=== PATIENT | female | born 1935 | race Caucasian/White ===

== ENCOUNTER 2017-07-09 06:16 | Day surgery (SDC) | payer MEDICARE, OTHER ==
[2017-07-03 15:41] VITALS: BMI 24.6
[~2017-07-09 06:16] MED LIST: LACTATED RINGERS 1,000 ML IV SCH; MOXIFLOXACIN HCL 0.5% DROPS 3 ML BTL OP ONE; TETRACAINE 0.5% OPHTH (PF) DROPS 4 ML BTL OP ONE; TIMOLOL 0.5% OPHTH SOLN (PF) 0.2 ML DROPERETTE OP ONE
[2017-07-09] MEDS: CYCLOPENTOLATE 1% OPHTH SOLN 2 ML BTL OP ONE ×3 (06:33→06:39)
[2017-07-09] MEDS: PHENYLEPHRINE 2.5% OPHTH DRP 2ML OP NR ×3 (06:42→06:48)
[2017-07-09 07:03] VITALS: TEMP 98.3
[2017-07-09] MEDS ORDERED: LIDOCAINE 1% 20 ML VIAL (10MG/ML) FOR IV START INTRADERMA ONE (07:03)
[2017-07-09 07:09] LABS: Glucose,Whole Blood 128 mg/dL (75-99)
[2017-07-09] MEDS ORDERED: fentaNYL (PF) 50 MCG/ML 2 ML AMP ONE (07:17)
[2017-07-09] MEDS ORDERED: HYALURONATE SODIUM INTRAOCULAR 1 EACH SYRINGE (12MG/ML) INTRAOCULA ONE (07:34)
[2017-07-09] MEDS ORDERED: LIDOCAINE 1% (PF) 10MG/ML VIAL MISCELLANE ONE (07:34)
[2017-07-09] MEDS ORDERED: BALANCED SALT IRRIG SOLN COMB2 15 ML IRRIG.SOLN IRRIGATION ONE (07:34)
[2017-07-09] MEDS ORDERED: EPINEPHrine (PF) 0.3 ML in BALANCED SALT IRRIG SOLN COMB2 500 ML IRRIGATION ONE (07:35)
--- NOTE | 2017-07-09 07:49 | P.OP ---
Date of Procedure: 07/09/17 Preoperative Diagnosis: nuclear sclerosis Postoperative Diagnosis: same Procedure(s) Performed: PIOL, OD Implants: PCB00 18.50 Anesthesia: MAC Surgeon: Raúl Napoles Estimated Blood Loss (ml): 0 Pathology: none sent Condition: stable Disposition: same day Indications for Procedure: blurry vision Operative Findings: No complications
[2017-07-09 07:52] VITALS: RESP 18
[2017-07-09 08:11] VITALS: BP 136/67; PULSE 77
--- NOTE | 2017-07-10 11:12 | OP ---
OPERATIVE REPORT DATE OF SERVICE: 07/09/2017 PROCEDURE: Phacoemulsification of cataract and intraocular lens implant of the right eye. PREOPERATIVE DIAGNOSIS: Nuclear sclerosis. OPERATION:: Clear cornea phacoemulsification of cataract right eye. ESTIMATED BLOOD LOSS:: Zero. SPECIMEN TAKEN:: None. NARRATIVE:: After obtaining the appropriate consent, the patient was brought to the Operating Room where the patient was placed under cardiac monitoring and prepped and draped in the usual sterile manner. At the right eye 11 o'clock position a 15 degree super sharp blade was used to create a paracentesis followed by instillation of 1% Xylocaine MPF 50:50 mix with BSS into the anterior chamber. This was followed by Amvisc to stabilize the anterior chamber. At the right eye 9 o'clock position a self-sealing corneal flap incision was created using 2.8 mm parvez keratome. A cystatome was used to initiate a continuous tear capsulorrhexis which was completed with the Utrata forceps. A Binkhorst cannula was used to hydrodissect the lens nucleus followed by hydrodelineation. Phacoemulsification of the lens was performed utilizing phacochop in 26.65 seconds at 11% power. The remaining cortical material was removed using the irrigation aspiration mode followed by additional 1% Xylocaine MPF into the anterior chamber followed by viscoelastic to stabilize the capsular bag. An [id number] 18.5 diopters posterior chamber lens was placed into the capsular bag without difficulty. The remaining viscoelastic material was removed from the anterior chamber with the irrigation/aspiration. Balanced salt solution was used to normalize the intraocular pressure. The incision was checked for watertight integrity. The patient then received two drops of 0.5% timolol followed by two drops Vigamox, was lightly patched and shielded in the usual manner. There were no complications from the procedure. The patient tolerated the procedure well and was returned to recovery in good condition. MMODL / IJN: [id number] /
== END 2017-07-09 08:26 | disposition home or self-care (01) ==
LOC: OR 06:16
PROVIDERS: ATTEND Ophthalmology
DX: H25.11 Age-related nuclear cataract, right eye (principal); H25.011 Cortical age-related cataract, right eye; H52.4 Presbyopia; H52.13 Myopia, bilateral; H52.223 Regular astigmatism, bilateral; E11.9 Type 2 diabetes mellitus without complications; I10 Essential (primary) hypertension; E78.5 Hyperlipidemia, unspecified; Z79.84 Long term (current) use of oral hypoglycemic drugs; Z79.899 Other long term (current) drug therapy
CPT/HCPCS: 66984; C1780; J0171; J3010; J2001

== ENCOUNTER 2017-12-10 05:40 | Day surgery (SDC) | payer MEDICARE ==
[2017-12-02 15:30] VITALS: BMI 25.7
[~2017-12-10 05:40] MED LIST changes: +TIMOLOL 0.5% OPHTH DROPS 5 ML BTL OP ONE; -TIMOLOL 0.5% OPHTH SOLN (PF) 0.2 ML DROPERETTE OP ONE
[2017-12-10] MEDS: CYCLOPENTOLATE 1% OPHTH SOLN 2 ML BTL OP ONE ×5 (06:15→07:34)
[2017-12-10] MEDS: PHENYLEPHRINE 2.5% OPHTH DRP 2ML OP NR ×4 (06:18→06:36)
[2017-12-10 06:30] VITALS: TEMP 97
[2017-12-10 06:42] LABS: Glucose,Whole Blood 105 mg/dL (75-99)
[2017-12-10] MEDS ORDERED: fentaNYL (PF) 50 MCG/ML 2 ML AMP ONE (07:33)
[2017-12-10] MEDS ORDERED: MIDAZOLAM 2 MG/2 ML VIAL ONE (07:33)
[2017-12-10] MEDS ORDERED: EPINEPHrine (PF) 0.3 ML in BALANCED SALT IRRIG SOLN COMB2 500 ML IRRIGATION ONE (07:46)
[2017-12-10] MEDS ORDERED: BALANCED SALT IRRIG SOLN COMB2 15 ML IRRIG.SOLN IRRIGATION ONE (07:49)
[2017-12-10] MEDS ORDERED: TETRACAINE 0.5% OPHTH (PF) DROPS 4 ML BTL LEFT EYE ONE (07:49)
[2017-12-10] MEDS ORDERED: LIDOCAINE 1% (PF) 10MG/ML VIAL MISCELLANE ONE (07:49)
[2017-12-10] MEDS ORDERED: HYALURONATE SODIUM INTRAOCULAR 1 EACH SYRINGE (12MG/ML) INTRAOCULA ONE (07:49)
--- NOTE | 2017-12-10 08:06 | P.OP ---
Date of Procedure: 12/10/17 Preoperative Diagnosis: NS Postoperative Diagnosis: same Procedure(s) Performed: PIOL, OS Implants: PCB00 17.00 Anesthesia: MAC Surgeon: Raúl Napoles Estimated Blood Loss (ml): 0 Pathology: none sent Condition: stable Disposition: same day Indications for Procedure: blurry vision Operative Findings: no complications
[2017-12-10 08:18] VITALS: RESP 16
[2017-12-10 08:25] VITALS: BP 133/67; PULSE 81
--- NOTE | 2017-12-10 21:22 | OP ---
OPERATIVE REPORT DATE OF SERVICE: 12/10/2017. PREOPERATIVE DIAGNOSIS:: Nuclear sclerosis, left eye. POSTOPERATIVE DIAGNOSIS:: Nuclear sclerosis, left eye. OPERATION:: Phacoemulsification of cataract and intraocular lens implant of the left eye. ESTIMATED BLOOD LOSS:: Zero. SPECIMEN TAKEN:: None. NARRATIVE:: After obtaining the appropriate consent, the patient was brought to the Operating Room where the patient was placed under cardiac monitoring and prepped and draped in the usual sterile manner. At the 5 o'clock position a 15 degree super sharp blade was used to create a paracentesis followed by instillation of 1% Xylocaine MPF 50:50 mix with BSS into the anterior chamber. This was followed by to stabilize the anterior chamber. At the 3 o'clock position a self-sealing corneal flap incision was created using 2.8 mm parvez keratome. A cystatome was used to initiate a continuous tear capsulorrhexis which was completed with the Utrata forceps. A Binkhorst cannula was used to hydrodissect the lens nucleus followed by hydrodelineation. Phacoemulsification of the lens was performed utilizing phacochop in 37.93 seconds at 14% power. The remaining cortical material was removed using the irrigation aspiration mode followed by additional 1% Xylocaine MPF into the anterior chamber followed by Amvisc viscoelastic to stabilize the capsular bag. An [id number] 17.0 diopter posterior chamber lens was placed into the capsular bag without difficulty. The remaining viscoelastic material was removed from the anterior chamber with the irrigation/aspiration. Balanced salt solution was used to normalize the intraocular pressure. The incision was checked for watertight integrity. The patient then received two drops of 0.5% timolol followed by two drops Vigamox, was lightly patched and shielded in the usual manner. There were no complications from the procedure. The patient tolerated the procedure well and was returned to recovery in good condition. MMODL / IJN: [id number] /
== END 2017-12-10 08:39 | disposition home or self-care (01) ==
LOC: OR 05:40
PROVIDERS: ATTEND Ophthalmology
DX: H25.12 Age-related nuclear cataract, left eye (principal); H00.026 Hordeolum internum left eye, unspecified eyelid; H00.023 Hordeolum internum right eye, unspecified eyelid; H52.4 Presbyopia; H52.13 Myopia, bilateral; H52.223 Regular astigmatism, bilateral; Z96.1 Presence of intraocular lens; E11.9 Type 2 diabetes mellitus without complications; J45.909 Unspecified asthma, uncomplicated; I10 Essential (primary) hypertension; E78.5 Hyperlipidemia, unspecified; Z79.84 Long term (current) use of oral hypoglycemic drugs; Z79.82 Long term (current) use of aspirin; Z79.899 Other long term (current) drug therapy; Z91.040 Latex allergy status

== ENCOUNTER → 2018-05-05 | Outpatient (CLI) | payer MEDICARE ==
--- NOTE | 2018-05-05 14:39 | NM ---
EXAMINATION TYPE: NM bone scan whole body DATE OF EXAM: 05/05/2018 COMPARISON: NONE HISTORY: Radiculopathy Delayed whole-body scanning was performed following the injection of 27.1 mCi Tc 99m MDP. Images acq uired 3.25 hours post injection. FINDINGS: Uptake is present within the cervical spine, possibly mastoid air cells on the left, sternoclavicular joints, shoulders, wrists, knees. There is uptake in the thoracic spine, bandlike area of uptake is present at approximately T8 and T9. Uptake at the costovertebral angles also present on the right at T7 and T6. There is a scoliotic curvature in the upper thoracic spine. There is uptake noted at the u pper thoracic spine bilaterally. IMPRESSION: Suspect osteoporotic compression fractures. Probable facet arthropathy, degenerative disc disease, os teoarthritis. Correlate for possible mastoiditis.
== END | disposition home or self-care (01) ==
LOC: RADNMMAIN 10:28
PROVIDERS: ATTEND Physical Medicine & Rehabilitation
DX: M54.12 Radiculopathy, cervical region (principal); M25.511 Pain in right shoulder; M25.512 Pain in left shoulder
CPT/HCPCS: 78306; A9503

== ENCOUNTER 2020-09-03 10:35 | Inpatient (IN) | payer MEDICARE ==
[2020-09-03] MEDS ORDERED: ACETAMINOPHEN TAB 500 MG TAB PO STA (11:20)
[2020-09-03] MEDS ORDERED: SODIUM CHLORIDE 0.9% 1,000 ML IV ONE (11:22)
[2020-09-03] MEDS ORDERED: IBUPROFEN 600 MG TAB PO STA (11:22)
--- NOTE | 2020-09-03 11:25 | ED ---
General Adult HPI - General Chief complaint: Nausea/Vomiting/Diarrhea Stated complaint: diarrhea, dehydration, fatigue Time Seen by Provider: 09/03/20 10:55 Source: patient, RN notes reviewed, old records reviewed Mode of arrival: ambulatory Limitations: no limitations - History of Present Illness Initial comments: This is an 85-year-old female presents emergency Department complaining that she has had diarrhea for 4 days. Patient states he been unable to eat because she just doesn't feel right. Patient denies any vomiting but does have a little n ausea. Patient states she's also had chills over the last 4 days. Patient states she may have had some exposure to go because people in her facility have had cold. Patient states she has a dry cough every morning but no difficulty breathing shortness of breath. Patient denies any chest pain or palpitations. Patient states she hasn't taken her temperature but again has had the chills. Patient denies any abdominal pain. Patient denies any dysuria hematuria urinary frequency. - Related Data Home Medications Medication Instructions Recorded Confirmed Losartan Potassium [Cozaar] 50 mg PO DAILY 07/03/17 12/10/17 Simvastatin [Zocor] 20 mg PO HS 07/03/17 12/10/17 glipiZIDE/METFORMIN HCL 1 each PO BID 07/03/17 12/10/17 [glipiZIDE/METFORMIN HCL 2.5-500 mg] Aspirin [Adult Low Dose Aspirin EC] 81 mg PO DAILY 12/02/17 12/10/17 Allergies Allergy/AdvReac Type Severity Reaction Status Date / Time latex Allergy Unknown Itching Verified 12/02/17 15:19 Review of Systems ROS Statement: Those systems with pertinent positive or pertinent negative responses have been documented in the HPI. ROS Other: All systems not noted in ROS Statement are negative. Past Medical History Past Medical History: Diabetes Mellitus, Eye Disorder, Hyperlipidemia, Hypertension, Osteoarthritis (OA) Additional Past Medical History / Comment(s): back pain., hx of vertigo., cataract left eye. History of Any Multi-Drug Resistant Organisms: None Reported Past Surgical History: Hysterectomy Additional Past Surgical History / Comment(s): right cataract (jul 2017) Past Anesthesia/Blood Transfusion Reactions: No Reported Reaction Past Psychological History: No Psychological Hx Reported Smoking Status: Never smoker Past Alcohol Use History: None Reported Past Drug Use History: None Reported - Past Family History Mother Family Medical History: No Reported History Son(s) History Unknown: Yes Family Medical History: Cancer Additional Family Medical History / Comment(s): skin cancer General Exam - General Exam Comments Initial Comments: GENERAL: Patient is well-developed and well-nourished. Patient is nontoxic and well- hydrated and is in mild distress. I took the patient's temperature she was 102.4 ENT: Neck is soft and supple. No significant lymphadenopathy is noted. Oropharynx is clear. Moist mucous membranes. Neck has full range of motion without eliciting any pain. EYES: The sclera were anicteric and conjunctiva were pink and moist. Extraocular movements were intact and pupils were equal round and reactive to light. Eyelids were unremarkable. PULMONARY: Unlabored respirations. Good breath sounds bilaterally. No audible rales rhonchi or wheezing was noted. CARDIOVASCULAR: There is a regular rate and rhythm without any murmurs gallops or rubs. ABDOMEN: Soft and nontender with normal bowel sounds. SKIN: Skin is clear with no lesions or rashes and otherwise unremarkable. NEUROLOGIC: Patient is alert and oriented x3. Cranial nerves II through XII are grossly intact. Motor and sensory are also intact. Normal speech, volume and content. Symmetrical smile. MUSCULOSKELETAL: Normal extremities with adequate strength and full range of motion. LYMPHATICS: No significant lymphadenopathy is noted PSYCHIATRIC: Normal psychiatric evaluation. Limitations: no limitations Course Vital Signs 09/03/20 09/03/20 09/03/20 10:53 11:08 11:19 Temperature 100.4 F H 102.4 F H 102.4 F H Pulse Rate 90 87 Respiratory 18 18 Rate Blood Pressure 121/61 134/71 O2 Sat by Pulse 95 94 L Oximetry 09/03/20 09/03/20 09/03/20 11:23 11:38 11:53 Temperature 102.3 F H 102.1 F H 102 F H Pulse Rate 90 93 89 Respiratory 18 18 18 Rate Blood Pressure 136/75 134/55 119/67 O2 Sat by Pulse 95 95 94 L Oximetry 09/03/20 12:42 Temperature 101.2 F H Pulse Rate 88 Respiratory 18 Rate Blood Pressure 118/60 O2 Sat by Pulse 94 L Oximetry Medical Decision Making - Medical Decision Making EKG shows normal sinus rhythm at 85 bpm IL interval 164 QRS on a 36 QT interval 390 QTC is 473. Patient's EKG shows a right bundle alfredito block. Chronic virus test was negative. D-dimer was elevated so I did a CT rule out PE P was negative patient does have bilateral trace much worse on the right than the left. I treated the patient with antibiotics and I spoke with Dr. Patel she agreed to admit the patient admitted the patient wrote admitting orders - Lab Data Result diagrams: 09/03/20 11:56 09/03/20 11:56 Lab Results 09/03/20 09/03/20 09/03/20 Range/Units 11:56 11:56 11:56 WBC 3.4 L (3.8-10.6) k/uL RBC 4.10 (3.80-5.40) m/uL Hgb 12.9 (11.4-16.0) gm/dL Hct 37.1 (34.0-46.0) % MCV 90.6 (80.0-100.0) fL MCH 31.4 (25.0-35.0) pg MCHC 34.7 (31.0-37.0) g/dL RDW 12.6 (11.5-15.5) % Plt Count 173 (150-450) k/uL MPV 8.3 Neutrophils % 76 % Lymphocytes % 16 % Monocytes % 6 % Eosinophils % 0 % Basophils % 1 % Neutrophils # 2.6 (1.3-7.7) k/uL Lymphocytes # 0.5 L (1.0-4.8) k/uL Monocytes # 0.2 (0-1.0) k/uL Eosinophils # 0.0 (0-0.7) k/uL Basophils # 0.0 (0-0.2) k/uL PT 9.8 (9.0-12.0) sec INR 0.9 (<1.2) APTT 23.9 (22.0-30.0) sec D-Dimer 2.68 H (<0.60) mg/L FEU Sodium 133 L (137-145) mmol/L Potassium 4.2 (3.5-5.1) mmol/L Chloride 103 (98-107) mmol/L Carbon Dioxide 22 (22-30) mmol/L Anion Gap 8 mmol/L BUN 27 H (7-17) mg/dL Creatinine 1.14 H (0.52-1.04) mg/dL Est GFR (CKD-EPI)AfAm 51 (>60 ml/min/1.73 sqM) Est GFR (CKD-EPI)NonAf 44 (>60 ml/min/1.73 sqM) Glucose 84 (74-99) mg/dL Plasma Lactic Acid Janak (0.7-2.0) mmol/L Calcium 8.7 (8.4-10.2) mg/dL Magnesium 1.6 (1.6-2.3) mg/dL Total Bilirubin 0.5 (0.2-1.3) mg/dL AST 49 H (14-36) U/L ALT 29 (4-34) U/L Alkaline Phosphatase 50 (38-126) U/L Lactate Dehydrogenase 743 H (313-618) U/L C-Reactive Protein 32.9 H (<10.0) mg/L Total Protein 6.7 (6.3-8.2) g/dL Albumin 3.6 (3.5-5.0) g/dL Coronavirus (PCR) (Not Detectd) Influenza Type A (PCR) (Not Detectd) Influenza Type B (PCR) (Not Detectd) RSV (PCR) (Not Detectd) SARS-CoV-2 (PCR) (Not Detectd) 09/03/20 09/03/20 09/03/20 Range/Units 11:56 12:42 14:29 WBC (3.8-10.6) k/uL RBC (3.80-5.40) m/uL Hgb (11.4-16.0) gm/dL Hct (34.0-46.0) % MCV (80.0-100.0) fL MCH (25.0-35.0) pg MCHC (31.0-37.0) g/dL RDW (11.5-15.5) % Plt Count (150-450) k/uL MPV Neutrophils % % Lymphocytes % % Monocytes % % Eosinophils % % Basophils % % Neutrophils # (1.3-7.7) k/uL Lymphocytes # (1.0-4.8) k/uL Monocytes # (0-1.0) k/uL Eosinophils # (0-0.7) k/uL Basophils # (0-0.2) k/uL PT (9.0-12.0) sec INR (<1.2) APTT (22.0-30.0) sec D-Dimer (<0.60) mg/L FEU Sodium (137-145) mmol/L Potassium (3.5-5.1) mmol/L Chloride (98-107) mmol/L Carbon Dioxide (22-30) mmol/L Anion Gap mmol/L BUN (7-17) mg/dL Creatinine (0.52-1.04) mg/dL Est GFR (CKD-EPI)AfAm (>60 ml/min/1.73 sqM) Est GFR (CKD-EPI)NonAf (>60 ml/min/1.73 sqM) Glucose (74-99) mg/dL Plasma Lactic Acid Janak 1.5 (0.7-2.0) mmol/L Calcium (8.4-10.2) mg/dL Magnesium (1.6-2.3) mg/dL Total Bilirubin (0.2-1.3) mg/dL AST (14-36) U/L ALT (4-34) U/L Alkaline Phosphatase (38-126) U/L Lactate Dehydrogenase (313-618) U/L C-Reactive Protein (<10.0) mg/L Total Protein (6.3-8.2) g/dL Albumin (3.5-5.0) g/dL Coronavirus (PCR) Not Detected (Not Detectd) Influenza Type A (PCR) Not Detected (Not Detectd) Influenza Type B (PCR) Not Detected (Not Detectd) RSV (PCR) Not Detected (Not Detectd) SARS-CoV-2 (PCR) Not Detected (Not Detectd) Disposition Clinical Impression: Pneumonia, Acute diarrhea Disposition: ADMITTED IP TO THIS [facility] Referrals: Alhaji Mayorga MD [Primary Care Provider] - 1-2 days Time of Disposition: 15:03
[2020-09-03 12:02] LABS: Basophils % (A) 1 %; Eosinophils % (A) 0 %; HCT 37.1 % (34.0-46.0); HGB 12.9 gm/dL (11.4-16.0); Lymphocytes # (A) 0.5 k/uL (1.0-4.8); Lymphocytes % (A) 16 %; MCH 31.4 pg (25.0-35.0); MCHC 34.7 g/dL (31.0-37.0); MCV 90.6 fL (80.0-100.0); Mean Platelet Volume 8.3; Monocytes # (A) 0.2 k/uL (0-1.0); Monocytes % (A) 6 %; Neutrophils # (A) 2.6 k/uL (1.3-7.7); Neutrophils % (A) 76 %; Platelet Count 173 k/uL (150-450); RDW 12.6 % (11.5-15.5); WBC 3.4 k/uL (3.8-10.6)
[2020-09-03 12:12] LABS: Albumin 3.6 g/dL (3.5-5.0); C Reactive Protein 32.9 mg/L (<10.0); Calcium 8.7 mg/dL (8.4-10.2); Magnesium 1.6 mg/dL (1.6-2.3); Potassium 4.2 mmol/L (3.5-5.1); Total Bilirubin 0.5 mg/dL (0.2-1.3); Total Protein 6.7 g/dL (6.3-8.2)
[2020-09-03 12:24] LABS: INR 0.9 (<1.2)
[2020-09-03 12:25] LABS: Partial Thromboplastin Time 23.9 sec (22.0-30.0); Prothrombin Time 9.8 sec (9.0-12.0)
[2020-09-03 12:26] LABS: D-Dimer 2.68 mg/L FEU (<0.60)
--- NOTE | 2020-09-03 12:37 | XR ---
EXAMINATION TYPE: XR chest 1V portable DATE OF EXAM: 09/03/2020 COMPARISON: NONE HISTORY: Shortness of breath, suspected pulmonary pneumonia TECHNIQUE: Single AP portable frontal upright view of the chest is obtained. FINDINGS: There is chronic parenchymal change bilaterally without suspicious focal air space opacity , pleural effusion, or pneumothorax seen. The cardiac silhouette size is within normal limits with a therosclerotic change aortic knob. The osseous structures are somewhat demineralized. IMPRESSION: Chronic changes without acute pulmonary process.
--- NOTE | 2020-09-03 14:36 | CT ---
EXAMINATION TYPE: CT chest angio for PE DATE OF EXAM: 09/03/2020 COMPARISON: None HISTORY: Elevated d-dimer and weakness. CT DLP: 288.5 mGycm Automated exposure control for dose reduction was used. CONTRAST: Performed with IV Contrast, patient injected with 62ml mL of Isovue 370. There are 3-D post processed images. There is coarse infiltrate and atelectasis at both lung bases. There is no pleural effusion. Heart si ze is fairly normal. There is no pericardial effusion. There are multiple enlarged bronchial lymph no domenica on the right side more than the left. These measure up to 2 cm. There are some enlarged paratrach eal and subcarinal lymph nodes up to 2 cm. Thoracic aorta shows no aneurysm or dissection. I see no filling defect in the pulmonary arteries. Thoracic aorta is intact. There is no aneurysm or dissection. There is spurring in the thoracic spine. There is no compression fracture. Sternum is intact. IMPRESSION: No evidence of pulmonary embolism. Bilateral lower lobe infiltrate and atelectasis. Mediastinal and b ronchial adenopathy.
[2020-09-03] MEDS ORDERED: PNEUMONIA PROTOCOL UTILIZED 1 EACH MISC PO PRN (15:03)
[2020-09-03] MEDS ORDERED: AZITHROMYCIN 500 MG in SODIUM CHLORIDE 0.9% 250 ML IVPB STA (15:03)
[2020-09-03] MEDS ORDERED: cefTRIAXone IN SWFI 1,000 MG/10 ML SYRINGE IVP STA (15:06)
[2020-09-03] MEDS: SODIUM CHLORIDE 0.9% 1,000 ML IV SCH (15:27)
[2020-09-03 17:16] LABS: Glucose,Whole Blood 58 mg/dL (75-99)
[2020-09-03] MEDS: INSULIN ASPART (NovoLOG) 100 UNIT/ML VIAL SQ SCH ×2 (17:26→20:51)
[2020-09-03 17:35] LABS: Glucose,Whole Blood 64 mg/dL (75-99)
[2020-09-03 17:50] LABS: Glucose,Whole Blood 77 mg/dL (75-99)
[2020-09-03 20:34] LABS: Glucose,Whole Blood 155 mg/dL (75-99)
[2020-09-03] MEDS: ATORVASTATIN 10 MG TAB PO SCH (20:50)
[2020-09-03 23:26] LABS: Ferritin 476.9 ng/mL (10.0-291.0)
[2020-09-04] MEDS: ACETAMINOPHEN TAB 325 MG TAB PO PRN ×2 (05:09→17:14)
[2020-09-04 05:25] LABS: HCT 33.7 % (34.0-46.0); HGB 11.5 gm/dL (11.4-16.0); MCH 31.5 pg (25.0-35.0); MCHC 34.2 g/dL (31.0-37.0); MCV 92.2 fL (80.0-100.0); Mean Platelet Volume 8.1; Platelet Count 178 k/uL (150-450); RBC 3.65 m/uL (3.80-5.40); RDW 12.7 % (11.5-15.5); WBC 3.4 k/uL (3.8-10.6)
[2020-09-04] MEDS: SODIUM CHLORIDE 0.9% 1,000 ML IV SCH ×2 (06:13→17:19)
[2020-09-04 07:40] LABS: Glucose,Whole Blood 139 mg/dL (75-99)
[2020-09-04] MEDS: ENOXAPARIN 40 MG/0.4 ML SYRINGE SQ SCH (09:03)
[2020-09-04] MEDS: ZINC SULFATE 220 MG CAP PO SCH (09:03)
[2020-09-04] MEDS: LOSARTAN 50 MG TAB PO SCH (09:03)
[2020-09-04] MEDS: CHOLECALCIFEROL 1,000 UNIT TAB PO SCH (09:04)
[2020-09-04] MEDS: FAMOTIDINE 20 MG TAB PO SCH (09:04)
[2020-09-04] MEDS: ASCORBIC ACID 500 MG TAB PO SCH (09:04)
[2020-09-04] MEDS: INSULIN ASPART (NovoLOG) 100 UNIT/ML VIAL SQ SCH ×4 (09:07→21:20)
--- NOTE | 2020-09-04 09:17 | XR ---
EXAMINATION TYPE: XR chest 1V portable DATE OF EXAM: 09/04/2020 COMPARISON: 09/03/2020 HISTORY: Cough TECHNIQUE: Single frontal view of the chest is obtained. FINDINGS: Hyperinflation suggests COPD and there is right basilar infiltrate. Heart size stable. No overt failure or pneumothorax. Arthropathy of the shoulders with diffuse osteopenia. Subsegmental mike nges also along the left lung base with a slightly nodular contour to the left hemidiaphragm. Appears to be related to a diaphragmatic hernia on the recent CT scan. IMPRESSION: 1. COPD with bilateral basilar infiltrate stable in appearance.
[2020-09-04 10:06] LABS: African American GFR (CKD) 52.6 (60.0-200.0); Albumin 3.6 g/dL (3.80-4.90); Albumin/Globulin Ratio 1.89 (1.60-3.17); Anion Gap 9.3 mmol/L (4.00-12.00); BUN/Creat Ratio 17.27 Ratio (12.00-20.00); C Reactive Protein 3.2 mg/dL (0.0-0.8); Calcium 7.8 mg/dL (8.7-10.3); Carbon Dioxide 21.7 mmol/L (21.6-31.8); Globulin 1.9 g/dL (1.6-3.3); Non-African American GFR(CKD) 45.4 (60.0-200.0); Potassium 4.1 mmol/L (3.5-5.5); Total Bilirubin 0.2 mg/dL (0.3-1.2); Total Protein 5.5 g/dL (6.2-8.2)
[2020-09-04 11:07] LABS: Glucose,Whole Blood 119 mg/dL (75-99)
[2020-09-04 11:09] LABS: Erythrocyte Sedimentation Rate 34 mm/Hr (0-30)
[2020-09-04] MEDS ORDERED: LOPERAMIDE 2 MG CAP PO PRN (12:55)
--- NOTE | 2020-09-04 13:13 | P.CNPUL ---
History of Present Illness Consult date: 09/04/20 Reason for consult: other Chief complaint: Positive chills, diarrhea History of present illness: 85-year-old white female patient past medical history of diabetes mellitus, hypertension, hyperlipidemia, osteoarthritis, chronic back pain, nonsmoker, who presented to the emergency department on 09/03/2020 for evaluation of four-day history of diarrhea, nausea but no vomiting. She reports poor appetite and just has not been feeling right. She has been complaining of chills but no fevers. She thinks she may have had some exposure to COVID at her facility. She reports a dry cough every morning, but no difficulty breathing. No chest pain or palpitations. Denies any dysuria or hematuria or urinary frequency. Patient was tested for COVID and was found to be negative 2. Chest x-ray showed chronic changes without acute pulmonary process. Lab data revealed white blood cell count of 3.4, hemoglobin of 12.9, lymphopenia with a lymphocyte count of 0.5, d-dimer was 2.68, sodium was 133, the rest of the electrolytes were within normal limits, BUN of 27 creatinine is 1.14, pro-calcitonin level was low at 0.15, patient was tested for C. diff and was found to be negative, influenza screen was negative, RSV was negative. Ferritin level was 476, LDH is 743, and CRP is 32.9. In view of elevated d-dimer CT chest was completed showing no evidence of pulmonary embolism it did show bilateral lower lobe infiltrate and atelectasis and mediastinal and bronchial adenopathy. She was started on antibiotic coverage in the form of azithromycin and Rocephin. She is on once daily dose of Lovenox at 40 mg, and was started on supplements including zinc, and vitamin C and vitamin D. She is currently resting comfortably in bed, she is on room air, she did have a fever earlier this morning with a temp of 101.5F. Breathing seems to be nonlabored. Review of Systems All systems: negative Constitutional: Reports malaise, Denies chills, Denies fever Eyes: denies blurred vision, denies pain Ears, nose, mouth and throat: Denies headache, Denies sore throat Cardiovascular: Denies chest pain, Denies shortness of breath Respiratory: Denies cough Gastrointestinal: Reports diarrhea, Reports nausea, Denies abdominal pain, Robert es vomiting Genitourinary: Denies dysuria, Denies hematuria Musculoskeletal: Denies myalgias Integumentary: Denies pruritus, Denies rash Neurological: Denies numbness, Denies weakness Psychiatric: Denies anxiety, Denies depression Endocrine: Denies fatigue, Denies weight change Past Medical History Past Medical History: Diabetes Mellitus, Eye Disorder, Hyperlipidemia, Hypertension, Osteoarthritis (OA) Additional Past Medical History / Comment(s): back pain., hx of vertigo., catara ct left eye. History of Any Multi-Drug Resistant Organisms: None Reported Past Surgical History: Hysterectomy Additional Past Surgical History / Comment(s): right cataract (jul 2017) Past Anesthesia/Blood Transfusion Reactions: No Reported Reaction Past Psychological History: No Psychological Hx Reported Smoking Status: Never smoker Past Alcohol Use History: None Reported Past Drug Use History: None Reported - Past Family History Mother Family Medical History: No Reported History Son(s) History Unknown: Yes Family Medical History: Cancer Additional Family Medical History / Comment(s): skin cancer Medications and Allergies Home Medications Medication Instructions Recorded Confirmed Type Losartan Potassium [Cozaar] 50 mg PO DAILY 07/03/17 09/03/20 History Simvastatin [Zocor] 20 mg PO HS 07/03/17 09/03/20 History Dulaglutide [Trulicity] 0.75 mg SQ WE 09/03/20 09/03/20 History Repaglinide [Prandin] 4 mg PO BID-W/MEALS 09/03/20 09/03/20 History metFORMIN HCL 1,000 mg PO DAILY 09/03/20 09/03/20 History metFORMIN HCL 500 mg PO HS 09/03/20 09/03/20 History Allergies Allergy/AdvReac Type Severity Reaction Status Date / Time latex Allergy Unknown Itching Verified 09/03/20 15:48 Physical Exam Vitals: Vital Signs Temp Pulse Pulse Resp BP BP Pulse Ox 09/04/20 08:00 88 20 09/04/20 06:12 99.0 F 09/04/20 04:46 101.5 F H 88 20 129/69 91 L 09/03/20 20:00 98.1 F 67 20 99/53 95 09/03/20 16:26 97.9 F 73 18 132/69 95 09/03/20 15:25 98.1 F 79 8 L 128/62 94 L Intake and Output 09/03/20 09/04/20 09/04/20 22:59 06:59 14:59 Intake Total 350 600 Output Total 1 2 Balance 350 599 -2 Intake: Intake, IV Titration 250 600 Amount Azithromycin 500 mg In 250 Sodium Chloride 0.9% 250 ml @ 250 mls/hr IVPB ONCE STA Rx#:[id number] Sodium Chloride 0.9% 1, 600 000 ml @ 75 mls/hr IV . [id number] [facility] Rx#:[id number] Oral 100 Output: Stool 1 2 Other: Voiding Method Toilet Toilet # Voids 1 2 2 # Bowel Movements 2 1 Weight 63.957 kg GENERAL EXAM: Alert, very pleasant, 85-year-old white female, on room air with a pulse ox of 91%, comfortable in no apparent distress. HEAD: Normocephalic/atraumatic. EYES: Normal reaction of pupils, equal size. Conjunctiva pink, sclera white. NOSE: Clear with pink turbinates. THROAT: No erythema or exudates. NECK: No masses, no JVD, no thyroid enlargement, no adenopathy. CHEST: No chest wall deformity. Symmetrical expansion. LUNGS: Equal air entry with no crackles, wheeze, rhonchi or dullness. CVS: Regular rate and rhythm, normal S1 and S2, no gallops, no murmurs, no rubs ABDOMEN: Soft, nontender. No hepatosplenomegaly, normal bowel sounds, no guarding or rigidity. EXTREMITIES: No clubbing, no edema, no cyanosis, 2+ pulses and upper and lower extremities. MUSCULOSKELETAL: Muscle strength and tone normal. SPINE: No scoliosis or deformity SKIN: No rashes CENTRAL NERVOUS SYSTEM: Alert and oriented -3. No focal deficits, tone is normal in all 4 extremities. PSYCHIATRIC: Alert and oriented -3. Appropriate affect. Intact judgment and insight. Results - Laboratory Findings CBC and BMP: 09/04/20 04:54 09/04/20 04:54 PT/INR, D-dimer PT 9.8 sec (9.0-12.0) 09/03/20 11:56 INR 0.9 (<1.2) 09/03/20 11:56 D-Dimer 2.68 mg/L FEU (<0.60) H 09/03/20 11:56 Abnormal lab findings: Abnormal Labs 09/03/20 09/03/20 09/03/20 11:56 11:56 11:56 WBC 3.4 L RBC Hct Lymphocytes # 0.5 L ESR D-Dimer 2.68 H Sodium 133 L BUN 27 H Creatinine 1.14 H Est GFR (CKD-EPI)AfAm Est GFR (CKD-EPI)NonAf Glucose POC Glucose (mg/dL) Calcium Ferritin 476.9 H Total Bilirubin AST 49 H Lactate Dehydrogenase 743 H C-Reactive Protein 32.9 H Total Protein Albumin Procalcitonin 09/03/20 09/03/20 09/03/20 11:56 17:14 17:34 WBC RBC Hct Lymphocytes # ESR D-Dimer Sodium BUN Creatinine Est GFR (CKD-EPI)AfAm Est GFR (CKD-EPI)NonAf Glucose POC Glucose (mg/dL) 58 L 64 L Calcium Ferritin Total Bilirubin AST Lactate Dehydrogenase C-Reactive Protein Total Protein Albumin Procalcitonin 0.15 H 09/03/20 09/04/20 09/04/20 20:33 04:54 04:54 WBC 3.4 L RBC 3.65 L Hct 33.7 L Lymphocytes # ESR 34 H D-Dimer Sodium BUN Creatinine Est GFR (CKD-EPI)AfAm 52.6 L Est GFR (CKD-EPI)NonAf 45.4 L Glucose 160 H POC Glucose (mg/dL) 155 H Calcium 7.8 L Ferritin Total Bilirubin 0.2 L AST 37 H Lactate Dehydrogenase C-Reactive Protein 3.2 H Total Protein 5.5 L Albumin 3.60 L Procalcitonin 09/04/20 09/04/20 07:38 11:03 WBC RBC Hct Lymphocytes # ESR D-Dimer Sodium BUN Creatinine Est GFR (CKD-EPI)AfAm Est GFR (CKD-EPI)NonAf Glucose POC Glucose (mg/dL) 139 H 119 H Calcium Ferritin Total Bilirubin AST Lactate Dehydrogenase C-Reactive Protein Total Protein Albumin Procalcitonin - Diagnostic Findings Chest x-ray: report reviewed, image reviewed CT scan - chest: report reviewed, image reviewed Assessment and Plan Plan: Assessment: #1. Community acquired pneumonia, COVID 19 was ruled out via PCR test 2, and influenza screen was negative, RSV was negative. CTA chest showed prominent infiltrate and atelectasis of both lung bases right greater than left, with multiple enlarged bronchial lymph nodes in the right side more than the left, and enlarged paratracheal subcarinal lymph nodes. #2. Elevated d-dimer, CTA chest ruled out pulmonary embolism #3. Diarrhea, nausea but no vomiting, patient ruled out for C. diff #4. History of hypertension #5. Hyperlipidemia #6. Diabetes mellitus type 2 #7. Osteoarthritis #8. Back pain Plan: Continue current antibiotics, CTA chest and chest x-ray have been reviewed, showing limited bilateral infiltrates, greater at the right base than the left, with possibility of reactive adenopathy. Patient ruled out for COVID 19. Continue current medical treatment, send Legionella urine antigen. We'll continue to follow I performed a history & physical examination of the patient and discussed their management with my nurse practitioner, Anjali Huffman. I reviewed the nurse practitioner's note and agree with the documented findings and plan of care. Lung sounds are positive for diminished breath sounds. The findings and the impression was discussed with the patient. I attest to the documentation by the nurse practitioner. Time with Patient: Greater than 30
--- NOTE | 2020-09-04 13:19 | P.HPIM ---
History of Present Illness H&P Date: 09/04/20 Chief Complaint: Diarrhea HISTORY OF PRESENT ILLNESS This is an 85-year-old female patient of Dr. marti with past medical history of diabetes mellitus type 2, hypertension, hyperlipidemia. Patient complains of having diarrhea for 4 days, unable to eat with no appetite. No significant abdominal pain. She denies shortness of breath. No headache. No blurred vision. Positive fever. She denies any known exposure to COVID-19. Patient came into [facility] emergency center for evaluation. Temperature max 102.4, pulse ox 95% on room air. Heart rate 90, blood pressure 121/61. C. difficile toxin negative. COVID-19 negative. Influenza testing negative. RSV negative. WBC 3.4, hemoglobin 12.9, platelet 173. Lymphocytes low at 0.5. D-dimer 2.68. BUN 27 creatinine 1.14. Ferritin 476.9, AST 49, LDH 743, C-reactive protein 32.9. Pro-calcitonin 0.15. Chest x-ray reveals chronic changes without acute process. CAT scan angiogram of the chest reveals no evidence of pulmonary embolism. Bilateral lower lobe infiltrate and atelectasis. Mediastinal and bronchial adenopathy. Repeat chest x-ray this morning reveals COPD with bilateral basilar infiltrates stable. Patient admitted to the [facility] floor and consult for pulmonary medicine. REVIEW OF SYSTEMS Constitutional: Reports fever, Reports chills, no night sweats. No weight change. Reports weakness, Reports fatigue Reports lethargy. EENT: No headache. No blurred vision or double vision, no loss of vision. No loss of Hearing, no ringing in the ears, no dizziness. No nasal drainage or congestion. No epistaxis. No sore throat. Lungs: No shortness of breath, cough, no sputum production. No wheezing. Cardiovascular: No chest pain, no lower extremity edema. No palpitations. No paroxysmal nocturnal dyspnea. No orthopnea. No lightheadedness or dizziness. No syncopal episodes. Abdominal: No abdominal pain. Reports nausea, no vomiting. Reports diarrhea. No constipation. No bloody or tarry stools. Reports loss of appetite. Genitourinary: No dysuria, increased frequency, urgency. No urinary retention. Musculoskeletal: No myalgias. Reports muscle weakness, no gait dysfunction, no frequent falls. No back pain. No neck pain. Integumentary: No wounds, no lesions. No rash or pruritus. No unusual bruisin g. No change in hair or nails. Neurologic: No aphasia. No facial droop. No change in mentation. No head injury. No headache. No paralysis. No paresthesia. Psychiatric: No depression. No anxiety. No mood swings. Endocrine: No abnormal blood sugars. No weight change. No excessive sweating or thirst. No cold intolerance. SOCIAL HISTORY Patient is a lifelong nonsmoker but has secondhand smoke exposure. No illicit drug use, no alcohol use. Patient has been a for 14 years. FAMILY HISTORY Mother in her 90s from dementia. Father in his mid 70s from COPD. Patient does not have any brothers. Patient has one sister age 78 with no major medical problems. She has 3 sons with no major medical problems. PHYSICAL EXAMINATION Gen: This is an 85-year-old female. Patient is resting in bed and appears to be comfortable. No acute respiratory distress is noted. HEENT: Head is atraumatic, normocephalic. Pupils equal, round. Sclerae is anicteric. NECK: Supple. No JVD. No lymphadenopathy. No thyromegaly. LUNGS: Diminished bilateral bases. No wheezes. No intercostal retractions. HEART: Regular rate and rhythm. No murmur. ABDOMEN: Soft. Bowel sounds are present. No masses. No tenderness. EXTREMITIES: No pedal edema. No calf tenderness. NEUROLOGICAL: Patient is awake, alert and oriented x3. Cranial nerves 2 through 12 are grossly intact. ASSESSMENT AND PLAN 1. Acute Covid 19 pneumonia. Continue azithromycin and ceftriaxone. Start vitamin C, vitamin D, zinc. Start Lovenox and dexamethasone. Consult with pulmonary medicine. 2. Diarrhea most likely secondary to Covid 19. C. difficile toxin was negative. Patient started on Questran and Imodium. 3. Diabetes mellitus type 2. NovoLog scale before meals and at bedtime. Hold metformin, Prandin, Trulicity. 4. Hypertension. Continue losartan 50 mg daily. 5. Hyperlipidemia. Continue simvastatin 20 mg at bedtime. 6. GI prophylaxis. Continue Pepcid 20 mg daily. 7. DVT prophylaxis. Continue Lovenox. Patient will be admitted to the hospital for a minimum of 2 night stay. DISCHARGE PLAN Most likely home with homecare. Impression and plan of care have been directed as dictated by the signing physician. Lyssa Barreto nurse practitioner acting as scribe for signing physician. Past Medical History Past Medical History: Diabetes Mellitus, Eye Disorder, Hyperlipidemia, Hypertension, Osteoarthritis (OA) Additional Past Medical History / Comment(s): back pain., hx of vertigo., cataract left eye. History of Any Multi-Drug Resistant Organisms: None Reported Past Surgical History: Hysterectomy Additional Past Surgical History / Comment(s): right cataract (jul 2017) Past Anesthesia/Blood Transfusion Reactions: No Reported Reaction Past Psychological History: No Psychological Hx Reported Smoking Status: Never smoker Past Alcohol Use History: None Reported Past Drug Use History: None Reported - Past Family History Mother Family Medical History: No Reported History Son(s) History Unknown: Yes Family Medical History: Cancer Additional Family Medical History / Comment(s): skin cancer Medications and Allergies Home Medications Medication Instructions Recorded Confirmed Type Losartan Potassium [Cozaar] 50 mg PO DAILY 07/03/17 09/03/20 History Simvastatin [Zocor] 20 mg PO HS 07/03/17 09/03/20 History Dulaglutide [Trulicity] 0.75 mg SQ WE 09/03/20 09/03/20 History Repaglinide [Prandin] 4 mg PO BID-W/MEALS 09/03/20 09/03/20 History metFORMIN HCL 1,000 mg PO DAILY 09/03/20 09/03/20 History metFORMIN HCL 500 mg PO HS 09/03/20 09/03/20 History Allergies Allergy/AdvReac Type Severity Reaction Status Date / Time latex Allergy Unknown Itching Verified 09/03/20 15:48 Physical Exam Vitals: Vital Signs Temp Pulse Pulse Resp BP BP Pulse Ox 09/04/20 06:12 99.0 F 09/04/20 04:46 101.5 F H 88 20 129/69 91 L 09/03/20 20:00 98.1 F 67 20 99/53 95 09/03/20 16:26 97.9 F 73 18 132/69 95 09/03/20 15:25 98.1 F 79 8 L 128/62 94 L 09/03/20 12:42 101.2 F H 88 18 118/60 94 L 09/03/20 11:53 102 F H 89 18 119/67 94 L 09/03/20 11:38 102.1 F H 93 18 134/55 95 09/03/20 11:23 102.3 F H 90 18 136/75 95 09/03/20 11:19 102.4 F H 09/03/20 11:08 102.4 F H 87 18 134/71 94 L 09/03/20 10:53 100.4 F H 90 18 121/61 95 Intake and Output 09/03/20 09/04/20 09/04/20 22:59 06:59 14:59 Intake Total 350 600 Output Total 1 Balance 350 599 Intake: Intake, IV Titration 250 600 Amount Azithromycin 500 mg In 250 Sodium Chloride 0.9% 250 ml @ 250 mls/hr IVPB ONCE STA Rx#:[id number] Sodium Chloride 0.9% 1, 600 000 ml @ 75 mls/hr IV . [id number] [facility] Rx#:[id number] Oral 100 Output: Stool 1 Other: Voiding Method Toilet # Voids 1 2 # Bowel Movements 2 1 Weight 63.957 kg Results CBC & Chem 7: 09/04/20 04:54 09/04/20 04:54 Labs: Abnormal Lab Results - Last 24 Hours (Table) 09/03/20 09/03/20 09/03/20 Range/Units 11:56 11:56 11:56 WBC 3.4 L (3.8-10.6) k/uL RBC (3.80-5.40) m/uL Hct (34.0-46.0) % Lymphocytes # 0.5 L (1.0-4.8) k/uL D-Dimer 2.68 H (<0.60) mg/L FEU Sodium 133 L (137-145) mmol/L BUN 27 H (7-17) mg/dL Creatinine 1.14 H (0.52-1.04) mg/dL POC Glucose (mg/dL) (75-99) mg/dL Ferritin 476.9 H (10.0-291.0) ng/mL AST 49 H (14-36) U/L Lactate Dehydrogenase 743 H (313-618) U/L C-Reactive Protein 32.9 H (<10.0) mg/L Procalcitonin (0.02-0.09) ng/mL 01/11/1909/03/20 09/03/20 Range/Units 11:56 17:14 17:34 WBC (3.8-10.6) k/uL RBC (3.80-5.40) m/uL Hct (34.0-46.0) % Lymphocytes # (1.0-4.8) k/uL D-Dimer (<0.60) mg/L FEU Sodium (137-145) mmol/L BUN (7-17) mg/dL Creatinine (0.52-1.04) mg/dL POC Glucose (mg/dL) 58 L 64 L (75-99) mg/dL Ferritin (10.0-291.0) ng/mL AST (14-36) U/L Lactate Dehydrogenase (313-618) U/L C-Reactive Protein (<10.0) mg/L Procalcitonin 0.15 H (0.02-0.09) ng/mL 09/03/20 09/04/20 09/04/20 Range/Units 20:33 04:54 07:38 WBC 3.4 L (3.8-10.6) k/uL RBC 3.65 L (3.80-5.40) m/uL Hct 33.7 L (34.0-46.0) % Lymphocytes # (1.0-4.8) k/uL D-Dimer (<0.60) mg/L FEU Sodium (137-145) mmol/L BUN (7-17) mg/dL Creatinine (0.52-1.04) mg/dL POC Glucose (mg/dL) 155 H 139 H (75-99) mg/dL Ferritin (10.0-291.0) ng/mL AST (14-36) U/L Lactate Dehydrogenase (313-618) U/L C-Reactive Protein (<10.0) mg/L Procalcitonin (0.02-0.09) ng/mL Thrombosis Risk Factor Assmnt - Choose All That Apply Any of the Below Risk Factors Present?: No Other Risk Factors: Yes Each Risk Factor Represents 3 Points: Age 75 years or older Other congenital or acquired thrombophilia - If yes, enter type in comment: No Thrombosis Risk Factor Assessment Total Risk Factor Score: 3 Thrombosis Risk Factor Assessment Level: Moderate Risk
[2020-09-04] MEDS: dexAMETHasone 2 MG TAB PO SCH (13:54)
[2020-09-04] MEDS ORDERED: AZITHROMYCIN 500 MG TAB PO SCH (16:00)
[2020-09-04 16:18] LABS: Hemoglobin A1C 7.1 % (4.0-6.0)
[2020-09-04] MEDS: CHOLESTYRAMINE (WITH SUGAR) 4 GM PACKET PO SCH (17:14)
[2020-09-04 17:15] LABS: Glucose,Whole Blood 181 mg/dL (75-99)
[2020-09-04 21:15] LABS: Glucose,Whole Blood 237 mg/dL (75-99)
[2020-09-04] MEDS: ATORVASTATIN 10 MG TAB PO SCH (21:20)
[2020-09-05 07:10] LABS: Glucose,Whole Blood 202 mg/dL (75-99)
[2020-09-05] MEDS: CHOLESTYRAMINE (WITH SUGAR) 4 GM PACKET PO SCH ×2 (08:19→18:00)
[2020-09-05] MEDS: LOSARTAN 50 MG TAB PO SCH (08:19)
[2020-09-05] MEDS: ENOXAPARIN 40 MG/0.4 ML SYRINGE SQ SCH (08:19)
[2020-09-05] MEDS: dexAMETHasone 2 MG TAB PO SCH (08:19)
[2020-09-05] MEDS: INSULIN ASPART (NovoLOG) 100 UNIT/ML VIAL SQ SCH ×4 (08:20→22:08)
[2020-09-05] MEDS: ZINC SULFATE 220 MG CAP PO SCH (08:20)
[2020-09-05] MEDS: CHOLECALCIFEROL 1,000 UNIT TAB PO SCH (08:20)
[2020-09-05] MEDS: ASCORBIC ACID 500 MG TAB PO SCH (08:20)
[2020-09-05] MEDS: FAMOTIDINE 20 MG TAB PO SCH (08:20)
[2020-09-05] MEDS: SODIUM CHLORIDE 0.9% 1,000 ML IV SCH (08:21)
--- NOTE | 2020-09-05 11:39 | P.PN ---
Subjective Progress Note Date: 09/05/20 HISTORY OF PRESENT ILLNESS This is an 85-year-old female patient of Dr. marti with past medical history of diabetes mellitus type 2, hypertension, hyperlipidemia. Patient co mplains of having diarrhea for 4 days, unable to eat with no appetite. No significant abdominal pain. She denies shortness of breath. No headache. No blurred vision. Positive fever. She denies any known exposure to COVID-19. Patient came into [facility] emergency center for evaluation. Temperature max 102.4, pulse ox 95% on room air. Heart rate 90, blood pressure 121/61. C. difficile toxin negative. COVID-19 negative. Influenza testing negative. RSV negative. WBC 3.4, hemoglobin 12.9, platelet 173. Lymphocytes low at 0.5. D-dimer 2.68. BUN 27 creatinine 1.14. Ferritin 476.9, AST 49, LDH 743, C-reactive protein 32.9. Pro-calcitonin 0.15. Chest x-ray reveals chronic changes without acute process. CAT scan angiogram of the chest reveals no evidence of pulmonary embolism. Bilateral lower lobe infiltrate and atelectasis. Mediastinal and bronchial adenopathy. Repeat chest x-ray this morning reveals COPD with bilateral basilar infiltrates stable. Patient admitted to the [facility] floor and consult for pulmonary medicine. 09/05: Patient has been seen by pulmonary medicine and ruled out Covid 19 with plan to continue current medical treatment. Legionella testing ordered. Temperature max 102.2 in the past 24 hours. Temperature seems to be improving this morning. Heart rate 70, blood pressure 99/44, pulse ox 93% on room air. Blood sugars 181-202. Stool culture in process. Blood culture no growth at 24 hours 2. Appetite is improving. She continues to have diarrhea but wants to go home. Will add in a consult for Dr. Sunshine to evaluate. Patient did not receive Imodium yesterday as ordered. She did receive Questran without improvement apparently. She states her abdominal pain gets worse during the nighttime. REVIEW OF SYSTEMS Constitutional: Reports fever, Reports chills, no night sweats. No weight change. Reports weakness, Reports fatigue Reports lethargy. EENT: No headache. No blurred vision or double vision, no loss of vision. No loss of Hearing, no ringing in the ears, no dizziness. No nasal drainage or congestion. No epistaxis. No sore throat. Lungs: No shortness of breath, cough, no sputum production. No wheezing. Cardiovascular: No chest pain, no lower extremity edema. No palpitations. No paroxysmal nocturnal dyspnea. No orthopnea. No lightheadedness or dizziness. No syncopal episodes. Abdominal: Reports abdominal pain. Denies nausea, no vomiting. Reports diarrhea. No constipation. No bloody or tarry stools. Reports loss of appetite. Genitourinary: No dysuria, increased frequency, urgency. No urinary retention. Musculoskeletal: No myalgias. Reports muscle weakness, no gait dysfunction, no frequent falls. No back pain. No neck pain. Integumentary: No wounds, no lesions. No rash or pruritus. No unusual bruising. No change in hair or nails. Neurologic: No aphasia. No facial droop. No change in mentation. No head injury. No headache. No paralysis. No paresthesia. Psychiatric: No depression. No anxiety. No mood swings. Endocrine: No abnormal blood sugars. No weight change. No excessive sweating or thirst. No cold intolerance. PHYSICAL EXAMINATION Gen: This is an 85-year-old female. Patient is resting in bed and appears to be comfortable. HEENT: Head is atraumatic, normocephalic. Pupils equal, round. Sclerae is anicteric. NECK: Supple. No JVD. No lymphadenopathy. No thyromegaly. LUNGS: Diminished bilateral bases. No wheezes. No intercostal retractions. HEART: Regular rate and rhythm. No murmur. ABDOMEN: Soft. Bowel sounds are present. No masses. No tenderness. EXTREMITIES: No pedal edema. No calf tenderness. NEUROLOGICAL: Patient is awake, alert and oriented x3. Cranial nerves 2 through 12 are grossly intact. ASSESSMENT AND PLAN 1. Acute pneumonia, Covid 19 pneumonia ruled out by pulmonary medicine. Continue azithromycin and ceftriaxone. Start vitamin C, vitamin D, zinc. Start Lovenox and dexamethasone. Consult with pulmonary medicine appreciated. 2. Diarrhea. C. difficile toxin was negative. Patient started on Questran and Imodium. Consult with GI. 3. Diabetes mellitus type 2. NovoLog scale before meals and at bedtime. Hold metformin, Prandin, Trulicity. 4. Hypertension. Continue losartan 50 mg daily. 5. Hyperlipidemia. Continue simvastatin 20 mg at bedtime. 6. GI prophylaxis. Continue Pepcid 20 mg daily. 7. DVT prophylaxis. Continue Lovenox. DISCHARGE PLAN Most likely home tomorrow. Impression and plan of care have been directed as dictated by the signing physician. Lyssa Barreto nurse practitioner acting as scribe for signing physician. Objective - Vital Signs Vital signs: Vital Signs Temp 98.1 F 09/05/20 04:15 Pulse 70 09/05/20 04:15 Resp 16 09/05/20 04:15 BP 99/44 09/05/20 04:15 Pulse Ox 93 L 09/05/20 04:15 Intake & Output 09/04/20 09/05/20 09/05/20 18:59 06:59 18:59 Intake Total 1640 Output Total 2 Balance 1638 Intake: Intake, IV Titration 900 Amount Sodium Chloride 0.9% 1, 900 000 ml @ 75 mls/hr IV . [id number] [facility] Rx#:[id number] Oral 740 Output: Stool 2 Other: Voiding Method Toilet Toilet Bedside Commode # Voids 4 2 # Bowel Movements 2 - Labs CBC & Chem 7: 09/04/20 04:54 09/04/20 04:54 Labs: Abnormal Lab Results - Last 24 Hours (Table) 09/04/20 09/04/20 09/04/20 Range/Units 04:54 04:54 04:54 ESR 34 H (0-30) mm/Hr Est GFR (CKD-EPI)AfAm 52.6 L (60.0-200.0) Est GFR (CKD-EPI)NonAf 45.4 L (60.0-200.0) Glucose 160 H (70-110) mg/dL POC Glucose (mg/dL) (75-99) mg/dL Hemoglobin A1c 7.1 H (4.0-6.0) % Calcium 7.8 L (8.7-10.3) mg/dL Total Bilirubin 0.2 L (0.3-1.2) mg/dL AST 37 H (13-35) U/L C-Reactive Protein 3.2 H (0.0-0.8) mg/dL Total Protein 5.5 L (6.2-8.2) g/dL Albumin 3.60 L (3.80-4.90) g/dL 09/04/20 09/04/20 09/04/20 Range/Units 07:38 11:03 17:09 ESR (0-30) mm/Hr Est GFR (CKD-EPI)AfAm (60.0-200.0) Est GFR (CKD-EPI)NonAf (60.0-200.0) Glucose (70-110) mg/dL POC Glucose (mg/dL) 139 H 119 H 181 H (75-99) mg/dL Hemoglobin A1c (4.0-6.0) % Calcium (8.7-10.3) mg/dL Total Bilirubin (0.3-1.2) mg/dL AST (13-35) U/L C-Reactive Protein (0.0-0.8) mg/dL Total Protein (6.2-8.2) g/dL Albumin (3.80-4.90) g/dL 09/04/20 09/05/20 Range/Units 21:11 07:08 ESR (0-30) mm/Hr Est GFR (CKD-EPI)AfAm (60.0-200.0) Est GFR (CKD-EPI)NonAf (60.0-200.0) Glucose (70-110) mg/dL POC Glucose (mg/dL) 237 H 202 H (75-99) mg/dL Hemoglobin A1c (4.0-6.0) % Calcium (8.7-10.3) mg/dL Total Bilirubin (0.3-1.2) mg/dL AST (13-35) U/L C-Reactive Protein (0.0-0.8) mg/dL Total Protein (6.2-8.2) g/dL Albumin (3.80-4.90) g/dL Microbiology - Last 24 Hours (Table) 09/03/20 11:50 Stool Culture - Preliminary Stool 09/03/20 11:33 Blood Culture - Preliminary Blood No Growth after 24 hours 09/03/20 11:49 Blood Culture - Preliminary Blood No Growth after 24 hours
[2020-09-05 12:37] LABS: Glucose,Whole Blood 171 mg/dL (75-99)
--- NOTE | 2020-09-05 13:47 | P.PN ---
Subjective Progress Note Date: 09/05/20 Principal diagnosis: Chills, diarrhea 85-year-old white female patient past medical history of diabetes mellitus, hypertension, hyperlipidemia, osteoarthritis, chronic back pain, nonsmoker, who presented to the emergency department on 09/03/2020 for evaluation of four-day history of diarrhea, nausea but no vomiting. She reports poor appetite and just has not been feeling right. She has been complaining of chills but no fevers. She thinks she may have had some exposure to COVID at her facility. She reports a dry cough every morning, but no difficulty breathing. No chest pain or palpitations. Denies any dysuria or hematuria or urinary frequency. Patient was tested for COVID and was found to be negative 2. Chest x-ray showed chronic changes without acute pulmonary process. Lab data revealed white blood cell count of 3.4, hemoglobin of 12.9, lymphopenia with a lymphocyte count of 0.5, d-dimer was 2.68, sodium was 133, the rest of the electrolytes were within normal limits, BUN of 27 creatinine is 1.14, pro-calcitonin level was low at 0.15, patient was tested for C. diff and was found to be negative, influenza screen was negative, RSV was negative. Ferritin level was 476, LDH is 743, and CRP is 32.9. In view of elevated d-dimer CT chest was completed showing no evidence of pulmonary embolism it did show bilateral lower lobe infiltrate and atelectasis and mediastinal and bronchial adenopathy. She was started on antibiotic coverage in the form of azithromycin and Rocephin. She is on once daily dose of Lovenox at 40 mg, and was started on supplements including zinc, and vitamin C and vitamin D. She is currently resting comfortably in bed, she i s on room air, she did have a fever earlier this morning with a temp of 101.5F. Breathing seems to be nonlabored. On 09/05/2020 patient seen in follow-up on medical floor, she is currently on room air, she denies any pulmonary complaints, no shortness of breath cough, no compressive chest pain, no hemoptysis, her biggest complaint today is ongoing diarrhea. She does reports that just a mild dry cough, she tested negative for COVID, she is being treated with a combination of azithromycin and Rocephin for community acquired pneumonia, remains on 0.9 normal sinus rhythm rate 75 ML per hour, peripheral A. fib is stable on last 24 hours, her pulse ox on room air is 93%. Her blood cultures have shown no growth, stool culture has been sent, pending at this time, so far no growth, her Legionella urine antigen was negative, we can discontinue her azithromycin, and keep the patient on Rocephin for antibiotic coverage. Objective - Vital Signs Vital signs: Vital Signs Temp 98.1 F 09/05/20 04:15 Pulse 70 09/05/20 08:00 Resp 16 09/05/20 08:00 BP 99/44 09/05/20 04:15 Pulse Ox 93 L 09/05/20 04:15 Intake & Output 09/04/20 09/05/20 09/05/20 18:59 06:59 18:59 Intake Total 1640 120 Output Total 2 Balance 1638 120 Intake: Intake, IV Titration 900 Amount Sodium Chloride 0.9% 1, 900 000 ml @ 75 mls/hr IV . [id number] [facility] Rx#:[id number] Oral 740 120 Output: Stool 2 Other: Voiding Method Toilet Toilet Toilet Bedside Commode Bedside Commode # Voids 4 2 2 # Bowel Movements 2 2 - Exam GENERAL EXAM: Alert, pleasant, 85-year-old white female, on room air, with a pulse ox of 93%, denies any pulmonary complaints, most complaining of ongoing diarrhea comfortable in no apparent distress. HEAD: Normocephalic/atraumatic. EYES: Normal reaction of pupils, equal size. Conjunctiva pink, sclera white. NOSE: Clear with pink turbinates. THROAT: No erythema or exudates. NECK: No masses, no JVD, no thyroid enlargement, no adenopathy. CHEST: No chest wall deformity. Symmetrical expansion. LUNGS: Equal air entry with no crackles, wheeze, rhonchi or dullness. CVS: Regular rate and rhythm, normal S1 and S2, no gallops, no murmurs, no rubs ABDOMEN: Soft, nontender. No hepatosplenomegaly, normal bowel sounds, no guarding or rigidity. EXTREMITIES: No clubbing, no edema, no cyanosis, 2+ pulses and upper and lower extremities. MUSCULOSKELETAL: Muscle strength and tone normal. SPINE: No scoliosis or deformity SKIN: No rashes CENTRAL NERVOUS SYSTEM: Alert and oriented -3. No focal deficits, tone is normal in all 4 extremities. PSYCHIATRIC: Alert and oriented -3. Appropriate affect. Intact judgment and insight. - Labs CBC & Chem 7: 09/04/20 04:54 09/04/20 04:54 Labs: Abnormal Lab Results - Last 24 Hours (Table) 09/04/20 09/04/20 09/04/20 Range/Units 04:54 17:09 21:11 POC Glucose (mg/dL) 181 H 237 H (75-99) mg/dL Hemoglobin A1c 7.1 H (4.0-6.0) % 09/05/20 09/05/20 Range/Units 07:08 12:34 POC Glucose (mg/dL) 202 H 171 H (75-99) mg/dL Hemoglobin A1c (4.0-6.0) % Microbiology - Last 24 Hours (Table) 09/03/20 11:50 Stool Culture - Preliminary Stool 09/03/20 11:33 Blood Culture - Preliminary Blood No Growth after 24 hours 09/03/20 11:49 Blood Culture - Preliminary Blood No Growth after 24 hours Assessment and Plan Plan: Assessment: #1. Community acquired pneumonia, COVID 19 was ruled out via PCR test 2, and influenza screen was negative, RSV was negative. CTA chest showed prominent infiltrate and atelectasis of both lung bases right greater than left, with multiple enlarged bronchial lymph nodes in the right side more than the left, and enlarged paratracheal subcarinal lymph nodes. #2. Elevated d-dimer, CTA chest ruled out pulmonary embolism #3. Diarrhea, nausea but no vomiting, patient ruled out for C. diff #4. History of hypertension #5. Hyperlipidemia #6. Diabetes mellitus type 2 #7. Osteoarthritis #8. Back pain Plan: We will discontinue azithromycin, Legionella urine antigen test was negative, continue with Rocephin for treatment of COPD acquired pneumonia, culture data has been reviewed, negative remains negative, patient denies any pulmonary complaints, continues To complain of ongoing diarrhea, discontinuation of a zithromycin hopefully will help with that. From pulmonary perspective patient could probably be considered for discharge home if she remains stable, however this can adapt to the attending physician, as the patient still having ongoing diarrhea. We will continue to follow I performed a history & physical examination of the patient and discussed their management with my nurse practitioner, Anjali Huffman. I reviewed the nurse practitioner's note and agree with the documented findings and plan of care. Lung sounds are positive for diminished breath sounds. The findings and the impression was discussed with the patient. I attest to the documentation by the nurse practitioner. Time with Patient: Less than 30
[2020-09-05] MEDS: IOPAMIDOL CONTRAST (ORAL USE) VIAL PO PRN ×2 (14:59→15:46)
[2020-09-05 17:36] LABS: Glucose,Whole Blood 236 mg/dL (75-99)
--- NOTE | 2020-09-05 17:52 | CT ---
EXAMINATION TYPE: CT abdomen pelvis w con DATE OF EXAM: 09/05/2020 COMPARISON: None HISTORY: Abdominal pain, distention and diarrhea. CT DLP: 839.6 mGycm Automated exposure control for dose reduction was used. CONTRAST: Performed with IV Contrast, patient injected with 80 mL of Isovue M300. Images obtained from the diaphragm to the floor the pelvis with oral and IV contrast. There is some patchy airspace infiltrate and atelectasis right lower lobe. There is some mild atelect asis left lower lobe. Heart size is normal. There is no pericardial effusion. There is large calcified gallstone. The bile ducts are not dilated. Stomach spleen pancreas appear no rmal. Liver shows no focal defect. There is mild right pleural effusion. There is no adrenal mass. Kidneys show satisfactory contrast opacification. There is no hydronephrosi s. There is 2 cm cortical cyst upper pole left kidney. Ureters are not dilated. Delayed images show n ormal renal excretion. There is no retroperitoneal adenopathy. Bladder distends smoothly. There is no inguinal hernia. There is no mesenteric edema. There is no ascites or free air. There is normal contrast opacification of the large and small bowel. There is contrast extending to the rectum. There is small amount of fr ee fluid in the pelvis. Appendix is partly filled with contrast and appears normal. There is no bowel obstruction. The lumbar vertebra have normal alignment. There is no compression fracture. The bony pelvis appears intact. IMPRESSION: Right lower lobe pneumonia and atelectasis. Small right pleural effusion. Mild infiltrate left lung b ase. Small amount of free fluid in the pelvis of uncertain significance. No evidence of bowel obstruction. No free air. Cholelithiasis.
--- NOTE | 2020-09-05 17:54 | CONS ---
CONSULTATION DATE OF DICTATION: 09/05/2020 REASON FOR CONSULTATION: Diarrhea, weight loss. HISTORY OF PRESENT ILLNESS: The patient is an 85-year-old pleasant white female with history of diabetes mellitus, hypertension, hyperlipidemia, degenerative joint disease and chronic back pain who was admitted to the hospital yesterday when she presented with diarrhea for the last 3 or 4 days' duration. The patient has been complaining of some nausea, decreased appetite, progressive weight loss of almost 40 pounds in the last 5 months' duration. She has been complaining of chills but no fever. Her symptoms and problems were progressively getting worse. In the ER she did have a CT of the chest that showed no evidence of pulmonary embolism, but it did show bilateral lower lobe infiltrate consistent with pneumonia, and she was started on broad-spectrum antibiotics. On further questioning, she states she has 1 or 2 loose bowel movements daily. No blood or mucus in the stool. She still complains of some vague lower abdominal discomfort, decreased appetite. No nausea, no vomiting. PAST MEDICAL HISTORY: Her past medical history is significant for diabetes mellitus, hypertension, hyperlipidemia, degenerative joint disease. PAST SURGICAL HISTORY: Hysterectomy, right cataract surgery. MEDICATIONS: Medications at home include Cozaar, Zocor, Trulicity, Prandin, metformin. ALLERGIES: LATEX. SOCIAL HISTORY: No smoking. No alcohol use. FAMILY HISTORY: Mother unremarkable. Father had some kind of cancer. REVIEW OF SYSTEMS: CARDIOPULMONARY: No chest pain or shortness of breath. GENITOURINARY: No dysuria or hematuria. MUSCULOSKELETAL: Chronic back pain. NEUROLOGY: Unremarkable. PSYCHIATRY: Unremarkable. ENT/VISION: Unremarkable. CONSTITUTIONAL: No recent weight loss. No fever, chills, night sweats. PHYSICAL EXAMINATION: She appears comfortable. No apparent distress. Vital signs are stable. Blood pressure is 103/55, pulse rate 80, temperature 97.8. HEENT examination unremarkable. Conjunctivae pink. Sclerae anicteric. Oral cavity no lesions. NECK: No JVD or lymph node enlargement. CHEST: Clear to auscultation. HEART: Regular rate and rhythm. ABDOMEN: Soft. It was non-tender, non-distended. Bowel sounds are positive. No organomegaly. EXTREMITIES: No pedal edema. SKIN: No rashes. NEUROLOGIC: Alert and oriented x3. No focal deficits. LABS/IMAGING: Labs from yesterday showed WBC 3.4, hemoglobin 12.9, platelets normal. Basic metabolic panel showed a BUN of 27, creatinine 1.14, sodium 133, potassium 4.2, chloride 103, CO2 22. Blood sugar was 155. Ferritin was 476. AST and ALT were 49 and 29, respectively. LDH 743, CRP 32.9. Coronavirus PCR is negative. C difficile toxin is negative. Chest x-ray done in the emergency room did show COPD with bilateral baseline infiltrate that appears to be stable. IMPRESSION: 1. This is a lady who presented to the hospital with lower abdominal discomfort associated with some diarrhea on and off for the last few days' duration. She is having bowel movements 1 or 2 a day which are loose to watery in consistency. She also complains of progressive weight loss of almost 40 pounds for the last 5 months' duration. She believes some of her symptoms started after she was started on Trulicity for diabetes mellitus 5 months ago. C difficile toxin was reported as negative. 2. Community-acquired pneumonia, on broad-spectrum antibiotics. COVID-19 was negative. 3. History of hypertension, hyperlipidemia. 4. Diabetes mellitus. RECOMMENDATIONS: 1. Continue with broad-spectrum antibiotics. 2. In regard to the progressive weight loss, intermittent lower abdominal pain and decreased appetite, we will proceed with a CT of the abdomen and pelvis to rule out any intraabdominal pathology. 3. Obtain the rest of the stool cultures. 4. Advance diet as tolerated. 5. Will follow with you closely. Thank you for this consultation. MMCLAUDETTEL / CHAPISN: [id number] /
[2020-09-05 20:37] LABS: Glucose,Whole Blood 184 mg/dL (75-99)
[2020-09-05] MEDS: ACETAMINOPHEN TAB 325 MG TAB PO PRN (22:08)
[2020-09-05] MEDS: ATORVASTATIN 10 MG TAB PO SCH (22:08)
[2020-09-06 07:43] LABS: Glucose,Whole Blood 189 mg/dL (75-99)
[2020-09-06] MEDS: ASCORBIC ACID 500 MG TAB PO SCH ×2 (08:25→12:00)
[2020-09-06] MEDS: INSULIN ASPART (NovoLOG) 100 UNIT/ML VIAL SQ SCH ×4 (08:25→22:00)
[2020-09-06] MEDS: LOSARTAN 50 MG TAB PO SCH ×2 (08:25→12:00)
[2020-09-06] MEDS: SODIUM CHLORIDE 0.9% 1,000 ML IV SCH ×2 (08:25→12:07)
[2020-09-06] MEDS: dexAMETHasone 2 MG TAB PO SCH (08:26)
[2020-09-06] MEDS: ENOXAPARIN 40 MG/0.4 ML SYRINGE SQ SCH (08:26)
[2020-09-06] MEDS: CHOLECALCIFEROL 1,000 UNIT TAB PO SCH (08:26)
[2020-09-06] MEDS: FAMOTIDINE 20 MG TAB PO SCH (08:26)
[2020-09-06] MEDS: ZINC SULFATE 220 MG CAP PO SCH ×2 (08:26→12:01)
--- NOTE | 2020-09-06 08:41 | US ---
EXAMINATION TYPE: US abdomen complete DATE OF EXAM: 09/06/2020 COMPARISON: CT from yesterday CLINICAL HISTORY: Gallstone. Pain exam limitations patient unable to hold breath. EXAM MEASUREMENTS: Liver Length: 13.5 cm Gallbladder Wall: .5 cm CBD: .7 cm Spleen: 9.8 cm Right Kidney: 9.4 x 3.9 x 4.1 cm Left Kidney: 9.9 x 4.4 x 3.5 cm Pancreas: Tail obscured by overlying bowel gas Liver: wnl Gallbladder: Single rim calcified shadowing gallstone, thickened wall. Evidence for sonographic Ferguson's sign: No CBD: wnl for patient's age Spleen: wnl Right Kidney: wnl Left Kidney: Hypoechoic area upper pole measuring 1.4 x 1.2 x 1.6 cm. Upper IVC: wnl Abd Aorta: wnl The visualized liver is slightly heterogeneous without mass or ductal dilatation. The intrahepatic p ortion of the IVC and visualized abdominal aorta are within normal limits. There is a large shadowin g calcified gallstone. Perhaps mild gallbladder wall thickening correlates with CT. No surrounding f luid or ascites. Common bile duct is within normal limits. The visualized portions of the pancreas a re homogenous. The spleen is unremarkable. Kidneys are symmetric and free of hydronephrosis. No re nal lesions are seen. IMPRESSION: Correlating with CT is rim calcified gallstone with areas of abnormal gallbladder wall th ickening. Acute cholecystitis cannot be excluded. Further investigation with HIDA scan may be warrant ed.
[2020-09-06] MEDS: ONDANSETRON 4 MG/2 ML VIAL IVP PRN ×2 (09:00→22:09)
[2020-09-06] MEDS ORDERED: PANTOPRAZOLE 40 MG/10 ML VIAL IVP SCH (09:00)
[2020-09-06] MEDS: CHOLESTYRAMINE (WITH SUGAR) 4 GM PACKET PO SCH ×2 (12:01→21:59)
--- NOTE | 2020-09-06 13:09 | P.PN ---
Subjective Progress Note Date: 09/06/20 Principal diagnosis: Chills, diarrhea 85-year-old white female patient past medical history of diabetes mellitus, hypertension, hyperlipidemia, osteoarthritis, chronic back pain, nonsmoker, who presented to the emergency department on 09/03/2020 for evaluation of four-day history of diarrhea, nausea but no vomiting. She reports poor appetite and just has not been feeling right. She has been complaining of chills but no fevers. She thinks she may have had some exposure to COVID at her facility. She reports a dry cough every morning, but no difficulty breathing. No chest pain or palpitations. Denies any dysuria or hematuria or urinary frequency. Patient was tested for COVID and was found to be negative 2. Chest x-ray showed chronic changes without acute pulmonary process. Lab data revealed white blood cell count of 3.4, hemoglobin of 12.9, lymphopenia with a lymphocyte count of 0.5, d-dimer was 2.68, sodium was 133, the rest of the electrolytes were within normal limits, BUN of 27 creatinine is 1.14, pro-calcitonin level was low at 0.15, patient was tested for C. diff and was found to be negative, influenza screen was negative, RSV was negative. Ferritin level was 476, LDH is 743, and CRP is 32.9. In view of elevated d-dimer CT chest was completed showing no evidence of pulmonary embolism it did show bilateral lower lobe infiltrate and atelectasis and mediastinal and bronchial adenopathy. She was started on antibiotic coverage in the form of azithromycin and Rocephin. She is on once daily dose of Lovenox at 40 mg, and was started on supplements including zinc, and vitamin C and vitamin D. She is currently resting comfortably in bed, she i s on room air, she did have a fever earlier this morning with a temp of 101.5F. Breathing seems to be nonlabored. On 09/05/2020 patient seen in follow-up on medical floor, she is currently on room air, she denies any pulmonary complaints, no shortness of breath cough, no compressive chest pain, no hemoptysis, her biggest complaint today is ongoing diarrhea. She does reports that just a mild dry cough, she tested negative for COVID, she is being treated with a combination of azithromycin and Rocephin for community acquired pneumonia, remains on 0.9 normal sinus rhythm rate 75 ML per hour, peripheral A. fib is stable on last 24 hours, her pulse ox on room air is 93%. Her blood cultures have shown no growth, stool culture has been sent, pending at this time, so far no growth, her Legionella urine antigen was negative, we can discontinue her azithromycin, and keep the patient on Rocephin for antibiotic coverage. On 09/06/2020 patient seen in follow-up on medical floor. Denies any shortness of breath, she is currently on room air, her pulse ox is between 90-92%, blood pressure has been stable, breathing is comfortable, no significant cough, however patient is continuously having diarrhea, in fact that her main complaint. We stopped azithromycin yesterday, CT of abdomen and pelvis showed right lower lobe pneumonia and atelectasis, small right pleural effusion, mild infiltrate in the left lung base, small amount of free fluid in the pelvis of unknown significance, no evidence of bowel obstruction, no free air, cholelithiasis, abdominal ultrasound showed calcified gallstone with areas of abnormal gallbladder wall thickening and acute cholecystitis could not be excluded. HIDA scan was recommended, GI service has been consulted. Pulmonary perspective patient denies any pulmonary complaints, she remains on prophylactic dose Lovenox, she is on Rocephin, vitamin C, zinc supplement, she is receiving gentle hydration 0.9 normal saline at a rate of 75 ML per hour. Her COVID testing was negative, the patient is being treated for community-acquired pneumonia Objective - Vital Signs Vital signs: Vital Signs Temp 101.0 F H 09/06/20 11:00 Pulse 91 09/06/20 11:00 Resp 18 09/06/20 11:00 BP 134/60 09/06/20 11:00 Pulse Ox 90 L 09/06/20 11:00 Intake & Output 09/05/20 09/06/20 09/06/20 18:59 06:59 18:59 Intake Total 120 Output Total 1 Balance 120 -1 Intake: Oral 120 Output: Stool 1 Other: Voiding Method Toilet Toilet Toilet Bedside Commode Bedside Commode Bedside Commode # Voids 1 1 # Bowel Movements 2 - Exam GENERAL EXAM: Alert, pleasant, 85-year-old white female, on room air, with a pulse ox of 92%, denies any pulmonary complaints, most complaining of ongoing diarrhea comfortable in no apparent distress. HEAD: Normocephalic/atraumatic. EYES: Normal reaction of pupils, equal size. Conjunctiva pink, sclera white. NOSE: Clear with pink turbinates. THROAT: No erythema or exudates. NECK: No masses, no JVD, no thyroid enlargement, no adenopathy. CHEST: No chest wall deformity. Symmetrical expansion. LUNGS: Equal air entry with no crackles, wheeze, rhonchi or dullness. CVS: Regular rate and rhythm, normal S1 and S2, no gallops, no murmurs, no rubs ABDOMEN: Soft, nontender. No hepatosplenomegaly, normal bowel sounds, no guarding or rigidity. EXTREMITIES: No clubbing, no edema, no cyanosis, 2+ pulses and upper and lower extremities. MUSCULOSKELETAL: Muscle strength and tone normal. SPINE: No scoliosis or deformity SKIN: No rashes CENTRAL NERVOUS SYSTEM: Alert and oriented -3. No focal deficits, tone is normal in all 4 extremities. PSYCHIATRIC: Alert and oriented -3. Appropriate affect. Intact judgment and insight. - Labs CBC & Chem 7: 09/04/20 04:54 09/04/20 04:54 Labs: Abnormal Lab Results - Last 24 Hours (Table) 09/05/20 09/05/20 09/06/20 Range/Units 17:33 20:35 07:41 POC Glucose (mg/dL) 236 H 184 H 189 H (75-99) mg/dL Microbiology - Last 24 Hours (Table) 09/03/20 11:33 Blood Culture - Preliminary Blood No Growth after 48 hours 09/03/20 11:49 Blood Culture - Preliminary Blood No Growth after 48 hours Assessment and Plan Plan: Assessment: #1. Community acquired pneumonia, COVID 19 was ruled out via PCR test 2, and influenza screen was negative, RSV was negative. CTA chest showed prominent infiltrate and atelectasis of both lung bases right greater than left, with multiple enlarged bronchial lymph nodes in the right side more than the left, and enlarged paratracheal subcarinal lymph nodes. #2. Elevated d-dimer, CTA chest ruled out pulmonary embolism #3. Diarrhea, nausea but no vomiting, patient ruled out for C. diff #4. History of hypertension #5. Hyperlipidemia #6. Diabetes mellitus type 2 #7. Osteoarthritis #8. Back pain #9. Possible acute cholecystitis, with the ultrasound abdomen revealed very well thickening, and calcified gallstone Plan: We'll continue Rocephin for antibiotic coverage, patient denies any pulmonary complaints, still having ongoing issues with diarrhea, GI evaluation is pending. Remains on room air, hemodynamically stable, continues to be intermittently febrile. Continue with prophylactic anticoagulation, and vitamins. We will continue to follow I performed a history & physical examination of the patient and discussed their management with my nurse practitioner, Anjali Huffman. I reviewed the nurse pr actitioner's note and agree with the documented findings and plan of care. Lung sounds are positive for diminished breath sounds. The findings and the impression was discussed with the patient. I attest to the documentation by the nurse practitioner. Time with Patient: Less than 30
[2020-09-06 13:25] LABS: Glucose,Whole Blood 209 mg/dL (75-99)
[2020-09-06] MEDS: ACETAMINOPHEN TAB 325 MG TAB PO PRN ×2 (13:40→22:09)
--- NOTE | 2020-09-06 13:56 | P.PN ---
Subjective Progress Note Date: 09/06/20 HISTORY OF PRESENT ILLNESS This is an 85-year-old female patient of Dr. marti with past medical history of diabetes mellitus type 2, hypertension, hyperlipidemia. Patient co mplains of having diarrhea for 4 days, unable to eat with no appetite. No significant abdominal pain. She denies shortness of breath. No headache. No blurred vision. Positive fever. She denies any known exposure to COVID-19. Patient came into [facility] emergency center for evaluation. Temperature max 102.4, pulse ox 95% on room air. Heart rate 90, blood pressure 121/61. C. difficile toxin negative. COVID-19 negative. Influenza testing negative. RSV negative. WBC 3.4, hemoglobin 12.9, platelet 173. Lymphocytes low at 0.5. D-dimer 2.68. BUN 27 creatinine 1.14. Ferritin 476.9, AST 49, LDH 743, C-reactive protein 32.9. Pro-calcitonin 0.15. Chest x-ray reveals chronic changes without acute process. CAT scan angiogram of the chest reveals no evidence of pulmonary embolism. Bilateral lower lobe infiltrate and atelectasis. Mediastinal and bronchial adenopathy. Repeat chest x-ray this morning reveals COPD with bilateral basilar infiltrates stable. Patient admitted to the [facility] floor and consult for pulmonary medicine. 09/05: Patient has been seen by pulmonary medicine and ruled out Covid 19 with plan to continue current medical treatment. Legionella testing ordered. Temperature max 102.2 in the past 24 hours. Temperature seems to be improving this morning. Heart rate 70, blood pressure 99/44, pulse ox 93% on room air. Blood sugars 181-202. Stool culture in process. Blood culture no growth at 24 hours 2. Appetite is improving. She continues to have diarrhea but wants to go home. Will add in a consult for Dr. Sunshine to evaluate. Patient did not receive Imodium yesterday as ordered. She did receive Questran without improvement apparently. She states her abdominal pain gets worse during the nighttime. 09/06: Patient has been seen by Dr. Hagen with recommendations to continue broad- spectrum antibiotics, CAT scan, stool cultures, advance diet as tolerated. CAT scan of the abdomen and pelvis with contrast revealed right lower lobe pneumonia and atelectasis. Small right pleural effusion. Mild infiltrate left lung base. Small amount of free fluid in the pelvis of uncertain significance. No evidence of bowel obstruction. No free air. Cholelithiasis. Stool cultures remain in process. Blood culture no growth after 48 hours 2. Legionella came back negative. Subsequently, ultrasound of the abdomen ordered which revealed possible cholecystitis. HIDA scan and consult with Dr. Kim added. Patient is complaining of nausea this morning and Zofran added. REVIEW OF SYSTEMS Constitutional: Reports fever, Reports chills, no night sweats. No weight change. Reports weakness, Reports fatigue Reports lethargy. EENT: No headache. No blurred vision or double vision, no loss of vision. No loss of Hearing, no ringing in the ears, no dizziness. No nasal drainage or congestion. No epistaxis. No sore throat. Lungs: No shortness of breath, cough, no sputum production. No wheezing. Cardiovascular: No chest pain, no lower extremity edema. No palpitations. No paroxysmal nocturnal dyspnea. No orthopnea. No lightheadedness or dizziness. No syncopal episodes. Abdominal: Reports abdominal pain. Reports nausea, no vomiting. Reports diarrhea. No constipation. No bloody or tarry stools. Reports loss of appetite. Genitourinary: No dysuria, increased frequency, urgency. No urinary retention. Musculoskeletal: No myalgias. Reports muscle weakness, no gait dysfunction, no frequent falls. No back pain. No neck pain. Integumentary: No wounds, no lesions. No rash or pruritus. No unusual bruising. No change in hair or nails. Neurologic: No aphasia. No facial droop. No change in mentation. No head injury. No headache. No paralysis. No paresthesia. Psychiatric: No depression. No anxiety. No mood swings. Endocrine: No abnormal blood sugars. No weight change. No excessive sweating or thirst. No cold intolerance. PHYSICAL EXAMINATION Gen: This is an 85-year-old female. Patient is resting in bed and appears to be comfortable. HEENT: Head is atraumatic, normocephalic. Pupils equal, round. Sclerae is anicteric. NECK: Supple. No JVD. No lymphadenopathy. No thyromegaly. LUNGS: Diminished bilateral bases. No wheezes. No intercostal retractions. HEART: Regular rate and rhythm. No murmur. ABDOMEN: Soft. Bowel sounds are present. No masses. No tenderness. EXTREMITIES: No pedal edema. No calf tenderness. NEUROLOGICAL: Patient is awake, alert and oriented x3. Cranial nerves 2 through 12 are grossly intact. ASSESSMENT AND PLAN 1. Acute pneumonia, Covid 19 pneumonia ruled out by pulmonary medicine. Continue azithromycin and ceftriaxone. Start vitamin C, vitamin D, zinc. Start Lovenox and dexamethasone. Consult with pulmonary medicine appreciated. 2. Diarrhea possibly secondary to cholecystitis. C. difficile toxin was negative. Patient started on Questran and Imodium. Consult with GI appreciated. Stool studies in progress. HIDA scan and consult with Dr. Kim.. 3. Diabetes mellitus type 2. NovoLog scale before meals and at bedtime. Hold metformin, Prandin, Trulicity. 4. Hypertension. Continue losartan 50 mg daily. 5. Hyperlipidemia. Continue simvastatin 20 mg at bedtime. 6. GI prophylaxis. Continue Pepcid 20 mg daily. 7. DVT prophylaxis. Continue Lovenox. DISCHARGE PLAN home. Impression and plan of care have been directed as dictated by the signing physician. Lyssa Barreto nurse practitioner acting as scribe for signing physi zuleima. Objective - Vital Signs Vital signs: Vital Signs Temp 99.8 F H 09/06/20 05:00 Pulse 70 09/06/20 05:00 Resp 18 09/06/20 05:00 BP 128/67 09/06/20 05:00 Pulse Ox 92 L 09/06/20 05:00 Intake & Output 09/05/20 09/06/20 09/06/20 18:59 06:59 18:59 Intake Total 120 Balance 120 Intake: Oral 120 Other: Voiding Method Toilet Toilet Bedside Commode Bedside Commode # Voids 1 # Bowel Movements 2 - Labs CBC & Chem 7: 09/04/20 04:54 09/04/20 04:54 Labs: Abnormal Lab Results - Last 24 Hours (Table) 09/05/20 09/05/20 09/05/20 Range/Units 12:34 17:33 20:35 POC Glucose (mg/dL) 171 H 236 H 184 H (75-99) mg/dL Microbiology - Last 24 Hours (Table) 09/03/20 11:33 Blood Culture - Preliminary Blood No Growth after 48 hours 09/03/20 11:49 Blood Culture - Preliminary Blood No Growth after 48 hours
--- NOTE | 2020-09-06 15:09 | P.PN ---
Subjective Progress Note Date: 09/06/20 Principal diagnosis: Diarrhea, weight loss This is a pleasant 65-year-old white female who came into the emergency department with complaints of increased shortness of breath and diarrhea for the last 3-4 days. The patient also stated she has had some nausea and decreased appetite with progressive weight loss of almost 40 pounds the last 5 months duration. The patient had a CT of the chest that showed no evidence of pulmonary embolism, but did show bilateral lower lobe infiltrate consistent with pneumonia and has been started on broad-spectrum antibiotics. The patient did have a spike in her temperature today to 101, she states she had several loose bowel movements yesterday, but only one today. She denies any blood per rectum or dark colored stools. She has some mild nausea but is able to eat and tolerating her diet. He denies any abdominal pain or vomiting. Stool studies have been ordered, however had not been collected. CT of the abdomen was ordered and reviewed an impression of right lower lobe pneumonia and atelectasis. Small right pleural effusion. Mild infiltrate of left lung base. Small amount of free fluid in the pelvis of uncertain significance. No evidence of bowel obstruction and no free air. Cholelithiasis. A ultrasound of the gallbladder was ordered showed a normal common bile duct, correlating with CT is rim calcified gallstone with areas of abnormal gallbladder wall thickening. Acute cholecystitis cannot be excluded. Further investigation with HIDA scan may be warranted. Objective - Vital Signs Vital signs: Vital Signs Temp 101.0 F H 09/06/20 11:00 Pulse 91 09/06/20 11:00 Resp 18 09/06/20 11:00 BP 134/60 09/06/20 11:00 Pulse Ox 90 L 09/06/20 11:00 Intake & Output 09/05/20 09/06/20 09/06/20 18:59 06:59 18:59 Intake Total 120 Output Total 1 Balance 120 -1 Intake: Oral 120 Output: Stool 1 Other: Voiding Method Toilet Toilet Toilet Bedside Commode Bedside Commode Bedside Commode # Voids 1 1 # Bowel Movements 2 - Exam General appearance: The patient is alert, oriented, in no acute distress. HET: Head is normocephalic and atraumatic. Conjunctiva pink. Sclera anicteric. Neck: Supple without lymphadenopathy. Abdomen: Soft, nontender, nondistended with bowel sounds. No guarding or rigidity. Extremities: Normal skin color and turgor. No pedal edema Neurological: No focal deficits. Alert and oriented 3. - Labs CBC & Chem 7: 09/04/20 04:54 09/04/20 04:54 Labs: Abnormal Lab Results - Last 24 Hours (Table) 09/05/20 09/05/20 09/05/20 Range/Units 12:34 17:33 20:35 POC Glucose (mg/dL) 171 H 236 H 184 H (75-99) mg/dL 09/06/20 Range/Units 07:41 POC Glucose (mg/dL) 189 H (75-99) mg/dL Microbiology - Last 24 Hours (Table) 09/03/20 11:33 Blood Culture - Preliminary Blood No Growth after 48 hours 09/03/20 11:49 Blood Culture - Preliminary Blood No Growth after 48 hours Assessment and Plan (1) Acute diarrhea Narrative/Plan: The lady who presented to the hospital with lower abdominal discomfort associated with diarrhea on and off for last few days duration. She's been having bowel movements 1 or 2 a day which are loose to let her inconsistency. She also complains of progressive weight loss of almost 40 pounds the last 5 months duration. She believes some of her symptoms started after she was started on Trulicity for diabetes mellitus 5 months ago. C. difficile toxin was reported as negative. Further stool studies have been ordered, however are not collected. Current Visit: Yes Status: Acute Code(s): R19.7 - DIARRHEA, UNSPECIFIED SNOMED Code(s): 099734942 (2) Pneumonia Narrative/Plan: Jose reacquired pneumonia on broad-spectrum antibiotics. Covid-19 was negative. Pulmonology following. Current Visit: Yes Status: Acute Code(s): J18.9 - PNEUMONIA, UNSPECIFIED ORGANISM SNOMED Code(s): 673744532 (3) Diabetes mellitus Current Visit: Yes Status: Acute Code(s): E11.9 - TYPE 2 DIABETES MELLITUS WITHOUT COMPLICATIONS SNOMED Code(s): 11470558 Plan: 1. Supportive care 2. Continue with broad-spectrum antibiotics 3. CT of the abdomen ordered and reviewed 4. Stool studies ordered, pending collection 5. HIDA scan and surgical consult ordered per medicine team 6. Diet as tolerated We will continue to monitor Dr. K Tumma I agree with the dictator's note, documented as a scribe by Esthela Hummel.
[2020-09-06 16:50] LABS: Glucose,Whole Blood 150 mg/dL (75-99)
--- NOTE | 2020-09-06 17:06 | NM ---
EXAMINATION TYPE: NM hepatobiliary w CCK DATE OF EXAM: 09/06/2020 COMPARISON: NONE HISTORY: Abdominal pain TECHNIQUE: After the intravenous administration of 5.1 mCi Tc 99m Mebrofenin hepatobiliary scintigrap hy is performed. Immediate images post injection. FINDINGS: There is uptake of the tracer by the liver that has normal size and contour. There is no focal defect . There is tracer in the gallbladder at 15 minutes and tracer in the small bowel at 20 minutes. Trace r is mostly cleared from the liver at 60 minutes. The post CCK images show gallbladder ejection fraction of 79% which is normal. The CCK dosage was 1.3 mcg. IMPRESSION: Normal hepatobiliary scan. Normal gallbladder ejection fraction. No evidence of cystic duct or common bile duct obstruction.
--- NOTE | 2020-09-06 17:52 | P.GSCN ---
History of Present Illness Consult date: 09/06/20 Reason for Consult: gallstone History of present illness: The patient is a 85 showed female who presented to the emergency department with complaints of diarrhea for several days. She hasn't felt like eating much because when she does he feels very tight across the upper abdomen. She hasn't had nausea or vomiting. No fevers. No cough or shortness of breath, although she is coughing while I am in the room. No chest pains. No history of pneumonia. Denies jaundice, acholic stools or tea-colored urine. No family history of gallbladder disease. Patient denies any prior "gallbladder attacks". She had been having diarrhea for longer period of time but she attributed that to [facility]. The patient stopped the true lucidity in the diarrhea has actually increased. Review of Systems All systems: negative Past Medical History Past Medical History: Diabetes Mellitus, Eye Disorder, Hyperlipidemia, Hypertension, Osteoarthritis (OA) Additional Past Medical History / Comment(s): back pain., hx of vertigo., cataract left eye. History of Any Multi-Drug Resistant Organisms: None Reported Past Surgical History: Hysterectomy Additional Past Surgical History / Comment(s): right cataract (jul 2017) Past Anesthesia/Blood Transfusion Reactions: No Reported Reaction Past Psychological History: No Psychological Hx Reported Smoking Status: Never smoker Past Alcohol Use History: None Reported Past Drug Use History: None Reported - Past Family History Mother Family Medical History: No Reported History Son(s) History Unknown: Yes Family Medical History: Cancer Additional Family Medical History / Comment(s): skin cancer Medications and Allergies Home Medications Medication Instructions Recorded Confirmed Type Losartan Potassium [Cozaar] 50 mg PO DAILY 07/03/17 09/03/20 History Simvastatin [Zocor] 20 mg PO HS 07/03/17 09/03/20 History Dulaglutide [Trulicity] 0.75 mg SQ WE 09/03/20 09/03/20 History Repaglinide [Prandin] 4 mg PO BID-W/MEALS 09/03/20 09/03/20 History metFORMIN HCL 1,000 mg PO DAILY 09/03/20 09/03/20 History metFORMIN HCL 500 mg PO HS 09/03/20 09/03/20 History Allergies Allergy/AdvReac Type Severity Reaction Status Date / Time latex Allergy Unknown Itching Verified 09/03/20 15:48 Surgical - Exam Osteopathic Statement: *. No significant issues noted on an osteopathic structural exam other than those noted in the History and Physical/Consult. Vital Signs Temp Pulse Resp BP Pulse Ox 100.4 F H 90 18 121/61 95 09/03/20 10:53 09/03/20 10:53 09/03/20 10:53 09/03/20 10:53 09/03/20 10:53 - General well developed, well nourished, no distress - Eyes normal ocular movement - Neck trachea midline - Respiratory normal expansion, clear to auscultation (On the left, somewhat diminished at the right base) - Cardiovascular Rhythm: regular - Abdomen Abdomen: soft, non tender, bowel sounds, no guarding, no rigid, no rebound, no distended Results - Labs 09/04/20 04:54 09/04/20 04:54 Abnormal Lab Results - Last 24 Hours (Table) 09/05/20 09/06/20 09/06/20 Range/Units 20:35 07:41 13:23 POC Glucose (mg/dL) 184 H 189 H 209 H (75-99) mg/dL 09/06/20 Range/Units 16:48 POC Glucose (mg/dL) 150 H (75-99) mg/dL Microbiology - Last 24 Hours (Table) 09/03/20 11:50 Stool Culture - Preliminary Stool Meeta albicans 09/03/20 11:33 Blood Culture - Preliminary Blood No Growth after 72 hours 09/03/20 11:49 Blood Culture - Preliminary Blood No Growth after 72 hours - Imaging CT scan - abdomen: report reviewed, image reviewed US - abdomen: report reviewed Assessment and Plan (1) Cholelithiasis Current Visit: Yes Status: Acute Code(s): K80.20 - CALCULUS OF GALLBLADDER W/O CHOLECYSTITIS W/O OBSTRUCTION SNOMED Code(s): 279269850 (2) Acute diarrhea Current Visit: Yes Status: Acute Code(s): R19.7 - DIARRHEA, UNSPECIFIED SNOMED Code(s): 770913156 (3) Diabetes mellitus Current Visit: Yes Status: Acute Code(s): E11.9 - TYPE 2 DIABETES MELLITUS WITHOUT COMPLICATIONS SNOMED Code(s): 20235339 (4) Pneumonia Current Visit: Yes Status: Acute Code(s): J18.9 - PNEUMONIA, UNSPECIFIED ORGANISM SNOMED Code(s): 405484614 Plan: I think the cholelithiasis is likely an incidental finding. I doubt this is the cause of her diarrhea. Liver function tests are normal. Continue workup and treatment for her pneumonia. A HIDA scan was ordered, I will check the results. Further recommendations. No plans at the present time for cholecystectomy.
[2020-09-06] MEDS: ATORVASTATIN 10 MG TAB PO SCH (22:09)
[2020-09-07 04:51] VITALS: TEMP 98
[2020-09-07] MEDS: SODIUM CHLORIDE 0.9% 1,000 ML IV SCH (05:53)
[2020-09-07] MEDS ORDERED: PANTOPRAZOLE 40 MG TABLET PO SCH (07:30)
[2020-09-07] MEDS: ENOXAPARIN 40 MG/0.4 ML SYRINGE SQ SCH (07:49)
[2020-09-07] MEDS: LOSARTAN 50 MG TAB PO SCH (07:50)
[2020-09-07] MEDS: ZINC SULFATE 220 MG CAP PO SCH (07:50)
[2020-09-07] MEDS: CHOLECALCIFEROL 1,000 UNIT TAB PO SCH (07:50)
[2020-09-07] MEDS: ASCORBIC ACID 500 MG TAB PO SCH (07:50)
[2020-09-07 07:58] LABS: Glucose,Whole Blood 142 mg/dL (75-99)
[2020-09-07] MEDS: INSULIN ASPART (NovoLOG) 100 UNIT/ML VIAL SQ SCH (08:50)
[2020-09-07] MEDS: CHOLESTYRAMINE (WITH SUGAR) 4 GM PACKET PO SCH (10:14)
[2020-09-07 10:39] VITALS: BP 156/73; PULSE 72; RESP 18
--- NOTE | 2020-09-07 10:39 | P.DS ---
Providers Date of admission: 09/03/20 15:04 Expected date of discharge: 09/07/20 Attending physician: Leyda Patel MD Consults: 09/04/20 08:02 Consult Physician Routine Consulting Provider: Melchor Pina Consult Reason/Comments: pneumonia Do you want consulting provider notified?: Yes 09/05/20 08:04 Consult Physician Routine Consulting Provider: Emily Sunshine Consult Reason/Comments: diarrhea Do you want consulting provider notified?: Yes Primary care physician: [facility] Course: HISTORY OF PRESENT ILLNESS This is an 85-year-old female patient of Dr. marti with past medical history of diabetes mellitus type 2, hypertension, hyperlipidemia. Patient complains of having diarrhea for 4 days, unable to eat with no appetite. No significant abdominal pain. She denies shortness of breath. No headache. No blurred vision. Positive fever. She denies any known exposure to COVID-19. Patient came into [facility] emergency [facility] for evaluation. Temperature max 102.4, pulse ox 95% on room air. Heart rate 90, blood pressure 121/61. C. difficile toxin negative. COVID-19 negative. Influenza testing n egative. RSV negative. WBC 3.4, hemoglobin 12.9, platelet 173. Lymphocytes low at 0.5. D-dimer 2.68. BUN 27 creatinine 1.14. Ferritin 476.9, AST 49, LDH 743, C-reactive protein 32.9. Pro-calcitonin 0.15. Chest x-ray reveals chronic changes without acute process. CAT scan angiogram of the chest reveals no evidence of pulmonary embolism. Bilateral lower lobe infiltrate and atelectasis. Mediastinal and bronchial adenopathy. Repeat chest x-ray this morning reveals COPD with bilateral basilar infiltrates stable. Patient admitted to the Medr floor and consult for pulmonary medicine. 09/05: Patient has been seen by pulmonary medicine and ruled out Covid 19 with plan to continue current medical treatment. Legionella testing ordered. Temperature max 102.2 in the past 24 hours. Temperature seems to be improving this morning. Heart rate 70, blood pressure 99/44, pulse ox 93% on room air. Blood sugars 181-202. Stool culture in process. Blood culture no growth at 24 hours 2. Appetite is improving. She continues to have diarrhea but wants to go home. Will add in a consult for Dr. Sunshine to evaluate. Patient did not receive Imodium yesterday as ordered. She did receive Questran without improvement apparently. She states her abdominal pain gets worse during the nighttime. 09/06: Patient has been seen by Dr. Hagen with recommendations to continue broad- spectrum antibiotics, CAT scan, stool cultures, advance diet as tolerated. CAT scan of the abdomen and pelvis with contrast revealed right lower lobe pneumonia and atelectasis. Small right pleural effusion. Mild infiltrate left lung base. Small amount of free fluid in the pelvis of uncertain significance. No evidence of bowel obstruction. No free air. Cholelithiasis. Stool cultures remain in process. Blood culture no growth after 48 hours 2. Legionella came back negative. Subsequently, ultrasound of the abdomen ordered which revealed possible cholecystitis. HIDA scan and consult with Dr. Kim added. Patient is complaining of nausea this morning and Zofran added. 09/07: Patient had HIDA scan which was negative. Patient seen by Dr. Kim with no plan for any surgical intervention in the near future. Patient had 1 small loose stool this morning. Nausea and vomiting is improved and she is on a regular diet. She is been afebrile, heart rate 83, blood pressure 124/61, pulse ox 92% on room air. Patient will be discharged home today in stable condition. ASSESSMENT AND PLAN 1. Acute pneumonia, Covid 19 pneumonia ruled out by pulmonary medicine. 2. Diarrhea possibly secondary to cholecystitis. 3. Diabetes mellitus type 2. 4. Hypertension. 5. Hyperlipidemia. DISCHARGE PLAN Home. Impression and plan of care have been directed as dictated by the signing physician. Lyssa Barreto nurse practitioner acting as scribe for signing physician. Patient Condition at Discharge: Good Plan - Discharge Summary Discharge Rx Participant: No New Discharge Prescriptions: New Loperamide [Imodium] 2 mg PO QID PRN cap PRN Reason: Diarrhea Cefuroxime Axetil [Ceftin] 500 mg PO BID 5 Days #10 tab Continue Simvastatin [Zocor] 20 mg PO HS Losartan Potassium [Cozaar] 50 mg PO DAILY metFORMIN HCL 500 mg PO HS Repaglinide [Prandin] 4 mg PO BID-W/MEALS metFORMIN HCL 1,000 mg PO DAILY Dulaglutide [Trulicity] 0.75 mg SQ WE Discharge Medication List Losartan Potassium [Cozaar] 50 mg PO DAILY 07/03/17 [History] Simvastatin [Zocor] 20 mg PO HS 07/03/17 [History] Dulaglutide [Trulicity] 0.75 mg SQ WE 09/03/20 [History] Repaglinide [Prandin] 4 mg PO BID-W/MEALS 09/03/20 [History] metFORMIN HCL 1,000 mg PO DAILY 09/03/20 [History] metFORMIN HCL 500 mg PO HS 09/03/20 [History] Cefuroxime Axetil [Ceftin] 500 mg PO BID 5 Days #10 tab 09/07/20 [Rx] Loperamide [Imodium] 2 mg PO QID PRN cap 09/07/20 [Rx] Follow up Appointment(s)/Referral(s): Alhaji Mayorga MD [Primary Care Provider] - 09/13/20 11:00 am (With kelly.) Discharge Disposition: HOME SELF-CARE
--- NOTE | 2020-09-07 12:55 | P.PN ---
Subjective Progress Note Date: 09/07/20 Principal diagnosis: Chills, diarrhea 85-year-old white female patient past medical history of diabetes mellitus, hypertension, hyperlipidemia, osteoarthritis, chronic back pain, nonsmoker, who presented to the emergency department on 09/03/2020 for evaluation of four-day history of diarrhea, nausea but no vomiting. She reports poor appetite and just has not been feeling right. She has been complaining of chills but no fevers. She thinks she may have had some exposure to COVID at her facility. She reports a dry cough every morning, but no difficulty breathing. No chest pain or palpitations. Denies any dysuria or hematuria or urinary frequency. Patient was tested for COVID and was found to be negative 2. Chest x-ray showed chronic changes without acute pulmonary process. Lab data revealed white blood cell count of 3.4, hemoglobin of 12.9, lymphopenia with a lymphocyte count of 0.5, d-dimer was 2.68, sodium was 133, the rest of the electrolytes were within normal limits, BUN of 27 creatinine is 1.14, pro-calcitonin level was low at 0.15, patient was tested for C. diff and was found to be negative, influenza screen was negative, RSV was negative. Ferritin level was 476, LDH is 743, and CRP is 32.9. In view of elevated d-dimer CT chest was completed showing no evidence of pulmonary embolism it did show bilateral lower lobe infiltrate and atelectasis and mediastinal and bronchial adenopathy. She was started on antibiotic coverage in the form of azithromycin and Rocephin. She is on once daily dose of Lovenox at 40 mg, and was started on supplements including zinc, and vitamin C and vitamin D. She is currently resting comfortably in bed, she i s on room air, she did have a fever earlier this morning with a temp of 101.5F. Breathing seems to be nonlabored. On 09/05/2020 patient seen in follow-up on medical floor, she is currently on room air, she denies any pulmonary complaints, no shortness of breath cough, no compressive chest pain, no hemoptysis, her biggest complaint today is ongoing diarrhea. She does reports that just a mild dry cough, she tested negative for COVID, she is being treated with a combination of azithromycin and Rocephin for community acquired pneumonia, remains on 0.9 normal sinus rhythm rate 75 ML per hour, peripheral A. fib is stable on last 24 hours, her pulse ox on room air is 93%. Her blood cultures have shown no growth, stool culture has been sent, pending at this time, so far no growth, her Legionella urine antigen was negative, we can discontinue her azithromycin, and keep the patient on Rocephin for antibiotic coverage. On 09/06/2020 patient seen in follow-up on medical floor. Denies any shortness of breath, she is currently on room air, her pulse ox is between 90-92%, blood pressure has been stable, breathing is comfortable, no significant cough, however patient is continuously having diarrhea, in fact that her main complaint. We stopped azithromycin yesterday, CT of abdomen and pelvis showed right lower lobe pneumonia and atelectasis, small right pleural effusion, mild infiltrate in the left lung base, small amount of free fluid in the pelvis of unknown significance, no evidence of bowel obstruction, no free air, cholelithiasis, abdominal ultrasound showed calcified gallstone with areas of abnormal gallbladder wall thickening and acute cholecystitis could not be excluded. HIDA scan was recommended, GI service has been consulted. Pulmonary perspective patient denies any pulmonary complaints, she remains on prophylactic dose Lovenox, she is on Rocephin, vitamin C, zinc supplement, she is receiving gentle hydration 0.9 normal saline at a rate of 75 ML per hour. Her COVID testing was negative, the patient is being treated for community-acquired pneumonia On 09/07/2020 patient seen in follow-up on medical floor. She denies any pulmonary complaints, she has a mild occasional dry cough, no chest discomfort, no shortness of breath, room air pulse ox is 93%, she's been afebrile, no chest discomfort, she continues to have abdominal distention, and diarrhea. She was seen by surgery and her diarrhea was thought to be related to Trulicity, which is currently on hold. HIDA scan showed normal hepatobiliary scan, normal gallbladder ejection fraction, no evidence of cystic duct or common bile duct obstruction. Her blood cultures had shown no growth, stool culture only showed Meeta albicans. Her CT of the abdomen showed a right lower lobe pneumonia and atelectasis, small right pleural effusion and mild infiltrate at the left lung base. She is on Rocephin for antibiotic coverage, chronically denies any pulmonary symptoms. Objective - Vital Signs Vital signs: Vital Signs Temp 98.0 F 09/07/20 10:17 Pulse 72 09/07/20 10:17 Resp 18 09/07/20 10:17 BP 156/73 09/07/20 10:17 Pulse Ox 93 L 09/07/20 10:17 Intake & Output 09/06/20 09/07/20 09/07/20 18:59 06:59 18:59 Intake Total 750 600 Output Total 201 1 Balance 549 599 Intake: Intake, IV Titration 750 600 Amount Sodium Chloride 0.9% 1, 750 600 000 ml @ 75 mls/hr IV . [id number] [facility] Rx#:[id number] Output: Urine 200 Stool 1 1 Other: Voiding Method Toilet Toilet Bedside Commode Bedside Commode # Voids 1 - Exam GENERAL EXAM: Alert, pleasant, 85-year-old white female, on room air, with a pulse ox of 93%, denies any pulmonary complaints, most complaining of ongoing diarrhea comfortable in no apparent distress. HEAD: Normocephalic/atraumatic. EYES: Normal reaction of pupils, equal size. Conjunctiva pink, sclera white. NOSE: Clear with pink turbinates. THROAT: No erythema or exudates. NECK: No masses, no JVD, no thyroid enlargement, no adenopathy. CHEST: No chest wall deformity. Symmetrical expansion. LUNGS: Equal air entry with no crackles, wheeze, rhonchi or dullness. CVS: Regular rate and rhythm, normal S1 and S2, no gallops, no murmurs, no rubs ABDOMEN: Soft, nontender. No hepatosplenomegaly, normal bowel sounds, no guarding or rigidity. EXTREMITIES: No clubbing, no edema, no cyanosis, 2+ pulses and upper and lower extremities. MUSCULOSKELETAL: Muscle strength and tone normal. SPINE: No scoliosis or deformity SKIN: No rashes CENTRAL NERVOUS SYSTEM: Alert and oriented -3. No focal deficits, tone is normal in all 4 extremities. PSYCHIATRIC: Alert and oriented -3. Appropriate affect. Intact judgment and insight. - Labs CBC & Chem 7: 09/04/20 04:54 09/04/20 04:54 Labs: Abnormal Lab Results - Last 24 Hours (Table) 09/06/20 09/06/20 09/07/20 Range/Units 13:23 16:48 07:47 POC Glucose (mg/dL) 209 H 150 H 142 H (75-99) mg/dL Microbiology - Last 24 Hours (Table) 09/03/20 11:50 Stool Culture - Preliminary Stool Meeta albicans 09/03/20 11:33 Blood Culture - Preliminary Blood No Growth after 72 hours 09/03/20 11:49 Blood Culture - Preliminary Blood No Growth after 72 hours Assessment and Plan Plan: Assessment: #1. Community acquired pneumonia, COVID 19 was ruled out via PCR test 2, and influenza screen was negative, RSV was negative. CTA chest showed prominent infiltrate and atelectasis of both lung bases right greater than left, with multiple enlarged bronchial lymph nodes in the right side more than the left, and enlarged paratracheal subcarinal lymph nodes. #2. Elevated d-dimer, CTA chest ruled out pulmonary embolism #3. Diarrhea, nausea but no vomiting, patient ruled out for C. diff, patient was found to have a calcified gallstone, HIDA scan was negative, diarrhea was thought to be related to Trulicity #4. History of hypertension #5. Hyperlipidemia #6. Diabetes mellitus type 2 #7. Osteoarthritis #8. Back pain #9. Possible acute cholecystitis, with the ultrasound abdomen revealed very well thickening, and calcified gallstone Plan: Patient has remained stable from pulmonary perspective, continues on room air, no significant cough, no complaints of dyspnea. From pulmonary perspective she can considered for discharge when she's been cleared by consultants in the medicine. She will need outpatient follow-up in the office with Dr. Garcia in 7-10 days. I performed a history & physical examination of the patient and discussed their management with my nurse practitioner, Anjali Huffman. I reviewed the nurse practitioner's note and agree with the documented findings and plan of care. Lung sounds are positive for diminished breath sounds. The findings and the impression was discussed with the patient. I attest to the documentation by the nurse practitioner. Time with Patient: Less than 30
--- NOTE | 2020-09-07 13:35 | P.PN ---
Subjective Progress Note Date: 09/07/20 Principal diagnosis: Diarrhea, weight loss This is a pleasant 65-year-old white female who came into the emergency department with complaints of increased shortness of breath and diarrhea for the last 3-4 days. The patient also stated she has had some nausea and decreased appetite with progressive weight loss of almost 40 pounds the last 5 months duration. The patient had a CT of the chest that showed no evidence of pulmonary embolism, but did show bilateral lower lobe infiltrate consistent with pneumonia and has been started on broad-spectrum antibiotics. The patient did have a spike in her temperature yesterday, has remained afebrile yesterday evening and today. She states her diarrhea is improving, she only had 1-2+ bowel movement yesterday and one this morning. She states she does not have severe abdominal pain but a discomfort. She denies any blood per rectum or dark colored stools. She has some mild nausea but is able to eat and tolerating her diet. Stool studies have been ordered, and negative to date. Objective - Vital Signs Vital signs: Vital Signs Temp 98.0 F 09/07/20 04:49 Pulse 83 09/07/20 04:49 Resp 16 09/07/20 04:49 BP 124/61 09/07/20 04:49 Pulse Ox 92 L 09/07/20 04:49 Intake & Output 09/06/20 09/07/20 09/07/20 18:59 06:59 18:59 Intake Total 750 600 Output Total 201 1 Balance 549 599 Intake: Intake, IV Titration 750 600 Amount Sodium Chloride 0.9% 1, 750 600 000 ml @ 75 mls/hr IV . [id number] [facility] Rx#:[id number] Output: Urine 200 Stool 1 1 Other: Voiding Method Toilet Toilet Bedside Commode Bedside Commode # Voids 1 - Exam General appearance: The patient is alert, oriented, in no acute distress. HET: Head is normocephalic and atraumatic. Conjunctiva pink. Sclera anicteric. Neck: Supple without lymphadenopathy. Abdomen: Soft, nontender, nondistended with bowel sounds. No guarding or rigidity. Extremities: Normal skin color and turgor. No pedal edema Neurological: No focal deficits. Alert and oriented 3. - Labs CBC & Chem 7: 09/04/20 04:54 09/04/20 04:54 Labs: Abnormal Lab Results - Last 24 Hours (Table) 09/06/20 09/06/20 09/07/20 Range/Units 13:23 16:48 07:47 POC Glucose (mg/dL) 209 H 150 H 142 H (75-99) mg/dL Microbiology - Last 24 Hours (Table) 09/03/20 11:50 Stool Culture - Preliminary Stool Meeta albicans 09/03/20 11:33 Blood Culture - Preliminary Blood No Growth after 72 hours 09/03/20 11:49 Blood Culture - Preliminary Blood No Growth after 72 hours Assessment and Plan (1) Acute diarrhea Narrative/Plan: The lady who presented to the hospital with lower abdominal discomfort associated with diarrhea on and off for last few days duration. She's been having bowel movements 1 or 2 a day which are loose to let her inconsistency. She also complains of progressive weight loss of almost 40 pounds the last 5 months duration. She believes some of her symptoms started after she was started on Trulicity for diabetes mellitus 5 months ago. C. difficile toxin was reported as negative. Further stool studies have been ordered, negative to date. Diarrhea is improving. Patient continues on Imodium as needed. Current Visit: Yes Status: Acute Code(s): R19.7 - DIARRHEA, UNSPECIFIED SNOMED Code(s): 589339928 (2) Pneumonia Narrative/Plan: Community acquired pneumonia on broad-spectrum antibiotics. Covid-19 was negative. Pulmonology following. Current Visit: Yes Status: Acute Code(s): J18.9 - PNEUMONIA, UNSPECIFIED ORGANISM SNOMED Code(s): 530763906 (3) Diabetes mellitus Current Visit: Yes Status: Acute Code(s): E11.9 - TYPE 2 DIABETES MELLITUS WITHOUT COMPLICATIONS SNOMED Code(s): 79410324 Plan: 1. Supportive care 2. Continue with broad-spectrum antibiotics 3. CT of the abdomen ordered and reviewed 4. Stool studies ordered, negative to date 5. HIDA scan and surgical consult ordered per medicine team 6. Diet as tolerated 7. Continue immodium as needed Dr. Hilary Sunshine I agree with the dictator's note, documented as a scribe by Esthela Hummel.
== END 2020-09-07 14:12 | disposition home or self-care (01) | DRG 194 ==
LOC: EC 10:35 → 6NMEDSUR 15:04
PROVIDERS: ADMIT Internal Medicine; ATTEND Internal Medicine
DX: J18.9 Pneumonia, unspecified organism (principal); J44.0 Chronic obstructive pulmonary disease with (acute) lower respiratory infection; K80.00 Calculus of gallbladder with acute cholecystitis without obstruction; J98.11 Atelectasis; Z20.822 Contact with and (suspected) exposure to COVID-19; E78.5 Hyperlipidemia, unspecified; D72.810 Lymphocytopenia; E11.9 Type 2 diabetes mellitus without complications; E86.0 Dehydration; I10 Essential (primary) hypertension; M19.90 Unspecified osteoarthritis, unspecified site; G89.29 Other chronic pain; M54.9 Dorsalgia, unspecified; Z77.22 Contact with and (suspected) exposure to environmental tobacco smoke (acute) (chronic); Z79.82 Long term (current) use of aspirin; Z79.899 Other long term (current) drug therapy; Z79.84 Long term (current) use of oral hypoglycemic drugs; Z91.040 Latex allergy status; Z98.41 Cataract extraction status, right eye; Z90.710 Acquired absence of both cervix and uterus; Z82.5 Family history of asthma and other chronic lower respiratory diseases; Z80.8 Family history of malignant neoplasm of other organs or systems
CPT/HCPCS: 36415; 71045; 71275; 74177; 76700; 78227; 80053; 82728; 83036; 83605; 83615; 83735; 84145; 85025; 85027; 85379; 85610; 85652; 85730; 86140; 87040; 87045; 87046; 87324; 87449; 87635; 87636; 93005; 96365; 96366; 99285

== ENCOUNTER 2020-09-10 15:17 | Inpatient (IN) | payer MEDICARE ==
--- NOTE | 2020-09-10 15:54 | ED ---
Nausea/Vomiting/Diarrhea HPI - General Chief complaint: Nausea/Vomiting/Diarrhea Stated complaint: pneumonia & gallstones Time Seen by Provider: 09/10/20 15:22 Source: patient, family Mode of arrival: ambulatory Limitations: no limitations - History of Present Illness Initial comments: 85yo emilee with DM, HTN currently being treated for a bilateral pneumonia presenting for cc of persistent diarrhea, nausea, vomiting. pt states she was evaluated last week and diagnosed with bilateral pneumonia, diarrhea. pt states that her covid test was (-) x2. on chart review c. difficile testing and legionella testing (-). Pt denies fevers, chest pain, dyspnea. Denies abdominal pain. She states she is pain free but continues to have frequent loose stools as well as vomiting with eating. pt states she feels weak secondary to this. Patient denies cough, headaches, urinary symptoms, denies back pain. patient has no additional complaints and appears nontoxic on arrival in no acute distress - Related Data Home Medications Medication Instructions Recorded Confirmed Losartan Potassium [Cozaar] 50 mg PO DAILY 07/03/17 09/10/20 Simvastatin [Zocor] 20 mg PO HS 07/03/17 09/10/20 Dulaglutide [Trulicity] 0.75 mg SQ WE 09/03/20 09/10/20 Repaglinide [Prandin] 4 mg PO BID-W/MEALS 09/03/20 09/10/20 metFORMIN HCL 1,000 mg PO DAILY 09/03/20 09/10/20 metFORMIN HCL 500 mg PO HS 09/03/20 09/10/20 Ondansetron HCl [Zofran] 4 - 8 mg PO Q8H PRN 09/10/20 09/10/20 Previous Rx's Medication Instructions Recorded Cefuroxime Axetil [Ceftin] 500 mg PO BID 5 Days #10 tab 09/07/20 Loperamide [Imodium] 2 mg PO QID PRN cap 09/07/20 Allergies Allergy/AdvReac Type Severity Reaction Status Date / Time latex Allergy Unknown Itching Verified 09/10/20 16:26 Review of Systems ROS Statement: Those systems with pertinent positive or pertinent negative responses have been documented in the HPI. ROS Other: All systems not noted in ROS Statement are negative. Past Medical History Past Medical History: Diabetes Mellitus, Eye Disorder, Hyperlipidemia, H ypertension, Osteoarthritis (OA) Additional Past Medical History / Comment(s): back pain., hx of vertigo., cataract left eye. History of Any Multi-Drug Resistant Organisms: None Reported Past Surgical History: Hysterectomy Additional Past Surgical History / Comment(s): right cataract (jul 2017) Past Anesthesia/Blood Transfusion Reactions: No Reported Reaction Past Psychological History: No Psychological Hx Reported Smoking Status: Never smoker Past Alcohol Use History: None Reported Past Drug Use History: None Reported - Past Family History Mother Family Medical History: No Reported History Son(s) History Unknown: Yes Family Medical History: Cancer Additional Family Medical History / Comment(s): skin cancer General Exam - General Exam Comments Initial Comments: General: The patient is awake and alert, in no distress Eye: +3 mm pupils are equal, round and reactive to light, extra-ocular movements are intact. No nystagmus. There is normal conjunctiva bilaterally. No signs of icterus. Ears, nose, mouth and throat: There are moist mucous membranes and no oral lesions. Neck: The neck is supple, there is no tenderness or JVD. Cardiovascular: There is a regular rate and rhythm. No murmur, rub or gallop is appreciated. Respiratory: Lungs are clear to auscultation, respirations are non-labored, breath sounds are equal. No wheezes, stridor, rales, or rhonchi. Gastrointestinal: Soft, non-distended, non-tender abdomen without masses or organomegaly noted. There is no rebound or guarding present. No CVA tenderness Musculoskeletal: Normal ROM, no tenderness. Strength 5/5. Sensation intact. Pulses equal bilaterally 2+. Neurological: A&O x 3. CN II-XII intact grossly, There are no obvious motor or sensory deficits. Coordination appears grossly intact. Speech is normal. Skin: Skin is warm and dry and no rashes or lesions are noted. Psychiatric: Cooperative, appropriate mood & affect, normal judgment. Limitations: no limitations Course Vital Signs 09/10/20 15:19 Temperature 98.2 F Pulse Rate 77 Respiratory 20 Rate Blood Pressure 161/73 O2 Sat by Pulse 95 Oximetry Medical Decision Making - Medical Decision Making 85yo presenting for persistent diarrhea, vomiting, inability to eat. pt states that she has had diarrhea now for weeks, and for the past few days cannot eat without vomiting now. pt states she feels weak all over. patient has mild hypokalemia, dry lips on exam. pt has ketones urine. US large gallstone. pt has mild lipase elevation. stable maybe slightly increased b/l pleural effision on acute abdominal series. no chest pain, no dyspnea. pt has mild b/l edena. pt will be admitted for cc of weakness. Dr. Arreola agreeable to care plan. - Lab Data Result diagrams: 09/10/20 15:37 09/10/20 15:37 Lab Results 09/10/20 09/10/20 09/10/20 Range/Units 15:37 15:37 15:37 WBC 6.9 (3.8-10.6) k/uL RBC 3.81 (3.80-5.40) m/uL Hgb 11.2 L (11.4-16.0) gm/dL Hct 34.1 (34.0-46.0) % MCV 89.4 (80.0-100.0) fL MCH 29.4 (25.0-35.0) pg MCHC 32.9 (31.0-37.0) g/dL RDW 13.5 (11.5-15.5) % Plt Count 437 D (150-450) k/uL MPV 8.0 Neutrophils % (Manual) 72 % Lymphocytes % (Manual) 24 % Monocytes % (Manual) 4 % Neutrophils # (Manual) 4.97 (1.3-7.7) k/uL Lymphocytes # (Manual) 1.66 (1.0-4.8) k/uL Monocytes # (Manual) 0.28 (0-1.0) k/uL Nucleated RBCs 0 (0-0) /100 WBC Manual Slide Review Performed Poikilocytosis (manual Present PT 10.6 (9.0-12.0) sec INR 1.0 (<1.2) APTT 22.0 (22.0-30.0) sec Sodium (137-145) mmol/L Potassium (3.5-5.1) mmol/L Chloride (98-107) mmol/L Carbon Dioxide (22-30) mmol/L Anion Gap mmol/L BUN (7-17) mg/dL Creatinine (0.52-1.04) mg/dL Est GFR (CKD-EPI)AfAm (>60 ml/min/1.73 sqM) Est GFR (CKD-EPI)NonAf (>60 ml/min/1.73 sqM) Glucose (74-99) mg/dL Plasma Lactic Acid Janak (0.7-2.0) mmol/L Calcium (8.4-10.2) mg/dL Total Bilirubin (0.2-1.3) mg/dL AST (14-36) U/L ALT (4-34) U/L Alkaline Phosphatase (38-126) U/L Total Protein (6.3-8.2) g/dL Albumin (3.5-5.0) g/dL Amylase (30-110) U/L Lipase (23-300) U/L Urine Color Yellow Urine Appearance Clear (Clear) Urine pH 6.0 (5.0-8.0) Ur Specific Jackson 1.009 (1.001-1.035) Urine Protein 1+ H (Negative) Urine Glucose (UA) Negative (Negative) Urine Ketones 2+ H (Negative) Urine Blood Negative (Negative) Urine Nitrite Negative (Negative) Urine Bilirubin Negative (Negative) Urine Urobilinogen <2.0 (<2.0) mg/dL Ur Leukocyte Esterase Small H (Negative) Urine RBC 2 (0-5) /hpf Urine WBC 7 H (0-5) /hpf Ur Squamous Epith Cells 1 (0-4) /hpf Hyaline Casts 1 (0-2) /lpf Urine Mucus Rare H (None) /hpf Coronavirus (PCR) (Not Detectd) 09/10/20 09/10/20 09/10/20 Range/Units 15:37 15:37 15:37 WBC (3.8-10.6) k/uL RBC (3.80-5.40) m/uL Hgb (11.4-16.0) gm/dL Hct (34.0-46.0) % MCV (80.0-100.0) fL MCH (25.0-35.0) pg MCHC (31.0-37.0) g/dL RDW (11.5-15.5) % Plt Count (150-450) k/uL MPV Neutrophils % (Manual) % Lymphocytes % (Manual) % Monocytes % (Manual) % Neutrophils # (Manual) (1.3-7.7) k/uL Lymphocytes # (Manual) (1.0-4.8) k/uL Monocytes # (Manual) (0-1.0) k/uL Nucleated RBCs (0-0) /100 WBC Manual Slide Review Poikilocytosis (manual PT (9.0-12.0) sec INR (<1.2) APTT (22.0-30.0) sec Sodium 135 L (137-145) mmol/L Potassium 3.1 L (3.5-5.1) mmol/L Chloride 106 (98-107) mmol/L Carbon Dioxide 19 L (22-30) mmol/L Anion Gap 10 mmol/L BUN 12 (7-17) mg/dL Creatinine 0.80 (0.52-1.04) mg/dL Est GFR (CKD-EPI)AfAm 77 (>60 ml/min/1.73 sqM) Est GFR (CKD-EPI)NonAf 67 (>60 ml/min/1.73 sqM) Glucose 105 H (74-99) mg/dL Plasma Lactic Acid Janak 1.0 (0.7-2.0) mmol/L Calcium 8.5 (8.4-10.2) mg/dL Total Bilirubin 0.7 (0.2-1.3) mg/dL AST 45 H (14-36) U/L ALT 34 (4-34) U/L Alkaline Phosphatase 72 (38-126) U/L Total Protein 6.4 (6.3-8.2) g/dL Albumin 3.2 L (3.5-5.0) g/dL Amylase 85 (30-110) U/L Lipase 346 H (23-300) U/L Urine Color Urine Appearance (Clear) Urine pH (5.0-8.0) Ur Specific Jackson (1.001-1.035) Urine Protein (Negative) Urine Glucose (UA) (Negative) Urine Ketones (Negative) Urine Blood (Negative) Urine Nitrite (Negative) Urine Bilirubin (Negative) Urine Urobilinogen (<2.0) mg/dL Ur Leukocyte Esterase (Negative) Urine RBC (0-5) /hpf Urine WBC (0-5) /hpf Ur Squamous Epith Cells (0-4) /hpf Hyaline Casts (0-2) /lpf Urine Mucus (None) /hpf Coronavirus (PCR) Not Detected (Not Detectd) Disposition Clinical Impression: Weakness, Pleural effusion, Vomiting, Diarrhea, Unable to eat, Hypokalemia Disposition: ADMITTED IP TO THIS [facility] Condition: Stable Is patient prescribed a controlled substance at d/c from ED?: No Referrals: Alhaji Mayorga MD [Primary Care Provider] - 1-2 days Time of Disposition: 19:09 Decision to Admit Reason: Admit from EC Decision Date: 09/10/20 Decision Time: 19:09
[2020-09-10 16:00] LABS: HCT 34.1 % (34.0-46.0); HGB 11.2 gm/dL (11.4-16.0); MCH 29.4 pg (25.0-35.0); MCHC 32.9 g/dL (31.0-37.0); MCV 89.4 fL (80.0-100.0); RBC 3.81 m/uL (3.80-5.40); RDW 13.5 % (11.5-15.5); WBC 6.9 k/uL (3.8-10.6)
[2020-09-10 16:02] LABS: Albumin 3.2 g/dL (3.5-5.0); Calcium 8.5 mg/dL (8.4-10.2); Potassium 3.1 mmol/L (3.5-5.1); Prothrombin Time 10.6 sec (9.0-12.0); Total Bilirubin 0.7 mg/dL (0.2-1.3); Total Protein 6.4 g/dL (6.3-8.2)
[2020-09-10 16:04] LABS: Platelet Count 437 k/uL (150-450)
[2020-09-10] MEDS ORDERED: POTASSIUM CHLORIDE ER 10 MEQ TAB.ER.PRT PO STA (16:09)
[2020-09-10 16:18] LABS: Lymphocytes # (M) 1.66 k/uL (1.0-4.8); Monocytes # (M) 0.28 k/uL (0-1.0); Neutrophils # (M) 4.97 k/uL (1.3-7.7); Neutrophils % (M) 72 %; Nucleated Red Blood Cells 0 /100 WBC (0-0); Total Cells Counted 100
[2020-09-10 16:20] LABS: Poikilocytosis (M) Present
--- NOTE | 2020-09-10 18:09 | US ---
EXAMINATION TYPE: US abdomen limited DATE OF EXAM: 09/10/2020 COMPARISON: NONE CLINICAL HISTORY: epigastric/ruq. Pain history of gallstone. EXAM MEASUREMENTS: Liver Length: 13 cm Gallbladder Wall: .4 cm CBD: .7 cm Right Kidney: 9.5 x 4.1 x 3.4 cm Pancreas: Duct visualized .3cm Liver: wnl Gallbladder: Large stone visualized 2 cm. with a thickened wall. Evidence for sonographic Ferguson's sign: No CBD: Dilated. Right Kidney: wnl IMPRESSION: There is a large gallstone. No focal liver defect. Large common bile duct consistent with some gallbl adder dysfunction. No dilation seen of the intrahepatic bile ducts.
[2020-09-10 18:20] LABS: Appearance,Urine Clear (Clear); Bilirubin,Urine Negative (Negative); Blood,Urine Negative (Negative); Color,Urine Yellow; Glucose,Urine (UA) Negative (Negative); Hyaline Casts,Urine 1 /lpf (0-2); Ketones,Urine 2+ (Negative); Leukocyte Esterase,Urine Small (Negative); Mucus,Urine Rare /hpf; Nitrite,Urine Negative (Negative); Protein,Urine 1+ (Negative); RBC,Urine 2 /hpf (0-5); Specific Gravity,Urine 1.009 (1.001-1.035); Squamous Epithelial Cell,Urine 1 /hpf (0-4); Urobilinogen,Urine <2.0 mg/dL (<2.0); WBC,Urine 7 /hpf (0-5)
--- NOTE | 2020-09-10 18:35 | XR ---
EXAMINATION TYPE: XR abdomen acute w cxr DATE OF EXAM: 09/10/2020 COMPARISON: 09/04/2020 HISTORY: Vomiting TECHNIQUE: 4 views FINDINGS: Heart is normal. There is some blunting of the costophrenic angles. There is some linear in filtrate and atelectasis at the lung bases. There are no hilar masses. Thoracic aorta is atheromatous . There is large calcified gallstone. There is no sign of intestinal obstruction or pneumoperitoneum. Fecal pattern is normal. There is no evidence of abdominal mass. IMPRESSION: Compared to 09/04/2020 exam there is appearance of bilateral pleural effusions with basilar pulmonary infiltrates and atelectasis. Mild heart failure is probably present. Nonacute abdomen.
[2020-09-10] MEDS ORDERED: NALOXONE 0.4 MG/ML 1 ML VIAL IV PRN (18:53)
[2020-09-10 21:04] LABS: Glucose,Whole Blood 92 mg/dL (75-99)
[2020-09-10] MEDS ORDERED: ONDANSETRON 4 MG TAB PO PRN (21:51)
[2020-09-11 06:35] LABS: Glucose,Whole Blood 106 mg/dL (75-99)
[2020-09-11] MEDS: REPAGLINIDE 1 MG TAB PO SCH ×2 (08:14→17:44)
[2020-09-11] MEDS: LOSARTAN 50 MG TAB PO SCH (08:24)
[2020-09-11] MEDS: CEFDINIR 300 MG CAP PO SCH ×2 (08:24→22:43)
[2020-09-11] MEDS ORDERED: INSULIN ASPART (NovoLOG) 100 UNIT/ML VIAL SQ SCH (09:00)
[2020-09-11 09:18] LABS: HCT 31.2 % (34.0-46.0); HGB 10.7 gm/dL (11.4-16.0); MCH 31.5 pg (25.0-35.0); MCHC 34.4 g/dL (31.0-37.0); MCV 91.5 fL (80.0-100.0); Mean Platelet Volume 7.5; Platelet Count 403 k/uL (150-450); RBC 3.41 m/uL (3.80-5.40); RDW 13.5 % (11.5-15.5); WBC 6.3 k/uL (3.8-10.6)
[2020-09-11 09:34] LABS: Albumin 2.9 g/dL (3.5-5.0); Calcium 8.6 mg/dL (8.4-10.2); Potassium 3.6 mmol/L (3.5-5.1); Total Bilirubin 0.6 mg/dL (0.2-1.3); Total Protein 5.9 g/dL (6.3-8.2)
[2020-09-11] MEDS: SODIUM CHLORIDE 0.9% 1,000 ML IV SCH ×2 (10:55→22:43)
[2020-09-11] MEDS: metroNIDAZOLE-NS PMX 500 MG in SALINE 1 100ML.BAG IVPB SCH ×3 (10:55→23:54)
[2020-09-11 11:44] LABS: Glucose,Whole Blood 119 mg/dL (75-99)
--- NOTE | 2020-09-11 11:47 | P.GSCN ---
History of Present Illness Consult date: 09/11/20 Reason for Consult: Cholelithiasis, nausea, vomiting, diarrhea History of present illness: The patient is a 85 showed female who was found to have cholelithiasis on computed tomography scan during a prior admission. Computed tomography scan of the abdomen and pelvis was ordered because of several month history of diarrhea and weight loss. Ultrasound confirmed a gallstone and HIDA scan was performed showing normal ejection fraction and no evidence of cholecystitis. She was discharged home. She returned to the emergency department because of persistent diarrhea 2-3 times a day, and nausea with vomiting. Poor oral intake. She denies any significant abdominal pain. Denies any right upper quadrant pain or pain radiating through to the back. Denies jaundice. Review of Systems All systems: negative Past Medical History Past Medical History: Diabetes Mellitus, Eye Disorder, Hyperlipidemia, Hypertension, Osteoarthritis (OA) Additional Past Medical History / Comment(s): back pain., hx of vertigo., cataract left eye. History of Any Multi-Drug Resistant Organisms: None Reported Past Surgical History: Hysterectomy Additional Past Surgical History / Comment(s): right cataract (jul 2017) Past Anesthesia/Blood Transfusion Reactions: No Reported Reaction Past Psychological History: No Psychological Hx Reported Smoking Status: Never smoker Past Alcohol Use History: None Reported Past Drug Use History: None Reported - Past Family History Mother Family Medical History: No Reported History Son(s) History Unknown: Yes Family Medical History: Cancer Additional Family Medical History / Comment(s): skin cancer Medications and Allergies Home Medications Medication Instructions Recorded Confirmed Type Losartan Potassium [Cozaar] 50 mg PO DAILY 07/03/17 09/10/20 History Simvastatin [Zocor] 20 mg PO HS 07/03/17 09/10/20 History Dulaglutide [Trulicity] 0.75 mg SQ WE 09/03/20 09/10/20 History Repaglinide [Prandin] 4 mg PO BID-W/MEALS 09/03/20 09/10/20 History metFORMIN HCL 1,000 mg PO DAILY 09/03/20 09/10/20 History metFORMIN HCL 500 mg PO HS 09/03/20 09/10/20 History Cefuroxime Axetil [Ceftin] 500 mg PO BID 5 Days #10 tab 09/07/20 09/10/20 Rx Loperamide [Imodium] 2 mg PO QID PRN cap 09/07/20 09/10/20 Rx Ondansetron HCl [Zofran] 4 - 8 mg PO Q8H PRN 09/10/20 09/10/20 History Allergies Allergy/AdvReac Type Severity Reaction Status Date / Time latex Allergy Unknown Itching Verified 09/10/20 16:26 Surgical - Exam Osteopathic Statement: *. No significant issues noted on an osteopathic structural exam other than those noted in the History and Physical/Consult. Vital Signs Temp Pulse Resp BP Pulse Ox 98.2 F 77 20 161/73 95 09/10/20 15:19 09/10/20 15:19 09/10/20 15:19 09/10/20 15:19 09/10/20 15:19 - General well developed, well nourished (Age-appropriate), no distress - Eyes normal ocular movement - Neck trachea midline - Respiratory normal respiratory effort, clear to auscultation - Cardiovascular Rhythm: regular - Abdomen Abdomen: soft, non tender, bowel sounds Results - Labs 09/11/20 08:47 09/11/20 08:47 Abnormal Lab Results - Last 24 Hours (Table) 09/10/20 09/10/20 09/10/20 Range/Units 15:37 15:37 15:37 RBC (3.80-5.40) m/uL Hgb 11.2 L (11.4-16.0) gm/dL Hct (34.0-46.0) % Sodium 135 L (137-145) mmol/L Potassium 3.1 L (3.5-5.1) mmol/L Chloride (98-107) mmol/L Carbon Dioxide 19 L (22-30) mmol/L Glucose 105 H (74-99) mg/dL POC Glucose (mg/dL) (75-99) mg/dL AST 45 H (14-36) U/L Total Protein (6.3-8.2) g/dL Albumin 3.2 L (3.5-5.0) g/dL Lipase 346 H (23-300) U/L Urine Protein 1+ H (Negative) Urine Ketones 2+ H (Negative) Ur Leukocyte Esterase Small H (Negative) Urine WBC 7 H (0-5) /hpf Urine Mucus Rare H (None) /hpf 09/11/20 09/11/20 09/11/20 Range/Units 06:32 08:47 08:47 RBC 3.41 L (3.80-5.40) m/uL Hgb 10.7 L (11.4-16.0) gm/dL Hct 31.2 L (34.0-46.0) % Sodium (137-145) mmol/L Potassium (3.5-5.1) mmol/L Chloride 109 H (98-107) mmol/L Carbon Dioxide 21 L (22-30) mmol/L Glucose 115 H (74-99) mg/dL POC Glucose (mg/dL) 106 H (75-99) mg/dL AST (14-36) U/L Total Protein 5.9 L (6.3-8.2) g/dL Albumin 2.9 L (3.5-5.0) g/dL Lipase (23-300) U/L Urine Protein (Negative) Urine Ketones (Negative) Ur Leukocyte Esterase (Negative) Urine WBC (0-5) /hpf Urine Mucus (None) /hpf Diabetes panel 09/10/20 09/11/20 Range/Units 15:37 08:47 Sodium 135 L 139 (137-145) mmol/L Potassium 3.1 L 3.6 (3.5-5.1) mmol/L Chloride 106 109 H (98-107) mmol/L Carbon Dioxide 19 L 21 L (22-30) mmol/L BUN 12 10 (7-17) mg/dL Creatinine 0.80 0.79 (0.52-1.04) mg/dL Glucose 105 H 115 H (74-99) mg/dL Calcium 8.5 8.6 (8.4-10.2) mg/dL AST 45 H 34 (14-36) U/L ALT 34 28 (4-34) U/L Alkaline Phosphatase 72 63 (38-126) U/L Total Protein 6.4 5.9 L (6.3-8.2) g/dL Albumin 3.2 L 2.9 L (3.5-5.0) g/dL Calcium panel 09/10/20 09/11/20 Range/Units 15:37 08:47 Calcium 8.5 8.6 (8.4-10.2) mg/dL Albumin 3.2 L 2.9 L (3.5-5.0) g/dL Pituitary panel 09/10/20 09/11/20 Range/Units 15:37 08:47 Sodium 135 L 139 (137-145) mmol/L Potassium 3.1 L 3.6 (3.5-5.1) mmol/L Chloride 106 109 H (98-107) mmol/L Carbon Dioxide 19 L 21 L (22-30) mmol/L BUN 12 10 (7-17) mg/dL Creatinine 0.80 0.79 (0.52-1.04) mg/dL Glucose 105 H 115 H (74-99) mg/dL Calcium 8.5 8.6 (8.4-10.2) mg/dL Adrenal panel 09/10/20 09/11/20 Range/Units 15:37 08:47 Sodium 135 L 139 (137-145) mmol/L Potassium 3.1 L 3.6 (3.5-5.1) mmol/L Chloride 106 109 H (98-107) mmol/L Carbon Dioxide 19 L 21 L (22-30) mmol/L BUN 12 10 (7-17) mg/dL Creatinine 0.80 0.79 (0.52-1.04) mg/dL Glucose 105 H 115 H (74-99) mg/dL Calcium 8.5 8.6 (8.4-10.2) mg/dL Total Bilirubin 0.7 0.6 (0.2-1.3) mg/dL AST 45 H 34 (14-36) U/L ALT 34 28 (4-34) U/L Alkaline Phosphatase 72 63 (38-126) U/L Total Protein 6.4 5.9 L (6.3-8.2) g/dL Albumin 3.2 L 2.9 L (3.5-5.0) g/dL - Imaging US - abdomen: report reviewed Assessment and Plan (1) Diarrhea Current Visit: Yes Status: Acute Code(s): R19.7 - DIARRHEA, UNSPECIFIED SNOMED Code(s): 76010592 (2) Unable to eat Current Visit: Yes Status: Acute Code(s): F50.89 - OTHER SPECIFIED EATING DISORDER SNOMED Code(s): 797991895 (3) Vomiting Current Visit: Yes Status: Acute Code(s): R11.10 - VOMITING, UNSPECIFIED SNOMED Code(s): 842860723 (4) Cholelithiasis Current Visit: No Status: Acute Code(s): K80.20 - CALCULUS OF GALLBLADDER W/O CHOLECYSTITIS W/O OBSTRUCTION SNOMED Code(s): 969479111 Plan: Consult has been placed with GI. Since she is readmitted with continued diarrhea and no nausea and poor oral intake, I think she would be a candidate for EGD and colonoscopy. Correct electrolyte imbalance. No plans for surgery until other causes of her complaints are evaluated. I will follow with you
[2020-09-11] MEDS: INSULIN ASPART (NovoLOG) 100 UNIT/ML VIAL SQ SCH ×3 (12:14→22:47)
--- NOTE | 2020-09-11 14:42 | P.HPIM ---
History of Present Illness H&P Date: 09/11/20 HISTORY OF PRESENT ILLNESS This is an 85-year-old female patient of with past medical history of diabetes mellitus type 2, hypertension, hyperlipidemia. Patient had a recent hospitalization last week for acute pneumonia, Covid 19 pneumonia ruled out, diarrhea secondary to cholecystitis. Patient underwent CAT scan of the abdomen and pelvis with contrast revealed right lower lobe pneumonia and atelectasis. Small right pleural effusion. Mild infiltrate left lung base. Small amount of free fluid in the pelvis of uncertain significance. No evidence of bowel obstruction. No free air. Cholelithiasis. Ultrasound of the abdomen ordered which revealed possible cholecystitis. HIDA scan was negative. Patient now states that she had vomiting that started yesterday. She was feeling well following discharge. She denies having abdominal pain or tenderness. She is complaining of edema to her ankles. 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 Patient will be made nothing by mouth until seen by general surgery and GI. Patient came into [facility] emergency center for evaluation. Afebrile, heart rate 77, blood pressure 161/73, pulse ox 95% on room air. CBC was unremarkable. Sodium 135, potassium 3.1, chloride 106, CO2 19, BUN 12 and creatinine 0.8. Blood sugar 105. Total bilirubin 0.7, AST 45, ALT 34, alk phosphatase 72. Lipase 345. Urinalysis clear with leukoesterase small. Covid 19 not detected. Abdominal x-ray revealed bilateral pleural effusions with basilar pulmonary infiltrates and atelectasis. Mild heart failure is probably present. Nonacute abdomen. Abdominal ultrasound revealed large gallstone. No focal liver defect. Large common bile duct consistent with gallbladder dysfunction. No dilation seen of the intrahepatic bile ducts. Potassium was replaced, patient admitted to the observation unit and consult requested with general surgery and GI. Patient has been seen by general surgery with recommendations for EGD and colonoscopy. No plan for surgery. REVIEW OF SYSTEMS Constitutional: Denies fever, denies chills, no night sweats. No weight change. Denies weakness, denies fatigue, denies lethargy. EENT: No headache. No blurred vision or double vision, no loss of vision. No loss of Hearing, no ringing in the ears, no dizziness. No nasal drainage or congestion. No epistaxis. No sore throat. Lungs: No shortness of breath, cough, no sputum production. No wheezing. Cardiovascular: No chest pain, no lower extremity edema. No palpitations. No paroxysmal nocturnal dyspnea. No orthopnea. No lightheadedness or dizziness. No syncopal episodes. Abdominal: Denies abdominal pain. Reports nausea, reports vomiting. Reports diarrhea. No constipation. No bloody or tarry stools. Reports loss of appetite. Genitourinary: No dysuria, increased frequency, urgency. No urinary retention. Musculoskeletal: No myalgias. Reports muscle weakness, no gait dysfunction, no frequent falls. No back pain. No neck pain. Integumentary: No wounds, no lesions. No rash or pruritus. No unusual bruising. No change in hair or nails. Neurologic: No aphasia. No facial droop. No change in mentation. No head injury. No headache. No paralysis. No paresthesia. Psychiatric: No depression. No anxiety. No mood swings. Endocrine: No abnormal blood sugars. No weight change. No excessive sweating or thirst. No cold intolerance. SOCIAL HISTORY Patient is a lifelong nonsmoker but has secondhand smoke exposure. No illicit drug use, no alcohol use. Patient has been a for 14 years. FAMILY HISTORY Mother in her 90s from dementia. Father in his mid 70s from COPD. Patient does not have any brothers. Patient has one sister age 78 with no major medical problems. She has 3 sons with no major medical problems. PHYSICAL EXAMINATION Gen: This is an 85-year-old female. Patient is resting in bed and appears to be comfortable. No acute respiratory distress is noted. HEENT: Head is atraumatic, normocephalic. Pupils equal, round. Sclerae is anicteric. NECK: Supple. No JVD. No lymphadenopathy. No thyromegaly. LUNGS: Lungs are clear to auscultation. No wheezes. No intercostal retractions. HEART: Regular rate and rhythm. No murmur. ABDOMEN: Soft. Bowel sounds are present. No masses. No tenderness. EXTREMITIES: No pedal edema. No calf tenderness. NEUROLOGICAL: Patient is awake, alert and oriented x3. Cranial nerves 2 through 12 are grossly intact. ASSESSMENT AND PLAN 1. Intractable vomiting and diarrhea. C. difficile toxin was negative on last admission. Consult with GI and general surgery. General surgery recommends EGD and colonoscopy. Continue Omnicef and started on Flagyl 500 mg IV piggyback every 8 hours. Zofran as needed for nausea and vomiting. 2. Recent admission for Covid 19 pneumonia, stable. Continue Omnicef. 3. Hypokalemia secondary to vomiting, diarrhea. Status post replacement. 4. Diabetes mellitus type 2. NovoLog scale before meals and at bedtime. Hold metformin, continue Prandin and NovoLog scale. 5. Hypertension. Continue losartan 50 mg daily. 6. Hyperlipidemia. Hold simvastatin 20 mg at bedtime. 7. GI prophylaxis. Protonix 40 mg IV push daily. 8. DVT prophylaxis. Heparin subcu Patient will be admitted to the hospital for a minimum of 2 night stay. DISCHARGE PLAN Most likely home with homecare. Impression and plan of care have been directed as dictated by the signing physician. Lyssa Barreto nurse practitioner acting as scribe for signing physician. Past Medical History Past Medical History: Diabetes Mellitus, Eye Disorder, Hyperlipidemia, Hype rtension, Osteoarthritis (OA) Additional Past Medical History / Comment(s): back pain., hx of vertigo., cataract left eye. History of Any Multi-Drug Resistant Organisms: None Reported Past Surgical History: Hysterectomy Additional Past Surgical History / Comment(s): right cataract (jul 2017) Past Anesthesia/Blood Transfusion Reactions: No Reported Reaction Past Psychological History: No Psychological Hx Reported Smoking Status: Never smoker Past Alcohol Use History: None Reported Past Drug Use History: None Reported - Past Family History Mother Family Medical History: No Reported History Son(s) History Unknown: Yes Family Medical History: Cancer Additional Family Medical History / Comment(s): skin cancer Medications and Allergies Home Medications Medication Instructions Recorded Confirmed Type Losartan Potassium [Cozaar] 50 mg PO DAILY 07/03/17 09/10/20 History Simvastatin [Zocor] 20 mg PO HS 07/03/17 09/10/20 History Dulaglutide [Trulicity] 0.75 mg SQ WE 09/03/20 09/10/20 History Repaglinide [Prandin] 4 mg PO BID-W/MEALS 09/03/20 09/10/20 History metFORMIN HCL 1,000 mg PO DAILY 09/03/20 09/10/20 History metFORMIN HCL 500 mg PO HS 09/03/20 09/10/20 History Cefuroxime Axetil [Ceftin] 500 mg PO BID 5 Days #10 tab 09/07/20 09/10/20 Rx Loperamide [Imodium] 2 mg PO QID PRN cap 09/07/20 09/10/20 Rx Ondansetron HCl [Zofran] 4 - 8 mg PO Q8H PRN 09/10/20 09/10/20 History Allergies Allergy/AdvReac Type Severity Reaction Status Date / Time latex Allergy Unknown Itching Verified 09/10/20 16:26 Physical Exam Vitals: Vital Signs Temp Pulse Pulse Resp BP BP Pulse Ox 09/11/20 08:51 67 16 09/11/20 08:30 98.2 F 67 16 138/68 94 L 09/11/20 03:20 98.2 F 67 17 135/63 94 L 09/10/20 20:35 98.5 F 76 18 160/69 95 09/10/20 19:17 73 18 144/72 95 09/10/20 15:19 98.2 F 77 20 161/73 95 Intake and Output 09/10/20 09/11/20 09/11/20 22:59 06:59 14:59 Other: Voiding Method Toilet Toilet Toilet # Voids 1 Weight 63.957 kg Results CBC & Chem 7: 09/11/20 08:47 09/11/20 08:47 Labs: Abnormal Lab Results - Last 24 Hours (Table) 09/10/20 09/10/20 09/10/20 Range/Units 15:37 15:37 15:37 Hgb 11.2 L (11.4-16.0) gm/dL Sodium 135 L (137-145) mmol/L Potassium 3.1 L (3.5-5.1) mmol/L Carbon Dioxide 19 L (22-30) mmol/L Glucose 105 H (74-99) mg/dL POC Glucose (mg/dL) (75-99) mg/dL AST 45 H (14-36) U/L Albumin 3.2 L (3.5-5.0) g/dL Lipase 346 H (23-300) U/L Urine Protein 1+ H (Negative) Urine Ketones 2+ H (Negative) Ur Leukocyte Esterase Small H (Negative) Urine WBC 7 H (0-5) /hpf Urine Mucus Rare H (None) /hpf 09/11/20 Range/Units 06:32 Hgb (11.4-16.0) gm/dL Sodium (137-145) mmol/L Potassium (3.5-5.1) mmol/L Carbon Dioxide (22-30) mmol/L Glucose (74-99) mg/dL POC Glucose (mg/dL) 106 H (75-99) mg/dL AST (14-36) U/L Albumin (3.5-5.0) g/dL Lipase (23-300) U/L Urine Protein (Negative) Urine Ketones (Negative) Ur Leukocyte Esterase (Negative) Urine WBC (0-5) /hpf Urine Mucus (None) /hpf Thrombosis Risk Factor Assmnt - Choose All That Apply Any of the Below Risk Factors Present?: No Other Risk Factors: Yes Each Risk Factor Represents 3 Points: Age 75 years or older Other congenital or acquired thrombophilia - If yes, enter type in comment: No Thrombosis Risk Factor Assessment Total Risk Factor Score: 3 Thrombosis Risk Factor Assessment Level: Moderate Risk
[2020-09-11] MEDS: PANTOPRAZOLE 40 MG/10 ML VIAL IVP SCH (14:44)
[2020-09-11] MEDS ORDERED: PEG 3350-NA SULF,BICARB,CL/KCL 4,000 ML BOTTLE PO ONE (16:00)
[2020-09-11 17:24] LABS: Glucose,Whole Blood 104 mg/dL (75-99)
--- NOTE | 2020-09-11 20:01 | P.CONS ---
History of Present Illness - Reason for Consult Consult date: 09/11/20 Diarrhea, abdominal pain, weight loss Requesting physician: Eileen Kim - Chief Complaint Abdominal pain, diarrhea - History of Present Illness 85-year-old female with a know medical history significant for diabetes mellitus type 2, hypertension and hyperlipidemia as well as cholelithiasis who presented to the hospital due to complaints of abdominal pain, diarrhea, nausea and vomiting. Patient had recent hospitalization with similar complaints at that time workup including CT imaging was suggestive of cholelithiasis with no evidence of cholecystitis on HIDA scan which was performed for further evaluation or evidence of cystic obstruction. Of note, history is been taken in conversation with the patient, on review of the medical record and in conversation with her son Shaq who was called via telephone. The patient reports 1 day of episodes of nausea and vomiting prior to presentation to the hospital. Her son states that the patient has been unable to eat and has had an extremely decreased appetite. He reports that when she has eaten she develops episodes of loose watery bowel movements. This happened a few times prior to presentation. No signs or symptoms of GI bleeding reported. The patient states that her last colonoscopy was performed in her 50s, but her son believes that the last time he took her for a colonoscopy was approximately 5-6 years ago. No family history of colon cancer. The patient believes she has lost approximately 15 pounds of weight over the past 3 months. Review of Systems REVIEW OF SYSTEMS: CONSTITUTIONAL: Denies any fevers, chills, or fatigue but does report 15 pounds of weight loss. CARDIOVASCULAR: Denies any chest pain, palpitations high or low blood pressures RESPIRATORY: Denies any shortness of breath, hemoptysis or cough. GENITOURINARY: No dysuria or hematuria. MUSCULOSKELETAL: No weakness reported. SKIN: Denies any new rashes or lesions, jaundice or pallor. PSYCHIATRIC: Denies any depression or anxiety. NEUROLOGY: Denies headache, denies any new focal deficits. EARS/NOSE/THROAT: No recent hearing change, congestion, nasal discharge or sore throat. EYES: No pain in eyes, discharge or change in vision. GASTROINTESTINAL: As per HPI. Past Medical History Past Medical History: Diabetes Mellitus, Eye Disorder, Hyperlipidemia, Hypertension, Osteoarthritis (OA) Additional Past Medical History / Comment(s): back pain., hx of vertigo., cataract left eye. History of Any Multi-Drug Resistant Organisms: None Reported Past Surgical History: Hysterectomy Additional Past Surgical History / Comment(s): right cataract (jul 2017) Past Anesthesia/Blood Transfusion Reactions: No Reported Reaction Past Psychological History: No Psychological Hx Reported Smoking Status: Never smoker Past Alcohol Use History: None Reported Past Drug Use History: None Reported - Past Family History Mother Family Medical History: No Reported History Son(s) History Unknown: Yes Family Medical History: Cancer Additional Family Medical History / Comment(s): skin cancer Medications and Allergies Home Medications Medication Instructions Recorded Confirmed Type Losartan Potassium [Cozaar] 50 mg PO DAILY 07/03/17 09/10/20 History Simvastatin [Zocor] 20 mg PO HS 07/03/17 09/10/20 History Dulaglutide [Trulicity] 0.75 mg SQ WE 09/03/20 09/10/20 History Repaglinide [Prandin] 4 mg PO BID-W/MEALS 09/03/20 09/10/20 History metFORMIN HCL 1,000 mg PO DAILY 09/03/20 09/10/20 History metFORMIN HCL 500 mg PO HS 09/03/20 09/10/20 History Cefuroxime Axetil [Ceftin] 500 mg PO BID 5 Days #10 tab 09/07/20 09/10/20 Rx Loperamide [Imodium] 2 mg PO QID PRN cap 09/07/20 09/10/20 Rx Ondansetron HCl [Zofran] 4 - 8 mg PO Q8H PRN 09/10/20 09/10/20 History Allergies Allergy/AdvReac Type Severity Reaction Status Date / Time latex Allergy Unknown Itching Verified 09/10/20 16:26 Physical Exam Vitals: Vital Signs Temp Pulse Pulse Resp BP BP Pulse Ox 09/11/20 08:51 67 16 09/11/20 08:30 98.2 F 67 16 138/68 94 L 09/11/20 03:20 98.2 F 67 17 135/63 94 L 09/10/20 20:35 98.5 F 76 18 160/69 95 09/10/20 19:17 73 18 144/72 95 09/10/20 15:19 98.2 F 77 20 161/73 95 Intake and Output 01/10/21 01/11/21 01/11/21 22:59 06:59 14:59 Intake Total 310 Balance 310 Intake: Intake, IV Titration 250 Amount Sodium Chloride 0.9% 1, 150 000 ml @ 75 mls/hr IV . [id number] [facility]ACE Rx#:[id number] metroNIDAZOLE-NS PMX 500 100 mg In Saline 1 100ml.bag @ 100 mls/hr IVPB Q8HR [facility]ACE Rx#:[id number] Oral 60 Other: Voiding Method Toilet Toilet Toilet # Voids 1 1 # Bowel Movements 1 Weight 63.957 kg On physical examination, patient appears comfortable in no apparent distress. HEAD: Normocephalic, atraumatic. EYES: No scleral icterus. No conjunctival injection. MOUTH: No lesions, tongue midline. NECK: Trachea midline, no gross abnormalities. CHEST: Clear to auscultation with no wheezing or rhonchi appreciated. HEART: Regular rate and rhythm. ABDOMEN: Soft, nontender to palpation. Bowel sounds are positive. No organomegaly. No guarding or rigidity. EXTREMITIES: No pedal edema. SKIN: No rashes, no jaundice. NEUROLOGIC: Alert and oriented x3. No focal deficits. Results CBC & Chem 7: 09/11/20 08:47 09/11/20 08:47 Labs: Abnormal Lab Results - Last 24 Hours (Table) 09/10/20 09/10/20 09/10/20 Range/Units 15:37 15:37 15:37 RBC (3.80-5.40) m/uL Hgb 11.2 L (11.4-16.0) gm/dL Hct (34.0-46.0) % Sodium 135 L (137-145) mmol/L Potassium 3.1 L (3.5-5.1) mmol/L Chloride (98-107) mmol/L Carbon Dioxide 19 L (22-30) mmol/L Glucose 105 H (74-99) mg/dL POC Glucose (mg/dL) (75-99) mg/dL AST 45 H (14-36) U/L Total Protein (6.3-8.2) g/dL Albumin 3.2 L (3.5-5.0) g/dL Lipase 346 H (23-300) U/L Urine Protein 1+ H (Negative) Urine Ketones 2+ H (Negative) Ur Leukocyte Esterase Small H (Negative) Urine WBC 7 H (0-5) /hpf Urine Mucus Rare H (None) /hpf 09/11/20 09/11/20 09/11/20 Range/Units 06:32 08:47 08:47 RBC 3.41 L (3.80-5.40) m/uL Hgb 10.7 L (11.4-16.0) gm/dL Hct 31.2 L (34.0-46.0) % Sodium (137-145) mmol/L Potassium (3.5-5.1) mmol/L Chloride 109 H (98-107) mmol/L Carbon Dioxide 21 L (22-30) mmol/L Glucose 115 H (74-99) mg/dL POC Glucose (mg/dL) 106 H (75-99) mg/dL AST (14-36) U/L Total Protein 5.9 L (6.3-8.2) g/dL Albumin 2.9 L (3.5-5.0) g/dL Lipase (23-300) U/L Urine Protein (Negative) Urine Ketones (Negative) Ur Leukocyte Esterase (Negative) Urine WBC (0-5) /hpf Urine Mucus (None) /hpf 09/11/20 Range/Units 11:42 RBC (3.80-5.40) m/uL Hgb (11.4-16.0) gm/dL Hct (34.0-46.0) % Sodium (137-145) mmol/L Potassium (3.5-5.1) mmol/L Chloride (98-107) mmol/L Carbon Dioxide (22-30) mmol/L Glucose (74-99) mg/dL POC Glucose (mg/dL) 119 H (75-99) mg/dL AST (14-36) U/L Total Protein (6.3-8.2) g/dL Albumin (3.5-5.0) g/dL Lipase (23-300) U/L Urine Protein (Negative) Urine Ketones (Negative) Ur Leukocyte Esterase (Negative) Urine WBC (0-5) /hpf Urine Mucus (None) /hpf US - abdomen: report reviewed (Ultrasound of the abdomen with findings of a large gallstone and a 0.7 cm CBD with liver normal) Assessment and Plan (1) Diarrhea Narrative/Plan: 85-year-old female with multiple medical comorbidities who presents back to the hospital after recent hospitalization with complaints of diarrhea, nausea and vomiting, abdominal pain, and decreased oral intake. Patient has had evaluation significant for cholelithiasis with no evidence of cholecystitis, cystic duct obstruction or gallbladder dysfunction on HIDA scan. Repeat ultrasound on presentation this hospitalization again showed a large gallstone. Discussion with the patient and her son with a described decreased oral intake with 15 pounds of weight loss, nausea and vomiting worsened with attempts at eating, episodes of diarrhea. Unclear etiology, may be related to peptic ulcer disease, symptomatic cholelithiasis, cannot rule out lower GI pathology with the patient's son reported a last colonoscopy was about 6 years ago. Currently she is also being evaluated by the surgical service. Current Visit: Yes Status: Acute Code(s): R19.7 - DIARRHEA, UNSPECIFIED SNOMED Code(s): 44589893 (2) Abdominal pain Current Visit: Yes Status: Acute Code(s): R10.9 - UNSPECIFIED ABDOMINAL PAIN SNOMED Code(s): 98264858 (3) Nausea and vomiting Current Visit: Yes Status: Acute Code(s): R11.2 - NAUSEA WITH VOMITING, UNSPECIFIED SNOMED Code(s): 47466052 (4) Unable to eat Current Visit: Yes Status: Acute Code(s): F50.89 - OTHER SPECIFIED EATING DISORDER SNOMED Code(s): 760328902 (5) Cholelithiasis Current Visit: No Status: Acute Code(s): K80.20 - CALCULUS OF GALLBLADDER W/O CHOLECYSTITIS W/O OBSTRUCTION SNOMED Code(s): 668911037 Plan: Supportive care Clear liquid diet Imaging including ultrasound from current hospitalization reviewed Continue to monitor CBC, BMP, LFTs Surgical service following the patient and case discussed with Dr. Kim Case discussed with the patient and her son Shaq at length, EGD and colonoscopy have been offered and will be tentatively scheduled for tomorrow for evaluation of diarrhea, altered bowel function, unintentional weight loss, nausea and vomiting and abdominal pain, all of the risks, benefits and possible complications of the procedure in the anesthesia discussed with the patient and her son at length with all of their questions answered to their satisfaction Thank you for allowing us to participate in the care of the patient
[2020-09-11] MEDS: ATORVASTATIN 10 MG TAB PO SCH (22:42)
[2020-09-11] MEDS: HEPARIN SODIUM,PORCINE 5,000 UNIT/ML 1 ML VIAL SQ SCH (22:42)
[2020-09-11 22:49] LABS: Glucose,Whole Blood 108 mg/dL (75-99)
[2020-09-12 05:30] LABS: Glucose,Whole Blood 106 mg/dL (75-99)
[2020-09-12] MEDS: INSULIN ASPART (NovoLOG) 100 UNIT/ML VIAL SQ SCH ×4 (06:22→22:08)
[2020-09-12] MEDS: REPAGLINIDE 1 MG TAB PO SCH ×2 (06:22→17:17)
[2020-09-12] MEDS ORDERED: MAGNESIUM CITRATE 296 ML BOTTLE PO ONE (08:15)
[2020-09-12] MEDS: metroNIDAZOLE-NS PMX 500 MG in SALINE 1 100ML.BAG IVPB SCH ×2 (08:37→16:09)
[2020-09-12] MEDS: HEPARIN SODIUM,PORCINE 5,000 UNIT/ML 1 ML VIAL SQ SCH ×2 (08:38→22:12)
[2020-09-12] MEDS: PANTOPRAZOLE 40 MG/10 ML VIAL IVP SCH (08:38)
[2020-09-12 08:42] LABS: Albumin 2.8 g/dL (3.5-5.0); Total Bilirubin 0.7 mg/dL (0.2-1.3); Total Protein 5.9 g/dL (6.3-8.2)
[2020-09-12 08:50] LABS: Potassium 3.7 mmol/L (3.5-5.1)
[2020-09-12] MEDS: SODIUM CHLORIDE 0.9% 1,000 ML IV SCH (08:55)
[2020-09-12] MEDS: ONDANSETRON 4 MG/2 ML VIAL IVP PRN ×2 (10:23→22:12)
[2020-09-12] MEDS: CEFDINIR 300 MG CAP PO SCH ×2 (10:26→22:13)
[2020-09-12 11:40] LABS: Glucose,Whole Blood 139 mg/dL (75-99)
[2020-09-12] MEDS ORDERED: LIDOCAINE 1% INJ 10MG/ML (20 ML MDV) ONE (12:25)
[2020-09-12] MEDS ORDERED: PROPOFOL 10 MG/ML 20 ML VIAL IV ONE (12:25)
[2020-09-12] MEDS ORDERED: IV FLUID CONTINUATION 1,000 ML IV ONE (12:27)
--- NOTE | 2020-09-12 13:22 | P.PCN ---
Date of Procedure: 09/12/20 Description of Procedure: Brief history: 85-year-old female with a know medical history significant for diabetes mellitus type 2, hypertension and hyperlipidemia as well as cholelithiasis who presented to the hospital due to complaints of abdominal pain, diarrhea, nausea and vomiting. Patient had recent hospitalization with similar complaints at that time workup including CT imaging was suggestive of cholelithiasis with no evidence of cholecystitis on HIDA scan which was performed for further evaluation or evidence of cystic obstruction. Of note, history is been taken in conversation with the patient, on review of the medical record and in conversation with her son Shaq who was called via telephone. The patient reports 1 day of episodes of nausea and vomiting prior to presentation to the hospital. Her son states that the patient has been unable to eat and has had an extremely decreased appetite. He reports that when she has eaten she develops episodes of loose watery bowel movements. This happened a few times prior to presentation. No signs or symptoms of GI bleeding reported. The patient states that her last colonoscopy was performed in her 50s, but her son believes that the last time he took her for a colonoscopy was approximately 5-6 years ago. No family history of colon cancer. The patient believes she has lost approximately 15 pounds of weight over the past 3 months. Procedure performed: Esophagogastroduodenoscopy with biopsy Colonoscopy with biopsy and polypectomy Estimated blood loss: Minimal. Preoperative diagnosis: Epigastric abdominal pain, nausea and vomiting, altered bowel function, diarrhea, unintentional weight loss Anesthesia: MAC Procedure: After informed consent was obtained from the patient was brought into the endoscopy unit and IV sedation was administered by anesthesia under continuous monitoring. Initially upper endoscopy was done. The Olympus GF 190 video endoscope was inserted into the mouth and esophagus intubated without any difficulty and was gradually advanced into the stomach and duodenum and carefully examined. The bulb and second part of the duodenum appeared normal, with biopsies taken to rule out celiac sprue. The scope was then withdrawn into the stomach adequately insufflated with air and upon careful examination the antrum and body, cardia and fundus appeared normal, except for some mild punctate erythema in the antrum and body suggestive of mild gastritis with biopsies taken, as well as benign appearing polyps likely fundic gland. The scope was then withdrawn into the esophagus. The GE junction was located at 36 cm to the incisors and biopsy. It appeared regular with no erythema erosions or ulcerations. Rest of the esophagus appeared normal. Patient tolerated the procedure well. At this time the patient continued to remain sedation. Initial digital rectal examination was normal. Olympus CF 190 video colonoscope was then inserted into the rectum and gradually advanced to the cecum without any difficulty. Careful examination was performed as the scope was gradually being withdrawn. The prep was excellent. The cecum, ascending colon, transverse colon, descending colon, sigmoid colon and rectum appeared normal, with random biopsies taken of the right and left colon segmental malfunction. 2 diminutive polyps measuring 1-2 mm in size removed from the ascending colon with cold forcep. Retroflexion was performed in the rectum and no lesions were noted. Patient tolerated the procedure well. Impression: 1. Mild gastritis. Biopsies of the duodenum, antrum body and GE junction. 2. 2 diminutive polyps removed from ascending colon forcep polypectomy. Othe rwise normal-appearing colon from cecum with random biopsies taken of the right colon the setting of altered bowel function. Recommendations: Findings of this examination were discussed with the patient as well as her family. Okay for clear liquid diet. Continue current medical management. The surgical team were performed of the findings of the procedures. Await pathology from biopsies.
--- NOTE | 2020-09-12 13:34 | P.PN ---
Subjective Progress Note Date: 09/12/20 HISTORY OF PRESENT ILLNESS This is an 85-year-old female patient of with past medical history of diabetes mellitus type 2, hypertension, hyperlipidemia. Patient had a recent hospitalization last week for acute pneumonia, Covid 19 pneumonia ruled out, diarrhea secondary to cholecystitis. Patient underwent CAT scan of the abdomen and pelvis with contrast revealed right lower lobe pneumonia and atelectasis. Small right pleural effusion. Mild infiltrate left lung base. Small amount of free fluid in the pelvis of uncertain significance. No evidence of bowel obstruction. No free air. Cholelithiasis. Ultrasound of the abdomen ordered which revealed possible cholecystitis. HIDA scan was negative. Patient now states that she had vomiting that started yesterday. She was feeling well following discharge. She denies having abdominal pain or tenderness. She is complaining of edema to her ankles. 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 Patient will be made nothing by mouth until seen by general surgery and GI. Patient came into [facility] emergency center for evaluation. Afebrile, heart rate 77, blood pressure 161/73, pulse ox 95% on room air. CBC was unremarkable. Sodium 135, potassium 3.1, chloride 106, CO2 19, BUN 12 and creatinine 0.8. Blood sugar 105. Total bilirubin 0.7, AST 45, ALT 34, alk phosphatase 72. Lipase 345. Urinalysis clear with leukoesterase small. Covid 19 not detected. Abdominal x-ray revealed bilateral pleural effusions with basilar pulmonary infiltrates and atelectasis. Mild heart failure is probably present. Nonacute abdomen. Abdominal ultrasound revealed large gallstone. No focal liver defect. Large common bile duct consistent with gallbladder dysfunction. No dilation seen of the intrahepatic bile ducts. Potassium was replaced, patient admitted to the observation unit and consult requested with general surgery and GI. Patient has been seen by general surgery with recommendations for EGD and colonoscopy. No plan for surgery. 09/12: Patient has been seen by GI and underwent EGD today with biopsy and colonoscopy with biopsy and polypectomy. Study found mild gastritis. Biopsies of the duodenum antrum body and GE junction were obtained. Vision had 2 diminutive polyps removed from the ascending colon for sit polypectomy. Otherw ise normal-appearing colon. Patient was cleared for clear liquid diet and continue medical management. Patient denies any abdominal pain. She's been afebrile, heart rate 69, blood pressure 145/6-3, pulse ox 95% on room air. Repeat blood work reveals sodium 138, potassium 3.7, chloride 110, CO2 15, BUN 10 and creatinine 0.71. Lipase 2058. C. difficile toxin negative. REVIEW OF SYSTEMS Constitutional: Denies fever, denies chills, no night sweats. Reports weight change. Denies weakness, denies fatigue, denies lethargy. EENT: No headache. No blurred vision or double vision, no loss of vision. No loss of Hearing, no ringing in the ears, no dizziness. No nasal drainage or congestion. No epistaxis. No sore throat. Lungs: No shortness of breath, cough, no sputum production. No wheezing. Cardiovascular: No chest pain, no lower extremity edema. No palpitations. No paroxysmal nocturnal dyspnea. No orthopnea. No lightheadedness or dizziness. No syncopal episodes. Abdominal: Denies abdominal pain. Reports nausea, reports vomiting. Reports diarrhea. No constipation. No bloody or tarry stools. Reports loss of appetite. Genitourinary: No dysuria, increased frequency, urgency. No urinary retention. Musculoskeletal: No myalgias. Reports muscle weakness, no gait dysfunction, no frequent falls. No back pain. No neck pain. Integumentary: No wounds, no lesions. No rash or pruritus. No unusual bruising. No change in hair or nails. Neurologic: No aphasia. No facial droop. No change in mentation. No head injury. No headache. No paralysis. No paresthesia. Psychiatric: No depression. No anxiety. No mood swings. Endocrine: No abnormal blood sugars. No weight change. No excessive sweating or thirst. No cold intolerance. PHYSICAL EXAMINATION Gen: This is an 85-year-old female. Patient is resting in bed and appears to be comfortable. No acute respiratory distress is noted. HEENT: Head is atraumatic, normocephalic. Pupils equal, round. Sclerae is anicteric. NECK: Supple. No JVD. No lymphadenopathy. No thyromegaly. LUNGS: Lungs are clear to auscultation. No wheezes. No intercostal retract ions. HEART: Regular rate and rhythm. No murmur. ABDOMEN: Soft. Bowel sounds are present. No masses. No tenderness. EXTREMITIES: No pedal edema. No calf tenderness. NEUROLOGICAL: Patient is awake, alert and oriented x3. Cranial nerves 2 through 12 are grossly intact. ASSESSMENT AND PLAN 1. Intractable vomiting and diarrhea. C. difficile toxin was negative. Consult with GI and general surgery appreciated. Status post EGD and colonoscopy. Continue Omnicef and started on Flagyl 500 mg IV piggyback every 8 hours. Zofran as needed for nausea and vomiting. 2. Recent admission for Covid 19 pneumonia, stable. Continue Omnicef. 3. Hypokalemia secondary to vomiting, diarrhea. Status post replacement. 4. Diabetes mellitus type 2. NovoLog scale before meals and at bedtime. Hold metformin, continue Prandin and NovoLog scale. 5. Hypertension. Continue losartan 50 mg daily. 6. Hyperlipidemia. Hold simvastatin 20 mg at bedtime. 7. GI prophylaxis. Protonix 40 mg IV push daily. 8. DVT prophylaxis. Heparin subcu DISCHARGE PLAN Most likely home with homecare. Impression and plan of care have been directed as dictated by the signing physician. Lyssa Barreto nurse practitioner acting as scribe for signing physician. Objective - Vital Signs Vital signs: Vital Signs Temp 97.9 F 09/12/20 07:52 Pulse 69 09/12/20 07:52 Resp 16 09/12/20 07:52 BP 145/63 09/12/20 07:52 Pulse Ox 95 09/12/20 07:52 Intake & Output 09/11/20 09/12/20 09/12/20 18:59 06:59 18:59 Intake Total 310 Output Total 525 Balance 310 -525 Intake: Intake, IV Titration 250 Amount Sodium Chloride 0.9% 1, 150 000 ml @ 75 mls/hr IV . [id number] [facility] Rx#:[id number] metroNIDAZOLE-NS PMX 500 100 mg In Saline 1 100ml.bag @ 100 mls/hr IVPB Q8HR [facility] Rx#:[id number] Oral 60 Output: Urine 525 Other: Voiding Method Toilet Toilet # Voids 1 4 # Bowel Movements 1 15 - Labs CBC & Chem 7: 09/11/20 08:47 09/12/20 07:33 Labs: Abnormal Lab Results - Last 24 Hours (Table) 09/11/20 09/11/20 09/11/20 Range/Units 08:47 08:47 11:42 RBC 3.41 L (3.80-5.40) m/uL Hgb 10.7 L (11.4-16.0) gm/dL Hct 31.2 L (34.0-46.0) % Chloride 109 H (98-107) mmol/L Carbon Dioxide 21 L (22-30) mmol/L Glucose 115 H (74-99) mg/dL POC Glucose (mg/dL) 119 H (75-99) mg/dL Total Protein 5.9 L (6.3-8.2) g/dL Albumin 2.9 L (3.5-5.0) g/dL 09/11/20 09/11/20 09/12/20 Range/Units 17:23 22:46 05:29 RBC (3.80-5.40) m/uL Hgb (11.4-16.0) gm/dL Hct (34.0-46.0) % Chloride (98-107) mmol/L Carbon Dioxide (22-30) mmol/L Glucose (74-99) mg/dL POC Glucose (mg/dL) 104 H 108 H 106 H (75-99) mg/dL Total Protein (6.3-8.2) g/dL Albumin (3.5-5.0) g/dL
[2020-09-12] MEDS: LOSARTAN 50 MG TAB PO SCH (14:09)
--- NOTE | 2020-09-12 15:33 | P.PN ---
Subjective Progress Note Date: 09/12/20 The patient underwent EGD and colonoscopy today. There was no evidence of ulcer or gastritis that would be causing her symptoms. No evidence of any colon tumors or significant inflammation causing her to have diarrhea or loose weight. Objective - Vital Signs Vital signs: Vital Signs Temp 97.9 F 09/12/20 07:52 Pulse 70 09/12/20 13:56 Resp 20 09/12/20 13:34 BP 165/74 09/12/20 13:56 Pulse Ox 95 09/12/20 13:56 Intake & Output 09/11/20 09/12/20 09/12/20 18:59 06:59 18:59 Intake Total 310 700 Output Total 525 Balance 310 -525 700 Intake: IV 700 Sodium Chloride 0.9% 1, 600 000 ml @ 75 mls/hr IV . [id number] [facility] Rx#:[id number] metroNIDAZOLE-NS PMX 500 100 mg In Saline 1 100ml.bag @ 100 mls/hr IVPB Q8HR [facility] Rx#:[id number] Intake, IV Titration 250 Amount Sodium Chloride 0.9% 1, 150 000 ml @ 75 mls/hr IV . [id number] [facility] Rx#:[id number] metroNIDAZOLE-NS PMX 500 100 mg In Saline 1 100ml.bag @ 100 mls/hr IVPB Q8HR [facility] Rx#:[id number] Oral 60 Output: Urine 525 Other: Voiding Method Toilet Toilet Toilet # Voids 1 4 1 # Bowel Movements 1 15 - Labs CBC & Chem 7: 09/11/20 08:47 09/12/20 07:33 Labs: Abnormal Lab Results - Last 24 Hours (Table) 09/11/20 09/11/20 09/12/20 Range/Units 17:23 22:46 05:29 Chloride (98-107) mmol/L Carbon Dioxide (22-30) mmol/L Glucose (74-99) mg/dL POC Glucose (mg/dL) 104 H 108 H 106 H (75-99) mg/dL Calcium (8.4-10.2) mg/dL Total Protein (6.3-8.2) g/dL Albumin (3.5-5.0) g/dL 09/12/20 09/12/20 Range/Units 07:33 11:39 Chloride 110 H (98-107) mmol/L Carbon Dioxide 15 L (22-30) mmol/L Glucose 110 H (74-99) mg/dL POC Glucose (mg/dL) 139 H (75-99) mg/dL Calcium 8.0 L (8.4-10.2) mg/dL Total Protein 5.9 L (6.3-8.2) g/dL Albumin 2.8 L (3.5-5.0) g/dL Assessment and Plan (1) Diarrhea Current Visit: Yes Status: Acute Code(s): R19.7 - DIARRHEA, UNSPECIFIED SNOMED Code(s): 00884109 (2) Unable to eat Current Visit: Yes Status: Acute Code(s): F50.89 - OTHER SPECIFIED EATING DISORDER SNOMED Code(s): 233683379 (3) Vomiting Current Visit: Yes Status: Acute Code(s): R11.10 - VOMITING, UNSPECIFIED SNOMED Code(s): 754553831 (4) Cholelithiasis Current Visit: No Status: Acute Code(s): K80.20 - CALCULUS OF GALLBLADDER W/O CHOLECYSTITIS W/O OBSTRUCTION SNOMED Code(s): 940355678 Plan: I spoke with Dr. Thompson after the patient's EGD and colonoscopy. Since there is no significant pathology found on those the gallbladder is most likely the cause of her complaints. I spoke with the patient. I recommended laparoscopic cholecystectomy. The procedure risk and complications and small bowel chance of converting to open surgery were discussed with her. I'll attempt to contact her son. Tentatively we'll schedule her for tomorrow the .
[2020-09-12 16:54] LABS: Glucose,Whole Blood 120 mg/dL (75-99)
[2020-09-12 22:06] LABS: Glucose,Whole Blood 110 mg/dL (75-99)
[2020-09-12] MEDS: ATORVASTATIN 10 MG TAB PO SCH (22:12)
[2020-09-13] MEDS: metroNIDAZOLE-NS PMX 500 MG in SALINE 1 100ML.BAG IVPB SCH ×4 (00:26→23:37)
[2020-09-13] MEDS: SODIUM CHLORIDE 0.9% 1,000 ML IV SCH ×3 (00:29→15:55)
[2020-09-13 05:03] LABS: Glucose,Whole Blood 105 mg/dL (75-99)
[2020-09-13] MEDS: INSULIN ASPART (NovoLOG) 100 UNIT/ML VIAL SQ SCH ×4 (05:44→20:09)
[2020-09-13] MEDS: REPAGLINIDE 1 MG TAB PO SCH ×2 (05:45→17:50)
[2020-09-13] MEDS: CEFDINIR 300 MG CAP PO SCH ×2 (08:57→20:09)
[2020-09-13] MEDS: LOSARTAN 50 MG TAB PO SCH (08:57)
[2020-09-13] MEDS: HEPARIN SODIUM,PORCINE 5,000 UNIT/ML 1 ML VIAL SQ SCH ×2 (08:57→20:09)
[2020-09-13] MEDS: PANTOPRAZOLE 40 MG/10 ML VIAL IVP SCH (08:58)
--- NOTE | 2020-09-13 11:09 | P.PN ---
Subjective Progress Note Date: 09/13/20 Principal diagnosis: Nausea, vomiting, diarrhea The patient was seen and examined lying in bed. She is status post upper endoscopy and colonoscopy from yesterday. Upper endoscopy findings with mild gastritis. Colonoscopy with findings of colon polyps, biopsies also taken of r ight colon. Patient is scheduled today with Dr. Neal prior cholecystectomy. She is denying any vomiting, abdominal pain, or diarrhea this morning. Objective - Vital Signs Vital signs: Vital Signs Temp 97.9 F 09/13/20 08:35 Pulse 64 09/13/20 08:35 Resp 16 09/13/20 08:35 BP 142/62 09/13/20 08:35 Pulse Ox 95 09/13/20 08:35 Intake & Output 09/12/20 09/13/20 09/13/20 18:59 06:59 18:59 Intake Total 800 30 Output Total 690 Balance 800 -660 Intake: IV 700 Sodium Chloride 0.9% 1, 600 000 ml @ 75 mls/hr IV . [id number] [facility] Rx#:[id number] metroNIDAZOLE-NS PMX 500 100 mg In Saline 1 100ml.bag @ 100 mls/hr IVPB Q8HR [facility] Rx#:[id number] Oral 100 30 Output: Urine 690 Other: Voiding Method Toilet Toilet # Voids 4 1 2 - Exam General appearance: The patient is alert, oriented, in no acute distress. HET: Head is normocephalic and atraumatic. Conjunctiva pink. Sclera anicteric. Neck: Supple without lymphadenopathy. Abdomen: Soft, nontender, nondistended with bowel sounds. No guarding or rigidity. Extremities: Normal skin color and turgor. No pedal edema Neurological: No focal deficits. Alert and oriented 3. - Labs CBC & Chem 7: 09/11/20 08:47 09/12/20 07:33 Labs: Abnormal Lab Results - Last 24 Hours (Table) 09/12/20 09/12/20 09/12/20 Range/Units 11:39 16:51 22:05 POC Glucose (mg/dL) 139 H 120 H 110 H (75-99) mg/dL 09/13/20 Range/Units 05:01 POC Glucose (mg/dL) 105 H (75-99) mg/dL Assessment and Plan (1) Diarrhea Narrative/Plan: This is an 85-year-old female with multiple medical morbidities who presents back to the hospital after recent hospitalization with complaints of diarrhea, nausea and vomiting. Patient also states she's had abdominal pain and decreased oral intake. Patient has had evaluation significant for cholelithiasis with no evidence of cholecystitis, cystic duct obstruction or gallbladder dysfunction on HIDA scan. Repeat ultrasound on presentation this hospitalization again showed a large gallstone. Discussion with the patient and her son with a described decreased oral intake with 15 pounds of weight loss, nausea and vomiting worsen ing with attempts at eating and episodes of diarrhea. Unclear etiology, may be related to peptic ulcer disease, symptomatic cholelithiasis, cannot rule out lower GI pathology with the patient's son reporting last colonoscopy approximately 6 years ago. Patient is also being evaluated by surgical se rvices. Patient is status post colonoscopy with findings that include 2 polyps with removal from the descending colon with forcep polypectomy. Otherwise normal- appearing colon from cecum with random biopsies taken of the right colon. Current Visit: Yes Status: Acute Code(s): R19.7 - DIARRHEA, UNSPECIFIED SNOMED Code(s): 81052258 (2) Nausea and vomiting Narrative/Plan: The patient is status post upper endoscopy with findings that included mild g astritis, no other findings noted. Biopsies taken. Current Visit: Yes Status: Acute Code(s): R11.2 - NAUSEA WITH VOMITING, UNSPECIFIED SNOMED Code(s): 81139122 (3) Abdominal pain Current Visit: Yes Status: Acute Code(s): R10.9 - UNSPECIFIED ABDOMINAL PAIN SNOMED Code(s): 44083692 Plan: 1. Supportive care 2. Diet per recommendations from surgical services 3. Patient is scheduled for cholecystectomy today with Dr. Kim 4. Patient is status post upper endoscopy and colonoscopy 5. Patient to follow-up with his gastroenterology for biopsy results Thank you for this consultation, we will sign off at this time. Dr. Thompson I agree with the dictator's note, documented as a scribe by Esthela Hummel.
--- NOTE | 2020-09-13 11:27 | P.PN ---
Subjective Progress Note Date: 09/13/20 HISTORY OF PRESENT ILLNESS This is an 85-year-old female patient of with past medical history of diabetes mellitus type 2, hypertension, hyperlipidemia. Patient had a recent hospitalization last week for acute pneumonia, Covid 19 pneumonia ruled out, diarrhea secondary to cholecystitis. Patient underwent CAT scan of the abdomen and pelvis with contrast revealed right lower lobe pneumonia and atelectasis. Small right pleural effusion. Mild infiltrate left lung base. Small amount of free fluid in the pelvis of uncertain significance. No evidence of bowel obstruction. No free air. Cholelithiasis. Ultrasound of the abdomen ordered which revealed possible cholecystitis. HIDA scan was negative. Patient now states that she had vomiting that started yesterday. She was feeling well following discharge. She denies having abdominal pain or tenderness. She is complaining of edema to her ankles. 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 Patient will be made nothing by mouth until seen by general surgery and GI. Patient came into [facility] emergency center for evaluation. Afebrile, heart rate 77, blood pressure 161/73, pulse ox 95% on room air. CBC was unremarkable. Sodium 135, potassium 3.1, chloride 106, CO2 19, BUN 12 and creatinine 0.8. Blood sugar 105. Total bilirubin 0.7, AST 45, ALT 34, alk phosphatase 72. Lipase 345. Urinalysis clear with leukoesterase small. Covid 19 not detected. Abdominal x-ray revealed bilateral pleural effusions with basilar pulmonary infiltrates and atelectasis. Mild heart failure is probably present. Nonacute abdomen. Abdominal ultrasound revealed large gallstone. No focal liver defect. Large common bile duct consistent with gallbladder dysfunction. No dilation seen of the intrahepatic bile ducts. Potassium was replaced, patient admitted to the observation unit and consult requested with general surgery and GI. Patient has been seen by general surgery with recommendations for EGD and colonoscopy. No plan for surgery. 09/12: Patient has been seen by GI and underwent EGD today with biopsy and colonoscopy with biopsy and polypectomy. Study found mild gastritis. Biopsies of the duodenum antrum body and GE junction were obtained. Vision had 2 diminutive polyps removed from the ascending colon for sit polypectomy. Otherw ise normal-appearing colon. Patient was cleared for clear liquid diet and continue medical management. Patient denies any abdominal pain. She's been afebrile, heart rate 69, blood pressure 145/6-3, pulse ox 95% on room air. Repeat blood work reveals sodium 138, potassium 3.7, chloride 110, CO2 15, BUN 10 and creatinine 0.71. Lipase 2058. C. difficile toxin negative. 09/13: Patient is scheduled for laparoscopic cholecystectomy today. C. diff came back negative. H. pylori is pending. Blood sugar 105. Patient continues to complain of diarrhea but less frequently. She did have prepped for colonoscopy. Decreased nausea today. She has been afebrile, heart rate 64, blood pressure 142/72, pulse ox 95% on room air. REVIEW OF SYSTEMS Constitutional: Denies fever, denies chills, no night sweats. Reports weight change. Denies weakness, denies fatigue, denies lethargy. EENT: No headache. No blurred vision or double vision, no loss of vision. No loss of Hearing, no ringing in the ears, no dizziness. No nasal drainage or congestion. No epistaxis. No sore throat. Lungs: No shortness of breath, cough, no sputum production. No wheezing. Cardiovascular: No chest pain, no lower extremity edema. No palpitations. No paroxysmal nocturnal dyspnea. No orthopnea. No lightheadedness or dizziness. No syncopal episodes. Abdominal: Denies abdominal pain. Reports nausea, denies vomiting. Reports diarrhea. No constipation. No bloody or tarry stools. Reports loss of appetite. Genitourinary: No dysuria, increased frequency, urgency. No urinary retention. Musculoskeletal: No myalgias. Reports muscle weakness, no gait dysfunction, no frequent falls. No back pain. No neck pain. Integumentary: No wounds, no lesions. No rash or pruritus. No unusual bruising. No change in hair or nails. Neurologic: No aphasia. No facial droop. No change in mentation. No head injury. No headache. No paralysis. No paresthesia. Psychiatric: No depression. No anxiety. No mood swings. Endocrine: No abnormal blood sugars. No weight change. No excessive sweating or thirst. No cold intolerance. PHYSICAL EXAMINATION Gen: This is an 85-year-old female. Patient is resting in bed and appears to be comfortable. No acute respiratory distress is noted. HEENT: Head is atraumatic, normocephalic. Pupils equal, round. Sclerae is anicteric. NECK: Supple. No JVD. No lymphadenopathy. No thyromegaly. LUNGS: Lungs are clear to auscultation. No wheezes. No intercostal retractions. HEART: Regular rate and rhythm. No murmur. ABDOMEN: Soft. Bowel sounds are present. No masses. No tenderness. EXTREMITIES: No pedal edema. No calf tenderness. NEUROLOGICAL: Patient is awake, alert and oriented x3. Cranial nerves 2 through 12 are grossly intact. ASSESSMENT AND PLAN 1. Intractable vomiting and diarrhea. C. difficile toxin was negative. Consult with GI and general surgery appreciated. Status post EGD and colonoscopy as above. Patient is scheduled for cholecystectomy today. Continue Omnicef and started on Flagyl 500 mg IV piggyback every 8 hours. Zofran as needed for nausea and vomiting. 2. Recent admission for Covid 19 pneumonia, stable. Continue Omnicef. 3. Hypokalemia secondary to vomiting, diarrhea. Status post replacement. 4. Diabetes mellitus type 2. NovoLog scale before meals and at bedtime. Hold metformin, continue Prandin and NovoLog scale. 5. Hypertension. Continue losartan 50 mg daily. 6. Hyperlipidemia. Hold simvastatin 20 mg at bedtime. 7. GI prophylaxis. Protonix 40 mg IV push daily. 8. DVT prophylaxis. Heparin subcu DISCHARGE PLAN Return to [facility] with [facility]. Impression and plan of care have been directed as dictated by the signing physician. Lyssa Barreto nurse practitioner acting as scribe for signing physician. Objective - Vital Signs Vital signs: Vital Signs Temp 97.9 F 09/13/20 03:10 Pulse 62 09/13/20 03:10 Resp 16 09/12/20 15:00 BP 164/60 09/13/20 03:10 Pulse Ox 96 09/13/20 03:10 Intake & Output 09/12/20 09/13/20 09/13/20 18:59 06:59 18:59 Intake Total 800 30 Output Total 690 Balance 800 -660 Intake: IV 700 Sodium Chloride 0.9% 1, 600 000 ml @ 75 mls/hr IV . [id number] [facility] Rx#:[id number] metroNIDAZOLE-NS PMX 500 100 mg In Saline 1 100ml.bag @ 100 mls/hr IVPB Q8HR [facility] Rx#:[id number] Oral 100 30 Output: Urine 690 Other: Voiding Method Toilet Toilet # Voids 4 1 - Labs CBC & Chem 7: 09/11/20 08:47 09/12/20 07:33 Labs: Abnormal Lab Results - Last 24 Hours (Table) 09/12/20 09/12/20 09/12/20 Range/Units 07:33 11:39 16:51 Chloride 110 H (98-107) mmol/L Carbon Dioxide 15 L (22-30) mmol/L Glucose 110 H (74-99) mg/dL POC Glucose (mg/dL) 139 H 120 H (75-99) mg/dL Calcium 8.0 L (8.4-10.2) mg/dL Total Protein 5.9 L (6.3-8.2) g/dL Albumin 2.8 L (3.5-5.0) g/dL 09/12/20 09/13/20 Range/Units 22:05 05:01 Chloride (98-107) mmol/L Carbon Dioxide (22-30) mmol/L Glucose (74-99) mg/dL POC Glucose (mg/dL) 110 H 105 H (75-99) mg/dL Calcium (8.4-10.2) mg/dL Total Protein (6.3-8.2) g/dL Albumin (3.5-5.0) g/dL
[2020-09-13 11:38] LABS: Glucose,Whole Blood 109 mg/dL (75-99)
[2020-09-13] MEDS ORDERED: BUPIVACAIN-EPI 0.25%-1:200,000 30 ML VIAL SQ ONE ×2 (15:53)
[2020-09-13] MEDS ORDERED: LIDOCAINE 1%-EPI 1:100,000 20 ML VIAL SQ ONE ×2 (15:53)
[2020-09-13] MEDS ORDERED: LACTATED RINGERS 1,000 ML IV ONE (15:56)
[2020-09-13] MEDS ORDERED: traMADol 50 MG TAB PO PRN ×2 (16:18)
[2020-09-13] MEDS ORDERED: HYDROmorphone 0.2 MG/1 ML SYRINGE IVP PRN (16:20)
--- NOTE | 2020-09-13 16:25 | P.OP ---
Date of Procedure: 09/13/20 Preoperative Diagnosis: Cholelithiasis, nausea and vomiting Postoperative Diagnosis: Cholelithiasis, nausea and vomiting Procedure(s) Performed: Laparoscopic cholecystectomy Anesthesia: CARLOS Surgeon: Eileen Kim Estimated Blood Loss (ml): 5 Pathology: other Condition: stable (Gallbladder) Disposition: PACU Indications for Procedure: The patient was found to have gallstones on workup. She had been complaining of diarrhea and weight loss. Her son also said she's been complaining of pain and nausea with eating. EGD and colonoscopy were performed to rule out any other pathology. Description of Procedure: The patient's taken the operative suite where she is prepped and draped in the usual sterile manner under a general endotracheal anesthetic. An infraumbilical incision was made. A Veress needle was placed into the abdominal cavity and pneumoperitoneum was established with CO2 gas. Sites are chosen for accessory trochars and these are placed through small skin incisions. The abdominal and pelvic contents were examined in normal were seen. The fundus of the gallbladder is grasped and retracted superiorly. Devante's pouch is then identified, its grasped and retracted laterally. The cystic artery and cystic duct are dissected free. They're triply clipped and cut. The gallbladder is then dissected free from the liver bed. Small bleeding points were controlled with electrocautery the gallbladder is then removed through the umbilical port site the liver bed is reexamined and noted to be hemostatic. The excess irrigant was suctioned out. The pneumoperitoneum was released. The trochars were removed. The fascia at the umbilicus was closed with 0 Vicryl. The skin incisions were closed with 4-0 Vicryl in a subcuticular manner. Steri-Strips and dressings were applied. She tolerated the procedure without difficulty and was taken to recovery room in satisfactory condition. According to or personnel, all counts were correct.
[2020-09-13 17:47] LABS: Glucose,Whole Blood 147 mg/dL (75-99)
[2020-09-13 20:05] LABS: Glucose,Whole Blood 172 mg/dL (75-99)
[2020-09-13] MEDS: ATORVASTATIN 10 MG TAB PO SCH (20:09)
[2020-09-14] MEDS: SODIUM CHLORIDE 0.9% 1,000 ML IV SCH ×2 (05:34→19:34)
[2020-09-14] MEDS: INSULIN ASPART (NovoLOG) 100 UNIT/ML VIAL SQ SCH ×4 (06:38→22:41)
[2020-09-14 06:39] LABS: Glucose,Whole Blood 115 mg/dL (75-99)
[2020-09-14] MEDS: REPAGLINIDE 1 MG TAB PO SCH ×2 (06:48→17:17)
--- NOTE | 2020-09-14 08:12 | P.DS ---
Providers Date of admission: 09/13/20 08:09 Expected date of discharge: 09/14/20 Attending physician: Alhaji Mayorga Consults: 09/10/20 19:38 Consult Physician Urgent Consulting Provider: Cody Kramer Consult Reason/Comments: vomiting and diarrhea Do you want consulting provider notified?: Yes 09/11/20 09:05 Consult Physician Routine Consulting Provider: Eileen Kim Consult Reason/Comments: GB, known to you Do you want consulting provider notified?: Yes Primary care physician: [facility] Course: HISTORY OF PRESENT ILLNESS This is an 85-year-old female patient of with past medical history of diabetes mellitus type 2, hypertension, hyperlipidemia. Patient had a recent hospitalization last week for acute pneumonia, Covid 19 pneumonia ruled out, diarrhea secondary to cholecystitis. Patient underwent CAT scan of the abdomen and pelvis with contrast revealed right lower lobe pneumonia and atelectasis. Small right pleural effusion. Mild infiltrate left lung base. Small amount of free fluid in the pelvis of uncertain significance. No evidence of bowel obstruction. No free air. Cholelithiasis. Ultrasound of the abdomen ordered which revealed possible cholecystitis. HIDA scan was negative. Patient now states that she had vomiting that started yesterday. She was feeling well following discharge. She denies having abdominal pain or tenderness. She is complaining of edema to her ankles. 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 Patient will be made nothing by mouth until seen by general surgery and GI. Patient came into [facility] emergency center for evaluation. Afebrile, heart rate 77, blood pressure 161/73, pulse ox 95% on room air. CBC was unremarkable. Sodium 135, potassium 3.1, chloride 106, CO2 19, BUN 12 and creatinine 0.8. Blood sugar 105. Total bilirubin 0.7, AST 45, ALT 34, alk phosphatase 72. Lipase 345. Urinalysis clear with leukoesterase small. Covid 19 not detected. Abdominal x-ray revealed bilateral pleural effusions with basilar pulmonary infiltrates and atelectasis. Mild heart failure is probably present. Nonacute abdomen. Abdominal ultrasound revealed large gallstone. No focal liver defect. Large common bile duct consistent with gallbladder dysfunction. No dilation seen of the intrahepatic bile ducts. Potassium was replaced, patient admitted to the observation unit and consult requested with general surgery and GI. Patient has been seen by general surgery with recommendations for EGD and colonoscopy. No plan for surgery. 09/12: Patient has been seen by GI and underwent EGD today with biopsy and colonoscopy with biopsy and polypectomy. Study found mild gastritis. Biopsies of the duodenum antrum body and GE junction were obtained. [facility] had 2 diminutive polyps removed from the ascending colon for sit polypectomy. Otherwise normal-appearing colon. Patient was cleared for clear liquid diet and continue medical management. Patient denies any abdominal pain. She's been afebrile, heart rate 69, blood pressure 145/6-3, pulse ox 95% on room air. Repeat blood work reveals sodium 138, potassium 3.7, chloride 110, CO2 15, BUN 10 and creatinine 0.71. Lipase 2058. C. difficile toxin negative. 09/13: Patient is scheduled for laparoscopic cholecystectomy today. C. diff came back negative. H. pylori is pending. Blood sugar 105. Patient continues to complain of diarrhea but less frequently. She did have prepped for colonoscopy. Decreased nausea today. She has been afebrile, heart rate 64, blood pressure 142/72, pulse ox 95% on room air. 09/14: Yesterday, the patient underwent laparoscopic cholecystectomy with no postop complications. Patient states her abdomen feels sore. Her diarrhea is getting better. She only ate a few bites of food for breakfast that she states it was too dried out. She has been afebrile, heart rate 70, blood pressure 123/65, pulse ox 95% on room air. Repeat blood work reveals WBC 8.2, hemoglobin 10.2, platelet count 486. Sodium 130, potassium 3.3 will be replaced, chloride 114, CO2 12, BUN 7 and creatinine 0.86. Blood sugars running between 145 and 172. Physical therapy has evaluated patient and recommend either home with homecare or subacute rehab. Patient is stating that she's not sure how she will manage at home and would like to go to [facility] for subacute rehab. Social work updated and hopefully will make arrangements today. Patient will be discharged once arrangements are completed. ASSESSMENT AND PLAN 1. Intractable vomiting and diarrhea. Status post cholecystectomy. 2. Recent admission for Covid 19 pneumonia, stable. 3. Hypokalemia secondary to vomiting, diarrhea. 4. Diabetes mellitus type 2. 5. Hypertension. 6. Hyperlipidemia. DISCHARGE PLAN Subacute rehab at [facility]. Impression and plan of care have been directed as dictated by the signing physician. Lyssa Barreto nurse practitioner acting as scribe for signing physician. Patient Condition at Discharge: Good Plan - Discharge Summary Discharge Rx Participant: No New Discharge Prescriptions: Continue Simvastatin [Zocor] 20 mg PO HS Losartan Potassium [Cozaar] 50 mg PO DAILY metFORMIN HCL 500 mg PO HS Repaglinide [Prandin] 4 mg PO BID-W/MEALS metFORMIN HCL 1,000 mg PO DAILY Dulaglutide [Trulicity] 0.75 mg SQ WE Loperamide [Imodium] 2 mg PO QID PRN cap PRN Reason: Diarrhea Cefuroxime Axetil [Ceftin] 500 mg PO BID 5 Days #10 tab Ondansetron HCl [Zofran] 4 - 8 mg PO Q8H PRN PRN Reason: Nausea And Vomiting Discharge Medication List Losartan Potassium [Cozaar] 50 mg PO DAILY 07/03/17 [History] Simvastatin [Zocor] 20 mg PO HS 07/03/17 [History] Dulaglutide [Trulicity] 0.75 mg SQ WE 09/03/20 [History] Repaglinide [Prandin] 4 mg PO BID-W/MEALS 09/03/20 [History] metFORMIN HCL 1,000 mg PO DAILY 09/03/20 [History] metFORMIN HCL 500 mg PO HS 09/03/20 [History] Cefuroxime Axetil [Ceftin] 500 mg PO BID 5 Days #10 tab 09/07/20 [Rx] Loperamide [Imodium] 2 mg PO QID PRN cap 09/07/20 [Rx] Ondansetron HCl [Zofran] 4 - 8 mg PO Q8H PRN 09/10/20 [History] Follow up Appointment(s)/Referral(s): Eileen Kim DO [Doctor of Osteopathic Medicine] - 2 Weeks [facility], [NON-STAFF] - 1-2 Days Gregory Thompson MD [STAFF PHYSICIAN] - 2 Weeks Alhaji Mayorga MD [Primary Care Provider] - 1 Week (After discharge from [facility]) Activity/Diet/Wound Care/Special Instructions: You may shower starting friday. Low fat diet. Call if questions or concerns Discharge Disposition: TRANSFER TO SNF/ECF
[2020-09-14 08:49] LABS: HCT 31.4 % (34.0-46.0); HGB 10.2 gm/dL (11.4-16.0); MCH 30.4 pg (25.0-35.0); MCHC 32.6 g/dL (31.0-37.0); MCV 93.2 fL (80.0-100.0); Mean Platelet Volume 7.6; Platelet Count 486 k/uL (150-450); Poikilocytosis Slight; RBC 3.37 m/uL (3.80-5.40); RDW 14.7 % (11.5-15.5); WBC 8.2 k/uL (3.8-10.6)
[2020-09-14 09:29] LABS: Albumin 2.9 g/dL (3.5-5.0); Calcium 8.5 mg/dL (8.4-10.2); Potassium 3.3 mmol/L (3.5-5.1); Total Bilirubin 0.5 mg/dL (0.2-1.3)
[2020-09-14] MEDS: HEPARIN SODIUM,PORCINE 5,000 UNIT/ML 1 ML VIAL SQ SCH ×2 (10:05→22:42)
[2020-09-14] MEDS: LOSARTAN 50 MG TAB PO SCH (10:06)
[2020-09-14] MEDS: PANTOPRAZOLE 40 MG/10 ML VIAL IVP SCH (10:06)
[2020-09-14] MEDS: metroNIDAZOLE-NS PMX 500 MG in SALINE 1 100ML.BAG IVPB SCH ×2 (10:39→16:59)
[2020-09-14] MEDS: CEFDINIR 300 MG CAP PO SCH ×2 (10:40→22:41)
[2020-09-14] MEDS ORDERED: POTASSIUM CHLORIDE ER 20 MEQ TAB.ER PO STA (11:14)
[2020-09-14 17:00] LABS: Glucose,Whole Blood 86 mg/dL (75-99)
--- NOTE | 2020-09-14 17:44 | P.PN ---
Subjective Progress Note Date: 09/14/20 The patient is PO day 1 from laparoscopic cholecystectomy. She hasn't eaten much today. Is afraid of pain or vomiting. Currently eating some dinner Objective - Vital Signs Vital signs: Vital Signs Temp 98.1 F 09/14/20 15:00 Pulse 68 09/14/20 15:00 Resp 16 09/14/20 15:00 BP 125/57 09/14/20 15:00 Pulse Ox 97 09/14/20 15:00 Intake & Output 09/13/20 09/14/20 09/14/20 18:59 06:59 18:59 Intake Total 1200 1205 Output Total 205 200 Balance 995 -200 1205 Weight 63.957 kg Intake: IV 1200 875 Sodium Chloride 0.9% 1, 675 000 ml @ 75 mls/hr IV . [id number] [facility] Rx#:[id number] metroNIDAZOLE-NS PMX 500 100 200 mg In Saline 1 100ml.bag @ 100 mls/hr IVPB Q8HR [facility] Rx#:[id number] Oral 330 Output: Urine 200 200 Estimated Blood Loss 5 Other: Voiding Method Bedside Commode Bedside Commode Bedside Commode # Voids 2 3 2 - Constitutional General appearance: Present: cooperative, no acute distress - Labs CBC & Chem 7: 09/14/20 08:41 09/14/20 08:41 Labs: Abnormal Lab Results - Last 24 Hours (Table) 09/13/20 09/13/20 09/14/20 Range/Units 17:36 19:59 06:36 RBC (3.80-5.40) m/uL Hgb (11.4-16.0) gm/dL Hct (34.0-46.0) % Plt Count (150-450) k/uL Potassium (3.5-5.1) mmol/L Chloride (98-107) mmol/L Carbon Dioxide (22-30) mmol/L Glucose (74-99) mg/dL POC Glucose (mg/dL) 147 H 172 H 115 H (75-99) mg/dL Total Protein (6.3-8.2) g/dL Albumin (3.5-5.0) g/dL 09/14/20 09/14/20 Range/Units 08:41 08:41 RBC 3.37 L (3.80-5.40) m/uL Hgb 10.2 L (11.4-16.0) gm/dL Hct 31.4 L (34.0-46.0) % Plt Count 486 H (150-450) k/uL Potassium 3.3 L (3.5-5.1) mmol/L Chloride 114 H (98-107) mmol/L Carbon Dioxide 12 L (22-30) mmol/L Glucose 145 H (74-99) mg/dL POC Glucose (mg/dL) (75-99) mg/dL Total Protein 6.0 L (6.3-8.2) g/dL Albumin 2.9 L (3.5-5.0) g/dL Assessment and Plan (1) Diarrhea Current Visit: Yes Status: Acute Code(s): R19.7 - DIARRHEA, UNSPECIFIED SNOMED Code(s): 65210567 (2) Unable to eat Current Visit: Yes Status: Acute Code(s): F50.89 - OTHER SPECIFIED EATING DISORDER SNOMED Code(s): 738083051 (3) Vomiting Current Visit: Yes Status: Acute Code(s): R11.10 - VOMITING, UNSPECIFIED SNOMED Code(s): 003705597 (4) Cholelithiasis Current Visit: No Status: Acute Code(s): K80.20 - CALCULUS OF GALLBLADDER W/O CHOLECYSTITIS W/O OBSTRUCTION SNOMED Code(s): 170895561 Plan: Surgically stable for discharge. I encouraged her to try to eat, even if it has "no taste".
[2020-09-14 22:34] LABS: Glucose,Whole Blood 185 mg/dL (75-99)
[2020-09-14] MEDS: ATORVASTATIN 10 MG TAB PO SCH (22:42)
[2020-09-15] MEDS: metroNIDAZOLE-NS PMX 500 MG in SALINE 1 100ML.BAG IVPB SCH ×4 (00:09→23:13)
[2020-09-15 06:34] LABS: Glucose,Whole Blood 135 mg/dL (75-99)
[2020-09-15] MEDS: INSULIN ASPART (NovoLOG) 100 UNIT/ML VIAL SQ SCH ×4 (06:48→21:04)
[2020-09-15] MEDS: REPAGLINIDE 1 MG TAB PO SCH ×2 (06:49→18:13)
--- NOTE | 2020-09-15 07:32 | P.PN ---
Subjective Progress Note Date: 09/14/20 HISTORY OF PRESENT ILLNESS This is an 85-year-old female patient of with past medical history of diabetes mellitus type 2, hypertension, hyperlipidemia. Patient had a recent hospitalization last week for acute pneumonia, Covid 19 pneumonia ruled out, diarrhea secondary to cholecystitis. Patient underwent CAT scan of the abdomen and pelvis with contrast revealed right lower lobe pneumonia and atelectasis. Small right pleural effusion. Mild infiltrate left lung base. Small amount of free fluid in the pelvis of uncertain significance. No evidence of bowel obstruction. No free air. Cholelithiasis. Ultrasound of the abdomen ordered which revealed possible cholecystitis. HIDA scan was negative. Patient now states that she had vomiting that started yesterday. She was feeling well following discharge. She denies having abdominal pain or tenderness. She is complaining of edema to her ankles. 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 Patient will be made nothing by mouth until seen by general surgery and GI. Patient came into [facility] emergency center for evaluation. Afebrile, heart rate 77, blood pressure 161/73, pulse ox 95% on room air. CBC was unremarkable. Sodium 135, potassium 3.1, chloride 106, CO2 19, BUN 12 and creatinine 0.8. Blood sugar 105. Total bilirubin 0.7, AST 45, ALT 34, alk phosphatase 72. Lipase 345. Urinalysis clear with leukoesterase small. Covid 19 not detected. Abdominal x-ray revealed bilateral pleural effusions with basilar pulmonary infiltrates and atelectasis. Mild heart failure is probably present. Nonacute abdomen. Abdominal ultrasound revealed large gallstone. No focal liver defect. Large common bile duct consistent with gallbladder dysfunction. No dilation seen of the intrahepatic bile ducts. Potassium was replaced, patient admitted to the observation unit and consult requested with general surgery and GI. Patient has been seen by general surgery with recommendations for EGD and colonoscopy. No plan for surgery. 09/12: Patient has been seen by GI and underwent EGD today with biopsy and colonoscopy with biopsy and polypectomy. Study found mild gastritis. Biopsies of the duodenum antrum body and GE junction were obtained. [facility] had 2 diminutive polyps removed from the ascending colon for sit polypectomy. Otherw ise normal-appearing colon. Patient was cleared for clear liquid diet and continue medical management. Patient denies any abdominal pain. She's been afebrile, heart rate 69, blood pressure 145/6-3, pulse ox 95% on room air. Repeat blood work reveals sodium 138, potassium 3.7, chloride 110, CO2 15, BUN 10 and creatinine 0.71. Lipase 2058. C. difficile toxin negative. 09/13: Patient is scheduled for laparoscopic cholecystectomy today. C. diff came back negative. H. pylori is pending. Blood sugar 105. Patient continues to complain of diarrhea but less frequently. She did have prepped for colonoscopy. Decreased nausea today. She has been afebrile, heart rate 64, blood pressure 142/72, pulse ox 95% on room air. 09/14: Yesterday, the patient underwent laparoscopic cholecystectomy with no postop complications. Patient states her abdomen feels sore. Her diarrhea is getting better. She only ate a few bites of food for breakfast that she states it was too dried out. She has been afebrile, heart rate 70, blood pressure 123/65, pulse ox 95% on room air. Repeat blood work reveals WBC 8.2, hemoglobin 10.2, platelet count 486. Sodium 130, potassium 3.3 will be replaced, chloride 114, CO2 12, BUN 7 and creatinine 0.86. Blood sugars running between 145 and 172. Physical therapy has evaluated patient and recommend either home with homecare or subacute rehab. Patient is stating that she's not sure how she will manage at home and would like to go to [facility] for subacute rehab. Social work updated and hopefully will make arrangements today. Patient will be discharged once arrangements are completed. REVIEW OF SYSTEMS Constitutional: Denies fever, denies chills, no night sweats. Reports weight change. Denies weakness, denies fatigue, denies lethargy. EENT: No headache. No blurred vision or double vision, no loss of vision. No loss of Hearing, no ringing in the ears, no dizziness. No nasal drainage or congestion. No epistaxis. No sore throat. Lungs: No shortness of breath, cough, no sputum production. No wheezing. Cardiovascular: No chest pain, no lower extremity edema. No palpitations. No paroxysmal nocturnal dyspnea. No orthopnea. No lightheadedness or dizziness. No syncopal episodes. Abdominal: Denies abdominal pain. Reports nausea, denies vomiting. Reports diarrhea. No constipation. No bloody or tarry stools. Reports loss of appetite. Genitourinary: No dysuria, increased frequency, urgency. No urinary retention. Musculoskeletal: No myalgias. Reports muscle weakness, no gait dysfunction, no frequent falls. No back pain. No neck pain. Integumentary: No wounds, no lesions. No rash or pruritus. No unusual bruising. No change in hair or nails. Neurologic: No aphasia. No facial droop. No change in mentation. No head injury. No headache. No paralysis. No paresthesia. Psychiatric: No depression. No anxiety. No mood swings. Endocrine: No abnormal blood sugars. No weight change. No excessive sweating or thirst. No cold intolerance. PHYSICAL EXAMINATION Gen: This is an 85-year-old female. Patient is resting in bed and appears to be comfortable. No acute respiratory distress is noted. HEENT: Head is atraumatic, normocephalic. Pupils equal, round. Sclerae is anicteric. NECK: Supple. No JVD. No lymphadenopathy. No thyromegaly. LUNGS: Lungs are clear to auscultation. No wheezes. No intercostal retractions. HEART: Regular rate and rhythm. No murmur. ABDOMEN: Soft. Bowel sounds are present. No masses. No tenderness. EXTREMITIES: No pedal edema. No calf tenderness. NEUROLOGICAL: Patient is awake, alert and oriented x3. Cranial nerves 2 through 12 are grossly intact. ASSESSMENT AND PLAN 1. Intractable vomiting and diarrhea. C. difficile toxin was negative. Consult with GI and general surgery appreciated. Status post EGD and colonoscopy as above. Patient is scheduled for cholecystectomy today. Continue Omnicef and started on Flagyl 500 mg IV piggyback every 8 hours. Zofran as needed for nausea and vomiting. 2. Recent admission for Covid 19 pneumonia, stable. Continue Omnicef. 3. Hypokalemia secondary to vomiting, diarrhea. Status post replacement. 4. Diabetes mellitus type 2. NovoLog scale before meals and at bedtime. Hold metformin, continue Prandin and NovoLog scale. 5. Hypertension. Continue losartan 50 mg daily. 6. Hyperlipidemia. Hold simvastatin 20 mg at bedtime. 7. GI prophylaxis. Protonix 40 mg IV push daily. 8. DVT prophylaxis. Heparin subcu DISCHARGE PLAN Return to [facility] with [facility]. Impression and plan of care have been directed as dictated by the signing physician. Lyssa Barreto nurse practitioner acting as scribe for signing physician. Objective - Vital Signs Vital signs: Vital Signs Temp 97.6 F 09/15/20 03:00 Pulse 64 09/15/20 03:00 Resp 16 09/15/20 03:00 BP 135/65 09/15/20 03:00 Pulse Ox 97 09/15/20 03:00 Intake & Output 09/14/20 09/15/20 09/15/20 18:59 06:59 18:59 Intake Total 1205 Balance 1205 Intake: IV 875 Sodium Chloride 0.9% 1, 675 000 ml @ 75 mls/hr IV . [id number] [facility] Rx#:[id number] metroNIDAZOLE-NS PMX 500 200 mg In Saline 1 100ml.bag @ 100 mls/hr IVPB Q8HR [facility] Rx#:[id number] Oral 330 Other: Voiding Method Bedside Commode Bedside Commode # Voids 2 3 - Labs CBC & Chem 7: 09/14/20 08:41 09/14/20 08:41 Labs: Abnormal Lab Results - Last 24 Hours (Table) 09/14/20 09/14/20 09/14/20 Range/Units 08:41 08:41 22:33 RBC 3.37 L (3.80-5.40) m/uL Hgb 10.2 L (11.4-16.0) gm/dL Hct 31.4 L (34.0-46.0) % Plt Count 486 H (150-450) k/uL Potassium 3.3 L (3.5-5.1) mmol/L Chloride 114 H (98-107) mmol/L Carbon Dioxide 12 L (22-30) mmol/L Glucose 145 H (74-99) mg/dL POC Glucose (mg/dL) 185 H (75-99) mg/dL Total Protein 6.0 L (6.3-8.2) g/dL Albumin 2.9 L (3.5-5.0) g/dL 09/15/20 Range/Units 06:33 RBC (3.80-5.40) m/uL Hgb (11.4-16.0) gm/dL Hct (34.0-46.0) % Plt Count (150-450) k/uL Potassium (3.5-5.1) mmol/L Chloride (98-107) mmol/L Carbon Dioxide (22-30) mmol/L Glucose (74-99) mg/dL POC Glucose (mg/dL) 135 H (75-99) mg/dL Total Protein (6.3-8.2) g/dL Albumin (3.5-5.0) g/dL
[2020-09-15] MEDS: CEFDINIR 300 MG CAP PO SCH ×2 (09:08→20:50)
[2020-09-15] MEDS: HEPARIN SODIUM,PORCINE 5,000 UNIT/ML 1 ML VIAL SQ SCH ×2 (09:08→20:50)
[2020-09-15] MEDS: LOSARTAN 50 MG TAB PO SCH (09:08)
[2020-09-15] MEDS: PANTOPRAZOLE 40 MG/10 ML VIAL IVP SCH (09:09)
--- NOTE | 2020-09-15 09:45 | P.PN ---
Subjective Progress Note Date: 09/15/20 HISTORY OF PRESENT ILLNESS This is an 85-year-old female patient of with past medical history of diabetes mellitus type 2, hypertension, hyperlipidemia. Patient had a recent hospitalization last week for acute pneumonia, Covid 19 pneumonia ruled out, diarrhea secondary to cholecystitis. Patient underwent CAT scan of the abdomen and pelvis with contrast revealed right lower lobe pneumonia and atelectasis. Small right pleural effusion. Mild infiltrate left lung base. Small amount of free fluid in the pelvis of uncertain significance. No evidence of bowel obstruction. No free air. Cholelithiasis. Ultrasound of the abdomen ordered which revealed possible cholecystitis. HIDA scan was negative. Patient now states that she had vomiting that started yesterday. She was feeling well following discharge. She denies having abdominal pain or tenderness. She is complaining of edema to her ankles. 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 Patient will be made nothing by mouth until seen by general surgery and GI. Patient came into [facility] emergency center for evaluation. Afebrile, heart rate 77, blood pressure 161/73, pulse ox 95% on room air. CBC was unremarkable. Sodium 135, potassium 3.1, chloride 106, CO2 19, BUN 12 and creatinine 0.8. Blood sugar 105. Total bilirubin 0.7, AST 45, ALT 34, alk phosphatase 72. Lipase 345. Urinalysis clear with leukoesterase small. Covid 19 not detected. Abdominal x-ray revealed bilateral pleural effusions with basilar pulmonary infiltrates and atelectasis. Mild heart failure is probably present. Nonacute abdomen. Abdominal ultrasound revealed large gallstone. No focal liver defect. Large common bile duct consistent with gallbladder dysfunction. No dilation seen of the intrahepatic bile ducts. Potassium was replaced, patient admitted to the observation unit and consult requested with general surgery and GI. Patient has been seen by general surgery with recommendations for EGD and colonoscopy. No plan for surgery. 09/12: Patient has been seen by GI and underwent EGD today with biopsy and colonoscopy with biopsy and polypectomy. Study found mild gastritis. Biopsies of the duodenum antrum body and GE junction were obtained. Vision had 2 diminutive polyps removed from the ascending colon for sit polypectomy. Otherw ise normal-appearing colon. Patient was cleared for clear liquid diet and continue medical management. Patient denies any abdominal pain. She's been afebrile, heart rate 69, blood pressure 145/6-3, pulse ox 95% on room air. Repeat blood work reveals sodium 138, potassium 3.7, chloride 110, CO2 15, BUN 10 and creatinine 0.71. Lipase 2058. C. difficile toxin negative. 09/13: Patient is scheduled for laparoscopic cholecystectomy today. C. diff came back negative. H. pylori is pending. Blood sugar 105. Patient continues to complain of diarrhea but less frequently. She did have prepped for colonoscopy. Decreased nausea today. She has been afebrile, heart rate 64, blood pressure 142/72, pulse ox 95% on room air. 09/14: Yesterday, the patient underwent laparoscopic cholecystectomy with no postop complications. Patient states her abdomen feels sore. Her diarrhea is getting better. She only ate a few bites of food for breakfast that she states it was too dried out. She has been afebrile, heart rate 70, blood pressure 123/65, pulse ox 95% on room air. Repeat blood work reveals WBC 8.2, hemoglobin 10.2, platelet count 486. Sodium 130, potassium 3.3 will be replaced, chloride 114, CO2 12, BUN 7 and creatinine 0.86. Blood sugars running between 145 and 172. Physical therapy has evaluated patient and recommend either home with homecare or subacute rehab. Patient is stating that she's not sure how she will manage at home and would like to go to [facility] for subacute rehab. Social work updated and hopefully will make arrangements today. Patient will be discharged once arrangements are completed. 09/15: Patient states that she had vomiting this morning and was unable to eat her breakfast. She states the vomiting is now resolved. She states she has not had a bowel movement. She denies any diarrhea so this has resolved. Patient did not get discharged yesterday as she is waiting for insurance authorization. She has been afebrile, heart rate 56, blood pressure 177/65, pulse ox 96% on room air. REVIEW OF SYSTEMS Constitutional: Denies fever, denies chills, no night sweats. Reports weight change. Denies weakness, denies fatigue, denies lethargy. EENT: No headache. No blurred vision or double vision, no loss of vision. No loss of Hearing, no ringing in the ears, no dizziness. No nasal drainage or congestion. No epistaxis. No sore throat. Lungs: No shortness of breath, cough, no sputum production. No wheezing. Cardiovascular: No chest pain, no lower extremity edema. No palpitations. No paroxysmal nocturnal dyspnea. No orthopnea. No lightheadedness or dizziness. No syncopal episodes. Abdominal: Denies abdominal pain. Reports nausea, denies vomiting. Denies diarrhea. No constipation. No bloody or tarry stools. Reports loss of appetite. Genitourinary: No dysuria, increased frequency, urgency. No urinary retention. Musculoskeletal: No myalgias. Reports muscle weakness, no gait dysfunction, no frequent falls. No back pain. No neck pain. Integumentary: No wounds, no lesions. No rash or pruritus. No unusual bruising. No change in hair or nails. Neurologic: No aphasia. No facial droop. No change in mentation. No head injury. No headache. No paralysis. No paresthesia. Psychiatric: No depression. No anxiety. No mood swings. Endocrine: No abnormal blood sugars. No weight change. No excessive sweating or thirst. No cold intolerance. PHYSICAL EXAMINATION Gen: This is an 85-year-old female. Patient is resting in bed and appears to be comfortable. HEENT: Head is atraumatic, normocephalic. Pupils equal, round. Sclerae is anicteric. NECK: Supple. No JVD. No lymphadenopathy. No thyromegaly. LUNGS: Lungs are clear to auscultation. No wheezes. No intercostal retractions. HEART: Regular rate and rhythm. No murmur. ABDOMEN: Soft. Bowel sounds are present. No masses. No tenderness. EXTREMITIES: No pedal edema. No calf tenderness. NEUROLOGICAL: Patient is awake, alert and oriented x3. Cranial nerves 2 through 12 are grossly intact. ASSESSMENT AND PLAN 1. Intractable vomiting and diarrhea. C. difficile toxin was negative. Consult with GI and general surgery appreciated. Status post EGD and colonoscopy as above status post cholecystectomy. Continue Omnicef and started on Flagyl 500 mg IV piggyback every 8 hours. Zofran as needed for nausea and vomiting. 2. Recent admission for Covid 19 pneumonia, stable. Continue Omnicef. 3. Hypokalemia secondary to vomiting, diarrhea. Status post replacement. 4. Diabetes mellitus type 2. NovoLog scale before meals and at bedtime. Hold metformin, continue Prandin and NovoLog scale. 5. Hypertension. Continue losartan 50 mg daily. 6. Hyperlipidemia. Hold simvastatin 20 mg at bedtime. 7. GI prophylaxis. Protonix 40 mg IV push daily. 8. DVT prophylaxis. Heparin subcu DISCHARGE PLAN ECF once authorization is obtained Impression and plan of care have been directed as dictated by the signing physician. Lyssa Barreto nurse practitioner acting as scribe for signing physician. Objective - Vital Signs Vital signs: Vital Signs Temp 98.3 F 09/15/20 09:00 Pulse 56 L 09/15/20 09:00 Resp 18 09/15/20 09:00 BP 177/65 09/15/20 09:00 Pulse Ox 96 09/15/20 09:00 Intake & Output 09/14/20 09/15/20 09/15/20 18:59 06:59 18:59 Intake Total 1205 Balance 1205 Intake: IV 875 Sodium Chloride 0.9% 1, 675 000 ml @ 75 mls/hr IV . [id number] [facility] Rx#:[id number]-NS PMX 500 200 mg In Saline 1 100ml.bag @ 100 mls/hr IVPB Q8HR [facility] Rx#:[id number] Oral 330 Other: Voiding Method Bedside Commode Bedside Commode Bedside Commode # Voids 2 3 1 - Labs CBC & Chem 7: 09/14/20 08:41 09/14/20 08:41 Labs: Abnormal Lab Results - Last 24 Hours (Table) 09/14/20 09/15/20 Range/Units 22:33 06:33 POC Glucose (mg/dL) 185 H 135 H (75-99) mg/dL
[2020-09-15 11:50] LABS: Glucose,Whole Blood 110 mg/dL (75-99)
[2020-09-15 16:41] LABS: Glucose,Whole Blood 127 mg/dL (75-99)
[2020-09-15] MEDS: SODIUM CHLORIDE 0.9% 1,000 ML IV SCH (17:13)
[2020-09-15 20:39] LABS: Glucose,Whole Blood 143 mg/dL (75-99)
[2020-09-15] MEDS: ATORVASTATIN 10 MG TAB PO SCH (20:50)
[2020-09-16 01:31] LABS: Glucose,Whole Blood 136 mg/dL (75-99)
[2020-09-16] MEDS: HEPARIN SODIUM,PORCINE 5,000 UNIT/ML 1 ML VIAL SQ SCH ×2 (07:04→20:05)
[2020-09-16] MEDS: metroNIDAZOLE-NS PMX 500 MG in SALINE 1 100ML.BAG IVPB SCH ×3 (07:04→22:46)
[2020-09-16] MEDS: REPAGLINIDE 1 MG TAB PO SCH ×2 (07:06→17:32)
[2020-09-16] MEDS: PANTOPRAZOLE 40 MG/10 ML VIAL IVP SCH (07:07)
[2020-09-16] MEDS: CEFDINIR 300 MG CAP PO SCH ×2 (07:07→20:10)
[2020-09-16] MEDS: LOSARTAN 50 MG TAB PO SCH (07:07)
[2020-09-16 07:37] LABS: Glucose,Whole Blood 125 mg/dL (75-99)
[2020-09-16] MEDS: INSULIN ASPART (NovoLOG) 100 UNIT/ML VIAL SQ SCH ×5 (07:39→20:15)
--- NOTE | 2020-09-16 10:34 | P.PN ---
Subjective Progress Note Date: 09/16/20 HISTORY OF PRESENT ILLNESS This is an 85-year-old female patient of with past medical history of diabetes mellitus type 2, hypertension, hyperlipidemia. Patient had a recent hospitalization last week for acute pneumonia, Covid 19 pneumonia ruled out, diarrhea secondary to cholecystitis. Patient underwent CAT scan of the abdomen and pelvis with contrast revealed right lower lobe pneumonia and atelectasis. Small right pleural effusion. Mild infiltrate left lung base. Small amount of free fluid in the pelvis of uncertain significance. No evidence of bowel obstruction. No free air. Cholelithiasis. Ultrasound of the abdomen ordered which revealed possible cholecystitis. HIDA scan was negative. Patient now states that she had vomiting that started yesterday. She was feeling well following discharge. She denies having abdominal pain or tenderness. She is complaining of edema to her ankles. 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 Patient will be made nothing by mouth until seen by general surgery and GI. Patient came into [facility] emergency center for evaluation. Afebrile, heart rate 77, blood pressure 161/73, pulse ox 95% on room air. CBC was unremarkable. Sodium 135, potassium 3.1, chloride 106, CO2 19, BUN 12 and creatinine 0.8. Blood sugar 105. Total bilirubin 0.7, AST 45, ALT 34, alk phosphatase 72. Lipase 345. Urinalysis clear with leukoesterase small. Covid 19 not detected. Abdominal x-ray revealed bilateral pleural effusions with basilar pulmonary infiltrates and atelectasis. Mild heart failure is probably present. Nonacute abdomen. Abdominal ultrasound revealed large gallstone. No focal liver defect. Large common bile duct consistent with gallbladder dysfunction. No dilation seen of the intrahepatic bile ducts. Potassium was replaced, patient admitted to the observation unit and consult requested with general surgery and GI. Patient has been seen by general surgery with recommendations for EGD and colonoscopy. No plan for surgery. 09/12: Patient has been seen by GI and underwent EGD today with biopsy and colonoscopy with biopsy and polypectomy. Study found mild gastritis. Biopsies of the duodenum antrum body and GE junction were obtained. Vision had 2 diminutive polyps removed from the ascending colon for sit polypectomy. Otherwi se normal-appearing colon. Patient was cleared for clear liquid diet and continue medical management. Patient denies any abdominal pain. She's been afebrile, heart rate 69, blood pressure 145/6-3, pulse ox 95% on room air. Repeat blood work reveals sodium 138, potassium 3.7, chloride 110, CO2 15, BUN 10 and creatinine 0.71. Lipase 2058. C. difficile toxin negative. 09/13: Patient is scheduled for laparoscopic cholecystectomy today. C. diff came back negative. H. pylori is pending. Blood sugar 105. Patient continues to complain of diarrhea but less frequently. She did have prepped for colonoscopy. Decreased nausea today. She has been afebrile, heart rate 64, blood pressure 142/72, pulse ox 95% on room air. 09/14: Yesterday, the patient underwent laparoscopic cholecystectomy with no postop complications. Patient states her abdomen feels sore. Her diarrhea is getting better. She only ate a few bites of food for breakfast that she states it was too dried out. She has been afebrile, heart rate 70, blood pressure 123/65, pulse ox 95% on room air. Repeat blood work reveals WBC 8.2, hemoglobin 10.2, platelet count 486. Sodium 130, potassium 3.3 will be replaced, chloride 114, CO2 12, BUN 7 and creatinine 0.86. Blood sugars running between 145 and 172. Physical therapy has evaluated patient and recommend either home with homecare or subacute rehab. Patient is stating that she's not sure how she will manage at home and would like to go to [facility] for subacute rehab. Social work updated and hopefully will make arrangements today. Patient will be discharged once arrangements are completed. 09/15: Patient states that she had vomiting this morning and was unable to eat her breakfast. She states the vomiting is now resolved. She states she has not had a bowel movement. She denies any diarrhea so this has resolved. Patient did not get discharged yesterday as she is waiting for insurance authorization. She has been afebrile, heart rate 56, blood pressure 177/65, pulse ox 96% on room air. 09/16: Patient is found resting in bed comfortably without any acute distress. Patient denies any nausea or vomiting or diarrhea. Patient has been up to the bathroom multiple times without any episodes of diarrhea. Continuing to wait on authorization to an extended care facility. Discussed with patient that she is doing much better and could go home if she wanted. She will discuss this with her son. More than likely we will continue with the plan to go to extended care facility. REVIEW OF SYSTEMS Constitutional: Denies fever, denies chills, no night sweats. Reports weight change. Denies weakness, denies fatigue, denies lethargy. EENT: No headache. No blurred vision or double vision, no loss of vision. No loss of Hearing, no ringing in the ears, no dizziness. No nasal drainage or congestion. No epistaxis. No sore throat. Lungs: No shortness of breath, cough, no sputum production. No wheezing. Cardiovascular: No chest pain, no lower extremity edema. No palpitations. No paroxysmal nocturnal dyspnea. No orthopnea. No lightheadedness or dizziness. No syncopal episodes. Abdominal: Denies abdominal pain. Reports nausea, denies vomiting. Denies diarrhea. No constipation. No bloody or tarry stools. Reports loss of appetite. Genitourinary: No dysuria, increased frequency, urgency. No urinary retention. Musculoskeletal: No myalgias. Reports muscle weakness, no gait dysfunction, no frequent falls. No back pain. No neck pain. Integumentary: No wounds, no lesions. No rash or pruritus. No unusual bruising. No change in hair or nails. Neurologic: No aphasia. No facial droop. No change in mentation. No head injury. No headache. No paralysis. No paresthesia. Psychiatric: No depression. No anxiety. No mood swings. Endocrine: No abnormal blood sugars. No weight change. No excessive sweating or thirst. No cold intolerance. PHYSICAL EXAMINATION Gen: This is an 85-year-old female. Patient is resting in bed and appears to be comfortable. HEENT: Head is atraumatic, normocephalic. Pupils equal, round. Sclerae is anicteric. NECK: Supple. No JVD. No lymphadenopathy. No thyromegaly. LUNGS: Lungs are clear to auscultation. No wheezes. No intercostal retractions. HEART: Regular rate and rhythm. No murmur. ABDOMEN: Soft. Bowel sounds are present. No masses. No tenderness. EXTREMITIES: No pedal edema. No calf tenderness. NEUROLOGICAL: Patient is awake, alert and oriented x3. Cranial nerves 2 through 12 are grossly intact. ASSESSMENT AND PLAN 1. Intractable vomiting and diarrhea. C. difficile toxin was negative. Consult with GI and general surgery appreciated. Status post EGD and colonoscopy as above status post cholecystectomy. Continue Omnicef and started on Flagyl 500 mg IV piggyback every 8 hours. Zofran as needed for nausea and vomiting. 2. Recent admission for Covid 19 pneumonia, stable. Continue Omnicef. 3. Hypokalemia secondary to vomiting, diarrhea. Status post replacement. 4. Diabetes mellitus type 2. NovoLog scale before meals and at bedtime. Hold metformin, continue Prandin and NovoLog scale. 5. Hypertension. Continue losartan 50 mg daily. 6. Hyperlipidemia. Hold simvastatin 20 mg at bedtime. 7. GI prophylaxis. Protonix 40 mg IV push daily. 8. DVT prophylaxis. Heparin subcu DISCHARGE PLAN ECF once authorization is obtained. Discussed with patient that if she would like to go home we are willing to discharge her home with homecare. She will discuss with son. More than likely her plan will stay to go to extended care facility. Impression and plan of care have been directed as dictated by the signing physician. Tiffany Rivero nurse practitioner acting as scribe for signing physician. Objective - Vital Signs Vital signs: Vital Signs Temp 97.9 F 09/16/20 07:49 Pulse 64 09/16/20 07:49 Resp 18 09/16/20 07:49 BP 146/72 09/16/20 07:49 Pulse Ox 96 09/16/20 07:49 Intake & Output 09/15/20 09/16/20 09/16/20 18:59 06:59 18:59 Intake Total 200 Output Total 400 Balance -200 Intake: Oral 200 Output: Urine 400 Other: Voiding Method Bedside Commode Bedside Commode Bedside Commode # Voids 3 1 - Labs CBC & Chem 7: 09/14/20 08:41 09/14/20 08:41 Labs: Abnormal Lab Results - Last 24 Hours (Table) 09/15/20 09/15/20 09/15/20 Range/Units 11:48 16:39 20:37 POC Glucose (mg/dL) 110 H 127 H 143 H (75-99) mg/dL 09/16/20 09/16/20 Range/Units 01:29 07:36 POC Glucose (mg/dL) 136 H 125 H (75-99) mg/dL
[2020-09-16 11:45] LABS: Glucose,Whole Blood 125 mg/dL (75-99)
[2020-09-16 16:40] LABS: Glucose,Whole Blood 156 mg/dL (75-99)
[2020-09-16 19:27] LABS: Glucose,Whole Blood 132 mg/dL (75-99)
[2020-09-16] MEDS: ATORVASTATIN 10 MG TAB PO SCH (20:10)
[2020-09-17 02:01] LABS: Glucose,Whole Blood 152 mg/dL (75-99)
[2020-09-17] MEDS: metroNIDAZOLE-NS PMX 500 MG in SALINE 1 100ML.BAG IVPB SCH ×3 (07:17→23:48)
[2020-09-17] MEDS: HEPARIN SODIUM,PORCINE 5,000 UNIT/ML 1 ML VIAL SQ SCH ×2 (07:17→20:30)
[2020-09-17] MEDS: CEFDINIR 300 MG CAP PO SCH ×2 (07:21→20:39)
[2020-09-17] MEDS: LOSARTAN 50 MG TAB PO SCH (07:21)
[2020-09-17] MEDS: PANTOPRAZOLE 40 MG TABLET PO SCH (07:21)
[2020-09-17] MEDS: REPAGLINIDE 1 MG TAB PO SCH ×2 (07:21→17:10)
[2020-09-17] MEDS: INSULIN ASPART (NovoLOG) 100 UNIT/ML VIAL SQ SCH ×4 (07:31→20:40)
[2020-09-17 07:32] LABS: Glucose,Whole Blood 143 mg/dL (75-99)
--- NOTE | 2020-09-17 10:57 | P.PN ---
Subjective Progress Note Date: 09/17/20 HISTORY OF PRESENT ILLNESS This is an 85-year-old female patient of with past medical history of diabetes mellitus type 2, hypertension, hyperlipidemia. Patient had a recent hospitalization last week for acute pneumonia, Covid 19 pneumonia ruled out, diarrhea secondary to cholecystitis. Patient underwent CAT scan of the abdomen and pelvis with contrast revealed right lower lobe pneumonia and atelectasis. Small right pleural effusion. Mild infiltrate left lung base. Small amount of free fluid in the pelvis of uncertain significance. No evidence of bowel obstruction. No free air. Cholelithiasis. Ultrasound of the abdomen ordered which revealed possible cholecystitis. HIDA scan was negative. Patient now states that she had vomiting that started yesterday. She was feeling well following discharge. She denies having abdominal pain or tenderness. She is complaining of edema to her ankles. 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 Patient will be made nothing by mouth until seen by general surgery and GI. Patient came into [facility] emergency center for evaluation. Afebrile, heart rate 77, blood pressure 161/73, pulse ox 95% on room air. CBC was unremarkable. Sodium 135, potassium 3.1, chloride 106, CO2 19, BUN 12 and creatinine 0.8. Blood sugar 105. Total bilirubin 0.7, AST 45, ALT 34, alk phosphatase 72. Lipase 345. Urinalysis clear with leukoesterase small. Covid 19 not detected. Abdominal x-ray revealed bilateral pleural effusions with basilar pulmonary infiltrates and atelectasis. Mild heart failure is probably present. Nonacute abdomen. Abdominal ultrasound revealed large gallstone. No focal liver defect. Large common bile duct consistent with gallbladder dysfunction. No dilation seen of the intrahepatic bile ducts. Potassium was replaced, patient admitted to the observation unit and consult requested with general surgery and GI. Patient has been seen by general surgery with recommendations for EGD and colonoscopy. No plan for surgery. 09/12: Patient has been seen by GI and underwent EGD today with biopsy and colonoscopy with biopsy and polypectomy. Study found mild gastritis. Biopsies of the duodenum antrum body and GE junction were obtained. [facility] had 2 diminutive polyps removed from the ascending colon for sit polypectomy. Otherwi se normal-appearing colon. Patient was cleared for clear liquid diet and continue medical management. Patient denies any abdominal pain. She's been afebrile, heart rate 69, blood pressure 145/6-3, pulse ox 95% on room air. Repeat blood work reveals sodium 138, potassium 3.7, chloride 110, CO2 15, BUN 10 and creatinine 0.71. Lipase 2058. C. difficile toxin negative. 09/13: Patient is scheduled for laparoscopic cholecystectomy today. C. diff came back negative. H. pylori is pending. Blood sugar 105. Patient continues to complain of diarrhea but less frequently. She did have prepped for colonoscopy. Decreased nausea today. She has been afebrile, heart rate 64, blood pressure 142/72, pulse ox 95% on room air. 09/14: Yesterday, the patient underwent laparoscopic cholecystectomy with no postop complications. Patient states her abdomen feels sore. Her diarrhea is getting better. She only ate a few bites of food for breakfast that she states it was too dried out. She has been afebrile, heart rate 70, blood pressure 123/65, pulse ox 95% on room air. Repeat blood work reveals WBC 8.2, hemoglobin 10.2, platelet count 486. Sodium 130, potassium 3.3 will be replaced, chloride 114, CO2 12, BUN 7 and creatinine 0.86. Blood sugars running between 145 and 172. Physical therapy has evaluated patient and recommend either home with homecare or subacute rehab. Patient is stating that she's not sure how she will manage at home and would like to go to [facility] for subacute rehab. Social work updated and hopefully will make arrangements today. Patient will be discharged once arrangements are completed. 09/15: Patient states that she had vomiting this morning and was unable to eat her breakfast. She states the vomiting is now resolved. She states she has not had a bowel movement. She denies any diarrhea so this has resolved. Patient did not get discharged yesterday as she is waiting for insurance authorization. She has been afebrile, heart rate 56, blood pressure 177/65, pulse ox 96% on room air. 09/16: Patient is found resting in bed comfortably without any acute distress. Patient denies any nausea or vomiting or diarrhea. Patient has been up to the bathroom multiple times without any episodes of diarrhea. Continuing to wait on authorization to an extended care facility. Discussed with patient that she is doing much better and could go home if she wanted. She will discuss this with her son. More than likely we will continue with the plan to go to extended care facility. 09/17: She was found sitting up in a chair resting comfortably without any acute distress. Patient denies any nausea vomiting or diarrhea. She has been up to the bathroom without assist. Patient also states that she has been walking within the room. Patient is still wanting to move forward with the extended care facility plan. However she will discuss with her son for possible home discharge with home care. REVIEW OF SYSTEMS Constitutional: Denies fever, denies chills, no night sweats. Reports weight change. Denies weakness, denies fatigue, denies lethargy. EENT: No headache. No blurred vision or double vision, no loss of vision. No loss of Hearing, no ringing in the ears, no dizziness. No nasal drainage or congestion. No epistaxis. No sore throat. Lungs: No shortness of breath, cough, no sputum production. No wheezing. Cardiovascular: No chest pain, no lower extremity edema. No palpitations. No paroxysmal nocturnal dyspnea. No orthopnea. No lightheadedness or dizziness. No syncopal episodes. Abdominal: Denies abdominal pain. Reports nausea, denies vomiting. Denies diarrhea. No constipation. No bloody or tarry stools. Reports loss of appetite. Genitourinary: No dysuria, increased frequency, urgency. No urinary retention. Musculoskeletal: No myalgias. Reports muscle weakness, no gait dysfunction, no frequent falls. No back pain. No neck pain. Integumentary: No wounds, no lesions. No rash or pruritus. No unusual bruising. No change in hair or nails. Neurologic: No aphasia. No facial droop. No change in mentation. No head injury. No headache. No paralysis. No paresthesia. Psychiatric: No depression. No anxiety. No mood swings. Endocrine: No abnormal blood sugars. No weight change. No excessive sweating or thirst. No cold intolerance. PHYSICAL EXAMINATION Gen: This is an 85-year-old female. Patient is resting in bed and appears to be comfortable. HEENT: Head is atraumatic, normocephalic. Pupils equal, round. Sclerae is anicteric. NECK: Supple. No JVD. No lymphadenopathy. No thyromegaly. LUNGS: Lungs are clear to auscultation. No wheezes. No intercostal retractions. HEART: Regular rate and rhythm. No murmur. ABDOMEN: Soft. Bowel sounds are present. No masses. No tenderness. EXTREMITIES: No pedal edema. No calf tenderness. NEUROLOGICAL: Patient is awake, alert and oriented x3. Cranial nerves 2 through 12 are grossly intact. ASSESSMENT AND PLAN 1. Intractable vomiting and diarrhea. C. difficile toxin was negative. Consult with GI and general surgery appreciated. Status post EGD and colonoscopy as above status post cholecystectomy. Continue Omnicef and started on Flagyl 500 mg IV piggyback every 8 hours. Zofran as needed for nausea and vomiting. 2. Recent admission for Covid 19 pneumonia, stable. Continue Omnicef. 3. Hypokalemia secondary to vomiting, diarrhea. Status post replacement. 4. Diabetes mellitus type 2. NovoLog scale before meals and at bedtime. Hold metformin, continue Prandin and NovoLog scale. 5. Hypertension. Continue losartan 50 mg daily. 6. Hyperlipidemia. Hold simvastatin 20 mg at bedtime. 7. GI prophylaxis. Protonix 40 mg IV push daily. 8. DVT prophylaxis. Heparin subcu DISCHARGE PLAN ECF once authorization is obtained. Discussed with patient that if she would like to go home we are willing to discharge her home with homecare. She will discuss with son. More than likely her plan will stay to go to extended care facility. Impression and plan of care have been directed as dictated by the signing physician. Tiffany Rivero nurse practitioner acting as scribe for signing physician. Objective - Vital Signs Vital signs: Vital Signs Temp 97.8 F 09/17/20 07:51 Pulse 74 09/17/20 07:51 Resp 18 09/17/20 07:51 BP 142/68 09/17/20 07:51 Pulse Ox 95 09/17/20 07:51 Intake & Output 09/16/20 09/17/20 09/17/20 18:59 06:59 18:59 Intake Total 240 Balance 240 Intake: Oral 240 Other: Voiding Method Bedside Commode Bedside Commode Bedside Commode # Voids 3 2 - Labs CBC & Chem 7: 09/14/20 08:41 09/14/20 08:41 Labs: Abnormal Lab Results - Last 24 Hours (Table) 09/16/20 09/16/20 09/16/20 Range/Units 11:44 16:36 19:25 POC Glucose (mg/dL) 125 H 156 H 132 H (75-99) mg/dL 09/17/20 09/17/20 Range/Units 01:59 07:30 POC Glucose (mg/dL) 152 H 143 H (75-99) mg/dL
[2020-09-17 11:32] LABS: Glucose,Whole Blood 113 mg/dL (75-99)
[2020-09-17 16:38] LABS: Glucose,Whole Blood 179 mg/dL (75-99)
[2020-09-17] MEDS: ATORVASTATIN 10 MG TAB PO SCH (20:39)
[2020-09-17 20:43] LABS: Glucose,Whole Blood 170 mg/dL (75-99)
[2020-09-18 02:41] VITALS: TEMP 97.6
[2020-09-18 07:20] LABS: Glucose,Whole Blood 159 mg/dL (75-99)
[2020-09-18 07:22] VITALS: BP 170/75; PULSE 75; RESP 16
[2020-09-18] MEDS: INSULIN ASPART (NovoLOG) 100 UNIT/ML VIAL SQ SCH (08:17)
[2020-09-18] MEDS: REPAGLINIDE 1 MG TAB PO SCH (08:18)
[2020-09-18] MEDS: metroNIDAZOLE-NS PMX 500 MG in SALINE 1 100ML.BAG IVPB SCH (08:19)
[2020-09-18] MEDS: CEFDINIR 300 MG CAP PO SCH (08:19)
[2020-09-18] MEDS: HEPARIN SODIUM,PORCINE 5,000 UNIT/ML 1 ML VIAL SQ SCH (08:20)
[2020-09-18] MEDS: PANTOPRAZOLE 40 MG TABLET PO SCH (08:20)
[2020-09-18] MEDS: LOSARTAN 50 MG TAB PO SCH (08:20)
--- NOTE | 2020-09-18 08:20 | P.DS ---
Providers Date of admission: 09/13/20 08:09 Expected date of discharge: 09/18/20 Attending physician: Alhaji Mayorga Consults: 09/10/20 19:38 Consult Physician Urgent Consulting Provider: Cody Kramer Consult Reason/Comments: vomiting and diarrhea Do you want consulting provider notified?: Yes 09/11/20 09:05 Consult Physician Routine Consulting Provider: Eileen Kim Consult Reason/Comments: GB, known to you Do you want consulting provider notified?: Yes [facility] Course: HISTORY OF PRESENT ILLNESS This is an 85-year-old female patient of with past medical history of diabetes mellitus type 2, hypertension, hyperlipidemia. Patient had a recent hospitalization last week for acute pneumonia, Covid 19 pneumonia ruled out, diarrhea secondary to cholecystitis. Patient underwent CAT scan of the abdomen and pelvis with contrast revealed right lower lobe pneumonia and atelectasis. Small right pleural effusion. Mild infiltrate left lung base. Small amount of free fluid in the pelvis of uncertain significance. No evidence of bowel obstruction. No free air. Cholelithiasis. Ultrasound of the abdomen ordered which revealed possible cholecystitis. HIDA scan was negative. Patient now states that she had vomiting that started yesterday. She was feeling well following discharge. She denies having abdominal pain or tenderness. She is complaining of edema to her ankles. 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 Patient will be made nothing by mouth until seen by general surgery and GI. Patient came into [facility] emergency center for evaluation. Afebrile, heart rate 77, blood pressure 161/73, pulse ox 95% on room air. CBC was unremarkable. Sodium 135, potassium 3.1, chloride 106, CO2 19, BUN 12 and creatinine 0.8. Blood sugar 105. Total bilirubin 0.7, AST 45, ALT 34, alk phosphatase 72. Lipase 345. Urinalysis clear with leukoesterase small. Covid 19 not detected. Abdominal x-ray revealed bilateral pleural effusions with basilar pulmonary infiltrates and atelectasis. Mild heart failure is probably present. Nonacute abdomen. Abdominal ultrasound revealed large gallstone. No focal liver defect. Large common bile duct consistent with gallbladder dysfunction. No dilation seen of the intrahepatic bile ducts. Potassium was replaced, patient admitted to the observation unit and consult requested with general surgery and GI. Patient has been seen by general surgery with recommendations for EGD and colonoscopy. No plan for surgery. 09/12: Patient has been seen by GI and underwent EGD today with biopsy and colonoscopy with biopsy and polypectomy. Study found mild gastritis. Biopsies of the duodenum antrum body and GE junction were obtained. [facility] had 2 diminutive polyps removed from the ascending colon for sit polypectomy. Otherwise normal-appearing colon. Patient was cleared for clear liquid diet and continue medical management. Patient denies any abdominal pain. She's been afebrile, heart rate 69, blood pressure 145/6-3, pulse ox 95% on room air. Repeat blood work reveals sodium 138, potassium 3.7, chloride 110, CO2 15, BUN 10 and creatinine 0.71. Lipase 2058. C. difficile toxin negative. 09/13: Patient is scheduled for laparoscopic cholecystectomy today. C. diff came back negative. H. pylori is pending. Blood sugar 105. Patient continues to complain of diarrhea but less frequently. She did have prepped for colonoscopy. Decreased nausea today. She has been afebrile, heart rate 64, blood pressure 142/72, pulse ox 95% on room air. 09/14: Yesterday, the patient underwent laparoscopic cholecystectomy with no postop complications. Patient states her abdomen feels sore. Her diarrhea is getting better. She only ate a few bites of food for breakfast that she states it was too dried out. She has been afebrile, heart rate 70, blood pressure 123/65, pulse ox 95% on room air. Repeat blood work reveals WBC 8.2, hemoglobin 10.2, platelet count 486. Sodium 130, potassium 3.3 will be replaced, chloride 114, CO2 12, BUN 7 and creatinine 0.86. Blood sugars running between 145 and 172. Physical therapy has evaluated patient and recommend either home with homecare or subacute rehab. Patient is stating that she's not sure how she will manage at home and would like to go to [facility] for subacute rehab. Social work updated and hopefully will make arrangements today. Patient will be discharged once arrangements are completed. 09/15: Patient states that she had vomiting this morning and was unable to eat her breakfast. She states the vomiting is now resolved. She states she has not had a bowel movement. She denies any diarrhea so this has resolved. Patient did not get discharged yesterday as she is waiting for insurance authorization. She has been afebrile, heart rate 56, blood pressure 177/65, pulse ox 96% on room air. 09/16: Patient is found resting in bed comfortably without any acute distress. Patient denies any nausea or vomiting or diarrhea. Patient has been up to the bathroom multiple times without any episodes of diarrhea. Continuing to wait on authorization to an extended care facility. Discussed with patient that she is doing much better and could go home if she wanted. She will discuss this with her son. More than likely we will continue with the plan to go to extended care facility. 09/17: She was found sitting up in a chair resting comfortably without any acute distress. Patient denies any nausea vomiting or diarrhea. She has been up to the bathroom without assist. Patient also states that she has been walking within the room. Patient is still wanting to move forward with the extended care facility plan. However she will discuss with her son for possible home discharge with home care. 09/18: Patient states that she is feeling much better. She denies having any diarrhea. She is eating her breakfast. Pathology report from the cholecystectomy reveals chronic cholecystectomy with cholelithiasis. The duodenum biopsy revealed reactive to adenopathy. Stomach reveals mild chronic gastritis. H. pylori not identified. Gastroesophageal junction biopsy revealed chronic inflammation. Negative for Galaviz's esophagus and negative for eosinophilic esophagitis. Colonic biopsies were negative for colitis or inflammatory bowel disease. Patient has done well over the weekend and would prefer to go home versus custodial. Contacted patient's son Shaq and he is in agreement. Patient will be discharged home today in stable condition. ASSESSMENT AND PLAN 1. Intractable vomiting and diarrhea, secondary to cholecystitis 2. Recent admission for Covid 19 pneumonia, stable. 3. Hypokalemia secondary to vomiting, diarrhea. Status post replacement. 4. Diabetes mellitus type 2. 5. Hypertension. 6. Hyperlipidemia. DISCHARGE PLAN Home. Impression and plan of care have been directed as dictated by the signing physician. Lyssa Barreto nurse practitioner acting as scribe for signing physician. Patient Condition at Discharge: Good Plan - Discharge Summary Discharge Rx Participant: No New Discharge Prescriptions: New Pantoprazole [Protonix] 40 mg PO DAILY #30 tablet Continue Simvastatin [Zocor] 20 mg PO HS Losartan Potassium [Cozaar] 50 mg PO DAILY metFORMIN HCL 500 mg PO HS Repaglinide [Prandin] 4 mg PO BID-W/MEALS metFORMIN HCL 1,000 mg PO DAILY Dulaglutide [Trulicity] 0.75 mg SQ WE Loperamide [Imodium] 2 mg PO QID PRN cap PRN Reason: Diarrhea Cefuroxime Axetil [Ceftin] 500 mg PO BID 5 Days #10 tab Ondansetron HCl [Zofran] 4 - 8 mg PO Q8H PRN PRN Reason: Nausea And Vomiting Discharge Medication List Losartan Potassium [Cozaar] 50 mg PO DAILY 07/03/17 [History] Simvastatin [Zocor] 20 mg PO HS 07/03/17 [History] Dulaglutide [Trulicity] 0.75 mg SQ WE 09/03/20 [History] Repaglinide [Prandin] 4 mg PO BID-W/MEALS 09/03/20 [History] metFORMIN HCL 1,000 mg PO DAILY 09/03/20 [History] metFORMIN HCL 500 mg PO HS 09/03/20 [History] Cefuroxime Axetil [Ceftin] 500 mg PO BID 5 Days #10 tab 09/07/20 [Rx] Loperamide [Imodium] 2 mg PO QID PRN cap 09/07/20 [Rx] Ondansetron HCl [Zofran] 4 - 8 mg PO Q8H PRN 09/10/20 [History] Pantoprazole [Protonix] 40 mg PO DAILY #30 tablet. 09/18/20 [Rx] Follow up Appointment(s)/Referral(s): Eileen Kim DO [Doctor of Osteopathic Medicine] - 10/03/20 10:45 am Alhaji Mayorga MD [Primary Care Provider] - 09/28/20 2:00 pm () [facility], [NON-STAFF] - 1-2 Days Gregory Thompson MD [STAFF PHYSICIAN] - 10/04/20 2:30 pm Patient Instructions/Handouts: Gastritis (DC) Activity/Diet/Wound Care/Special Instructions: Hold Prandin until patient is eating full meals. You may shower starting friday. Low fat diet. Call if questions or concerns Discharge Disposition: HOME WITH HOME HEALTH SERVICES
== END 2020-09-18 10:34 | DRG 418 ==
LOC: EC 15:17 → 1SOBS 19:39 → OBSVTOIN 09-13 08:09 → 5NMEDONC 09-15 17:42
PROVIDERS: ADMIT Internal Medicine Geriatric Medicine; ATTEND Internal Medicine Geriatric Medicine
PROC: 0DBK8ZZ Excision of Ascending Colon, Via Natural or Artificial Opening Endoscopic (ICD-10-PCS; 2020-09-12 12:15)
PROC: 0DBG8ZX Excision of Left Large Intestine, Via Natural or Artificial Opening Endoscopic, Diagnostic (ICD-10-PCS; 2020-09-12 12:15)
PROC: 0DBK8ZX Excision of Ascending Colon, Via Natural or Artificial Opening Endoscopic, Diagnostic (ICD-10-PCS; 2020-09-12 12:15)
PROC: 0DB48ZX Excision of Esophagogastric Junction, Via Natural or Artificial Opening Endoscopic, Diagnostic (ICD-10-PCS; 2020-09-12 12:15)
PROC: 0DB78ZX Excision of Stomach, Pylorus, Via Natural or Artificial Opening Endoscopic, Diagnostic (ICD-10-PCS; 2020-09-12 12:15)
PROC: 0DBF8ZX Excision of Right Large Intestine, Via Natural or Artificial Opening Endoscopic, Diagnostic (ICD-10-PCS; 2020-09-12 12:15)
PROC: 0DB98ZX Excision of Duodenum, Via Natural or Artificial Opening Endoscopic, Diagnostic (ICD-10-PCS; 2020-09-12 12:15)
PROC: 0FT44ZZ Resection of Gallbladder, Percutaneous Endoscopic Approach (ICD-10-PCS; principal; 2020-09-13 07:30)
DX: K80.10 Calculus of gallbladder with chronic cholecystitis without obstruction (principal); J98.11 Atelectasis; M19.90 Unspecified osteoarthritis, unspecified site; E78.5 Hyperlipidemia, unspecified; E11.9 Type 2 diabetes mellitus without complications; E87.6 Hypokalemia; I11.0 Hypertensive heart disease with heart failure; K63.5 Polyp of colon; I50.9 Heart failure, unspecified; K29.50 Unspecified chronic gastritis without bleeding; Z20.822 Contact with and (suspected) exposure to COVID-19; Z86.16 Personal history of COVID-19; Z90.710 Acquired absence of both cervix and uterus; Z87.11 Personal history of peptic ulcer disease; Z82.5 Family history of asthma and other chronic lower respiratory diseases; Z80.8 Family history of malignant neoplasm of other organs or systems; Z79.899 Other long term (current) drug therapy; Z79.84 Long term (current) use of oral hypoglycemic drugs; Z91.040 Latex allergy status; Z98.41 Cataract extraction status, right eye
CPT/HCPCS: 36415; 43239; 45380; 74022; 76705; 80053; 81001; 82150; 83605; 83690; 83880; 85025; 85027; 85610; 85730; 87324; 87338; 87635; 88304; 88305; 99285

== ENCOUNTER 2020-09-30 21:39 | Emergency (ER) | payer MEDICARE ==
[2020-09-30 21:45] VITALS: TEMP 98.7
[2020-09-30] MEDS ORDERED: SODIUM CHLORIDE 0.9% 1,000 ML IV STA (21:59)
[2020-09-30 22:30] LABS: Basophils % (A) 1 %; Eosinophils # (A) 0.4 k/uL (0-0.7); Eosinophils % (A) 5 %; HCT 39.8 % (34.0-46.0); HGB 12.8 gm/dL (11.4-16.0); Lymphocytes # (A) 1.6 k/uL (1.0-4.8); Lymphocytes % (A) 21 %; MCH 30.1 pg (25.0-35.0); MCHC 32.1 g/dL (31.0-37.0); MCV 93.7 fL (80.0-100.0); Monocytes # (A) 0.3 k/uL (0-1.0); Monocytes % (A) 3 %; Neutrophils # (A) 5.2 k/uL (1.3-7.7); Neutrophils % (A) 68 %; Platelet Count 233 k/uL (150-450); RBC 4.25 m/uL (3.80-5.40); RDW 15.8 % (11.5-15.5); WBC 7.6 k/uL (3.8-10.6)
[2020-09-30 22:38] LABS: Albumin 4.1 g/dL (3.5-5.0); Calcium 9.5 mg/dL (8.4-10.2); Total Protein 7.4 g/dL (6.3-8.2)
[2020-09-30 22:42] LABS: Appearance,Urine Clear (Clear); Bilirubin,Urine 1+ (Negative); Blood,Urine Negative (Negative); Color,Urine Yellow; Glucose,Urine (UA) Negative (Negative); Hyaline Casts,Urine 14 /lpf (0-2); Ketones,Urine 2+ (Negative); Leukocyte Esterase,Urine Small (Negative); Mucus,Urine Few /hpf; Nitrite,Urine Negative (Negative); PH, Urine 5.5 (5.0-8.0); Protein,Urine 1+ (Negative); RBC,Urine 1 /hpf (0-5); Specific Gravity,Urine 1.016 (1.001-1.035); Squamous Epithelial Cell,Urine <1 /hpf (0-4); WBC,Urine 6 /hpf (0-5)
--- NOTE | 2020-09-30 22:44 | ED ---
Nausea/Vomiting/Diarrhea HPI - General Chief complaint: Nausea/Vomiting/Diarrhea Stated complaint: Dehydrated/Not Eating Time Seen by Provider: 09/30/20 21:50 Source: patient, family Mode of arrival: ambulatory Limitations: no limitations - History of Present Illness Initial comments: 85-year-old female patient presents to the emergency department today for evaluation of possible dehydration. States that she's had vomiting and diarrhea. States his been going on for a few weeks. She did have her gallbladder removed on 09/13/2020 which did not improve her symptoms. Denies any fever or chills. Denies any abdominal pain. States that her stools have been liquidy and green to black in color. Denies any use of oral iron or Pepto- Bismol. She is taking Zofran at home without relief. Patient denies any recent rash, fever, chills, cough, shortness of breath, chest pain, back pain, numbness, tingling, dizziness, weakness, hematuria, dysuria, urinary urgency, urinary frequency, headache, visual changes, or any other complaints. - Related Data Home Medications Medication Instructions Recorded Confirmed Losartan Potassium [Cozaar] 50 mg PO DAILY 07/03/17 09/10/20 Simvastatin [Zocor] 20 mg PO HS 07/03/17 09/10/20 Dulaglutide [Trulicity] 0.75 mg SQ WE 09/03/20 09/10/20 Repaglinide [Prandin] 4 mg PO BID-W/MEALS 09/03/20 09/10/20 metFORMIN HCL 1,000 mg PO DAILY 09/03/20 09/10/20 metFORMIN HCL 500 mg PO HS 09/03/20 09/10/20 Ondansetron HCl [Zofran] 4 - 8 mg PO Q8H PRN 09/10/20 09/10/20 Previous Rx's Medication Instructions Recorded Cefuroxime Axetil [Ceftin] 500 mg PO BID 5 Days #10 tab 09/07/20 Loperamide [Imodium] 2 mg PO QID PRN cap 09/07/20 Pantoprazole [Protonix] 40 mg PO DAILY #30 tablet. 09/18/20 Metoclopramide [Reglan] 10 mg PO Q8H PRN #21 tab 09/30/20 Allergies Allergy/AdvReac Type Severity Reaction Status Date / Time latex Allergy Unknown Itching Verified 09/30/20 21:45 Review of Systems ROS Statement: Those systems with pertinent positive or pertinent negative responses have been documented in the HPI. ROS Other: All systems not noted in ROS Statement are negative. Past Medical History Past Medical History: Diabetes Mellitus, Eye Disorder, Hyperlipidemia, Hypertension, Osteoarthritis (OA) Additional Past Medical History / Comment(s): back pain., hx of vertigo., cataract left eye. History of Any Multi-Drug Resistant Organisms: None Reported Past Surgical History: Hysterectomy Additional Past Surgical History / Comment(s): right cataract (jul 2017) Past Anesthesia/Blood Transfusion Reactions: No Reported Reaction Past Psychological History: No Psychological Hx Reported Smoking Status: Never smoker Past Alcohol Use History: None Reported Past Drug Use History: None Reported - Past Family History Mother Family Medical History: No Reported History Son(s) History Unknown: Yes Family Medical History: Cancer Additional Family Medical History / Comment(s): skin cancer General Exam Limitations: no limitations General appearance: alert, in no apparent distress, other (physical well- developed, well-nourished elderly female patient in no acute distress. ) Eye exam: Present: normal appearance, PERRL, EOMI. Absent: scleral icterus, conjunctival injection, periorbital swelling ENT exam: Present: normal exam, normal oropharynx, mucous membranes dry Respiratory exam: Present: normal lung sounds bilaterally. Absent: respiratory distress, wheezes, rales, rhonchi, stridor Cardiovascular Exam: Present: regular rate, normal rhythm, normal heart sounds. Absent: systolic murmur, diastolic murmur, rubs, gallop, clicks GI/Abdominal exam: Present: soft, normal bowel sounds. Absent: distended, tenderness, guarding, rebound, rigid Neurological exam: Present: alert, oriented X3, CN II-XII intact Psychiatric exam: Present: normal affect, normal mood Skin exam: Present: warm, dry, intact, normal color. Absent: rash Course Vital Signs 09/30/20 10/01/20 21:40 00:14 Temperature 98.7 F Pulse Rate 69 90 Respiratory 18 16 Rate Blood Pressure 157/64 141/100 O2 Sat by Pulse 97 98 Oximetry Medical Decision Making - Medical Decision Making 85-year-old female patient presents to the emergency department today for evaluation of no appetite, vomiting, dehydration. Physical examination did reveal soft nontender abdomen. Labs reviewed and are relatively unremarkable. There was mild increase in BUN and creatinine we did give a liter fluid for this. KUB was obtained and showed no evidence for obstruction or other abnormalities. I did discuss findings results with the patient. She will be discharged with prescription for Reglan and instructed to follow-up with her primary care physician for recheck on Friday. Return parameters were discussed in detail. She verbalizes understanding and agrees with this plan. Case was discussed with Dr. Pierre. - Lab Data Result diagrams: 09/30/20 22:08 09/30/20 22:08 Lab Results 09/30/20 09/30/20 09/30/20 Range/Units 22:08 22:08 22:08 WBC 7.6 (3.8-10.6) k/uL RBC 4.25 (3.80-5.40) m/uL Hgb 12.8 (11.4-16.0) gm/dL Hct 39.8 (34.0-46.0) % MCV 93.7 (80.0-100.0) fL MCH 30.1 (25.0-35.0) pg MCHC 32.1 (31.0-37.0) g/dL RDW 15.8 H (11.5-15.5) % Plt Count 233 (150-450) k/uL MPV 9.0 Neutrophils % 68 % Lymphocytes % 21 % Monocytes % 3 % Eosinophils % 5 % Basophils % 1 % Neutrophils # 5.2 (1.3-7.7) k/uL Lymphocytes # 1.6 (1.0-4.8) k/uL Monocytes # 0.3 (0-1.0) k/uL Eosinophils # 0.4 (0-0.7) k/uL Basophils # 0.0 (0-0.2) k/uL Sodium (137-145) mmol/L Potassium (3.5-5.1) mmol/L Chloride (98-107) mmol/L Carbon Dioxide (22-30) mmol/L Anion Gap mmol/L BUN (7-17) mg/dL Creatinine (0.52-1.04) mg/dL Est GFR (CKD-EPI)AfAm (>60 ml/min/1.73 sqM) Est GFR (CKD-EPI)NonAf (>60 ml/min/1.73 sqM) Glucose (74-99) mg/dL Calcium (8.4-10.2) mg/dL Total Bilirubin (0.2-1.3) mg/dL AST (14-36) U/L ALT (4-34) U/L Alkaline Phosphatase (38-126) U/L Total Protein (6.3-8.2) g/dL Albumin (3.5-5.0) g/dL Lipase (23-300) U/L Urine Color Yellow Urine Appearance Clear (Clear) Urine pH 5.5 (5.0-8.0) Ur Specific Randolph 1.016 (1.001-1.035) Urine Protein 1+ H (Negative) Urine Glucose (UA) Negative (Negative) Urine Ketones 2+ H (Negative) Urine Blood Negative (Negative) Urine Nitrite Negative (Negative) Urine Bilirubin 1+ H (Negative) Urine Urobilinogen 2.0 (<2.0) mg/dL Ur Leukocyte Esterase Small H (Negative) Urine RBC 1 (0-5) /hpf Urine WBC 6 H (0-5) /hpf Ur Squamous Epith Cells <1 (0-4) /hpf Hyaline Casts 14 H (0-2) /lpf Urine Mucus Few H (None) /hpf Stool Occult Blood Negative (Negative) C. difficile (EIA) Intrp (Negative) 09/30/20 09/30/20 Range/Units 22:08 23:30 WBC (3.8-10.6) k/uL RBC (3.80-5.40) m/uL Hgb (11.4-16.0) gm/dL Hct (34.0-46.0) % MCV (80.0-100.0) fL MCH (25.0-35.0) pg MCHC (31.0-37.0) g/dL RDW (11.5-15.5) % Plt Count (150-450) k/uL MPV Neutrophils % % Lymphocytes % % Monocytes % % Eosinophils % % Basophils % % Neutrophils # (1.3-7.7) k/uL Lymphocytes # (1.0-4.8) k/uL Monocytes # (0-1.0) k/uL Eosinophils # (0-0.7) k/uL Basophils # (0-0.2) k/uL Sodium 140 (137-145) mmol/L Potassium 3.0 L (3.5-5.1) mmol/L Chloride 101 (98-107) mmol/L Carbon Dioxide 23 (22-30) mmol/L Anion Gap 16 mmol/L BUN 20 H (7-17) mg/dL Creatinine 1.11 H (0.52-1.04) mg/dL Est GFR (CKD-EPI)AfAm 52 (>60 ml/min/1.73 sqM) Est GFR (CKD-EPI)NonAf 45 (>60 ml/min/1.73 sqM) Glucose 72 L (74-99) mg/dL Calcium 9.5 (8.4-10.2) mg/dL Total Bilirubin 1.0 (0.2-1.3) mg/dL AST 30 (14-36) U/L ALT 21 (4-34) U/L Alkaline Phosphatase 61 (38-126) U/L Total Protein 7.4 (6.3-8.2) g/dL Albumin 4.1 (3.5-5.0) g/dL Lipase 189 (23-300) U/L Urine Color Urine Appearance (Clear) Urine pH (5.0-8.0) Ur Specific Randolph (1.001-1.035) Urine Protein (Negative) Urine Glucose (UA) (Negative) Urine Ketones (Negative) Urine Blood (Negative) Urine Nitrite (Negative) Urine Bilirubin (Negative) Urine Urobilinogen (<2.0) mg/dL Ur Leukocyte Esterase (Negative) Urine RBC (0-5) /hpf Urine WBC (0-5) /hpf Ur Squamous Epith Cells (0-4) /hpf Hyaline Casts (0-2) /lpf Urine Mucus (None) /hpf Stool Occult Blood (Negative) C. difficile (EIA) Intrp Negative (Negative) - Radiology Data Radiology results: report reviewed, image reviewed 2 views of the abdomen are obtained. Report was reviewed in its entirety. Impression by Dr. Mercado shows nonacute abdomen. There is clearing of the pleural effusions compared to old exam. Disposition Clinical Impression: Vomiting and diarrhea, Dehydration Disposition: HOME SELF-CARE Condition: Good Instructions (If sedation given, give patient instructions): Dehydration (ED), Acute Nausea and Vomiting (ED), Acute Diarrhea (ED) Additional Instructions: Take medications as directed. Follow-up with Dr. Srinivasan as soon as possible. Return to the emergency department for any new, worsening, or concerning symptoms. Prescriptions: Metoclopramide [Reglan] 10 mg PO Q8H PRN #21 tab PRN Reason: Vomiting Is patient prescribed a controlled substance at d/c from ED?: No Referrals: Alhaji Mayorga MD [Primary Care Provider] - 1-2 days Time of Disposition: 23:53
--- NOTE | 2020-09-30 23:46 | XR ---
EXAMINATION TYPE: XR KUB DATE OF EXAM: 09/30/2020 COMPARISON: NONE HISTORY: Vomiting TECHNIQUE: 2 views upright FINDINGS: There is no sign of intestinal obstruction or pneumoperitoneum. Fecal pattern is normal. Zehra ng bases are clear of consolidation. There is minimal pleural reaction lateral left lung base. There are clips from cholecystectomy. There are no pathologic calcifications over the kidneys. IMPRESSION: Nonacute abdomen. There is clearing of the pleural effusions compared to old exam.
[2020-10-01 00:17] VITALS: BP 141/100; PULSE 90; RESP 16
== END 2020-10-01 00:17 | disposition home or self-care (01) ==
LOC: EC 21:39
DX: E86.0 Dehydration (principal); R11.10 Vomiting, unspecified; R19.7 Diarrhea, unspecified; E11.9 Type 2 diabetes mellitus without complications; E78.5 Hyperlipidemia, unspecified; I10 Essential (primary) hypertension; Z79.84 Long term (current) use of oral hypoglycemic drugs; Z79.899 Other long term (current) drug therapy; Z91.040 Latex allergy status; Z98.42 Cataract extraction status, left eye; Z98.41 Cataract extraction status, right eye
CPT/HCPCS: 36415; 74018; 80053; 81001; 82272; 83630; 83690; 85025; 87045; 87046; 87324; 96360; 99284

== ENCOUNTER 2020-10-07 11:17 | Inpatient (IN) | payer MEDICARE ==
[2020-10-07] MEDS ORDERED: SODIUM CHLORIDE 0.9% 1,000 ML IV ONE (11:42)
[2020-10-07] MEDS ORDERED: FLUCONAZOLE IN NACL,ISO-OSM 200 MG in SALINE 1 50ML.BAG IVPB STA (11:42)
[2020-10-07] MEDS ORDERED: FLUCONAZOLE IN NACL,ISO-OSM 200 MG in SALINE 1 100ML.BAG IVPB STA (11:48)
[2020-10-07] MEDS: SODIUM CHLORIDE 0.9% 1,000 ML IV SCH (12:02)
--- NOTE | 2020-10-07 12:05 | ED ---
General Adult HPI - General Chief complaint: ENT Stated complaint: Poss Infection Time Seen by Provider: 10/07/20 11:27 Source: patient, RN notes reviewed Mode of arrival: ambulatory Limitations: no limitations - History of Present Illness Initial comments: This an 85-year-old female presents emergency Department with chief complaint of generalized weakness, dehydration unable to take medication treatment. Patient states that she is on medications for C. diff states that she recently started him states that she cannot take that she cannot swallow her pills at this time. Patient states that she saw her PCP yesterday and was diagnosed with thrush was given Diflucan and oral solution nystatin. Patient states that she took a single dose with states that she cannot get him down states her medications go down come back up. Patient states that they discussed possibility of going to [facility] or some sort of rehab facility as she's been progressively more weak since her cholecystectomy. Patient called her surgery by Dr. Kim. Patient states that she feels weak, dehydrated. Patient is here with family who is concerned for patient's well-being. - Related Data Home Medications Medication Instructions Recorded Confirmed Losartan Potassium [Cozaar] 50 mg PO DAILY 07/03/17 10/07/20 Simvastatin [Zocor] 20 mg PO HS 07/03/17 10/07/20 Repaglinide [Prandin] 4 mg PO BID-W/MEALS 09/03/20 10/07/20 metFORMIN HCL 1,000 mg PO DAILY 09/03/20 10/07/20 metFORMIN HCL 500 mg PO HS 09/03/20 10/07/20 Fluconazole [Diflucan] 150 mg PO DAILY 10/07/20 10/07/20 Levofloxacin [Levaquin] 250 mg PO DAILY 10/07/20 10/07/20 Nystatin 100,000 Unit/ml Susp 5 ml PO QID 10/07/20 10/07/20 [Mycostatin Oral Susp] Ondansetron Odt [Zofran Odt] 4 mg PO Q6H PRN 10/07/20 10/07/20 Venlafaxine HCl [Effexor] 37.5 mg PO DAILY 10/07/20 10/07/20 metroNIDAZOLE 250 mg PO TID 10/07/20 10/07/20 Previous Rx's Medication Instructions Recorded Pantoprazole [Protonix] 40 mg PO DAILY #30 tablet. 09/18/20 Metoclopramide [Reglan] 10 mg PO Q8H PRN #21 tab 09/30/20 Allergies Allergy/AdvReac Type Severity Reaction Status Date / Time latex Allergy Unknown Itching Verified 10/07/20 12:11 Review of Systems ROS Statement: Those systems with pertinent positive or pertinent negative responses have been documented in the HPI. ROS Other: All systems not noted in ROS Statement are negative. Past Medical History Past Medical History: Diabetes Mellitus, Eye Disorder, Hyperlipidemia, Hypertension, Osteoarthritis (OA) Additional Past Medical History / Comment(s): back pain., hx of vertigo., cataract left eye. History of Any Multi-Drug Resistant Organisms: C-DIFF Date of last positivie culture/infection: 10/05/20 Past Surgical History: Cholecystectomy, Hysterectomy Additional Past Surgical History / Comment(s): right cataract (jul 2017) Past Anesthesia/Blood Transfusion Reactions: No Reported Reaction Past Psychological History: No Psychological Hx Reported Smoking Status: Never smoker Past Alcohol Use History: None Reported Past Drug Use History: None Reported - Past Family History Mother Family Medical History: No Reported History Son(s) History Unknown: Yes Family Medical History: Cancer Additional Family Medical History / Comment(s): skin cancer General Exam Limitations: no limitations General appearance: alert, in no apparent distress Head exam: Present: atraumatic, normocephalic, normal inspection Eye exam: Present: normal appearance, PERRL, EOMI. Absent: scleral icterus, conjunctival injection, periorbital swelling ENT exam: Present: mucous membranes dry. Absent: normal exam, normal oropharynx (Mild white coating noted on the tongue), mucous membranes moist Neck exam: Present: normal inspection, full ROM. Absent: tenderness, meningismus, lymphadenopathy Respiratory exam: Present: normal lung sounds bilaterally. Absent: respiratory distress, wheezes, rales, rhonchi, stridor Cardiovascular Exam: Present: regular rate, normal rhythm, normal heart sounds. Absent: systolic murmur, diastolic murmur, rubs, gallop, clicks GI/Abdominal exam: Present: soft, normal bowel sounds. Absent: distended, tenderness, guarding, rebound, rigid Extremities exam: Present: normal inspection, full ROM, normal capillary refill. Absent: tenderness, pedal edema, joint swelling, calf tenderness Back exam: Present: normal inspection Neurological exam: Present: alert, oriented X3, CN II-XII intact Skin exam: Present: warm, dry, intact, normal color. Absent: rash Course Vital Signs 10/07/20 10/07/20 11:18 12:50 Temperature 97.9 F Pulse Rate 70 72 Respiratory 18 16 Rate Blood Pressure 153/81 141/71 O2 Sat by Pulse 99 98 Oximetry EKG Findings - EKG Comments: EKG Findings:: EKG performed at 13:04 normal sinus rhythm right bundle at a rate of 75 PA 172 QRS 142 QT status QTC 512/571 Medical Decision Making - Medical Decision Making 85-year-old female presented for difficulty eating and drinking, currently on treatment for C. diff and oral candidiasis. Patient son to be hypokalemic, have magnesium with dehydration. Patient was ordered IV replacement will be admitted for further treatment and management. Patient will possibly have IV treatment for candidiasis and continuation of treatment for C. diff. - Lab Data Result diagrams: 10/07/20 11:57 10/07/20 11:57 Lab Results 10/07/20 10/07/20 10/07/20 Range/Units 11:57 11:57 11:57 WBC 9.1 (3.8-10.6) k/uL RBC 4.08 (3.80-5.40) m/uL Hgb 12.6 (11.4-16.0) gm/dL Hct 37.3 (34.0-46.0) % MCV 91.4 (80.0-100.0) fL MCH 30.8 (25.0-35.0) pg MCHC 33.7 (31.0-37.0) g/dL RDW 15.5 (11.5-15.5) % Plt Count 271 (150-450) k/uL MPV 8.7 Neutrophils % 82 % Lymphocytes % 12 % Monocytes % 3 % Eosinophils % 2 % Basophils % 0 % Neutrophils # 7.5 (1.3-7.7) k/uL Lymphocytes # 1.1 (1.0-4.8) k/uL Monocytes # 0.3 (0-1.0) k/uL Eosinophils # 0.2 (0-0.7) k/uL Basophils # 0.0 (0-0.2) k/uL Sodium 132 L (137-145) mmol/L Potassium 2.3 L* (3.5-5.1) mmol/L Chloride 94 L (98-107) mmol/L Carbon Dioxide 17 L (22-30) mmol/L Anion Gap 21 mmol/L BUN 15 (7-17) mg/dL Creatinine 0.99 (0.52-1.04) mg/dL Est GFR (CKD-EPI)AfAm 60 (>60 ml/min/1.73 sqM) Est GFR (CKD-EPI)NonAf 52 (>60 ml/min/1.73 sqM) Glucose 171 H (74-99) mg/dL Plasma Lactic Acid Janak 1.6 (0.7-2.0) mmol/L Calcium 9.0 (8.4-10.2) mg/dL Magnesium 1.3 L (1.6-2.3) mg/dL Total Bilirubin 0.8 (0.2-1.3) mg/dL AST 22 (14-36) U/L ALT 18 (4-34) U/L Alkaline Phosphatase 57 (38-126) U/L Total Protein 6.6 (6.3-8.2) g/dL Albumin 3.7 (3.5-5.0) g/dL Lipase 209 (23-300) U/L Disposition Clinical Impression: C. difficile diarrhea, Dehydration, Hypokalemia, Hypomagnesemia Disposition: ADMITTED IP TO THIS HOSP Condition: Fair Referrals: Alhaji Mayorga MD [Primary Care Provider] - 1-2 days
[2020-10-07 12:06] LABS: Basophils % (A) 0 %; Eosinophils # (A) 0.2 k/uL (0-0.7); Eosinophils % (A) 2 %; HCT 37.3 % (34.0-46.0); HGB 12.6 gm/dL (11.4-16.0); Lymphocytes # (A) 1.1 k/uL (1.0-4.8); Lymphocytes % (A) 12 %; MCH 30.8 pg (25.0-35.0); MCHC 33.7 g/dL (31.0-37.0); MCV 91.4 fL (80.0-100.0); Mean Platelet Volume 8.7; Monocytes # (A) 0.3 k/uL (0-1.0); Monocytes % (A) 3 %; Neutrophils # (A) 7.5 k/uL (1.3-7.7); Neutrophils % (A) 82 %; Platelet Count 271 k/uL (150-450); RBC 4.08 m/uL (3.80-5.40); RDW 15.5 % (11.5-15.5); WBC 9.1 k/uL (3.8-10.6)
[2020-10-07 12:23] LABS: Albumin 3.7 g/dL (3.5-5.0); Magnesium 1.3 mg/dL (1.6-2.3); Total Bilirubin 0.8 mg/dL (0.2-1.3); Total Protein 6.6 g/dL (6.3-8.2)
[2020-10-07 12:25] LABS: Potassium 2.3 mmol/L (3.5-5.1)
[2020-10-07] MEDS ORDERED: MAGNESIUM SULFATE-D5W PMX 1 GM in DEXTROSE/WATER 1 100ML.BAG IVPB ONE (12:25)
[2020-10-07] MEDS: POTASSIUM CHLORIDE 20 MEQ in WATER FOR INJECTION 1 100ML.BAG IVPB SCH ×2 (12:46→18:48)
[2020-10-07] MEDS ORDERED: POTASSIUM BICARBONATE/CIT AC 20 MEQ TABLET.EFF PO ONE (12:54)
[2020-10-07] MEDS ORDERED: NALOXONE 0.4 MG/ML 1 ML VIAL IV PRN (12:58)
[2020-10-07 14:44] LABS: Amorphous Sediment,Urine Rare /hpf; Appearance,Urine Clear (Clear); Bacteria,Urine Rare /hpf; Bilirubin,Urine Negative (Negative); Blood,Urine Negative (Negative); Color,Urine Yellow; Glucose,Urine (UA) Negative (Negative); Hyaline Casts,Urine 3 /lpf (0-2); Ketones,Urine 4+ (Negative); Leukocyte Esterase,Urine Moderate (Negative); Mucus,Urine Rare /hpf; Nitrite,Urine Negative (Negative); Protein,Urine 1+ (Negative); RBC,Urine 2 /hpf (0-5); Specific Gravity,Urine 1.014 (1.001-1.035); Squamous Epithelial Cell,Urine 2 /hpf (0-4); Urobilinogen,Urine <2.0 mg/dL (<2.0); WBC,Urine 14 /hpf (0-5)
[2020-10-07 17:08] LABS: Glucose,Whole Blood 128 mg/dL (75-99)
[2020-10-07] MEDS: VANCOMYCIN ORAL SOLUTION 250 MG/5 ML BOTTLE PO SCH ×2 (18:47→23:08)
[2020-10-07 20:48] LABS: Glucose,Whole Blood 150 mg/dL (75-99)
[2020-10-07] MEDS: ONDANSETRON 4 MG/2 ML VIAL IVP PRN (23:09)
[2020-10-08] MEDS: SODIUM CHLORIDE 0.9% 1,000 ML IV SCH ×2 (01:17→16:22)
[2020-10-08] MEDS: VANCOMYCIN ORAL SOLUTION 250 MG/5 ML BOTTLE PO SCH ×2 (05:33→12:21)
[2020-10-08 07:51] LABS: Glucose,Whole Blood 130 mg/dL (75-99)
[2020-10-08] MEDS ORDERED: LEVOFLOXACIN 500MG-D5W PMX 500 MG in DEXTROSE/WATER 1 100ML.BAG IVPB ONE (10:30)
[2020-10-08 10:57] LABS: Basophils # (A) 0.02 X 10*3/uL (0.00-0.10); Basophils % (A) 0.3 %; Eosinophils # (A) 0.12 X 10*3/uL (0.04-0.35); Eosinophils % (A) 1.5 %; Lymphocytes # (A) 1.45 X 10*3/uL (0.90-5.00); Lymphocytes % (A) 18.4 %; MCH 31.1 pg (27.0-32.0); MCHC 34.4 g/dL (32.0-37.0); MCV 90.4 fL (80.0-97.0); Mean Platelet Volume 12.3 fL (9.5-12.2); Monocytes # (A) 0.41 X 10*3/uL (0.20-1.00); Monocytes % (A) 5.2 %; Neutrophils # (A) 5.86 X 10*3/uL (1.80-7.70); Neutrophils % (A) 74.1 %; Platelet Count 271 X 10*3/uL (140-440); RBC 3.54 X 10*6/uL (4.10-5.20); RDW 16.2 % (11.5-14.5)
[2020-10-08 10:59] LABS: Magnesium 1.4 mg/dL (1.5-2.4)
[2020-10-08 11:08] LABS: African American GFR (CKD) 77.4 (60.0-200.0); Anion Gap 15.9 mmol/L (4.00-12.00); BUN/Creat Ratio 11.25 Ratio (12.00-20.00); Calcium 7.7 mg/dL (8.7-10.3); Carbon Dioxide 22.1 mmol/L (21.6-31.8); Non-African American GFR(CKD) 66.8 (60.0-200.0)
[2020-10-08 11:31] VITALS: BMI 20.5
--- NOTE | 2020-10-08 11:47 | P.HPIM ---
History of Present Illness H&P Date: 10/08/20 History of present illness This is an 85-year-old female who presented to the emergency department with a chief complaint of generalized weakness, dehydration and inability to take her medications. Patient states that she was recently treated for C. diff and developed difficulty swallowing her pills. She seen her PCP on Friday who diagnosed with thrush and gave her Diflucan and oral nystatin. Yesterday patient was unable to swallow a single dose stating that every time she chews or attempts to swallow it comes right back up. States that this has been going on since her cholecystectomy on 09/[address] Kim. Patient is found resting in bed with complaints of difficulty swallowing. She states that this has been going on for a long time specifically worsening after her colon cystectomy. Patient states that she has no appetite that food look appealing nor does it taste appealing. Bedside swallow evaluation performed by the nurse states that patient was able to swallow thin liquids without any difficulties. This morning patient had breakfast she had a few bites of eggs which she chewed and then was unable to swallow and spit out. It does not appear that the patient has been vomiting or the food is being caught in the throat. Assessment throat did not reveal any thrush. Patient continues to have loose frequent stools that odiferous. There is no clear diagnosis of C. diff. We will order stool cultures including C. diff. Review Of Systems: Constitutional: No fever, no chills, no night sweats. No weight change. No wea kness, fatigue or lethargy. No daytime sleepiness. EENT: No headache. No blurred vision or double vision, no loss of vision. No loss of Hearing, no ringing in the ears, no dizziness. No nasal drainage or congestion. No epistaxis. No sore throat. Lungs: No shortness of breath, cough, no sputum production. No wheezing. Cardiovascular: No chest pain, no lower extremity edema. No palpitations. No paroxysmal nocturnal dyspnea. No orthopnea. No lightheadedness or dizziness. No syncopal episodes. Abdominal: no abdominal discomfort. No nausea, vomiting. no diarrhea. No constipation. No bloody or tarry stools. no loss of appetite. Genitourinary: No dysuria, increased frequency, urgency. No urinary retention. Musculoskeletal: No myalgias. No muscle weakness, no gait dysfunction, no frequent falls. No back pain. No neck pain. Integumentary: No wounds, no lesions. No rash or pruritus. No unusual bruising. No change in hair or nails. Neurologic: No aphasia. No facial droop. No change in mentation. No head injury. No headache. No paralysis. No paresthesia. Psychiatric: No depression. No anxiety. No mood swings. Endocrine: No abnormal blood sugars. No weight change. No excessive sweating or thirst. Social history: Patient is lifelong nonsmoker but has secondhand smoke exposure. No illicit drug use, no ALLERGIES. Patient has been a for 14 years. She lives alone but her children to come by frequently. Family history: Mother in her 90s from dementia. Father in his 70s from COPD. Patient does not have any brothers. She has one sister age 70 with no major medical problems. Patient has 3 sons with no major medical problems. Physical examination General Appearance: Alert, cooperative, no distress, 85-year-old pleasant female appears stated age. Sitting in Bed in No Acute Distress Neck HEENT: Supple, no lymphadenopathy, no thyroid enlargement, no carotid bruits. Dry mucous membranes, no thrush noted Lungs: Clear to auscultation without crackles or wheezes no rhonchi, no deformity. Chest Wall: Chest wall normal expansion with deep inspiration no tenderness and no deformity was found on exam, no costochondral pain or discomfort. Heart: Regular rate and rhythm, S1, S2 normal, no murmur, rub or gallop. Back: Symmetric, no curvature, ROM normal, no CVA tenderness. Abdomen: Soft, non-tender, no rebound or rigidity, no hepatosplenomegaly. Extremities: Extremities normal, atraumatic, no cyanosis or edema. Pulses: 2+ and symmetric. Skin: Skin color, texture, tugor normal, no rashes or lesions. Neurologic: Alert oriented x3 cranial nerves II through XII intact, no motor deficit, no abnormal balance or gait Assessment and plan 1. Difficulty swallowing both solids and liquids possible thrust treated outpatient setting and not visualized at this time. Bedside swallow eval was appropriate. Consult Dr. Kim, barium swallow ordered, continue nystatin swish and swallow 2. Acute diarrhea possible C. diff/colitis. Empirically treated with Flagyl and Levaquin in outpatient setting. We will continue with Levaquin 500 mg daily and Flagyl 500 mg every 8 hours, vancomycin 250 mg by mouth every 6 hours, consult infectious disease 3. Generalized debility. Consult PT/OT, consult social work therapist for possible subacute rehab 4. Hypokalemia. Potassium replacement 40 mEq IV. 5. Electrolyte disturbance. Continue hydration with 0.9 nor saline at 75 mL an hour. 6. Urinary tract infection. Levaquin 500 mg IV daily, consult infectious disease 7. Diabetes mellitus. Continue metformin, 8. Hyperlipidemia continue Lipitor 10 mg by mouth at bedtime 9. Hypertension. 750 mg by mouth daily 10. Depression. Continue Effexor 11. GI prophylaxis. Protonix 12. DVT prophylaxis. Heparin subcu CODE STATUS: Full code Patient will be admitted to the hospitalist minimum 2 nights day. Discharge plan: Most likely subacute rehab Impression and plan of care have been directed as dictated by the signing physician. Tiffany Rivero nurse practitioner acting as scribe for signing physician. Past Medical History Past Medical History: Diabetes Mellitus, Eye Disorder, Hyperlipidemia, Hypertension, Osteoarthritis (OA) Additional Past Medical History / Comment(s): back pain., hx of vertigo., cataract left eye. History of Any Multi-Drug Resistant Organisms: C-DIFF Date of last positivie culture/infection: 10/05/20 MDRO Source:: stool Past Surgical History: Cholecystectomy, Hysterectomy Additional Past Surgical History / Comment(s): right cataract (jul 2017) Past Anesthesia/Blood Transfusion Reactions: No Reported Reaction Past Psychological History: No Psychological Hx Reported Smoking Status: Never smoker Past Alcohol Use History: None Reported Past Drug Use History: None Reported - Past Family History Mother Family Medical History: No Reported History Son(s) History Unknown: Yes Family Medical History: Cancer Additional Family Medical History / Comment(s): skin cancer Medications and Allergies Home Medications Medication Instructions Recorded Confirmed Type Losartan Potassium [Cozaar] 50 mg PO DAILY 07/03/17 10/07/20 History Simvastatin [Zocor] 20 mg PO HS 07/03/17 10/07/20 History Repaglinide [Prandin] 4 mg PO BID-W/MEALS 09/03/20 10/07/20 History metFORMIN HCL 1,000 mg PO DAILY 09/03/20 10/07/20 History metFORMIN HCL 500 mg PO HS 09/03/20 10/07/20 History Pantoprazole [Protonix] 40 mg PO DAILY #30 tablet.dr 09/18/20 10/07/20 Rx Metoclopramide [Reglan] 10 mg PO Q8H PRN #21 tab 09/30/20 10/07/20 Rx Fluconazole [Diflucan] 150 mg PO DAILY 10/07/20 10/07/20 History Levofloxacin [Levaquin] 250 mg PO DAILY 10/07/20 10/07/20 History Nystatin 100,000 Unit/ml Susp 5 ml PO QID 10/07/20 10/07/20 History [Mycostatin Oral Susp] Ondansetron Odt [Zofran Odt] 4 mg PO Q6H PRN 10/07/20 10/07/20 History Venlafaxine HCl [Effexor] 37.5 mg PO DAILY 10/07/20 10/07/20 History metroNIDAZOLE 250 mg PO TID 10/07/20 10/07/20 History Allergies Allergy/AdvReac Type Severity Reaction Status Date / Time latex Allergy Unknown Itching Verified 10/07/20 12:11 Physical Exam Vitals: Vital Signs Temp Pulse Pulse Pulse Resp BP BP 10/08/20 07:17 97.6 F 66 16 129/77 10/07/20 19:24 98.3 F 73 164/85 10/07/20 15:00 98.3 F 69 17 129/67 10/07/20 13:19 97 F L 70 17 124/70 10/07/20 12:50 72 16 141/71 Pulse Ox 10/08/20 07:17 96 10/07/20 19:24 97 10/07/20 15:00 98 10/07/20 13:19 95 10/07/20 12:50 98 Intake and Output 10/07/20 10/08/20 10/08/20 22:59 06:59 14:59 Intake Total 50 Output Total 250 Balance -250 50 Intake: Oral 50 Output: Urine 250 Other: Voiding Method Toilet # Voids 1 2 # Bowel Movements 1 Weight 55.792 kg Results CBC & Chem 7: 10/08/20 05:28 10/08/20 05:28 Labs: Abnormal Lab Results - Last 24 Hours (Table) 10/07/20 10/07/20 10/07/20 Range/Units 11:57 14:00 17:06 RBC (4.10-5.20) X 10*6/uL Hgb (12.0-15.0) g/dL Hct (37.2-46.3) % RDW (11.5-14.5) % MPV (9.5-12.2) fL Sodium 132 L (137-145) mmol/L Potassium 2.3 L* (3.5-5.1) mmol/L Chloride 94 L (98-107) mmol/L Carbon Dioxide 17 L (22-30) mmol/L Anion Gap (4.00-12.00) mmol/L BUN/Creatinine Ratio (12.00-20.00) Ratio Glucose 171 H (74-99) mg/dL POC Glucose (mg/dL) 128 H (75-99) mg/dL Calcium (8.7-10.3) mg/dL Phosphorus (2.4-5.1) mg/dL Magnesium 1.3 L (1.6-2.3) mg/dL Urine Protein 1+ H (Negative) Urine Ketones 4+ H (Negative) Ur Leukocyte Esterase Moderate H (Negative) Urine WBC 14 H (0-5) /hpf Amorphous Sediment Rare H (None) /hpf Urine Bacteria Rare H (None) /hpf Hyaline Casts 3 H (0-2) /lpf Urine Mucus Rare H (None) /hpf 10/07/20 10/08/20 10/08/20 Range/Units 20:47 05:28 05:28 RBC 3.54 L (4.10-5.20) X 10*6/uL Hgb 11.0 L (12.0-15.0) g/dL Hct 32.0 L (37.2-46.3) % RDW 16.2 H (11.5-14.5) % MPV 12.3 H (9.5-12.2) fL Sodium (137-145) mmol/L Potassium 2.4 L* (3.5-5.1) mmol/L Chloride (98-107) mmol/L Carbon Dioxide (22-30) mmol/L Anion Gap 15.90 H (4.00-12.00) mmol/L BUN/Creatinine Ratio 11.25 L (12.00-20.00) Ratio Glucose 127 H (74-99) mg/dL POC Glucose (mg/dL) 150 H (75-99) mg/dL Calcium 7.7 L (8.7-10.3) mg/dL Phosphorus (2.4-5.1) mg/dL Magnesium (1.6-2.3) mg/dL Urine Protein (Negative) Urine Ketones (Negative) Ur Leukocyte Esterase (Negative) Urine WBC (0-5) /hpf Amorphous Sediment (None) /hpf Urine Bacteria (None) /hpf Hyaline Casts (0-2) /lpf Urine Mucus (None) /hpf 10/08/20 10/08/20 Range/Units 05:28 07:49 RBC (4.10-5.20) X 10*6/uL Hgb (12.0-15.0) g/dL Hct (37.2-46.3) % RDW (11.5-14.5) % MPV (9.5-12.2) fL Sodium (137-145) mmol/L Potassium (3.5-5.1) mmol/L Chloride (98-107) mmol/L Carbon Dioxide (22-30) mmol/L Anion Gap (4.00-12.00) mmol/L BUN/Creatinine Ratio (12.00-20.00) Ratio Glucose (74-99) mg/dL POC Glucose (mg/dL) 130 H (75-99) mg/dL Calcium (8.7-10.3) mg/dL Phosphorus 2.0 L (2.4-5.1) mg/dL Magnesium 1.4 L (1.6-2.3) mg/dL Urine Protein (Negative) Urine Ketones (Negative) Ur Leukocyte Esterase (Negative) Urine WBC (0-5) /hpf Amorphous Sediment (None) /hpf Urine Bacteria (None) /hpf Hyaline Casts (0-2) /lpf Urine Mucus (None) /hpf Microbiology - Last 24 Hours (Table) 10/07/20 14:00 Urine Culture - Preliminary Urine,Voided Thrombosis Risk Factor Assmnt - Choose All That Apply Any of the Below Risk Factors Present?: Yes Each Factor Represents 1 point: Hx of IBD Thrombosis Risk Factor Assessment Total Risk Factor Score: 1 Thrombosis Risk Factor Assessment Level: Low Risk
[2020-10-08] MEDS ORDERED: CHERRY FLAVOR 60 ML BOTTLE PO SCH (12:00)
[2020-10-08] MEDS ORDERED: Potassium Replacement Protocol 1 EACH MISC MISCELLANE PRN ×4 (12:13→21:25)
[2020-10-08] MEDS ORDERED: Magnesium Replacement Protocol 1 EACH MISC MISCELLANE PRN (12:13)
[2020-10-08] MEDS: POTASSIUM CHLORIDE 10 MEQ in WATER FOR INJECTION 1 100ML.BAG IVPB SCH ×5 (12:19→22:48)
[2020-10-08] MEDS: metroNIDAZOLE-NS PMX 500 MG in SALINE 1 100ML.BAG IVPB SCH ×2 (12:20→16:23)
[2020-10-08] MEDS: VENLAFAXINE HCL 37.5 MG TAB PO SCH (12:28)
[2020-10-08] MEDS: MAGNESIUM SULFATE-D5W PMX 1 GM in DEXTROSE/WATER 1 100ML.BAG IVPB SCH ×3 (12:32→16:21)
[2020-10-08] MEDS: PANTOPRAZOLE 40 MG/10 ML VIAL IVP SCH (12:32)
[2020-10-08] MEDS: NYSTATIN 100,000 UNIT/ML SUSP 500,000 UNIT/5 ML CUP PO SCH ×3 (12:42→22:49)
[2020-10-08 12:52] LABS: Glucose,Whole Blood 143 mg/dL (75-99)
--- NOTE | 2020-10-08 14:48 | P.GSCN ---
History of Present Illness Consult date: 10/08/20 History of present illness: This is a patient who one month ago had a lap [place] with Dr. Kim. She is not complaining of any abdominal pain. She is having some diarrhea and states it is difficult for her to swallow pills. She was apparently seen by her PCP who was treating her for thrush. Past Medical History Past Medical History: Diabetes Mellitus, Eye Disorder, Hyperlipidemia, Hypertension, Osteoarthritis (OA) Additional Past Medical History / Comment(s): back pain., hx of vertigo., cataract left eye. History of Any Multi-Drug Resistant Organisms: C-DIFF Year Discovered:: 10/05/20 MDRO Source:: stool Past Surgical History: Cholecystectomy, Hysterectomy Additional Past Surgical History / Comment(s): right cataract (jul 2017) Past Anesthesia/Blood Transfusion Reactions: No Reported Reaction Past Psychological History: No Psychological Hx Reported Smoking Status: Never smoker Past Alcohol Use History: None Reported Past Drug Use History: None Reported - Past Family History Mother Family Medical History: No Reported History Son(s) History Unknown: Yes Family Medical History: Cancer Additional Family Medical History / Comment(s): skin cancer Medications and Allergies Home Medications Medication Instructions Recorded Confirmed Type Losartan Potassium [Cozaar] 50 mg PO DAILY 07/03/17 10/07/20 History Simvastatin [Zocor] 20 mg PO HS 07/03/17 10/07/20 History Repaglinide [Prandin] 4 mg PO BID-W/MEALS 09/03/20 10/07/20 History metFORMIN HCL 1,000 mg PO DAILY 09/03/20 10/07/20 History metFORMIN HCL 500 mg PO HS 09/03/20 10/07/20 History Pantoprazole [Protonix] 40 mg PO DAILY #30 tablet. 09/18/20 10/07/20 Rx Metoclopramide [Reglan] 10 mg PO Q8H PRN #21 tab 09/30/20 10/07/20 Rx Fluconazole [Diflucan] 150 mg PO DAILY 10/07/20 10/07/20 History Levofloxacin [Levaquin] 250 mg PO DAILY 10/07/20 10/07/20 History Nystatin 100,000 Unit/ml Susp 5 ml PO QID 10/07/20 10/07/20 History [Mycostatin Oral Susp] Ondansetron Odt [Zofran Odt] 4 mg PO Q6H PRN 10/07/20 10/07/20 History Venlafaxine HCl [Effexor] 37.5 mg PO DAILY 10/07/20 10/07/20 History metroNIDAZOLE 250 mg PO TID 10/07/20 10/07/20 History Allergies Allergy/AdvReac Type Severity Reaction Status Date / Time latex Allergy Unknown Itching Verified 10/07/20 12:11 Surgical - Exam Osteopathic Statement: *. No significant issues noted on an osteopathic structural exam other than those noted in the History and Physical/Consult. Vital Signs Temp Pulse Resp BP Pulse Ox 97.9 F 70 18 153/81 99 10/07/20 11:18 10/07/20 11:18 10/07/20 11:18 10/07/20 11:18 10/07/20 11:18 - General well developed, well nourished, no distress - Respiratory normal expansion, normal respiratory effort - Cardiovascular Rhythm: regular - Abdomen S/NT/ND Results - Labs 10/08/20 05:28 10/08/20 05:28 Abnormal Lab Results - Last 24 Hours (Table) 10/07/20 10/07/20 10/07/20 Range/Units 14:00 17:06 20:47 RBC (4.10-5.20) X 10*6/uL Hgb (12.0-15.0) g/dL Hct (37.2-46.3) % RDW (11.5-14.5) % MPV (9.5-12.2) fL Potassium (3.5-5.5) mmol/L Anion Gap (4.00-12.00) mmol/L BUN/Creatinine Ratio (12.00-20.00) Ratio Glucose (70-110) mg/dL POC Glucose (mg/dL) 128 H 150 H (75-99) mg/dL Calcium (8.7-10.3) mg/dL Phosphorus (2.4-5.1) mg/dL Magnesium (1.5-2.4) mg/dL Urine Protein 1+ H (Negative) Urine Ketones 4+ H (Negative) Ur Leukocyte Esterase Moderate H (Negative) Urine WBC 14 H (0-5) /hpf Amorphous Sediment Rare H (None) /hpf Urine Bacteria Rare H (None) /hpf Hyaline Casts 3 H (0-2) /lpf Urine Mucus Rare H (None) /hpf 10/08/20 10/08/20 10/08/20 Range/Units 05:28 05:28 05:28 RBC 3.54 L (4.10-5.20) X 10*6/uL Hgb 11.0 L (12.0-15.0) g/dL Hct 32.0 L (37.2-46.3) % RDW 16.2 H (11.5-14.5) % MPV 12.3 H (9.5-12.2) fL Potassium 2.4 L* (3.5-5.5) mmol/L Anion Gap 15.90 H (4.00-12.00) mmol/L BUN/Creatinine Ratio 11.25 L (12.00-20.00) Ratio Glucose 127 H (70-110) mg/dL POC Glucose (mg/dL) (75-99) mg/dL Calcium 7.7 L (8.7-10.3) mg/dL Phosphorus 2.0 L (2.4-5.1) mg/dL Magnesium 1.4 L (1.5-2.4) mg/dL Urine Protein (Negative) Urine Ketones (Negative) Ur Leukocyte Esterase (Negative) Urine WBC (0-5) /hpf Amorphous Sediment (None) /hpf Urine Bacteria (None) /hpf Hyaline Casts (0-2) /lpf Urine Mucus (None) /hpf 10/08/20 10/08/20 Range/Units 07:49 12:49 RBC (4.10-5.20) X 10*6/uL Hgb (12.0-15.0) g/dL Hct (37.2-46.3) % RDW (11.5-14.5) % MPV (9.5-12.2) fL Potassium (3.5-5.5) mmol/L Anion Gap (4.00-12.00) mmol/L BUN/Creatinine Ratio (12.00-20.00) Ratio Glucose (70-110) mg/dL POC Glucose (mg/dL) 130 H 143 H (75-99) mg/dL Calcium (8.7-10.3) mg/dL Phosphorus (2.4-5.1) mg/dL Magnesium (1.5-2.4) mg/dL Urine Protein (Negative) Urine Ketones (Negative) Ur Leukocyte Esterase (Negative) Urine WBC (0-5) /hpf Amorphous Sediment (None) /hpf Urine Bacteria (None) /hpf Hyaline Casts (0-2) /lpf Urine Mucus (None) /hpf Microbiology - Last 24 Hours (Table) 10/07/20 14:00 Urine Culture - Preliminary Urine,Voided Diabetes panel 10/08/20 Range/Units 05:28 Sodium 137 (135-145) mmol/L Potassium 2.4 L* (3.5-5.5) mmol/L Chloride 99 (96-109) mmol/L Carbon Dioxide 22.1 (21.6-31.8) mmol/L BUN 9.0 (9.0-27.0) mg/dL Creatinine 0.8 (0.6-1.5) mg/dL Glucose 127 H (70-110) mg/dL Calcium 7.7 L (8.7-10.3) mg/dL Calcium panel 10/08/20 10/08/20 Range/Units 05:28 05:28 Calcium 7.7 L (8.7-10.3) mg/dL Phosphorus 2.0 L (2.4-5.1) mg/dL Pituitary panel 10/08/20 Range/Units 05:28 Sodium 137 (135-145) mmol/L Potassium 2.4 L* (3.5-5.5) mmol/L Chloride 99 (96-109) mmol/L Carbon Dioxide 22.1 (21.6-31.8) mmol/L BUN 9.0 (9.0-27.0) mg/dL Creatinine 0.8 (0.6-1.5) mg/dL Glucose 127 H (70-110) mg/dL Calcium 7.7 L (8.7-10.3) mg/dL Adrenal panel 10/08/20 Range/Units 05:28 Sodium 137 (135-145) mmol/L Potassium 2.4 L* (3.5-5.5) mmol/L Chloride 99 (96-109) mmol/L Carbon Dioxide 22.1 (21.6-31.8) mmol/L BUN 9.0 (9.0-27.0) mg/dL Creatinine 0.8 (0.6-1.5) mg/dL Glucose 127 H (70-110) mg/dL Calcium 7.7 L (8.7-10.3) mg/dL Assessment and Plan Assessment: Dysphagia Plan: Patient is stable from a surgical standpoint. Recommend swallow studies to further evaluate dysphagia. No plans for surgical intervention
[2020-10-08 16:56] LABS: Glucose,Whole Blood 143 mg/dL (75-99)
[2020-10-08] MEDS: INSULIN ASPART (NovoLOG) 100 UNIT/ML VIAL SQ SCH ×2 (18:16→22:47)
[2020-10-08 18:32] LABS: Magnesium 2.4 mg/dL (1.6-2.3); Phosphorus 1.5 mg/dL (2.5-4.5)
[2020-10-08 19:05] LABS: Potassium 2.2 mmol/L (3.5-5.1)
[2020-10-08 20:18] LABS: Glucose,Whole Blood 137 mg/dL (75-99)
[2020-10-08] MEDS ORDERED: POTASSIUM CHLORIDE ER 20 MEQ TAB.ER PO SCH (22:00)
[2020-10-08] MEDS: ATORVASTATIN 10 MG TAB PO SCH (22:47)
[2020-10-08] MEDS: POTASSIUM CHLORIDE ER 20 MEQ TAB.ER PO SCH (22:47)
[2020-10-08] MEDS: metFORMIN 500 MG TAB PO SCH (22:47)
[2020-10-08] MEDS: HEPARIN SODIUM,PORCINE 5,000 UNIT/ML 1 ML VIAL SQ SCH (22:47)
[2020-10-09] MEDS: POTASSIUM CHLORIDE 10 MEQ in WATER FOR INJECTION 1 100ML.BAG IVPB SCH ×3 (00:05→04:16)
[2020-10-09] MEDS: POTASSIUM CHLORIDE ER 20 MEQ TAB.ER PO SCH ×4 (00:06→16:26)
--- NOTE | 2020-10-09 00:41 | CONS ---
CONSULTATION DATE OF SERVICE: 10/08/2020 REASON FOR CONSULTATION: Diarrhea, possible infectious etiology. HISTORY OF PRESENT ILLNESS: The patient is an 85-year-old female, status post cholecystectomy on September 13, patient mentioning she seemed to have problem with diarrhea with multiple loose stools, which has been chronic for her. The patient denies significant abdominal pain though. She was noticed to have loose stools per nursing staff today. The patient did have decreased oral intake. Some nausea but no vomiting has been noticed. The patient denies having any fever or any chills. The patient presented to the hospital with complaint of generalized weakness and dehydration and unable to take her medication. This patient apparently was diagnosed recently with a rash by her primary care physician. With these symptoms, the patient presented to hospital. On arrival to the ER the patient was afebrile. The patient did have a normal white count. The patient did have stool for C diff, which came back negative. Stool cultures currently pending. The patient did have mildly positive UA. She was started on Levaquin and Flagyl. Infectious Disease was consulted for further management of antibiotic therapy. REVIEW OF SYSTEMS: Positive points have been mentioned in HPI. Rest of systems negative. PAST MEDICAL HISTORY: Diabetes mellitus, hypertension, hyperlipidemia, osteoarthritis. PAST SURGICAL HISTORY: Cholecystectomy, hysterectomy. SOCIAL HISTORY: No history of smoking, drinking or drug use. FAMILY HISTORY: Son with history of skin cancer. ALLERGIES: TO LATEX. MEDICATIONS: Include the patient is currently on Lipitor, heparin, NovoLog, Levaquin, Cozaar, Glucophage, metformin, Flagyl, Zofran, Protonix and K-Dur, Effexor. PHYSICAL EXAMINATION: Her blood pressure 126/71 with a pulse of 68, temperature 98.6. She is 97% on room air. General description is an elderly female lying in bed in no distress. HEENT: Shows pallor. No scleral icterus. Oral mucous membranes dry. NECK: Trachea central. No thyromegaly. LUNGS: Unlabored breathing, clear to auscultation anteriorly with no wheeze or crackles. HEART S1, S2. Regular rate and rhythm. ABDOMEN: Soft, no tenderness. No guarding. No rigidity. EXTREMITIES: No edema of the feet. SKIN examination: No rash or mass palpable. NEUROLOGICAL: Patient is awake, alert, oriented x3. Mood and affect normal. LABS: Hemoglobin 11.1, white count 7.90, BUN of 9, creatinine 0.8, potassium low at 2.4. Liver enzymes are normal. Galvan PCR was negative. Stool for C difficile is negative. Urine is mildly positive. DIAGNOSTIC IMPRESSION/PLAN: 1. Patient admitted to the hospital with increasing diarrhea, weakness and lethargy with concern for possible infectious diarrhea, less likely in view of no fever or elevated white count. 2. Positive UA and concern for possible symptomatic urinary tract infection. PLAN: 1. Will wait for the stool and urine culture to finalize. 2. Gentle IV fluid. 3. Continue with Levaquin and Flagyl. 4. We will follow on clinical condition and culture to further adjust medication if needed. Thank you for this consultation. Will follow this patient along with you. LYNN / SALLY: [id number] /
[2020-10-09] MEDS: metroNIDAZOLE-NS PMX 500 MG in SALINE 1 100ML.BAG IVPB SCH ×4 (04:06→23:22)
[2020-10-09] MEDS: SODIUM CHLORIDE 0.9% 1,000 ML IV SCH (05:35)
[2020-10-09 07:07] LABS: Glucose,Whole Blood 124 mg/dL (75-99)
[2020-10-09] MEDS: INSULIN ASPART (NovoLOG) 100 UNIT/ML VIAL SQ SCH ×4 (07:15→21:20)
[2020-10-09] MEDS: PANTOPRAZOLE 40 MG/10 ML VIAL IVP SCH (08:17)
[2020-10-09] MEDS: LEVOFLOXACIN 250MG-D5W PMX 250 MG in DEXTROSE/WATER 1 50ML.BAG IVPB SCH (08:17)
[2020-10-09] MEDS: VENLAFAXINE HCL 37.5 MG TAB PO SCH (08:18)
[2020-10-09] MEDS: metFORMIN 500 MG TAB PO SCH ×2 (08:18→21:32)
[2020-10-09] MEDS: HEPARIN SODIUM,PORCINE 5,000 UNIT/ML 1 ML VIAL SQ SCH ×2 (08:18→21:36)
[2020-10-09] MEDS: NYSTATIN 100,000 UNIT/ML SUSP 500,000 UNIT/5 ML CUP PO SCH ×4 (08:18→21:31)
[2020-10-09] MEDS: LOSARTAN 50 MG TAB PO SCH (08:18)
[2020-10-09 09:04] LABS: Basophils # (A) 0.02 X 10*3/uL (0.00-0.10); Basophils % (A) 0.3 %; Eosinophils # (A) 0.15 X 10*3/uL (0.04-0.35); HGB 9.9 g/dL (12.0-15.0); Lymphocytes % (A) 19.9 %; MCH 30.8 pg (27.0-32.0); MCHC 34.1 g/dL (32.0-37.0); MCV 90.3 fL (80.0-97.0); Mean Platelet Volume 12.3 fL (9.5-12.2); Monocytes # (A) 0.49 X 10*3/uL (0.20-1.00); Monocytes % (A) 6.5 %; Neutrophils # (A) 5.36 X 10*3/uL (1.80-7.70); Neutrophils % (A) 70.9 %; Platelet Count 223 X 10*3/uL (140-440); RBC 3.21 X 10*6/uL (4.10-5.20); RDW 16.6 % (11.5-14.5); WBC 7.55 X 10*3/uL (4.50-10.00)
[2020-10-09 09:27] LABS: Potassium 2.4 mmol/L (3.5-5.5)
[2020-10-09 09:49] LABS: African American GFR (CKD) 95.7 (60.0-200.0); Calcium 6.8 mg/dL (8.7-10.3); Chloride 103 mmol/L (96-109); Glucose 126 mg/dL (70-110); Magnesium 1.6 mg/dL (1.5-2.4); Non-African American GFR(CKD) 82.5 (60.0-200.0); Phosphorus 1.3 mg/dL (2.4-5.1); Potassium 2.8 mmol/L (3.5-5.5); Sodium 136 mmol/L (135-145)
[2020-10-09 10:04] LABS: Blood Urea Nitrogen <5.0 mg/dL (9.0-27.0)
[2020-10-09 11:23] LABS: Glucose,Whole Blood 124 mg/dL (75-99)
--- NOTE | 2020-10-09 12:53 | P.PN ---
Subjective Progress Note Date: 10/09/20 History of present illness This is an 85-year-old female who presented to the emergency department with a chief complaint of generalized weakness, dehydration and inability to take her medications. Patient states that she was recently treated for C. diff and developed difficulty swallowing her pills. She seen her PCP on Friday who diagnosed with thrush and gave her Diflucan and oral nystatin. Yesterday patient was unable to swallow a single dose stating that every time she chews or attempts to swallow it comes right back up. States that this has been going on since her cholecystectomy on 09/[address] Kim. Patient is found resting in bed with complaints of difficulty swallowing. She states that this has been going on for a long time specifically worsening after her colon cystectomy. Patient states that she has no appetite that food look appealing nor does it taste appealing. Bedside swallow evaluation performed by the nurse states that patient was able to swallow thin liquids without any difficulties. This morning patient had breakfast she had a few bites of eggs which she chewed and then was unable to swallow and spit out. It does not appear that the patient has been vomiting or the food is being caught in the throat. Assessment throat did not reveal any thrush. Patient continues to have loose frequent stools that odiferous. There is no clear diagnosis of C. diff. We will order stool cultures including C. diff. 10/09: Patient states that she is depressed and not eating and has no appetite. Remeron will be started at supper. Patient denies any abdominal pain. Her abdomen is soft. Diarrhea is improving. has been maintained on Levaquin and Flagyl per Dr. Pineda. Patient has been afebrile, heart rate 61, blood pressure 129/69, pulse ox 97% on room air. 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 WBC 7.5, hemoglobin 9.9, platelet count 223. Potassium 2.8 and will be replaced. Creatinine less than 5. Blood sugars running between 120 137. Magnesium 1.6. Stool culture is in progress. Urine cultures finalized with no growth after 18 hours. IV fluids will be discontinued. Review Of Systems: Constitutional: No fever, no chills, no night sweats. No weight change. No weakness, fatigue or lethargy. No daytime sleepiness. EENT: No headache. No blurred vision or double vision, no loss of vision. No loss of Hearing, no ringing in the ears, no dizziness. No nasal drainage or congestion. No epistaxis. No sore throat. Lungs: No shortness of breath, cough, no sputum production. No wheezing. Cardiovascular: No chest pain, no lower extremity edema. No palpitations. No paroxysmal nocturnal dyspnea. No orthopnea. No lightheadedness or dizziness. No syncopal episodes. Abdominal: no abdominal discomfort. No nausea, vomiting. no diarrhea. No constipation. No bloody or tarry stools. Reports loss of appetite. Genitourinary: No dysuria, increased frequency, urgency. No urinary retention. Musculoskeletal: No myalgias. No muscle weakness, no gait dysfunction, no frequent falls. No back pain. No neck pain. Integumentary: No wounds, no lesions. No rash or pruritus. No unusual bruising. No change in hair or nails. Neurologic: No aphasia. No facial droop. No change in mentation. No head injury. No headache. No paralysis. No paresthesia. Psychiatric: No depression. No anxiety. No mood swings. Endocrine: No abnormal blood sugars. No weight change. No excessive sweating or thirst. Physical examination General Appearance: Alert, cooperative, no distress, 85-year-old pleasant female appears stated age. Patient is ambulating from the bathroom [facility] to be in no acute distress. Neck HEENT: Supple, no lymphadenopathy, no thyroid enlargement, no carotid bruits. Dry mucous membranes, no thrush noted Lungs: Clear to auscultation without crackles or wheezes no rhonchi, no deformity. Chest Wall: Chest wall normal expansion with deep inspiration no tenderness and no deformity was found on exam, no costochondral pain or discomfort. Heart: Regular rate and rhythm, S1, S2 normal, no murmur, rub or gallop. Back: Symmetric, no curvature, ROM normal, no CVA tenderness. Abdomen: Soft, non-tender, no rebound or rigidity, no hepatosplenomegaly. Extremities: Extremities normal, atraumatic, no cyanosis or edema. Pulses: 2+ and symmetric. Skin: Skin color, texture, tugor normal, no rashes or lesions. Neurologic: Alert oriented x3 cranial nerves II through XII intact, no motor deficit, no abnormal balance or gait Assessment and plan 1. Difficulty swallowing both solids and liquids possible thrust treated outpatient setting and not visualized at this time. Bedside swallow eval was appropriate. Consult Dr. Kim, barium swallow ordered, continue nystatin swish and swallow 2. Acute diarrhea possible C. diff/colitis. Empirically treated with Flagyl and Levaquin in outpatient setting. We will continue with Levaquin 500 mg daily and Flagyl 500 mg every 8 hours, vancomycin 250 mg by mouth every 6 hours, consult infectious disease appreciated. 3. Generalized debility. Consult PT/OT, consult social worker palliative care for possible subacute rehab 4. Hypokalemia. Potassium replacement and recheck potassium. 5. Electrolyte disturbance. Discontinue IV fluids. 6. Urinary tract infection. Levaquin 500 mg IV daily, consult infectious disease 7. Diabetes mellitus. Continue metformin, 8. Hyperlipidemia continue Lipitor 10 mg by mouth at bedtime 9. Hypertension. 750 mg by mouth daily 10. Depression. Continue Effexor 11. GI prophylaxis. Protonix 12. DVT prophylaxis. Heparin subcu CODE STATUS: Full code Discharge plan: Most likely return to [facility] Impression and plan of care have been directed as dictated by the signing physician. Lyssa Barreto nurse practitioner acting as scribe for signing physician. Objective - Vital Signs Vital signs: Vital Signs Temp 98.3 F 10/09/20 07:27 Pulse 61 10/09/20 07:27 Resp 18 10/09/20 07:27 BP 129/69 10/09/20 07:27 Pulse Ox 97 10/09/20 07:27 Intake & Output 10/08/20 10/09/20 10/09/20 18:59 06:59 18:59 Weight 55.792 kg Other: Voiding Method Toilet # Voids 4 1 # Bowel Movements 3 - Labs CBC & Chem 7: 10/09/20 05:17 10/09/20 05:17 Labs: Abnormal Lab Results - Last 24 Hours (Table) 10/08/20 10/08/20 10/08/20 Range/Units 05:28 05:28 05:28 RBC 3.54 L (4.10-5.20) X 10*6/uL Hgb 11.0 L (12.0-15.0) g/dL Hct 32.0 L (37.2-46.3) % RDW 16.2 H (11.5-14.5) % MPV 12.3 H (9.5-12.2) fL Potassium 2.4 L* (3.5-5.5) mmol/L Carbon Dioxide (21.6-31.8) mmol/L Anion Gap 15.90 H (4.00-12.00) mmol/L BUN (9.0-27.0) mg/dL BUN/Creatinine Ratio 11.25 L (12.00-20.00) Ratio Glucose 127 H (70-110) mg/dL POC Glucose (mg/dL) (75-99) mg/dL Calcium 7.7 L (8.7-10.3) mg/dL Phosphorus 2.0 L (2.4-5.1) mg/dL Magnesium 1.4 L (1.5-2.4) mg/dL 10/08/20 10/08/20 10/08/20 Range/Units 12:49 16:54 17:55 RBC (4.10-5.20) X 10*6/uL Hgb (12.0-15.0) g/dL Hct (37.2-46.3) % RDW (11.5-14.5) % MPV (9.5-12.2) fL Potassium 2.2 L* (3.5-5.5) mmol/L Carbon Dioxide (21.6-31.8) mmol/L Anion Gap (4.00-12.00) mmol/L BUN (9.0-27.0) mg/dL BUN/Creatinine Ratio (12.00-20.00) Ratio Glucose (70-110) mg/dL POC Glucose (mg/dL) 143 H 143 H (75-99) mg/dL Calcium (8.7-10.3) mg/dL Phosphorus 1.5 L (2.4-5.1) mg/dL Magnesium 2.4 H (1.5-2.4) mg/dL 10/08/20 10/09/20 10/09/20 Range/Units 20:17 05:17 05:17 RBC 3.21 L (4.10-5.20) X 10*6/uL Hgb 9.9 L (12.0-15.0) g/dL Hct 29.0 L (37.2-46.3) % RDW 16.6 H (11.5-14.5) % MPV 12.3 H (9.5-12.2) fL Potassium 2.8 L (3.5-5.5) mmol/L Carbon Dioxide 20.0 L (21.6-31.8) mmol/L Anion Gap 13.00 H (4.00-12.00) mmol/L BUN <5.0 L (9.0-27.0) mg/dL BUN/Creatinine Ratio (12.00-20.00) Ratio Glucose 126 H (70-110) mg/dL POC Glucose (mg/dL) 137 H (75-99) mg/dL Calcium 6.8 L (8.7-10.3) mg/dL Phosphorus 1.3 L (2.4-5.1) mg/dL Magnesium (1.5-2.4) mg/dL 10/09/20 Range/Units 07:03 RBC (4.10-5.20) X 10*6/uL Hgb (12.0-15.0) g/dL Hct (37.2-46.3) % RDW (11.5-14.5) % MPV (9.5-12.2) fL Potassium (3.5-5.5) mmol/L Carbon Dioxide (21.6-31.8) mmol/L Anion Gap (4.00-12.00) mmol/L BUN (9.0-27.0) mg/dL BUN/Creatinine Ratio (12.00-20.00) Ratio Glucose (70-110) mg/dL POC Glucose (mg/dL) 124 H (75-99) mg/dL Calcium (8.7-10.3) mg/dL Phosphorus (2.4-5.1) mg/dL Magnesium (1.5-2.4) mg/dL Microbiology - Last 24 Hours (Table) 10/07/20 14:00 Urine Culture - Final Urine,Voided 10/08/20 13:03 Stool Culture - Preliminary Stool
--- NOTE | 2020-10-09 12:56 | P.PN ---
Progress Note - Text Progress Note Date: 10/09/20 HISTORY OF PRESENT ILLNESS This is an 85-year-old female treated for diarrhea possible infectious etiology. Patient denies abdominal pain. Her abdomen is soft. Diarrhea is improving. has been maintained on Levaquin and Flagyl. Patient has been afebrile, heart rate 61, blood pressure 129/69, pulse ox 97% on room air. desk monitor is sinus rhythm. WBC 7.5, hemoglobin 9.9, platelet count 223. Potassium 2.8 and will be replaced. Creatinine less than 5. Blood sugars running between 120 137. Magnesium 1.6. Stool culture is in progress. Urine cultures finalized with no growth after 18 hours. PHYSICAL EXAMINATION Gen: This is an 85-year-old female. Patient is resting in bed and appears to be comfortable. HEENT: Head is atraumatic, normocephalic. Pupils equal, round. Sclerae is anicteric. NECK: Supple. No JVD. No lymphadenopathy. LUNGS: Clear to auscultation. No wheezes or rhonchi. No intercostal retractions. HEART: Regular rate and rhythm. ABDOMEN: Soft. Bowel sounds are present. No masses. No tenderness. EXTREMITIES: No pedal edema. No calf tenderness. NEUROLOGICAL: Patient is awake, alert and oriented x3. ASSESSMENT Diarrhea, possible infectious Acute urinary tract infection ruled out. PLAN Continue Levaquin and Flagyl Await stool cultures Further recommendations based on patient's clinical course. The above dictated assessment and findings were discussed with Dr. Pineda. The impression and plan of care have been directed as dictated. Lyssa Barreto nurse practitioner acting as scribe for Dr. Pineda.
[2020-10-09] MEDS: MIRTAZAPINE 15 MG TAB PO SCH (16:42)
[2020-10-09 17:07] LABS: Glucose,Whole Blood 144 mg/dL (75-99)
[2020-10-09] MEDS ORDERED: Potassium Replacement Protocol 1 EACH MISC MISCELLANE PRN (18:50)
[2020-10-09] MEDS: POTASSIUM BICARBONATE/CIT AC 20 MEQ TABLET.EFF NG-TUBE SCH ×3 (19:24→23:00)
[2020-10-09 20:47] LABS: Glucose,Whole Blood 150 mg/dL (75-99)
[2020-10-09] MEDS: ATORVASTATIN 10 MG TAB PO SCH (21:31)
[2020-10-09] MEDS: ONDANSETRON 4 MG/2 ML VIAL IVP PRN (23:25)
[2020-10-10] MEDS: POTASSIUM CHLORIDE ER 20 MEQ TAB.ER PO SCH (06:52)
[2020-10-10 06:56] LABS: Glucose,Whole Blood 139 mg/dL (75-99)
[2020-10-10] MEDS: metroNIDAZOLE-NS PMX 500 MG in SALINE 1 100ML.BAG IVPB SCH ×3 (08:03→23:01)
[2020-10-10] MEDS: LEVOFLOXACIN 250MG-D5W PMX 250 MG in DEXTROSE/WATER 1 50ML.BAG IVPB SCH (08:04)
[2020-10-10] MEDS: VENLAFAXINE HCL 37.5 MG TAB PO SCH (08:04)
[2020-10-10] MEDS: NYSTATIN 100,000 UNIT/ML SUSP 500,000 UNIT/5 ML CUP PO SCH ×4 (08:04→21:24)
[2020-10-10] MEDS: PANTOPRAZOLE 40 MG/10 ML VIAL IVP SCH (08:04)
[2020-10-10] MEDS: metFORMIN 500 MG TAB PO SCH ×2 (08:04→21:23)
[2020-10-10] MEDS: LOSARTAN 50 MG TAB PO SCH (08:04)
[2020-10-10] MEDS: INSULIN ASPART (NovoLOG) 100 UNIT/ML VIAL SQ SCH ×4 (08:04→21:27)
[2020-10-10] MEDS: HEPARIN SODIUM,PORCINE 5,000 UNIT/ML 1 ML VIAL SQ SCH ×2 (08:04→21:26)
[2020-10-10 11:38] LABS: Glucose,Whole Blood 132 mg/dL (75-99)
[2020-10-10] MEDS ORDERED: POTASSIUM CHLORIDE ER 20 MEQ TAB.ER PO SCH (12:00)
[2020-10-10] MEDS: POTASSIUM CHLORIDE 20 MEQ in WATER FOR INJECTION 1 100ML.BAG IVPB SCH ×4 (12:24→19:40)
--- NOTE | 2020-10-10 12:41 | FL ---
EXAMINATION TYPE: FL barium swallow w video DATE OF EXAM: 10/10/2020 MODIFIED SWALLOW / DEGLUTITION STUDY CLINICAL HISTORY: Dysphagia. Loss of taste. All symptoms since cholecystectomy September 2020. TECHNIQUE: Deglutition study is performed utilizing thin liquid barium, barium thick pudding, and ba rium coated cracker. 1.28 minutes of fluoro time and 0 images obtained. COMPARISON: None. FINDINGS: The oral and pharyngeal phases show satisfactory initiation and propagation with all modali ties tested. Satisfactory mastication is seen with solid modalities tested. There is no evidence of penetration or aspiration with any modality tested. Mild pharyngeal residue was appreciated. IMPRESSION: No penetration or aspiration observed. Please refer to speech therapist notes for furthe r details if necessary.
--- NOTE | 2020-10-10 15:24 | P.PN ---
Subjective Progress Note Date: 10/10/20 History of present illness This is an 85-year-old female who presented to the emergency department with a chief complaint of generalized weakness, dehydration and inability to take her medications. Patient states that she was recently treated for C. diff and developed difficulty swallowing her pills. She seen her PCP on Friday who diagnosed with thrush and gave her Diflucan and oral nystatin. Yesterday patient was unable to swallow a single dose stating that every time she chews or attempts to swallow it comes right back up. States that this has been going on since her cholecystectomy on 09/[address] Kim. Patient is found resting in bed with complaints of difficulty swallowing. She states that this has been going on for a long time specifically worsening after her colon cystectomy. Patient states that she has no appetite that food look appealing nor does it taste appealing. Bedside swallow evaluation performed by the nurse states that patient was able to swallow thin liquids without any difficulties. This morning patient had breakfast she had a few bites of eggs which she chewed and then was unable to swallow and spit out. It does not appear that the patient has been vomiting or the food is being caught in the throat. Assessment throat did not reveal any thrush. Patient continues to have loose frequent stools that odiferous. There is no clear diagnosis of C. diff. We will order stool cultures including C. diff. 10/09: Patient states that she is depressed and not eating and has no appetite. Remeron will be started at supper. Patient denies any abdominal pain. Her abdomen is soft. Diarrhea is improving. has been maintained on Levaquin and Flagyl per Dr. Pineda. Patient has been afebrile, heart rate 61, blood pressure 129/69, pulse ox 97% on room air. playground monitor is sinus rhythm. WBC 7.5, hemoglobin 9.9, platelet count 223. Potassium 2.8 and will be replaced. Creatinine less than 5. Blood sugars running between 120 137. Magnesium 1.6. Stool culture is in progress. Urine cultures finalized with no growth after 18 hours. IV fluids will be discontinued. 10/10: Patient continues to have hypokalemia as she refused or was unable to take the potassium that was ordered yesterday. She only got part of the dose ordered. Patient is had one episode of diarrhea this morning. We will order IV potassium and recheck potassium level later today. She has been afebrile, heart rate 68, blood pressure 167/71, pulse ox 95% on room air. Potassium 2.5 last evening. Blood sugars running between 132-150. Review Of Systems: Constitutional: No fever, no chills, no night sweats. No weight change. No weakness, fatigue or lethargy. No daytime sleepiness. EENT: No headache. No blurred vision or double vision, no loss of vision. No loss of Hearing, no ringing in the ears, no dizziness. No nasal drainage or congestion. No epistaxis. No sore throat. Lungs: No shortness of breath, cough, no sputum production. No wheezing. Cardiovascular: No chest pain, no lower extremity edema. No palpitations. No paroxysmal nocturnal dyspnea. No orthopnea. No lightheadedness or dizziness. No syncopal episodes. Abdominal: no abdominal discomfort. No nausea, vomiting. Reported diarrhea improving. No constipation. No bloody or tarry stools. Reports loss of appetite. Genitourinary: No dysuria, increased frequency, urgency. No urinary retention. Musculoskeletal: No myalgias. No muscle weakness, no gait dysfunction, no frequent falls. No back pain. No neck pain. Integumentary: No wounds, no lesions. No rash or pruritus. No unusual bruising. No change in hair or nails. Neurologic: No aphasia. No facial droop. No change in mentation. No head injury. No headache. No paralysis. No paresthesia. Psychiatric: No depression. No anxiety. No mood swings. Endocrine: No abnormal blood sugars. No weight change. No excessive sweating or thirst. Physical examination General Appearance: Alert, cooperative, no distress, 85-year-old pleasant female appears stated age. Patient appears to be in no acute distress. Neck HEENT: Supple, no lymphadenopathy, no thyroid enlargement, no carotid bruits. Dry mucous membranes, no thrush noted Lungs: Clear to auscultation without crackles or wheezes no rhonchi, no deformity. Chest Wall: Chest wall normal expansion with deep inspiration no tenderness and no deformity was found on exam, no costochondral pain or discomfort. Heart: Regular rate and rhythm, S1, S2 normal, no murmur, rub or gallop. Back: Symmetric, no curvature, ROM normal, no CVA tenderness. Abdomen: Soft, non-tender, no rebound or rigidity, no hepatosplenomegaly. Extremities: Extremities normal, atraumatic, no cyanosis or edema. Pulses: 2+ and symmetric. Skin: Skin color, texture, tugor normal, no rashes or lesions. Neurologic: Alert oriented x3 cranial nerves II through XII intact, no motor deficit, no abnormal balance or gait Assessment and plan 1. Difficulty swallowing both solids and liquids possible thrust treated outpatient setting and not visualized at this time. Bedside swallow eval was appropriate. Consult Dr. Kim, barium swallow ordered, continue nystatin swish and swallow 2. Acute diarrhea possible C. diff/colitis. Empirically treated with Flagyl and Levaquin in outpatient setting. We will continue with Levaquin 500 mg daily and Flagyl 500 mg every 8 hours, vancomycin 250 mg by mouth every 6 hours, consult infectious disease appreciated. 3. Generalized debility. Consult PT/OT, consult case management social worker for possible subacute rehab 4. Hypokalemia. Potassium replacement and recheck potassium. 5. Electrolyte disturbance. Discontinue IV fluids. 6. Urinary tract infection. Levaquin 500 mg IV daily, consult infectious disease 7. Diabetes mellitus. Continue metformin, 8. Hyperlipidemia continue Lipitor 10 mg by mouth at bedtime 9. Hypertension. 750 mg by mouth daily 10. Depression. Continue Effexor 11. GI prophylaxis. Protonix 12. DVT prophylaxis. Heparin subcu CODE STATUS: Full code Discharge plan: Most likely return to [facility] with [facility] Impression and plan of care have been directed as dictated by the signing physician. Lyssa Barreto nurse practitioner acting as scribe for signing physician. Objective - Vital Signs Vital signs: Vital Signs Temp 98.5 F 10/10/20 07:24 Pulse 61 10/10/20 07:24 Resp 18 10/10/20 08:04 BP 133/67 10/10/20 07:24 Pulse Ox 97 10/10/20 07:24 Intake & Output 10/09/20 10/10/20 10/10/20 18:59 06:59 18:59 Intake Total 775 Balance 775 Intake: Intake, IV Titration 775 Amount Levofloxacin 250Mg-D5w 50 Pmx 250 mg In Dextrose/ Water 1 50ml.bag @ 50 mls /hr IVPB DAILY [facility] Rx#: [id number] Sodium Chloride 0.9% 1, 625 000 ml @ 125 mls/hr IV . Q8H [facility] Rx#:[id number] metroNIDAZOLE-NS PMX 500 100 mg In Saline 1 100ml.bag @ 100 mls/hr IVPB Q8HR [facility] Rx#:[id number] Other: Voiding Method Toilet # Voids 3 2 # Bowel Movements 2 - Labs CBC & Chem 7: 10/09/20 05:17 10/09/20 18:03 Labs: Abnormal Lab Results - Last 24 Hours (Table) 10/09/20 10/09/20 10/09/20 Range/Units 11:21 16:47 18:03 Potassium 2.5 L* (3.5-5.1) mmol/L POC Glucose (mg/dL) 124 H 144 H (75-99) mg/dL 10/09/20 10/10/20 Range/Units 20:45 06:53 Potassium (3.5-5.1) mmol/L POC Glucose (mg/dL) 150 H 139 H (75-99) mg/dL
[2020-10-10 17:00] LABS: Glucose,Whole Blood 156 mg/dL (75-99)
[2020-10-10] MEDS: MIRTAZAPINE 15 MG TAB PO SCH (17:48)
[2020-10-10 21:04] LABS: Glucose,Whole Blood 153 mg/dL (75-99)
[2020-10-10] MEDS: ATORVASTATIN 10 MG TAB PO SCH (21:24)
--- NOTE | 2020-10-10 23:21 | PN ---
PROGRESS NOTE DATE OF SERVICE: 10/10/2020 REASON FOR FOLLOWUP: Diarrhea and UTI. INTERVAL HISTORY: The patient is currently afebrile. The patient remains pleasantly confused. Denies having any chest pain or cough. No abdominal pain. Still has diarrhea. PHYSICAL EXAMINATION: Blood pressure 167/71 with a pulse of 68, temperature 98.2. She is 95% on room air. General description is an elderly female lying in bed in no distress. RESPIRATORY SYSTEM: Unlabored breathing with decreased intensity of breath sounds. No wheeze. HEART: S1, S2. Regular rate and rhythm. ABDOMEN: Soft. No tenderness. LABS: Stool cultures are currently pending. Urine culture is negative. DIAGNOSTIC IMPRESSION AND PLAN: Patient admitted to hospital with diarrhea. The patient does have possible ; however, urine culture is negative. In view of the persistent diarrhea, Levaquin will be discontinued. Flagyl to continue while waiting for the stool cultures. Continue with supportive care. MMODL / IJN: [id number] /
[2020-10-11 07:04] LABS: Glucose,Whole Blood 133 mg/dL (75-99)
[2020-10-11] MEDS: metroNIDAZOLE-NS PMX 500 MG in SALINE 1 100ML.BAG IVPB SCH (07:56)
[2020-10-11] MEDS: metFORMIN 500 MG TAB PO SCH ×2 (07:58→21:12)
[2020-10-11] MEDS: HEPARIN SODIUM,PORCINE 5,000 UNIT/ML 1 ML VIAL SQ SCH ×2 (07:58→21:13)
[2020-10-11] MEDS: INSULIN ASPART (NovoLOG) 100 UNIT/ML VIAL SQ SCH ×4 (07:58→21:13)
[2020-10-11] MEDS: LOSARTAN 50 MG TAB PO SCH (07:58)
[2020-10-11] MEDS: VENLAFAXINE HCL 37.5 MG TAB PO SCH (07:58)
[2020-10-11] MEDS: NYSTATIN 100,000 UNIT/ML SUSP 500,000 UNIT/5 ML CUP PO SCH ×4 (07:59→21:13)
[2020-10-11] MEDS: PANTOPRAZOLE 40 MG/10 ML VIAL IVP SCH (07:59)
[2020-10-11] MEDS ORDERED: LEVOFLOXACIN 500MG-D5W PMX 500 MG in DEXTROSE/WATER 1 100ML.BAG IVPB SCH (09:00)
[2020-10-11 11:25] LABS: Glucose,Whole Blood 142 mg/dL (75-99)
--- NOTE | 2020-10-11 12:43 | P.PN ---
Subjective Progress Note Date: 10/11/20 History of present illness This is an 85-year-old female who presented to the emergency department with a chief complaint of generalized weakness, dehydration and inability to take her medications. Patient states that she was recently treated for C. diff and developed difficulty swallowing her pills. She seen her PCP on Friday who diagnosed with thrush and gave her Diflucan and oral nystatin. Yesterday patient was unable to swallow a single dose stating that every time she chews or attempts to swallow it comes right back up. States that this has been going on since her cholecystectomy on 09/[address] Kim. Patient is found resting in bed with complaints of difficulty swallowing. She states that this has been going on for a long time specifically worsening after her colon cystectomy. Patient states that she has no appetite that food look appealing nor does it taste appealing. Bedside swallow evaluation performed by the nurse states that patient was able to swallow thin liquids without any difficulties. This morning patient had breakfast she had a few bites of eggs which she chewed and then was unable to swallow and spit out. It does not appear that the patient has been vomiting or the food is being caught in the throat. Assessment throat did not reveal any thrush. Patient continues to have loose frequent stools that odiferous. There is no clear diagnosis of C. diff. We will order stool cultures including C. diff. 10/09: Patient states that she is depressed and not eating and has no appetite. Remeron will be started at supper. Patient denies any abdominal pain. Her abdomen is soft. Diarrhea is improving. has been maintained on Levaquin and Flagyl per Dr. Pineda. Patient has been afebrile, heart rate 61, blood pressure 129/69, pulse ox 97% on room air. potline monitor is sinus rhythm. WBC 7.5, hemoglobin 9.9, platelet count 223. Potassium 2.8 and will be replaced. Creatinine less than 5. Blood sugars running between 120 137. Magnesium 1.6. Stool culture is in progress. Urine cultures finalized with no growth after 18 hours. IV fluids will be discontinued. 10/10: Patient continues to have hypokalemia as she refused or was unable to take the potassium that was ordered yesterday. She only got part of the dose ordered. Patient is had one episode of diarrhea this morning. We will order IV potassium and recheck potassium level later today. She has been afebrile, heart rate 68, blood pressure 167/71, pulse ox 95% on room air. Potassium 2.5 last evening. Blood sugars running between 132-150. 10/11: Potassium that was obtained at 9 PM is 3.5. Blood sugars running between 133-153. Morning labs are still pending at 12:30. Patient is continued on Flagyl. She denies having any diarrhea. She states she has no appetite. Modified barium swallow was normal and patient to be on regular consistencies and thin liquids. Patient is afebrile, heart rate 67, blood pressure 150/82, pulse ox 90% on room air. Anticipate possible discharge tomorrow. Review Of Systems: Constitutional: No fever, no chills, no night sweats. No weight change. No weakness, fatigue or lethargy. No daytime sleepiness. EENT: No headache. No blurred vision or double vision, no loss of vision. No loss of Hearing, no ringing in the ears, no dizziness. No nasal drainage or congestion. No epistaxis. No sore throat. Lungs: No shortness of breath, cough, no sputum production. No wheezing. Cardiovascular: No chest pain, no lower extremity edema. No palpitations. No paroxysmal nocturnal dyspnea. No orthopnea. No lightheadedness or dizziness. No syncopal episodes. Abdominal: no abdominal discomfort. No nausea, vomiting. Denies diarrhea. No constipation. No bloody or tarry stools. Reports loss of appetite. Genitourinary: No dysuria, increased frequency, urgency. No urinary retention. Musculoskeletal: No myalgias. No muscle weakness, no gait dysfunction, no frequent falls. No back pain. No neck pain. Integumentary: No wounds, no lesions. No rash or pruritus. No unusual bruising. No change in hair or nails. Neurologic: No aphasia. No facial droop. No change in mentation. No head injury. No headache. No paralysis. No paresthesia. Psychiatric: No depression. No anxiety. No mood swings. Endocrine: No abnormal blood sugars. No weight change. No excessive sweating or thirst. Physical examination General Appearance: Alert, cooperative, no distress, 85-year-old pleasant female appears stated age. Patient appears to be in no acute distres s. Neck HEENT: Supple, no lymphadenopathy, no thyroid enlargement, no carotid bruits. Dry mucous membranes, no thrush noted Lungs: Clear to auscultation without crackles or wheezes no rhonchi, no def ormity. Chest Wall: Chest wall normal expansion with deep inspiration no tenderness and no deformity was found on exam, no costochondral pain or discomfort. Heart: Regular rate and rhythm, S1, S2 normal, no murmur, rub or gallop. Back: Symmetric, no curvature, ROM normal, no CVA tenderness. Abdomen: Soft, non-tender, no rebound or rigidity, no hepatosplenomegaly. Extremities: Extremities normal, atraumatic, no cyanosis or edema. Pulses: 2+ and symmetric. Skin: Skin color, texture, tugor normal, no rashes or lesions. Neurologic: Alert oriented x3 cranial nerves II through XII intact, no motor d eficit, no abnormal balance or gait. Generalized weakness Assessment and plan 1. Difficulty swallowing both solids and liquids possible thrust treated outpatient setting and not visualized at this time. Bedside swallow eval was appropriate. Consult Dr. Kim, barium swallow normal, continue nystatin swish and swallow 2. Acute diarrhea possible C. diff/colitis. Empirically treated with Flagyl and Levaquin in outpatient setting. We will continue Flagyl 500 mg every 8 hours, vancomycin 250 mg by mouth every 6 hours, consult infectious disease appreciated. 3. Generalized debility. Consult PT/OT. 4. Hypokalemia. Potassium replacement and recheck potassium. 5. Electrolyte disturbance. Discontinue IV fluids. 6. Urinary tract infection. 7. Diabetes mellitus. Continue metformin, 8. Hyperlipidemia continue Lipitor 10 mg by mouth at bedtime 9. Hypertension. 750 mg by mouth daily 10. Depression. Continue Effexor 11. GI prophylaxis. Protonix 12. DVT prophylaxis. Heparin subcu CODE STATUS: Full code Discharge plan: return to [facility] with [facility] tomorrow Impression and plan of care have been directed as dictated by the signing physician. Lyssa Barreto nurse practitioner acting as scribe for signing physician. Objective - Vital Signs Vital signs: Vital Signs Temp 98.4 F 10/11/20 08:00 Pulse 67 10/11/20 08:00 Resp 18 10/11/20 08:00 BP 150/82 10/11/20 08:00 Pulse Ox 98 10/11/20 08:00 Intake & Output 10/10/20 10/11/20 10/11/20 18:59 06:59 18:59 Other: Voiding Method Toilet # Voids 3 2 - Labs CBC & Chem 7: 10/09/20 05:17 10/10/20 21:08 Labs: Abnormal Lab Results - Last 24 Hours (Table) 10/10/20 10/10/20 10/10/20 Range/Units 11:37 16:41 21:02 POC Glucose (mg/dL) 132 H 156 H 153 H (75-99) mg/dL 10/11/20 Range/Units 07:03 POC Glucose (mg/dL) 133 H (75-99) mg/dL Microbiology - Last 24 Hours (Table) 10/08/20 13:03 Stool Culture - Preliminary Stool
[2020-10-11 13:41] LABS: ALT 14 U/L (4-34); AST 20 U/L (14-36); African American GFR (CKD) >90 (>60 ml/min/1.73 sqM); Albumin 3.2 g/dL (3.5-5.0); Albumin/Globulin Ratio 1.2; Alkaline Phosphatase 56 U/L (38-126); Anion Gap 12 mmol/L; Blood Urea Nitrogen 3 mg/dL (7-17); Carbon Dioxide 22 mmol/L (22-30); Chloride 97 mmol/L (98-107); Globulin 2.7 g/dL; Glucose 151 mg/dL (74-99); Magnesium 1.2 mg/dL (1.6-2.3); Non-African American GFR(CKD) 79 (>60 ml/min/1.73 sqM); Phosphorus 1.8 mg/dL (2.5-4.5); Potassium 2.8 mmol/L (3.5-5.1); Sodium 131 mmol/L (137-145); Total Bilirubin 0.7 mg/dL (0.2-1.3); Total Protein 5.9 g/dL (6.3-8.2)
[2020-10-11 15:24] LABS: Basophils # (A) 0.02 X 10*3/uL (0.00-0.10); Basophils % (A) 0.3 %; Eosinophils # (A) 0.09 X 10*3/uL (0.04-0.35); Eosinophils % (A) 1.1 %; HCT 34.8 % (37.2-46.3); HGB 11.7 g/dL (12.0-15.0); Lymphocytes # (A) 1.81 X 10*3/uL (0.90-5.00); Lymphocytes % (A) 22.8 %; MCH 30.8 pg (27.0-32.0); MCHC 33.6 g/dL (32.0-37.0); MCV 91.6 fL (80.0-97.0); Mean Platelet Volume 12.9 fL (9.5-12.2); Monocytes # (A) 0.52 X 10*3/uL (0.20-1.00); Monocytes % (A) 6.6 %; Neutrophils # (A) 5.43 X 10*3/uL (1.80-7.70); Neutrophils % (A) 68.4 %; Platelet Count 262 X 10*3/uL (140-440); RDW 17.3 % (11.5-14.5); WBC 7.93 X 10*3/uL (4.50-10.00)
[2020-10-11 16:37] LABS: Glucose,Whole Blood 138 mg/dL (75-99)
[2020-10-11] MEDS ORDERED: Phosphorus Replacement Protoco 1 EACH MISC MISCELLANE PRN ×2 (17:01→17:06)
[2020-10-11] MEDS: MIRTAZAPINE 15 MG TAB PO SCH (18:39)
[2020-10-11] MEDS: metroNIDAZOLE 500 MG TAB PO SCH ×2 (18:39→23:20)
[2020-10-11] MEDS: MAGNESIUM SULFATE-D5W PMX 1 GM in DEXTROSE/WATER 1 100ML.BAG IVPB SCH ×2 (18:40→23:19)
[2020-10-11 20:39] LABS: Glucose,Whole Blood 156 mg/dL (75-99)
[2020-10-11] MEDS ORDERED: POTASSIUM CHLORIDE ER 10 MEQ TAB.ER.PRT PO STA (21:03)
[2020-10-11] MEDS: POTASSIUM PHOSPHATE 10 MMOL in SODIUM CHLORIDE 0.9% 250 ML IV SCH (21:12)
[2020-10-11] MEDS: ATORVASTATIN 10 MG TAB PO SCH (21:12)
--- NOTE | 2020-10-11 22:51 | PN ---
PROGRESS NOTE DATE OF SERVICE: 10/11/2020 REASON FOR FOLLOWUP: Diarrhea. INTERVAL HISTORY: Patient is currently afebrile. The patient is breathing comfortably. Patient denies any chest pain. No shortness of breath or cough. No abdominal pain. No urinary symptoms. PHYSICAL EXAMINATION: Blood pressure 155/72 with a pulse of 73, temperature 99. She is 96% on room air. General description: The patient is an elderly female in the bed in no distress. RESPIRATORY SYSTEM: Unlabored breathing, clear to auscultation anteriorly. HEART: S1, S2. Regular rate and rhythm. ABDOMEN: Soft, no tenderness. LABS: Hemoglobin is 11.7, white count 7.93, BUN of 3, creatinine 0.68. Stool culture negative. DIAGNOSTIC IMPRESSION AND PLAN: Patient admitted to the hospital with diarrhea and did have some urinary symptoms, concern for urinary tract infection, possible diarrhea. So for stool culture negative. Urine is negative. Stool for C difficile was negative as well. May consider short course of oral Flagyl along with supportive treatment. Continue supportive care. MMODL / IJN: [id number] /
[2020-10-11] MEDS: POTASSIUM CHLORIDE ER 20 MEQ TAB.ER PO SCH (23:20)
[2020-10-12] MEDS: POTASSIUM CHLORIDE ER 20 MEQ TAB.ER PO SCH ×4 (00:20→20:14)
[2020-10-12] MEDS: POTASSIUM PHOSPHATE 10 MMOL in SODIUM CHLORIDE 0.9% 250 ML IV SCH (00:20)
[2020-10-12] MEDS: POTASSIUM CHLORIDE 20 MEQ in WATER FOR INJECTION 1 100ML.BAG IVPB SCH ×2 (02:25→04:29)
[2020-10-12] MEDS: MAGNESIUM SULFATE-D5W PMX 1 GM in DEXTROSE/WATER 1 100ML.BAG IVPB SCH ×2 (06:20→06:22)
[2020-10-12 07:04] LABS: Glucose,Whole Blood 124 mg/dL (75-99)
[2020-10-12] MEDS: INSULIN ASPART (NovoLOG) 100 UNIT/ML VIAL SQ SCH ×4 (09:01→20:09)
[2020-10-12] MEDS: VENLAFAXINE HCL 37.5 MG TAB PO SCH (10:34)
[2020-10-12] MEDS: metroNIDAZOLE 500 MG TAB PO SCH ×3 (10:34→23:01)
[2020-10-12] MEDS: metFORMIN 500 MG TAB PO SCH ×2 (10:34→20:14)
[2020-10-12] MEDS: PANTOPRAZOLE 40 MG TABLET PO SCH (10:34)
[2020-10-12] MEDS: LOSARTAN 50 MG TAB PO SCH (10:34)
[2020-10-12] MEDS: HEPARIN SODIUM,PORCINE 5,000 UNIT/ML 1 ML VIAL SQ SCH ×2 (10:37→20:14)
[2020-10-12 11:41] LABS: ALT 12 U/L (8-44); AST 15 U/L (13-35); African American GFR (CKD) 77.4 (60.0-200.0); Albumin/Globulin Ratio 1.94 (1.60-3.17); Alkaline Phosphatase 52 U/L (41-126); Blood Urea Nitrogen <5.0 mg/dL (9.0-27.0); Carbon Dioxide 20.9 mmol/L (21.6-31.8); Chloride 103 mmol/L (96-109); Globulin 1.8 g/dL (1.6-3.3); Glucose 132 mg/dL (70-110); Magnesium 1.8 mg/dL (1.5-2.4); Non-African American GFR(CKD) 66.8 (60.0-200.0); Phosphorus 2.3 mg/dL (2.4-5.1); Potassium 4.1 mmol/L (3.5-5.5); Sodium 136 mmol/L (135-145); Total Bilirubin 0.5 mg/dL (0.3-1.2); Total Protein 5.3 g/dL (6.2-8.2)
[2020-10-12 11:47] LABS: Glucose,Whole Blood 177 mg/dL (75-99)
[2020-10-12] MEDS: ONDANSETRON 4 MG/2 ML VIAL IVP PRN (12:28)
--- NOTE | 2020-10-12 15:03 | P.PN ---
Subjective Progress Note Date: 10/12/20 History of present illness This is an 85-year-old female who presented to the emergency department with a chief complaint of generalized weakness, dehydration and inability to take her medications. Patient states that she was recently treated for C. diff and developed difficulty swallowing her pills. She seen her PCP on Friday who diagnosed with thrush and gave her Diflucan and oral nystatin. Yesterday patient was unable to swallow a single dose stating that every time she chews or attempts to swallow it comes right back up. States that this has been going on since her cholecystectomy on 09/[address] Kim. Patient is found resting in bed with complaints of difficulty swallowing. She states that this has been going on for a long time specifically worsening after her colon cystectomy. Patient states that she has no appetite that food look appealing nor does it taste appealing. Bedside swallow evaluation performed by the nurse states that patient was able to swallow thin liquids without any difficulties. This morning patient had breakfast she had a few bites of eggs which she chewed and then was unable to swallow and spit out. It does not appear that the patient has been vomiting or the food is being caught in the throat. Assessment throat did not reveal any thrush. Patient continues to have loose frequent stools that odiferous. There is no clear diagnosis of C. diff. We will order stool cultures including C. diff. 10/09: Patient states that she is depressed and not eating and has no appetite. Remeron will be started at supper. Patient denies any abdominal pain. Her abdomen is soft. Diarrhea is improving. has been maintained on Levaquin and Flagyl per Dr. Pineda. Patient has been afebrile, heart rate 61, blood pressure 129/69, pulse ox 97% on room air. conceptor is sinus rhythm. WBC 7.5, hemoglobin 9.9, platelet count 223. Potassium 2.8 and will be replaced. Creatinine less than 5. Blood sugars running between 120 137. Magnesium 1.6. Stool culture is in progress. Urine cultures finalized with no growth after 18 hours. IV fluids will be discontinued. 10/10: Patient continues to have hypokalemia as she refused or was unable to take the potassium that was ordered yesterday. She only got part of the dose ordered. Patient is had one episode of diarrhea this morning. We will order IV potassium and recheck potassium level later today. She has been afebrile, heart rate 68, blood pressure 167/71, pulse ox 95% on room air. Potassium 2.5 last evening. Blood sugars running between 132-150. 10/11: Potassium that was obtained at 9 PM is 3.5. Blood sugars running between 133-153. Morning labs are still pending at 12:30. Patient is continued on Flagyl. She denies having any diarrhea. She states she has no appetite. Modified barium swallow was normal and patient to be on regular consistencies and thin liquids. Patient is afebrile, heart rate 67, blood pressure 150/82, pulse ox 90% on room air. Anticipate possible discharge tomorrow. 10/12: The patient continues to state that she is not hungry and not eating very much. She has not had diarrhea for 2 days. Discussed with her again the need for taking potassium which she is agreeing to take oral potassium. Lab work continues to be pending at the time of evaluation. K-Dur 20 milliequivalents twice daily has been added. Telemetry will be discontinued. Anticipate discharge home tomorrow. Blood sugars are running between 138 156. Review Of Systems: Constitutional: No fever, no chills, no night sweats. No weight change. No weakness, fatigue or lethargy. No daytime sleepiness. EENT: No headache. No blurred vision or double vision, no loss of vision. No loss of Hearing, no ringing in the ears, no dizziness. No nasal drainage or congestion. No epistaxis. No sore throat. Lungs: No shortness of breath, cough, no sputum production. No wheezing. Cardiovascular: No chest pain, no lower extremity edema. No palpitations. No paroxysmal nocturnal dyspnea. No orthopnea. No lightheadedness or dizziness. No syncopal episodes. Abdominal: no abdominal discomfort. No nausea, vomiting. Denies diarrhea. No constipation. No bloody or tarry stools. Reports loss of appetite. Genitourinary: No dysuria, increased frequency, urgency. No urinary retention. Musculoskeletal: No myalgias. No muscle weakness, no gait dysfunction, no frequent falls. No back pain. No neck pain. Integumentary: No wounds, no lesions. No rash or pruritus. No unusual bruising. No change in hair or nails. Neurologic: No aphasia. No facial droop. No change in mentation. No head injury. No headache. No paralysis. No paresthesia. Psychiatric: No depression. No anxiety. No mood swings. Endocrine: Mildly abnormal blood sugars. No weight change. No excessive sweating or thirst. Physical examination General Appearance: Alert, cooperative, no distress, 85-year-old pleasant female appears stated age. Patient appears to be in no acute distress. Neck HEENT: Supple, no lymphadenopathy, no thyroid enlargement, no carotid bruits. Dry mucous membranes, no thrush noted Lungs: Clear to auscultation without crackles or wheezes no rhonchi, no deformity. Chest Wall: Chest wall normal expansion with deep inspiration no tenderness and no deformity was found on exam, no costochondral pain or discomfort. Heart: Regular rate and rhythm, S1, S2 normal, no murmur, rub or gallop. Back: Symmetric, no curvature, ROM normal, no CVA tenderness. Abdomen: Soft, non-tender, no rebound or rigidity, no hepatosplenomegaly. Extremities: Extremities normal, atraumatic, no cyanosis or edema. Pulses: 2+ and symmetric. Skin: Skin color, texture, tugor normal, no rashes or lesions. Neurologic: Alert oriented x3 cranial nerves II through XII intact, no motor deficit, no abnormal balance or gait. Generalized weakness Assessment and plan 1. Difficulty swallowing both solids and liquids possible thrust treated outpatient setting and not visualized at this time. Bedside swallow eval was appropriate. Consult Dr. Kim, barium swallow normal, continue nystatin swish and swallow 2. Acute diarrhea possible C. diff/colitis, resolved. Empirically treated with Flagyl and Levaquin in outpatient setting. We will continue Flagyl 500 mg every 8 hours, consult infectious disease appreciated. 3. Generalized debility. Consult PT/OT. 4. Hypokalemia. Potassium replacement and recheck potassium. 5. Electrolyte disturbance. Discontinue IV fluids. 6. Urinary tract infection, ruled out. 7. Diabetes mellitus. Continue metformin, 8. Hyperlipidemia continue Lipitor 10 mg by mouth at bedtime 9. Hypertension. 750 mg by mouth daily 10. Depression. Continue Effexor 11. GI prophylaxis. Protonix 12. DVT prophylaxis. Heparin subcu CODE STATUS: Full code [place] plan: [place] [facility] [facility] tomorrow Impression and plan of care have been directed as dictated by the signing physician. Lyssa Barreto nurse practitioner acting as scribe for signing physician. Objective - Vital Signs Vital signs: Vital Signs Temp 98.5 F 10/12/20 08:00 Pulse 74 10/12/20 08:00 Resp 16 10/12/20 08:00 BP 159/88 10/12/20 08:00 Pulse Ox 97 10/12/20 08:00 Intake & Output 10/11/20 10/12/20 10/12/20 18:59 06:59 18:59 Weight 55.792 kg Other: Voiding Method Toilet # Voids 5 - Labs CBC & Chem 7: 10/11/20 07:31 10/12/20 07:37 Labs: Abnormal Lab Results - Last 24 Hours (Table) 10/11/20 10/11/20 10/11/20 Range/Units 07:31 11:24 13:05 RBC 3.80 L (4.10-5.20) X 10*6/uL Hgb 11.7 L (12.0-15.0) g/dL Hct 34.8 L (37.2-46.3) % RDW 17.3 H (11.5-14.5) % MPV 12.9 H (9.5-12.2) fL Immature Gran # 0.06 H (0.00-0.04) X 10*3/uL Sodium 131 L (137-145) mmol/L Potassium 2.8 L (3.5-5.1) mmol/L Chloride 97 L (98-107) mmol/L BUN 3 L (7-17) mg/dL Glucose 151 H (74-99) mg/dL POC Glucose (mg/dL) 142 H (75-99) mg/dL Calcium 8.0 L (8.4-10.2) mg/dL Phosphorus 1.8 L (2.5-4.5) mg/dL Magnesium 1.2 L (1.6-2.3) mg/dL Total Protein 5.9 L (6.3-8.2) g/dL Albumin 3.2 L (3.5-5.0) g/dL 10/11/20 10/11/20 10/12/20 Range/Units 16:35 20:37 07:03 RBC (4.10-5.20) X 10*6/uL Hgb (12.0-15.0) g/dL Hct (37.2-46.3) % RDW (11.5-14.5) % MPV (9.5-12.2) fL Immature Gran # (0.00-0.04) X 10*3/uL Sodium (137-145) mmol/L Potassium (3.5-5.1) mmol/L Chloride (98-107) mmol/L BUN (7-17) mg/dL Glucose (74-99) mg/dL POC Glucose (mg/dL) 138 H 156 H 124 H (75-99) mg/dL Calcium (8.4-10.2) mg/dL Phosphorus (2.5-4.5) mg/dL Magnesium (1.6-2.3) mg/dL Total Protein (6.3-8.2) g/dL Albumin (3.5-5.0) g/dL Microbiology - Last 24 Hours (Table) 10/08/20 13:03 Stool Culture - Final Stool
[2020-10-12] MEDS ORDERED: POTASSIUM PHOSPHATE 10 MMOL in SODIUM CHLORIDE 0.9% 250 ML IV ONE (15:45)
[2020-10-12 16:53] LABS: Glucose,Whole Blood 148 mg/dL (75-99)
[2020-10-12] MEDS: MIRTAZAPINE 15 MG TAB PO SCH (17:35)
[2020-10-12 20:04] LABS: Glucose,Whole Blood 158 mg/dL (75-99)
[2020-10-12] MEDS: ATORVASTATIN 10 MG TAB PO SCH (20:14)
--- NOTE | 2020-10-12 23:12 | PN ---
PROGRESS NOTE DATE OF SERVICE: 10/12/2020 REASON FOR FOLLOWUP: Diarrhea and a question of infectious etiology. INTERVAL HISTORY: The patient is currently afebrile. The patient is breathing comfortably. Denies having any chest pain or shortness of breath or cough. No abdominal pain. Diarrhea has resolved. PHYSICAL EXAMINATION: Blood pressure 142/82 with a pulse of 75, temperature 98.4. She is 95% on room air. General description is an elderly female up in the bed in no distress. RESPIRATORY SYSTEM: Unlabored breathing. Clear to auscultation anteriorly. HEART: S1, S2. Regular rate and rhythm. ABDOMEN: Soft. No tenderness. LABS: BUN of 5, creatinine 0.8. Stool culture negative. Urine is negative. DIAGNOSTIC IMPRESSION AND PLAN: Patient admitted to hospital with weakness which is multifactorial in this patient with an initial concern for urinary tract infection. Urine culture negative. Currently off Levaquin. She also had diarrhea. Stool for C difficile negative. Culture negative. Improvement with the Flagyl, which will be continued for a short course. Continue with supportive care. FERDINANDL / CHAPISN: [id number] / CRISPIN
[2020-10-13 07:12] LABS: Glucose,Whole Blood 157 mg/dL (75-99)
[2020-10-13 07:23] VITALS: BP 154/83; PULSE 66; RESP 18; TEMP 97.2
[2020-10-13] MEDS: PANTOPRAZOLE 40 MG TABLET PO SCH (08:42)
[2020-10-13] MEDS: metFORMIN 500 MG TAB PO SCH (08:42)
[2020-10-13] MEDS: metroNIDAZOLE 500 MG TAB PO SCH (08:42)
[2020-10-13] MEDS: HEPARIN SODIUM,PORCINE 5,000 UNIT/ML 1 ML VIAL SQ SCH (08:42)
[2020-10-13] MEDS: INSULIN ASPART (NovoLOG) 100 UNIT/ML VIAL SQ SCH ×2 (08:42→11:41)
[2020-10-13] MEDS: POTASSIUM CHLORIDE ER 20 MEQ TAB.ER PO SCH (08:42)
[2020-10-13] MEDS: LOSARTAN 50 MG TAB PO SCH (08:42)
[2020-10-13] MEDS: VENLAFAXINE HCL 37.5 MG TAB PO SCH (08:42)
[2020-10-13] MEDS: ONDANSETRON 4 MG/2 ML VIAL IVP PRN (08:45)
[2020-10-13] MEDS ORDERED: ACETAMINOPHEN IV (For NPO) 1,000 MG in EMPTY BAG 1 BAG IVPB PRN (11:08)
[2020-10-13 11:38] LABS: Glucose,Whole Blood 149 mg/dL (75-99)
[2020-10-13 14:27] LABS: ALT 13 U/L (8-44); AST 19 U/L (13-35); African American GFR (CKD) 67.1 (60.0-200.0); Alkaline Phosphatase 58 U/L (41-126); Blood Urea Nitrogen <5.0 mg/dL (9.0-27.0); Calcium 8.1 mg/dL (8.7-10.3); Carbon Dioxide 25.5 mmol/L (21.6-31.8); Chloride 99 mmol/L (96-109); Glucose 130 mg/dL (70-110); Magnesium 1.6 mg/dL (1.5-2.4); Non-African American GFR(CKD) 57.9 (60.0-200.0); Phosphorus 2.4 mg/dL (2.4-5.1); Potassium 3.9 mmol/L (3.5-5.5); Sodium 135 mmol/L (135-145); Total Bilirubin 0.6 mg/dL (0.3-1.2); Total Protein 5.8 g/dL (6.2-8.2)
--- NOTE | 2020-10-14 13:04 | P.PN ---
Subjective Progress Note Date: 10/13/20 HISTORY OF PRESENT ILLNESS This is an 85-year-old woman treated for diarrhea possible infectious etiology. Patient had one episode of diarrhea this morning but otherwise seems to have resolved. She denies having any chest pain or shortness of breath. No abdominal pain. She does complain of some nausea. Plan is for Flagyl. Patient is scheduled for discharge home today. PHYSICAL EXAMINATION Gen: This is an 85-year-old female. Patient is resting comfortably in her room, ambulating within her room and appears to be in no acute distress. HEENT: Head is atraumatic, normocephalic. Pupils equal, round. Sclerae is anicteric. NECK: Supple. No JVD. No lymphadenopathy. LUNGS: Clear to auscultation. No wheezes or rhonchi. No intercostal retractions. HEART: Regular rate and rhythm. ABDOMEN: Soft. Bowel sounds are present. No masses. No tenderness. EXTREMITIES: No pedal edema. No calf tenderness. NEUROLOGICAL: Patient is awake, alert and oriented x3. ASSESSMENT Diarrhea, possible infectious etiology PLAN Plan for short course of Flagyl as an outpatient. The above dictated assessment and findings were discussed with Dr. Pineda. The impression and plan of care have been directed as dictated. Lyssa Barreto nurse practitioner acting as scribe for Dr. Pineda. Objective - Vital Signs Vital signs: Vital Signs Temp 97.2 F L 10/13/20 07:23 Pulse 66 10/13/20 07:23 Resp 18 10/13/20 07:23 BP 154/83 10/13/20 07:23 Pulse Ox 97 10/13/20 07:23 Intake & Output 10/12/20 10/13/20 10/13/20 18:59 06:59 18:59 Intake Total 118 Balance 118 Intake: Oral 118 Other: Voiding Method Toilet # Voids 4 3 # Bowel Movements 2 0 - Labs CBC & Chem 7: 10/11/20 07:31 10/13/20 06:47 Labs: Abnormal Lab Results - Last 24 Hours (Table) 10/12/20 10/12/20 10/13/20 Range/Units 16:53 20:03 07:11 POC Glucose (mg/dL) 148 H 158 H 157 H (75-99) mg/dL 10/13/20 Range/Units 11:37 POC Glucose (mg/dL) 149 H (75-99) mg/dL Microbiology - Last 24 Hours (Table) 10/08/20 13:03 Stool Culture - Final Stool
--- NOTE | 2020-10-14 13:05 | P.DS ---
Providers Date of admission: 10/07/20 13:10 Expected date of discharge: 10/13/20 Attending physician: Alhaji Mayorga Consults: 10/08/20 09:57 Consult Physician Routine Consulting Provider: Chintan Pineda Consult Reason/Comments: UTI Do you want consulting provider notified?: Yes 10/08/20 10:11 Consult Physician Routine Consulting Provider: Eileen Kim Consult Reason/Comments: dysphagia, post cholestectomy Do you want consulting provider notified?: Yes Primary care physician: [facility] Course: History of present illness This is an 85-year-old female who presented to the emergency department with a chief complaint of generalized weakness, dehydration and inability to take her medications. Patient states that she was recently treated for C. diff and developed difficulty swallowing her pills. She seen her PCP on Friday who diagnosed with thrush and gave her Diflucan and oral nystatin. Yesterday patient was unable to swallow a single dose stating that every time she chews or attempts to swallow it comes right back up. States that this has been going on since her cholecystectomy on 09/[address] Kim. Patient is found resting in bed with complaints of difficulty swallowing. She states that this has been going on for a long time specifically worsening after her colon cystectomy. Patient states that she has no appetite that food look appealing nor does it taste appealing. Bedside swallow evaluation performed by the nurse states that patient was able to swallow thin liquids without any difficulties. This morning patient had breakfast she had a few bites of eggs which she chewed and then was unable to swallow and spit out. It does not appear that the patient has been vomiting or the food is being caught in the throat. Assessment throat did not reveal any thrush. Patient continues to have loose frequent stools that odiferous. There is no clear diagnosis of C. diff. We will order stool cultures including C. diff. 10/09: Patient states that she is depressed and not eating and has no appetite. Remeron will be started at supper. Patient denies any abdominal pain. Her abdomen is soft. Diarrhea is improving. has been maintained on Levaquin and Flagyl per Dr. Pineda. Patient has been afebrile, heart rate 61, blood pressure 129/69, pulse ox 97% on room air. electronic device monitor is sinus rhythm. WBC 7.5, hemoglobin 9.9, platelet count 223. Potassium 2.8 and will be replaced. Creatinine less than 5. Blood sugars running between 120 137. Magnesium 1.6. Stool culture is in progress. Urine cultures finalized with no growth after 18 hours. IV fluids will be discontinued. 10/10: Patient continues to have hypokalemia as she refused or was unable to take the potassium that was ordered yesterday. She only got part of the dose ordered. Patient is had one episode of diarrhea this morning. We will order IV potassium and recheck potassium level later today. She has been afebrile, heart rate 68, blood pressure 167/71, pulse ox 95% on room air. Potassium 2.5 last evening. Blood sugars running between 132-150. 10/11: Potassium that was obtained at 9 PM is 3.5. Blood sugars running between 133-153. Morning labs are still pending at 12:30. Patient is continued on Flagyl. She denies having any diarrhea. She states she has no appetite. Modified barium swallow was normal and patient to be on regular consistencies and thin liquids. Patient is afebrile, heart rate 67, blood pressure 150/82, pulse ox 90% on room air. Anticipate possible discharge tomorrow. 10/12: The patient continues to state that she is not hungry and not eating very much. She has not had diarrhea for 2 days. Discussed with her again the need for taking potassium which she is agreeing to take oral potassium. Lab work continues to be pending at the time of evaluation. K-Dur 20 milliequivalents twice daily has been added. Telemetry will be discontinued. Anticipate discharge home tomorrow. Blood sugars are running between 138 156. 10/13: The patient does complain of some nausea. She had one small episode of diarrhea this morning but otherwise this has resolved. She denies any shortness of breath or chest pain. No abdominal pain. Dr. carrera has recommended short course of Flagyl as an outpatient. Repeat blood work revealed potassium of 3.9. Electrolytes are normal, creatinine 0.9. Blood sugars are running between 130 and 158. She has been afebrile, heart rate 66, blood pressure 154/83, pulse ox 97% on room air. Patient will be discharged home today in stable condition. Assessment and plan 1. Difficulty swallowing both solids and liquids possible thrust treated outpatient setting and not visualized at this time. Bedside swallow eval was appropriate. 2. Acute diarrhea possible C. diff/colitis, resolved. 3. Generalized debility. 4. Hypokalemia. 5. Electrolyte disturbance. 6. Urinary tract infection, ruled out. 7. Diabetes mellitus. 8. Hyperlipidemia 9. Hypertension. 10. Depression. Discharge plan: return to [facility] with [facility] Impression and plan of care have been directed as dictated by the signing physician. Lyssa Barreto nurse practitioner acting as scribe for signing physician. Patient Condition at Discharge: Good Plan - Discharge Summary Discharge Rx Participant: Yes New Discharge Prescriptions: New metroNIDAZOLE [Flagyl] 500 mg PO Q8HR #15 tab Potassium Chloride ER [K-Dur 10] 10 meq PO DAILY #30 tab Mirtazapine [Remeron] 7.5 mg PO 1800 #30 tab Continue Simvastatin [Zocor] 20 mg PO HS Losartan Potassium [Cozaar] 50 mg PO DAILY Pantoprazole [Protonix] 40 mg PO DAILY #30 tablet. Metoclopramide [Reglan] 10 mg PO Q8H PRN #21 tab PRN Reason: Vomiting Venlafaxine HCl [Effexor] 37.5 mg PO DAILY Ondansetron Odt [Zofran ODT] 4 mg PO Q6H PRN PRN Reason: Nausea Nystatin 100,000 Unit/ml Susp [Mycostatin Oral Susp] 5 ml PO QID Fluconazole [Diflucan] 150 mg PO DAILY Repaglinide [Prandin] 4 mg PO BID-W/MEALS #0 Discontinued metFORMIN HCL 500 mg PO HS metFORMIN HCL 1,000 mg PO DAILY metroNIDAZOLE 250 mg PO TID Levofloxacin [Levaquin] 250 mg PO DAILY Discharge Medication List Losartan Potassium [Cozaar] 50 mg PO DAILY 07/03/17 [History] Simvastatin [Zocor] 20 mg PO HS 07/03/17 [History] Pantoprazole [Protonix] 40 mg PO DAILY #30 tablet. 09/18/20 [Rx] Metoclopramide [Reglan] 10 mg PO Q8H PRN #21 tab 09/30/20 [Rx] Fluconazole [Diflucan] 150 mg PO DAILY 10/07/20 [History] Nystatin 100,000 Unit/ml Susp [Mycostatin Oral Susp] 5 ml PO QID 10/07/20 [History] Ondansetron Odt [Zofran ODT] 4 mg PO Q6H PRN 10/07/20 [History] Venlafaxine HCl [Effexor] 37.5 mg PO DAILY 10/07/20 [History] Mirtazapine [Remeron] 7.5 mg PO 1800 #30 tab 10/13/20 [Rx] Potassium Chloride ER [K-Dur 10] 10 meq PO DAILY #30 tab 10/13/20 [Rx] Repaglinide [Prandin] 4 mg PO BID-W/MEALS #0 10/13/20 [Rx] metroNIDAZOLE [Flagyl] 500 mg PO Q8HR #15 tab 10/13/20 [Rx] Follow up Appointment(s)/Referral(s): Alhaji Mayorga MD [Primary Care Provider] - 10/20/20 9:30 am (With [facility], [NON-STAFF] - As Needed Chintan Pineda MD [STAFF PHYSICIAN] - 1 Week (Office will call with appointment if follow up is needed) Patient Instructions/Handouts: Dehydration (DC), Gastroenteritis (DC) Discharge Disposition: HOME WITH HOME HEALTH SERVICES
== END 2020-10-13 15:38 | disposition home health service (06) | DRG 372 ==
LOC: EC 11:17 → 4SSUR 13:10
PROVIDERS: ADMIT Internal Medicine Geriatric Medicine; ATTEND Internal Medicine Geriatric Medicine
DX: A04.72 Enterocolitis due to Clostridium difficile, not specified as recurrent (principal); B37.0 Candidal stomatitis; N39.0 Urinary tract infection, site not specified; E11.9 Type 2 diabetes mellitus without complications; Z20.822 Contact with and (suspected) exposure to COVID-19; E78.5 Hyperlipidemia, unspecified; E83.42 Hypomagnesemia; E86.0 Dehydration; E87.6 Hypokalemia; F32.9 Major depressive disorder, single episode, unspecified; I10 Essential (primary) hypertension; R13.10 Dysphagia, unspecified; R63.3 Feeding difficulties; Z77.22 Contact with and (suspected) exposure to environmental tobacco smoke (acute) (chronic); Z79.84 Long term (current) use of oral hypoglycemic drugs; Z79.899 Other long term (current) drug therapy; Z80.8 Family history of malignant neoplasm of other organs or systems; Z82.5 Family history of asthma and other chronic lower respiratory diseases; Z86.19 Personal history of other infectious and parasitic diseases; Z90.49 Acquired absence of other specified parts of digestive tract; Z90.710 Acquired absence of both cervix and uterus; Z98.41 Cataract extraction status, right eye; Z91.040 Latex allergy status
CPT/HCPCS: 36415; 74230; 80048; 80053; 81001; 83605; 83630; 83690; 83735; 84100; 84132; 85025; 87045; 87046; 87086; 87324; 87635; 93005; 96365; 96366; 96368; 99285

== ENCOUNTER 2021-01-16 08:46 | Observation (INO) | payer MEDICARE ==
[2021-01-16 09:51] LABS: Basophils % (A) 0 %; Eosinophils # (A) 0.1 k/uL (0-0.7); Eosinophils % (A) 1 %; HCT 37.1 % (34.0-46.0); HGB 11.7 gm/dL (11.4-16.0); Lymphocytes # (A) 1.5 k/uL (1.0-4.8); Lymphocytes % (A) 21 %; MCH 30.5 pg (25.0-35.0); MCHC 31.6 g/dL (31.0-37.0); MCV 96.7 fL (80.0-100.0); Mean Platelet Volume 7.9; Monocytes # (A) 0.3 k/uL (0-1.0); Monocytes % (A) 4 %; Neutrophils # (A) 5.2 k/uL (1.3-7.7); Neutrophils % (A) 73 %; Platelet Count 358 k/uL (150-450); RBC 3.84 m/uL (3.80-5.40); RDW 14.7 % (11.5-15.5); WBC 7.2 k/uL (3.8-10.6)
[2021-01-16 10:02] LABS: INR 0.9 (<1.2); Partial Thromboplastin Time 22.9 sec (22.0-30.0); Prothrombin Time 10.2 sec (9.0-12.0)
[2021-01-16 10:13] LABS: Albumin 2.9 g/dL (3.5-5.0); Calcium 7.3 mg/dL (8.4-10.2); Total Bilirubin 0.6 mg/dL (0.2-1.3); Total Protein 5.7 g/dL (6.3-8.2)
--- NOTE | 2021-01-16 10:13 | XR ---
EXAMINATION TYPE: XR chest 2V DATE OF EXAM: 01/16/2021 COMPARISON: Chest x-ray September 04, 2020. CTA chest September 03, 2020 HISTORY: Weakness. TECHNIQUE: Frontal and lateral views of the chest are obtained. FINDINGS: There is chronic parenchymal change without suspicious focal air space opacity or pneumoth orax seen. New Small to tiny left pleural effusion. The cardiac silhouette size is stable and within normal limits with atherosclerotic change thoracic aorta. Retrocardiac opacity consistent with smal l diaphragmatic hernia is stable. The osseous structures remain demineralized. IMPRESSION: Chronic parenchymal changes with new small to tiny left pleural effusion.
[2021-01-16] MEDS ORDERED: POTASSIUM CHLORIDE ER 20 MEQ TAB.ER PO STA (10:30)
--- NOTE | 2021-01-16 10:57 | CT ---
EXAMINATION TYPE: CT brain wo con for TPA DATE OF EXAM: 01/16/2021 HISTORY: Neuro deficit acute onset CT DLP: 1102.8 mGycm. Automated Exposure Control for Dose Reduction was Utilized. TECHNIQUE: CT scan of the head is performed without contrast. COMPARISON: None. FINDINGS: There is no acute intracranial hemorrhage or midline shift identified. There is mild to m oderate diffuse ventricular and sulcal prominence consistent with diffuse age-related cerebral atroph y. There is mild to moderate low-attenuation in the periventricular white matter consistent with chr onic small vessel ischemic change. The globes are intact and the visualized sinuses are clear. IMPRESSION: No acute intracranial hemorrhage or midline shift. There is mild to moderate diffuse ag e-related cerebral atrophy and chronic small vessel ischemic change noted.
--- NOTE | 2021-01-16 11:23 | CT ---
EXAMINATION TYPE: CT angio head neck DATE OF EXAM: 01/16/2021 HISTORY: Neuro deficit acute onset. Code stroke. COMPARISON: None. CT DLP: 308.2 mGycm. Automated Exposure Control for Dose Reduction was Utilized. TECHNIQUE: CTA scan of the head and neck are performed with IV Contrast, patient injected with 65 mL of Isovue 370, axial images are obtained, coronal and sagittal reformatted images are reviewed. Thre e-D reconstructed images are created on an independent workstation and reviewed. FINDINGS: Carotid/Vascular Structures: Mild peripheral plaque in the aortic arch. Normal three-vessel origin fr om aortic arch. Normal origin right common carotid artery from right brachiocephalic artery. Mild per ipheral plaque bilateral carotid bulb level without significant stenosis. Patent external carotid art eries bilaterally without significant stenosis. Codominant vertebrobasilar system patent to basilar origin. No significant focal stenosis or aneurysm in the posterior circulation. Hypoplastic bilateral posterior communicating arteries. Anterior circulation shows mild peripheral calcified plaque. Patent anterior communicating artery. No significant focal stenosis or aneurysm. Other: Underlying scoliosis. Severe disc space narrowing C3-C4 level. Vmpoirst-rw-xdovyp disc space n arrowing at C4-C5 and C5-C6 levels. Partial visualization of at least tiny left pleural effusion. IMPRESSION: 1. No significant stenosis in common or internal carotid arteries bilaterally. 2. No significant stenosis or aneurysm at the level of the [place].
[2021-01-16] MEDS ORDERED: ASPIRIN 325 MG TAB PO STA (12:03)
--- NOTE | 2021-01-16 12:05 | ED ---
Neuro HPI <Kilo Rivas - Last Filed: 01/16/21 12:06> - General Source: patient, family Mode of arrival: wheelchair Limitations: physical limitation - History of Present Illness Is the patient presenting with stroke symptoms?: No <Amy Kong - Last Filed: 01/16/21 13:49> - General Chief Complaint: Neuro Symptoms/Deficit Stated Complaint: facial numbness Time Seen by Provider: 01/16/21 08:55 - History of Present Illness Initial Comments: An 85 year old female presents emergency department today for chief complaint of right-sided facial numbness. Patient states yesterday morning she woke up with right-sided facial numbness. She states that it has been on and off for the past 2 days and that she woke up with it again this morning his forehead and the bottom portion of her face. She denies a sensation deficits or weakness of the upper or lower extremity shows speech changes vision changes diplopia headache nausea vomiting falls trauma anticoagulation use. Patient denies any off- balance sensation or dizziness. Pt denies additional complaints.. Upon arrival patient appearse well nontoxic in no acute distress. symptom currently present. (Amy Kong) - Related Data Home Medications: Home Medications Medication Instructions Recorded Confirmed Losartan Potassium [Cozaar] 50 mg PO DAILY 07/03/17 01/16/21 Simvastatin [Zocor] 20 mg PO HS 07/03/17 01/16/21 Venlafaxine HCl [Effexor] 37.5 mg PO DAILY 10/07/20 01/16/21 Dronabinol [Marinol] 2.5 mg PO BID 01/16/21 01/16/21 Magnesium 200 mg PO DAILY 01/16/21 01/16/21 Mirtazapine 7.5 mg PO HS 01/16/21 01/16/21 Potassium Chloride ER [K-Dur 10] 10 meq PO BID 01/16/21 01/16/21 Repaglinide [Prandin] 4 mg PO AC-BID 01/16/21 01/16/21 Previous Rx's Medication Instructions Recorded Pantoprazole [Protonix] 40 mg PO DAILY #30 tablet. 09/18/20 Allergies/Adverse Reactions: Allergies Allergy/AdvReac Type Severity Reaction Status Date / Time latex Allergy Unknown Itching Verified 01/16/21 12:05 Review of Systems ROS Other: All systems not noted in ROS Statement are negative. <Kilo Rivas - Last Filed: 01/16/21 12:06> ROS Other: All systems not noted in ROS Statement are negative. <Amy Kong - Last Filed: 01/16/21 13:49> ROS Statement: Those systems with pertinent positive or pertinent negative responses have been documented in the HPI. General Exam Limitations: physical limitation <Amy Kong - Last Filed: 01/16/21 13:49> - General Exam Comments Initial Comments: General: The patient is awake and alert, in no distress Eye: +3 mm pupils are equal, round and reactive to light, extra-ocular movements are intact. No nystagmus. There is normal conjunctiva bilaterally. No signs of icterus. Ears, nose, mouth and throat: There are moist mucous membranes and no oral lesions. Neck: The neck is supple, there is no tenderness or JVD. Cardiovascular: There is a regular rate and rhythm. No murmur, rub or gallop is appreciated. Respiratory: Lungs are clear to auscultation, respirations are non-labored, breath sounds are equal. No wheezes, stridor, rales, or rhonchi. Gastrointestinal: Soft, non-distended, non-tender abdomen without masses or organomegaly noted. There is no rebound or guarding present Musculoskeletal: Normal ROM, no tenderness. Strength 5/5. Sensation intact. Radial and DP pulses equal bilaterally 2+. Neurological: A&O x 3. CN II-XII intact,memory intact to immediately, intermediate and bin worker recall. Able to follow simple verbal. Able to name a common object (pen). High quality, labial (pa) and lingual (la) speech. Low quality posterior pharynx/larynx (ga) voice sounds. Able to express general knowledge (days in a week). No hemineglect or inattention noted. Finger agnosia (-) and spatially oriented (identified L index finger touched R shoulder with L index finger).Light touch and temperature sensation present over the chest, abdomen, back, UE bilaterally, and LE bilaterally. Decreased over right side of the face. Able to localize point during point localization b/l and extinction. No visible bulk atrophy, hypertrophy, fasciculations, or myoclonus of the UE or LE b/l. Full PROM in UE and LE b/l. Bilateral muscle strength 5/5 for the following muscles: deltoid, biceps, triceps, brachioradialis, wrist extensors/flexor, hip flexor, hip abductors/adductors, hamstrings, quadriceps, feet dorsiflexors/plantar flexors. Finger to nose, finger to the examiners finger, and heel to garrison coordinated and accurate b/l. Coordinated and even d emonstration of hand flip, finger to thumb, and toe tap b/l. . Gait is coordinated and even in stride with tandem, toe and heel walk. (-) pronator drift. No nuchal rigidity. . Skin: Skin is warm and dry and no rashes or lesions are noted. Psychiatric: Cooperative, appropriate mood & affect, normal judgment. (Amy Kong) Stroke MDM - Lab Data Result diagrams: 01/16/21 09:19 01/16/21 09:07 <Kilo Rivas - Last Filed: 01/16/21 12:06> - Lab Data Result diagrams: 01/16/21 09:19 01/16/21 09:07 - NIH Stroke Scale NIH Score total: 1 <Amy Kong - Last Filed: 01/16/21 13:49> - Lab Data Lab Results 01/16/21 01/16/21 01/16/21 Range/Units 09:07 09:19 09:19 WBC 7.2 (3.8-10.6) k/uL RBC 3.84 (3.80-5.40) m/uL Hgb 11.7 (11.4-16.0) gm/dL Hct 37.1 (34.0-46.0) % MCV 96.7 (80.0-100.0) fL MCH 30.5 (25.0-35.0) pg MCHC 31.6 (31.0-37.0) g/dL RDW 14.7 (11.5-15.5) % Plt Count 358 (150-450) k/uL MPV 7.9 Neutrophils % 73 % Lymphocytes % 21 % Monocytes % 4 % Eosinophils % 1 % Basophils % 0 % Neutrophils # 5.2 (1.3-7.7) k/uL Lymphocytes # 1.5 (1.0-4.8) k/uL Monocytes # 0.3 (0-1.0) k/uL Eosinophils # 0.1 (0-0.7) k/uL Basophils # 0.0 (0-0.2) k/uL PT 10.2 (9.0-12.0) sec INR 0.9 (<1.2) APTT 22.9 (22.0-30.0) sec Sodium 138 (137-145) mmol/L Potassium 3.0 L (3.5-5.1) mmol/L Chloride 106 (98-107) mmol/L Carbon Dioxide 22 (22-30) mmol/L Anion Gap 10 mmol/L BUN 16 (7-17) mg/dL Creatinine 0.82 (0.52-1.04) mg/dL Est GFR (CKD-EPI)AfAm 75 (>60 ml/min/1.73 sqM) Est GFR (CKD-EPI)NonAf 65 (>60 ml/min/1.73 sqM) Glucose 70 L (74-99) mg/dL Calcium 7.3 L (8.4-10.2) mg/dL Total Bilirubin 0.6 (0.2-1.3) mg/dL AST 23 (14-36) U/L ALT 10 (4-34) U/L Alkaline Phosphatase 54 (38-126) U/L Troponin I (0.000-0.034) ng/mL Total Protein 5.7 L (6.3-8.2) g/dL Albumin 2.9 L (3.5-5.0) g/dL 01/16/21 Range/Units 09:19 WBC (3.8-10.6) k/uL RBC (3.80-5.40) m/uL Hgb (11.4-16.0) gm/dL Hct (34.0-46.0) % MCV (80.0-100.0) fL MCH (25.0-35.0) pg MCHC (31.0-37.0) g/dL RDW (11.5-15.5) % Plt Count (150-450) k/uL MPV Neutrophils % % Lymphocytes % % Monocytes % % Eosinophils % % Basophils % % Neutrophils # (1.3-7.7) k/uL Lymphocytes # (1.0-4.8) k/uL Monocytes # (0-1.0) k/uL Eosinophils # (0-0.7) k/uL Basophils # (0-0.2) k/uL PT (9.0-12.0) sec INR (<1.2) APTT (22.0-30.0) sec Sodium (137-145) mmol/L Potassium (3.5-5.1) mmol/L Chloride (98-107) mmol/L Carbon Dioxide (22-30) mmol/L Anion Gap mmol/L BUN (7-17) mg/dL Creatinine (0.52-1.04) mg/dL Est GFR (CKD-EPI)AfAm (>60 ml/min/1.73 sqM) Est GFR (CKD-EPI)NonAf (>60 ml/min/1.73 sqM) Glucose (74-99) mg/dL Calcium (8.4-10.2) mg/dL Total Bilirubin (0.2-1.3) mg/dL AST (14-36) U/L ALT (4-34) U/L Alkaline Phosphatase (38-126) U/L Troponin I 0.012 (0.000-0.034) ng/mL Total Protein (6.3-8.2) g/dL Albumin (3.5-5.0) g/dL - Medical Decision Making symptoms >24 hours. NIH 1. resolving. pt CT CTA no acute process. pt symptoms resolved completely.will be admitted for TIA evaluation. given aspirin. MRI ordered per Dr Batres and neurology on consultation. Pt agreeable to care plan. Overall EKG has a lot of artifact secondary to patient shaking. (Amy Kong) Past Medical History Past Medical History: Diabetes Mellitus, Eye Disorder, Hyperlipidemia, Hypertension, Osteoarthritis (OA) Additional Past Medical History / Comment(s): back pain., hx of vertigo., cataract left eye. History of Any Multi-Drug Resistant Organisms: C-DIFF Date of last positivie culture/infection: 10/05/20 MDRO Source:: stool Past Surgical History: Cholecystectomy, Hysterectomy Additional Past Surgical History / Comment(s): right cataract (jul 2017) Past Anesthesia/Blood Transfusion Reactions: No Reported Reaction Past Psychological History: No Psychological Hx Reported Smoking Status: Never smoker Past Alcohol Use History: None Reported Past Drug Use History: None Reported - Past Family History Mother Family Medical History: No Reported History Son(s) History Unknown: Yes Family Medical History: Cancer Additional Family Medical History / Comment(s): skin cancer <Amy Kong - Last Filed: 01/16/21 13:49> Course <Kilo Rivas - Last Filed: 01/16/21 12:06> Vital Signs 01/16/21 01/16/21 01/16/21 08:46 09:27 10:44 Temperature 97.3 F L 97.6 F Pulse Rate 69 82 Respiratory 18 18 Rate Blood Pressure 142/58 135/86 154/89 O2 Sat by Pulse 99 100 Oximetry 01/16/21 12:07 Temperature 98.1 F Pulse Rate 72 Respiratory 16 Rate Blood Pressure 136/79 O2 Sat by Pulse 98 Oximetry - Reevaluation(s) Reevaluation #1: 01/16/21 12:06 Patient reevaluated and reexamined by myself, Dr. Rivas. Patient resting comfortably in bed and believe she is symptom-free at this time. No episodes on neurological examination. No decrease facial sensation at this time however patient does state that previously she did have decreased sensation. Patient also states her legs feel weak when she tries to get up and walk. Case was discussed with Dr. Batres, who will admit covering for Dr. Mayorga. She does request adding aspirin as well as neurology consult and MRI. (Kilo Rivas) Disposition <Kilo Rivas - Last Filed: 01/16/21 12:06> Is patient prescribed a controlled substance at d/c from ED?: No Time of Disposition: 12:05 Decision to Admit Reason: Admit from EC Decision Date: 01/16/21 Decision Time: 12:05 <Amy Kong - Last Filed: 01/16/21 13:49> Clinical Impression: Facial numbness Disposition: ADMITTED IP TO THIS HOSP Condition: Stable
[2021-01-16] MEDS ORDERED: CLOPIDOGREL 75 MG TAB PO SCH (12:15)
[2021-01-17 05:41] VITALS: RESP 18
--- NOTE | 2021-01-17 07:49 | P.HPIM ---
History of Present Illness H&P Date: 01/17/21 Chief Complaint: Right-sided facial numbness HISTORY AND PHYSICAL AND DISCHARGE SUMMARY: HISTORY OF PRESENT ILLNESS This is an 85-year-old female patient of with past medical history of diabetes mellitus type 2, hypertension, hyperlipidemia, history of Covid 19 pneumonia. Patient completed Covid 19 vaccine in October. Patient had a recent hospitalization status post cholecystectomy and most recently iin October for diarrhea. Patient now presents with right-sided facial numbness that started Friday morning when she woke up and has been on and off for the past 2 days. She woke yesterday morning with numbness to her forehead and the bottom portion of her face. She also states she had some swelling to the bilateral ankles and numbness to the bilateral ankles. She denies having any fall or injuries. She uses a walker at home to ambulate. No weakness to her extremities and no change in speech, no visual changes, no double vision, no headache, nausea vomiting. She has normal sensation to bilateral arms and legs. Regarding low blood sugar, patient states that she does not always eat breakfast and her main meals are lunch and dinner. At the time of evaluation, all numbness is completely resolved. Patient came into [facility] emergency center for evaluation. Afebrile, heart rate 69, blood pressure 142/58, pulse ox 99% on room air. CBC was unremarkable. Sodium 138, potassium 3.0, chloride 106, CO2 22, BUN 16 and creatinine 0.82. Blood sugar 70. Calcium 7.3. Liver function tests normal. Troponin negative. Coronavirus PCR not detected. Triglycerides 109, cholesterol 115, LDL 64, HDL 29. NIH score of 1 at time of presentation. Patient has been seen by neurologist, Dr. Morfin, with recommendations for baby aspirin to be continued indefinitely, continue Zocor 20 mg at bedtime. Blood sugar this morning before breakfast was 44. Prandin dosing adjusted for home and Actos added. Patient understands that she only takes Prandin when she is eating her meal and this may be her lunch and dinner as she often gets breakfast. Patient to track Patient will be discharged home today in stable condition. CAT scan of the brain which revealed no acute intracranial hemorrhage or midline shift. There is mild to moderate diffuse age-related cerebral atrophy and chronic small vessel ischemic changes. CT angiogram of the head and neck revealed no significant stenosis and common or internal carotid arteries bilaterally. No significant stenosis or aneurysm of the level of [place]. Chest x-ray reveals chronic parenchymal changes with new small to tiny left pleural effusion. MRI of the brain reveals no evidence of recent infarct. Mild to moderate diffuse cerebral atrophy and chronic small vessel ischemic change. Echocardiogram reveals EF of 60-65% with mild aortic valve sclerosis, mild tricuspid regurgitation. REVIEW OF SYSTEMS At the time of evaluation: Constitutional: Denies fever, denies chills, no night sweats. No weight change. Denies weakness, denies fatigue, denies lethargy. EENT: No headache. No blurred vision or double vision, no loss of vision. No loss of Hearing, no ringing in the ears, no dizziness. No nasal drainage or congestion. No epistaxis. No sore throat. Lungs: No shortness of breath, cough, no sputum production. No wheezing. Cardiovascular: No chest pain, no lower extremity edema. No palpitations. No paroxysmal nocturnal dyspnea. No orthopnea. No lightheadedness or dizziness. No syncopal episodes. Abdominal: Denies abdominal pain. Denies nausea, denies vomiting. Reports diarrhea. No constipation. No bloody or tarry stools. Denies loss of appetite. Genitourinary: No dysuria, increased frequency, urgency. No urinary retention. Musculoskeletal: No myalgias. Reports muscle weakness, no gait dysfunction, no frequent falls. No back pain. No neck pain. Integumentary: No wounds, no lesions. No rash or pruritus. No unusual bru ising. No change in hair or nails. Neurologic: No aphasia. No facial droop. No change in mentation. No head injury. No headache. No paralysis. No paresthesia. Psychiatric: No depression. No anxiety. No mood swings. Endocrine: No abnormal blood sugars. No weight change. No excessive sweating or thirst. No cold intolerance. SOCIAL HISTORY Patient is a lifelong nonsmoker but has secondhand smoke exposure. No illicit drug use, no alcohol use. Patient has been a for 14 years. FAMILY HISTORY Mother in her 90s from dementia. Father in his mid 70s from COPD. Patient does not have any brothers. Patient has one sister age 78 with no major medical problems. She has 3 sons with no major medical problems. PHYSICAL EXAMINATION Gen: This is an 85-year-old female. Patient is resting in ER stretcher and appears to be comfortable. No acute respiratory distress is noted. HEENT: Head is atraumatic, normocephalic. Pupils equal, round. Sclerae is anicteric. NECK: Supple. No JVD. No lymphadenopathy. No thyromegaly. LUNGS: Lungs are clear to auscultation. No wheezes. No intercostal r etractions. HEART: Regular rate and rhythm. No murmur. ABDOMEN: Soft. Bowel sounds are present. No masses. No tenderness. EXTREMITIES: No pedal edema. No calf tenderness. NEUROLOGICAL: Patient is awake, alert and oriented x3. Cranial nerves 2 through 12 are grossly intact. ASSESSMENT AND PLAN 1. TIA presenting with left facial numbness. MRI of the brain, echocardiogram, lipid panel, consult with neurology. Patient started on aspirin, continue statin. 2. Hypoglycemia. Prandin placed on hold for now. Continue NovoLog scale only. 3. Hypokalemia. Status post replacement. 4. Diabetes mellitus type 2. NovoLog scale before meals and at bedtime. Hold Prandin. 5. Hypertension. Continue losartan 50 mg daily. 6. Hyperlipidemia. Continue simvastatin 20 mg at bedtime. 7. History of Covid 19 pneumonia, stable. 8. GI prophylaxis. Protonix 40 mg IV push daily. 9. DVT prophylaxis. Heparin subcu Patient placed as observation status. DISCHARGE PLAN Home. DISCHARGE MEDICATION LIST Losartan Potassium [Cozaar] 50 mg PO DAILY 07/03/17 [History] Simvastatin [Zocor] 20 mg PO HS 07/03/17 [History] Pantoprazole [Protonix] 40 mg PO DAILY #30 tablet. 09/18/20 [Rx] Venlafaxine HCl [Effexor] 37.5 mg PO DAILY 10/07/20 [History] Dronabinol [Marinol] 2.5 mg PO BID 01/16/21 [History] Magnesium 200 mg PO DAILY 01/16/21 [History] Mirtazapine 7.5 mg PO HS 01/16/21 [History] Potassium Chloride ER [K-Dur 10] 10 meq PO BID 01/16/21 [History] Aspirin 81 mg PO DAILY chew 01/17/21 [Rx] Pioglitazone [Actos] 15 mg PO DAILY #30 tab 01/17/21 [Rx] Repaglinide [Prandin] 2 mg PO AC-BID #0 01/17/21 [Rx] Impression and plan of care have been directed as dictated by the signing physician. Lyssa Barreto nurse practitioner acting as scribe for signing physician. Past Medical History Past Medical History: Diabetes Mellitus, Eye Disorder, Hyperlipidemia, Hypertension, Osteoarthritis (OA) Additional Past Medical History / Comment(s): back pain., hx of vertigo., cataract left eye. History of Any Multi-Drug Resistant Organisms: C-DIFF Date of last positivie culture/infection: 10/05/20 MDRO Source:: stool Past Surgical History: Cholecystectomy, Hysterectomy Additional Past Surgical History / Comment(s): right cataract (jul 2017) Past Anesthesia/Blood Transfusion Reactions: No Reported Reaction Past Psychological History: No Psychological Hx Reported Smoking Status: Never smoker Past Alcohol Use History: None Reported Past Drug Use History: None Reported - Past Family History Mother Family Medical History: No Reported History Son(s) History Unknown: Yes Family Medical History: Cancer Additional Family Medical History / Comment(s): skin cancer Medications and Allergies Home Medications Medication Instructions Recorded Confirmed Type Losartan Potassium [Cozaar] 50 mg PO DAILY 07/03/17 01/16/21 History Simvastatin [Zocor] 20 mg PO HS 07/03/17 01/16/21 History Pantoprazole [Protonix] 40 mg PO DAILY #30 tablet. 09/18/20 01/16/21 Rx Venlafaxine HCl [Effexor] 37.5 mg PO DAILY 10/07/20 01/16/21 History Dronabinol [Marinol] 2.5 mg PO BID 01/16/21 01/16/21 History Magnesium 200 mg PO DAILY 01/16/21 01/16/21 History Mirtazapine 7.5 mg PO HS 01/16/21 01/16/21 History Potassium Chloride ER [K-Dur 10] 10 meq PO BID 01/16/21 01/16/21 History Aspirin 81 mg PO DAILY chew 01/17/21 Rx Pioglitazone [Actos] 15 mg PO DAILY #30 tab 01/17/21 Rx Repaglinide [Prandin] 2 mg PO AC-BID #0 01/17/21 01/16/21 Rx Allergies Allergy/AdvReac Type Severity Reaction Status Date / Time latex Allergy Unknown Itching Verified 01/16/21 12:05 Physical Exam Vitals: Vital Signs Temp Pulse Resp BP Pulse Ox 01/17/21 05:00 97.8 F 67 18 135/61 98 01/17/21 04:00 96 01/16/21 23:10 97.3 F L 71 16 123/58 96 01/16/21 19:34 98.3 F 74 16 116/68 98 01/16/21 16:00 98.0 F 71 16 129/65 98 01/16/21 12:07 98.1 F 72 16 136/79 98 01/16/21 10:44 97.6 F 82 18 154/89 100 01/16/21 09:27 135/86 01/16/21 08:46 97.3 F L 69 18 142/58 99 Results CBC & Chem 7: 01/16/21 09:19 01/16/21 09:07 Labs: Abnormal Lab Results - Last 24 Hours (Table) 01/16/21 Range/Units 09:07 Potassium 3.0 L (3.5-5.1) mmol/L Glucose 70 L (74-99) mg/dL Calcium 7.3 L (8.4-10.2) mg/dL Total Protein 5.7 L (6.3-8.2) g/dL Albumin 2.9 L (3.5-5.0) g/dL
[2021-01-17] MEDS ORDERED: NON FORMULARY DRUG (Repaglinide [Prandin] 2 MG Tablet) PO SCH (08:00)
--- NOTE | 2021-01-17 08:46 | P.CNNES ---
History of Present Illness Consult date: 01/16/21 Requesting physician: Amy Kong Reason for Consult: Right-sided facial paresthesia History of Present Illness: Patient is a 85-year-old female arrived to the hospital today at 8:46 AM because of an episode of right facial numbness. Patient was seen in the ED, in room #19. Patient's son was also present. Apparently patient woke up this morning at 7 AM with numbness of the right facial region. She also felt disoriented in her apartment, which she describes as walking around like had been drinking. She was walking from one room to another, and felt disoriented. She denied any problem with the vision, slurred speech facial droop focal weakness. Patient called her granddaughter, to check her out. The granddaughter told her to go to the ER. Patient states that she slept in the sofa yesterday. She woke up at 3 AM to go to the bathroom and then went to her bed. She remembers having no symptoms at that time. That was probably the last known well. Patient's symptoms lasted for 4-5 hours and not has completely resolved. She feels fine. Patient's vital signs on arrival was blood pressure 142/58, pulse rate 69 and temperature 97.3. Blood test shows normal CBC, PT/PTT, sodium 138 potassium 3.0 , normal renal functions. Hepatic panel normal. Troponin negative. Galvan virus PCR negative. Patient's last hemoglobin A1c 7.1 on 09/04/2020. Patient has diabetes for over 10 years. Hypertension is controlled with medications. She is never smoker. Patient states that she has been feeling s ome "cord in the neck", that started since day before yesterday when she woke up. She has been using hot pad. Patient denies any recent injury, any chiropractic treatment. She attributes this into using a new pillow recently. Patient also mentions that for last 1 week she has been noticing swelling in her ankles and feet with some numbness for last 1 week. Does not believe this numbness in the feet has relation to her right facial numbness. Patient has recently developed thrush in her mouth,. Patient has been using a walker since she had gallbladder surgery in September 2020. Patient denies any speech difficulty any visual symptoms. No focal weakness. Patient does not take any antiplatelet medication. She used to take baby aspirin but has not taken it for years. Now she takes aspirin only when she has back pain which is very occasional incidents. Review of Systems As mentioned in HPI. All other review of systems completely unremarkable. Denies any vertigo, loss of hearing. Denies any slurred speech facial droop. Denies chest pain abdominal pain nausea vomiting diarrhea. Past Medical History Past Medical History: Diabetes Mellitus, Eye Disorder, Hyperlipidemia, Hypertension, Osteoarthritis (OA) Additional Past Medical History / Comment(s): back pain., hx of vertigo., catar act left eye. History of Any Multi-Drug Resistant Organisms: C-DIFF Date of last positivie culture/infection: 10/05/20 MDRO Source:: stool Past Surgical History: Cholecystectomy, Hysterectomy Additional Past Surgical History / Comment(s): right cataract (jul 2017) Past Anesthesia/Blood Transfusion Reactions: No Reported Reaction Past Psychological History: No Psychological Hx Reported Smoking Status: Never smoker Past Alcohol Use History: None Reported Past Drug Use History: None Reported - Past Family History Mother Family Medical History: No Reported History Son(s) History Unknown: Yes Family Medical History: Cancer Additional Family Medical History / Comment(s): skin cancer Medications and Allergies Home Medications Medication Instructions Recorded Confirmed Type Losartan Potassium [Cozaar] 50 mg PO DAILY 07/03/17 01/16/21 History Simvastatin [Zocor] 20 mg PO HS 07/03/17 01/16/21 History Pantoprazole [Protonix] 40 mg PO DAILY #30 tablet. 09/18/20 01/16/21 Rx Venlafaxine HCl [Effexor] 37.5 mg PO DAILY 10/07/20 01/16/21 History Dronabinol [Marinol] 2.5 mg PO BID 01/16/21 01/16/21 History Magnesium 200 mg PO DAILY 01/16/21 01/16/21 History Mirtazapine 7.5 mg PO HS 01/16/21 01/16/21 History Potassium Chloride ER [K-Dur 10] 10 meq PO BID 01/16/21 01/16/21 History Aspirin 81 mg PO DAILY chew 01/17/21 Rx Pioglitazone [Actos] 15 mg PO DAILY #30 tab 01/17/21 Rx Repaglinide [Prandin] 2 mg PO AC-BID #0 01/17/21 01/16/21 Rx Allergies Allergy/AdvReac Type Severity Reaction Status Date / Time latex Allergy Unknown Itching Verified 01/16/21 12:05 Physical Examination - Vital Signs Vital Signs: Vital Signs Temp Pulse Resp BP Pulse Ox 01/16/21 12:07 98.1 F 72 16 136/79 98 01/16/21 10:44 97.6 F 82 18 154/89 100 01/16/21 09:27 135/86 01/16/21 08:46 97.3 F L 69 18 142/58 99 Intake and Output 01/16/21 01/16/21 01/16/21 06:59 14:59 22:59 Other: Weight 46.266 kg Patient is an elderly female, very pleasant, in no acute distress. Patient is alert awake oriented to time place and person. Speech and language functions are normal. Attention, concentration and fund of knowledge is adequate. On cranial examination, pupils are equal, round and reacting to light, visual murry are full on confrontation with no neglect on double simultaneous stimulation, extraocular muscles are intact with no nystagmus. Face is symmetric, tongue protrudes to the midline. Palatal elevation and sensation normal, hearing and shoulder shrug normal, facial sensation normal. Shoulder shrug normal. On muscle strength testing, there is no pronator drift and the strength is normal in arms and legs distally and proximally. Deep tendon reflexes are 1 to 1+ all over and plantars downgoing. Sensory to touch is equal with no neglect. Facial sensations normal. Cerebellar function showed no ataxia for [id number] testing. No dysdiadoch okinesia. Tone and bulk of muscles normal. Gait normal. On general examination, there is no carotid bruit or murmur, S1-S2 audible. Abdomen is soft nontender. Chest is clear. Peripheral pulses are present. No edema. Results - Laboratory Findings CBC and BMP: 01/16/21 09:19 01/16/21 09:07 Abnormal Lab Findings: Abnormal Labs 01/16/21 09:07 Potassium 3.0 L Glucose 70 L Calcium 7.3 L Total Protein 5.7 L Albumin 2.9 L Assessment and Plan Assessment: * 85-year-old female presenting with right facial numbness and mild disorientat ion, that lasted for about 4-5 hours and then resolved. Current neurological examination is normal. NIH stroke scale 0. * Diabetes * Hypertension Plan: * Patient is undergoing MRI of the brain to rule out CVA. * Patient was given aspirin 325 mg in the ER. We will start her on aspirin 81 mg daily, and was recommended to continue indefinitely. Patient also on Zocor 20 mg at bedtime at home. Currently on Lipitor 10 mg. * Fasting a.m. lipid panel, hemoglobin A1c. * 2-D echo to rule out embolic source. * CTA of head and neck showed no significant stenosis in, nor internal carotid arteries bilaterally. No significant stenosis or aneurysm at the level of [place]. * Telemetry monitoring to rule out arrhythmia. * We will follow.
[2021-01-17] MEDS ORDERED: POTASSIUM CHLORIDE ER 10 MEQ TAB.ER.PRT PO SCH (09:00)
[2021-01-17] MEDS ORDERED: VENLAFAXINE HCL 37.5 MG TAB PO SCH (09:00)
[2021-01-17] MEDS ORDERED: ASPIRIN 81 MG PO SCH (09:00)
[2021-01-17] MEDS ORDERED: LOSARTAN 50 MG TAB PO SCH (09:00)
[2021-01-17] MEDS ORDERED: HEPARIN SODIUM,PORCINE/PF 5,000 UNIT/0.5 ML SYRINGE SQ SCH (09:00)
[2021-01-17] MEDS ORDERED: MAGNESIUM OXIDE 400 MG TAB PO SCH (09:00)
--- NOTE | 2021-01-17 09:07 | MR ---
EXAMINATION TYPE: MR brain wo con DATE OF EXAM: 01/17/2021 COMPARISON: CT brain from yesterday. HISTORY: TIA, acute onset neuro deficit yesterday. TECHNIQUE: Multiplanar, multisequence imaging of the brain and brainstem is performed without IV cont rast. FINDINGS: Diffusion weighted images demonstrate no evidence of a recent infarct or other diffusion abnormality. There is mild to moderate ventricular and sulcal prominence. Areas of T2 hyperintensity throughout th e deep and periventricular white matter are present. Midline structures demonstrate normal morphology. The craniocervical junction appears within normal limits. Normal vascular flow voids are present. The visualized sinuses are clear and the globes are i ntact. IMPRESSION: No MRI evidence for recent infarct. Mild to moderate diffuse cerebral atrophy and chronic small vessel ischemic change is redemonstrated.
[2021-01-17 09:33] LABS: Glucose,Whole Blood 44 mg/dL (75-99)
[2021-01-17 09:36] LABS: Glucose,Whole Blood 52 mg/dL (75-99)
[2021-01-17 09:50] LABS: Glucose,Whole Blood 66 mg/dL (75-99)
[2021-01-17 10:17] LABS: Glucose,Whole Blood 74 mg/dL (75-99)
[2021-01-17 10:38] LABS: Chol/HDL Ratio 3.97; LDL Cholesterol,Calculated 64.2 mg/dL (0.0-131.0); VLDL Calculation 21.8 mg/dL (5.00-40.00)
[2021-01-17 11:11] VITALS: TEMP 98.1
[2021-01-17] MEDS: PANTOPRAZOLE 40 MG TABLET PO SCH ×2 (11:12→11:13)
[2021-01-17 11:26] LABS: Glucose,Whole Blood 168 mg/dL (75-99)
--- NOTE | 2021-01-17 12:00 | ECHOF ---
Referral Reason:TIA MEASUREMENTS -------- HEIGHT: 149.9 cm WEIGHT: 46.3 kg BP: 135/61 RVIDd: 2.7 cm (< 3.3) IVSd: 1.0 cm (0.6 - 1.1) LVIDd: 4.2 cm (3.9 - 5.3) LVPWd: 1.0 cm (0.6 - 1.1) IVSs: 1.5 cm LVIDs: 2.6 cm LVPWs: 1.4 cm LA Diam: 2.7 cm (2.7 - 3.8) Ao Diam: 2.8 cm (2.0 - 3.7) AV Cusp: 1.7 cm (1.5 - 2.6) MV EXCURSION: 13.059 mm (> 18.000) MV EF SLOPE: 55 mm/s (70 - 150) EPSS: 2.1 cm MV E Issa: 1.00 m/s MV DecT: 262 ms MV A Issa: 1.02 m/s MV E/A Ratio: 0.98 RAP: 5.00 mmHg RVSP: 25.72 mmHg FINDINGS -------- Sinus rhythm. This was a technically good study. The left ventricular size is normal. Left ventricular wall thickness is normal. Overall left vent ricular systolic function is normal with, an EF between 60 - 65 %. The right ventricle is normal in size. The left atrium is normal in size. The right atrium is normal in size. Interatrial and interventricular septum intact. There is mild aortic valve sclerosis. The mitral valve is normal. Mild tricuspid regurgitation present. Right ventricular systolic pressure is normal at < 35 mmHg. Trace/mild (physiologic) pulmonic regurgitation. The aortic root size is normal. Normal inferior vena cava with normal inspiratory collapse consistent with estimated right atrial pre ssure of 5 mmHg. There is no pericardial effusion. CONCLUSIONS -------- 1. The left ventricular size is normal. 2. Left ventricular wall thickness is normal. 3. Overall left ventricular systolic function is normal with, an EF between 60 - 65 %. 4. There is mild aortic valve sclerosis. 5. Mild tricuspid regurgitation present. 6. Trace/mild (physiologic) pulmonic regurgitation. 7. There is no pericardial effusion. UPSETTER: Syvlia Land RD
[2021-01-17] MEDS ORDERED: INSULIN ASPART (NovoLOG) 100 UNIT/ML VIAL SQ SCH (12:30)
[2021-01-17 14:18] VITALS: BP 127/69; PULSE 67
[2021-01-17] MEDS ORDERED: MIRTAZAPINE 15 MG TAB PO SCH (21:00)
[2021-01-17] MEDS ORDERED: ATORVASTATIN 10 MG TAB PO SCH (21:00)
--- NOTE | 2021-01-24 07:58 | P.PN ---
Subjective Progress Note Date: 01/17/21 Patient was seen for a follow-up. Patient offers no complaints. Numbness mostly gone. Objective - Vital Signs Vital signs: Vital Signs Temp 98.1 F 01/17/21 11:10 Pulse 67 01/17/21 14:00 Resp 18 01/17/21 14:00 BP 127/69 01/17/21 14:00 Pulse Ox 98 01/17/21 14:00 Intake & Output 01/16/21 01/17/21 01/17/21 18:59 06:59 18:59 Weight 46.266 kg - Exam Patient's mental status, speech and language functions are normal. Muscle strength is normal. Cranial nerves normal. No ataxia. Sensations normal. - Labs CBC & Chem 7: 01/16/21 09:19 01/16/21 09:07 Labs: Abnormal Lab Results - Last 24 Hours (Table) 01/17/21 01/17/21 01/17/21 Range/Units 04:40 09:12 09:34 POC Glucose (mg/dL) 44 L 52 L (75-99) mg/dL HDL Cholesterol 29.0 L (40.0-60.0) mg/dL 01/17/21 01/17/21 01/17/21 Range/Units 09:49 10:15 11:19 POC Glucose (mg/dL) 66 L 74 L 168 H (75-99) mg/dL HDL Cholesterol (40.0-60.0) mg/dL Assessment and Plan Assessment: * 85-year-old female presenting with right facial numbness and mild disorientation, that lasted for about 4-5 hours and then resolved. Current neurological examination is normal. NIH stroke scale 0. * Diabetes * Hypertension Plan: * MRI of the brain showed no evidence of acute stroke. Mild to moderate diffuse cerebral atrophy and chronic small vessel ischemic change. * Patient was given aspirin 325 mg in the ER. Continue aspirin 81 mg daily indefinitely. * Patient also on Zocor 20 mg at bedtime at home. Currently on Lipitor 10 mg. * Fasting a.m. lipid panel with cholesterol 115, LDL 64.2, HDL 29, triglycerides 115. Continue Zocor 20 mg. * Hemoglobin A1c 6.5, well controlled. * 2-D echo revealed normal left-ventricular size. Left ventricular wall thick ness is normal. EF is 60-65%. Mild aortic valve sclerosis. Mild TR. No embolic source identified. * CTA of head and neck showed no significant stenosis in, nor internal carotid arteries bilaterally. No significant stenosis or aneurysm at the level of [place]. * Telemetry monitoring showed no arrhythmia. * Neurologically clear for discharge.
== END 2021-01-17 16:00 | disposition home or self-care (01) ==
LOC: EC 08:46 → 6NMEDSUR 12:07
PROVIDERS: ADMIT Family Medicine; ATTEND Family Medicine
DX: G45.9 Transient cerebral ischemic attack, unspecified (principal); E87.6 Hypokalemia; E11.649 Type 2 diabetes mellitus with hypoglycemia without coma; I10 Essential (primary) hypertension; E78.5 Hyperlipidemia, unspecified; Z20.822 Contact with and (suspected) exposure to COVID-19; B37.0 Candidal stomatitis; I35.8 Other nonrheumatic aortic valve disorders; M19.90 Unspecified osteoarthritis, unspecified site; Z77.22 Contact with and (suspected) exposure to environmental tobacco smoke (acute) (chronic); R22.43 Localized swelling, mass and lump, lower limb, bilateral; Z79.82 Long term (current) use of aspirin; Z79.84 Long term (current) use of oral hypoglycemic drugs; Z91.040 Latex allergy status; Z79.899 Other long term (current) drug therapy; Z90.49 Acquired absence of other specified parts of digestive tract; Z90.710 Acquired absence of both cervix and uterus; Z98.41 Cataract extraction status, right eye; Z98.42 Cataract extraction status, left eye; Z86.16 Personal history of COVID-19; Z87.01 Personal history of pneumonia (recurrent); Z86.19 Personal history of other infectious and parasitic diseases; Z82.5 Family history of asthma and other chronic lower respiratory diseases; Z80.8 Family history of malignant neoplasm of other organs or systems; Z81.8 Family history of other mental and behavioral disorders
CPT/HCPCS: 96372; 99285; 36415; 93005; 93306; 80061; 80053; 84484; 85025; 85610; 85730; 83036; 87635; 71046; 70496; 70450; 70498; 70551; G0378 ×2; Q9967; J1644